=== PATIENT | female | born 1935 | race Caucasian/White ===

== ENCOUNTER 2017-11-20 20:07 | Emergency (ER) | payer MEDICARE, OTHER ==
[2017-11-20] MEDS ORDERED: ONDANSETRON 4 MG TAB.RAPDIS PO ONE (21:23)
--- NOTE | 2017-11-20 21:25 | ER Document Report ---
ED Medical Screen (RME) - General Chief Complaint: Vomiting Stated Complaint: VOMITING Time Seen by Provider: 11/20/17 21:23 Notes: Patient is an 82-year-old who presents emergency department with a chief complaint of nausea and vomiting after taking Tamiflu for 2 days. She was diagnosed with influenza B. Primary care is Dr. Cameron Figueroa. Otherwise denies any fevers, abdominal pain, diarrhea or constipation. Denies any urinary pyuria , hematuria, pelvic pressure. TRAVEL OUTSIDE OF THE [place] IN LAST 30 DAYS: No - Related Data Allergies/Adverse Reactions: acetaminophen [From Tylenol] Allergy (Verified 11/20/17 20:11) aspirin Allergy (Verified 11/20/17 20:11) codeine Allergy (Verified 11/20/17 20:11) ibuprofen [From Motrin] Allergy (Verified 11/20/17 20:11) MATHIEU Inhibitors Adverse Reaction (Verified 11/20/17 20:11) Past Medical History - Social History Frequency of alcohol use: None Drug Abuse: None - Past Medical History Cardiac Medical History: Reports: Hx Hypercholesterolemia, Hx Hypertension Endocrine Medical History: Reports: Hx Diabetes Mellitus Type 2 Renal/ Medical History: Denies: Hx Peritoneal Dialysis Physical Exam - Vital signs Vitals: Temp Pulse Resp BP Pulse Ox 99.1 F 80 16 142/70 H 95 11/20/17 20:26 11/20/17 20:26 11/20/17 20:26 11/20/17 20:26 11/20/17 20:26 - Notes Notes: PHYSICAL EXAM GENERAL: Alert, interacts well. HEAD: Normocephalic, atraumatic. EYES: Pupils equal, round, and reactive to light. Extraocular movements intact. ENT: Oral mucosa moist, tongue midline. NEUROLOGICAL: Alert and oriented x4. Normal speech. PSYCH: Normal affect, normal mood. Course - Vital Signs Vital signs: Temp Pulse Resp BP Pulse Ox 99.1 F 80 16 142/70 H 95 11/20/17 20:26 11/20/17 20:26 11/20/17 20:26 11/20/17 20:26 11/20/17 20:26
[2017-11-20 21:58] LABS: ABSOLUTE LYMPHOCYTES (AUTO) 1.2 10^3/uL (0.5-4.7); ABSOLUTE MONOCYTES (AUTO) 0.7 10^3/uL (0.1-1.4); ABSOLUTE NEUT (AUTO) 5.9 10^3/uL (1.7-8.2); BASOPHILS % (AUTO) 0.3 % (0-2); HEMATOCRIT 39.6 % (36.0-47.0); HEMOGLOBIN 13.5 g/dL (12.0-15.5); LYMPHOCYTES % (AUTO) 15.5 % (13-45); MEAN CORPUSCULAR HEMOGLOBIN 28.4 pg (27.0-33.4); MEAN CORPUSCULAR HGB CONC 34.1 g/dL (32.0-36.0); MEAN CORPUSCULAR VOLUME 83 fl (80-97); PLATELET COUNT 177 10^3/uL (150-450); RED BLOOD COUNT 4.75 10^6/uL (3.72-5.28); RED CELL DISTRIBUTION WIDTH 15.9 % (11.5-14.0); SEGMENTED NEUTROPHILS % (AUTO) 75.2 % (42-78); TOTAL CELLS COUNTED % (AUTO) 100 %; WHITE BLOOD COUNT 7.8 10^3/uL (4.0-10.5)
[2017-11-20 22:15] LABS: ALANINE AMINOTRANSFERASE 28 U/L (9-52); ALBUMIN 4.2 g/dL (3.5-5.0); ALKALINE PHOSPHATASE 42 U/L (38-126); ANION GAP 12 (5-19); ASPARTATE AMINO TRANSFERASE 31 U/L (14-36); BILIRUBIN,DIRECT 0.2 mg/dL (0.0-0.4); BILIRUBIN,TOTAL 0.4 mg/dL (0.2-1.3); BLOOD UREA NITROGEN 18 mg/dL (7-20); CALCIUM 10.3 mg/dL (8.4-10.2); CARBON DIOXIDE 25 mmol/L (22-30); CHLORIDE 98 mmol/L (98-107); GLUCOSE 182 mg/dL (75-110); LIPASE 158.8 U/L (23-300); POTASSIUM 3.6 mmol/L (3.6-5.0); SODIUM 135.2 mmol/L (137-145); TOTAL PROTEIN 7.6 g/dL (6.3-8.2)
--- NOTE | 2017-11-20 22:53 | ER Document Report ---
ED General - General Chief Complaint: Vomiting Stated Complaint: VOMITING Time Seen by Provider: 11/20/17 21:23 Notes: Patient is an 82-year-old female who presents with 2 days of persistent vomiting. Patient reports that she was diagnosed with influenza B 3 days ago, started on Tamiflu and Mucinex at that time. Patient reports that since that time, each time she takes Tamiflu she developed several hours of persistent vomiting. She states that during these episodes of vomiting she is unable to tolerate any oral intake. Nothing seems to improve or worsen her symptoms when they are present. She has had loose stools. She notes that she has had subjective fevers at home but has not recorded her temperature. She does note a dry, nonproductive cough. Her primary care doctor is the one who originally diagnosed with influenza B and started her on Tamiflu. No known sick contacts. She denies any headache, neck pain, focal weakness or numbness, confusion, or focal abdominal pain. TRAVEL OUTSIDE OF THE [place] IN LAST 30 DAYS: No - Related Data Allergies/Adverse Reactions: acetaminophen [From Tylenol] Allergy (Verified 11/20/17 20:11) aspirin Allergy (Verified 11/20/17 20:11) codeine Allergy (Verified 11/20/17 20:11) ibuprofen [From Motrin] Allergy (Verified 11/20/17 20:11) MATHIEU Inhibitors Adverse Reaction (Verified 11/20/17 20:11) Past Medical History - General Information source: Patient - Social History Smoking Status: Former Smoker Frequency of alcohol use: None Drug Abuse: None Lives with: Family Family History: Reviewed & Not Pertinent Patient has suicidal ideation: No Patient has homicidal ideation: No - Past Medical History Cardiac Medical History: Reports: Hx Hypercholesterolemia, Hx Hypertension Endocrine Medical History: Reports: Hx Diabetes Mellitus Type 2 Renal/ Medical History: Denies: Hx Peritoneal Dialysis Review of Systems - Review of Systems Notes: Constitutional: Positive for fever. HENT: Negative for sore throat. Eyes: Negative for visual changes. Cardiovascular: Negative for chest pain. Respiratory: Negative for shortness of breath. Positive for cough Gastrointestinal: Negative for abdominal pain, positive for vomiting and diarrhea Genitourinary: Negative for dysuria. Musculoskeletal: Negative for back pain. Skin: Negative for rash. Neurological: Negative for headaches, weakness or numbness. 10 point ROS negative except as marked above and in HPI. Physical Exam - Vital signs Vitals: Temp Pulse Resp BP Pulse Ox 99.1 F 80 16 142/70 H 95 11/20/17 20:26 11/20/17 20:26 11/20/17 20:26 11/20/17 20:26 11/20/17 20:26 Interpretation: Normal Notes: PHYSICAL EXAMINATION: GENERAL: Well-appearing, well-nourished and in no acute distress. HEAD: Atraumatic, normocephalic. EYES: Pupils equal round and reactive to light, extraocular movements intact, sclera anicteric, conjunctiva are normal. ENT: nares patent, oropharynx clear without exudates. Moderately dry mucous membranes. NECK: Normal range of motion, supple without lymphadenopathy LUNGS: Breath sounds clear to auscultation bilaterally and equal. No wheezes rales or rhonchi. HEART: Regular rate and rhythm without murmurs ABDOMEN: Soft, nontender, normoactive bowel sounds. No guarding, no rebound. No masses appreciated. EXTREMITIES: Normal range of motion, no pitting or edema. No cyanosis. NEUROLOGICAL: No focal neurological deficits. Moves all extremities spontaneously and on command. PSYCH: Normal mood, normal affect. SKIN: Warm, Dry, normal turgor, no rashes or lesions noted. Course - Re-evaluation Re-evalutation: 11/20/17 22:53 Patient presents with persistent vomiting in the setting of starting Tamiflu 2 days ago. Patient states that each time she takes the medication, she develops persistent vomiting that lasts for approximately 3-4 hours and then resolves. She has been able to tolerate oral intake in between episodes of vomiting. She denies any focal abdominal pain and is otherwise well in appearance. No focal abdominal tenderness on examination. She has been able to tolerate oral intake in the emergency department. Labs unremarkable with exception of mild hyperglycemia. Her clinical history and exam are not consistent with acute biliary pathology, small bowel obstruction, acute appendicitis, acute pancreatitis, pneumonia, or any other life-threatening pathology. At this time will discharge with return precautions and follow-up recommendations. Verbal discharge instructions given a the bedside and opportunity for questions given. Medication warnings reviewed. Patient is in agreement with this plan and has verbalized understanding of return precautions and the need for primary care follow-up in the next 24-72 hours. - Vital Signs Vital signs: Temp Pulse Resp BP Pulse Ox 98.8 F 71 20 114/62 96 11/20/17 23:40 11/20/17 23:40 11/20/17 23:40 11/20/17 23:40 11/20/17 23:40 - Laboratory Result Diagrams: 11/20/17 21:52 11/20/17 21:52 Laboratory results interpreted by me: 11/20/17 11/20/17 21:52 21:52 RDW 15.9 H Sodium 135.2 L Glucose 182 H Calcium 10.3 H Discharge - Discharge Clinical Impression: Vomiting Qualifiers: Vomiting type: unspecified Vomiting Intractability: non-intractable Nausea presence: with nausea Qualified Code(s): R11.2 - Nausea with vomiting, unspecified Medication reaction Qualifiers: Encounter type: initial encounter Qualified Code(s): T88.7XXA - Unspecified adverse effect of drug or medicament, initial encounter Condition: Good Disposition: HOME, SELF-CARE Additional Instructions: Please discontinue taking Tamiflu as this medication is not effective and is likely the cause of your symptoms. I would also stop the Mucinex that your taking as this likewise is not providing you any significant benefit. Return if you become unable to tolerate fluids for more than 12 hours, have abdominal pain, pass out, have difficulty breathing, or have any other symptoms that are worrisome to you. Referrals: SHEN KEITA MD [Primary Care Provider] - Follow up as needed
[2017-11-20 23:08] VITALS: BP 114/62
== END 2017-11-20 23:36 | disposition home or self-care (01) ==
LOC: ER 20:07
DX: R11.2 Nausea with vomiting, unspecified (principal); R50.9 Fever, unspecified; T50.905A Adverse effect of unspecified drugs, medicaments and biological substances, initial encounter; E78.00 Pure hypercholesterolemia, unspecified; I10 Essential (primary) hypertension; E11.9 Type 2 diabetes mellitus without complications; Z88.6 Allergy status to analgesic agent; Z87.891 Personal history of nicotine dependence
CPT/HCPCS: 99284; 36415; 83690; 85025; 80053; A9270; S0119

== ENCOUNTER 2017-11-28 06:05 | Inpatient (IN) | payer MEDICARE, OTHER ==
--- NOTE | 2017-11-28 07:46 | ER Document Report ---
ED General - General Mode of Arrival: Ambulatory Information source: Patient TRAVEL OUTSIDE OF THE [place] IN LAST 30 DAYS: No - HPI Patient complains to provider of: Left shoulder Pain Onset: Other - last night Associated symptoms: Other - see notes above Exacerbated by: Sitting, Coughing <JM CASTELLANO - Last Filed: 11/28/17 15:00> <JOANN HALL - Last Filed: 11/28/17 15:04> - General Chief Complaint: Shoulder Pain Stated Complaint: SHOULDER PAIN Time Seen by Provider: 11/28/17 07:32 Notes: 82 year old female recently diagnosed with influenza (last week; prescribed Tamiflu) presents to the ED complaining of throbbing and aching left shoulder pain that started last night. Patient reports that her pain is exacerbated with coughing and when sitting up. Patient additionally complains of cough, pursed lip breathing, a "burning" kidney, and caking of the bilateral eyes. Patient denies shortness of breath. Patient was seen here 2 days ago for vomiting and diarrhea secondary to Tamiflu. (JM CASTELLANO) - Related Data Allergies/Adverse Reactions: acetaminophen [From Tylenol] Allergy (Verified 11/28/17 10:40) aspirin Allergy (Verified 11/28/17 10:40) codeine Allergy (Verified 11/28/17 10:40) ibuprofen [From Motrin] Allergy (Verified 11/28/17 10:40) MATHIEU Inhibitors Adverse Reaction (Verified 11/28/17 10:40) Past Medical History - General Information source: Patient - Social History Smoking Status: Former Smoker Chew tobacco use (# tins/day): No Frequency of alcohol use: None Drug Abuse: None Family History: Reviewed & Not Pertinent - Past Medical History Cardiac Medical History: Reports: Hx Hypercholesterolemia, Hx Hypertension Endocrine Medical History: Reports: Hx Diabetes Mellitus Type 2 Renal/ Medical History: Denies: Hx Peritoneal Dialysis <JM CASTELLANO - Last Filed: 11/28/17 15:00> Review of Systems - Review of Systems Constitutional: No symptoms reported EENT: No symptoms reported Cardiovascular: No symptoms reported Respiratory: See HPI, Cough. denies: Short of breath Gastrointestinal: No symptoms reported Genitourinary: See HPI, Burning - of the kidneys Female Genitourinary: No symptoms reported Musculoskeletal: See HPI, Joint pain - right shoulder Skin: No symptoms reported Hematologic/Lymphatic: No symptoms reported Neurological/Psychological: No symptoms reported -: Yes All other systems reviewed and negative <JM CASTELLANO - Last Filed: 11/28/17 15:00> Physical Exam <JM CASTELLANO - Last Filed: 11/28/17 15:00> <JOANN HALL - Last Filed: 11/28/17 15:04> - Vital signs Vitals: Temp Pulse Resp BP Pulse Ox 97.7 F 88 24 H 130/70 H 95 11/28/17 06:14 11/28/17 06:14 11/28/17 06:14 11/28/17 06:14 11/28/17 06:14 - Notes Notes: GENERAL: Alert, interacts well. Mildly short of breath. HEAD: Normocephalic, atraumatic. EYES: Pupils equal, round, and reactive to light. Extraocular movements intact. Minimal conjunctiva injection, bilaterally. ENT: Oral mucosa moist, tongue midline. NECK: Full range of motion. Supple. Trachea midline. LUNGS: Expiratory wheezing anteriorly that clears with coughing. Tachypnic. Occasional pursed breathing. Right lower lobe rhonchi with inspiratory and expiratory squeaking. No rales. Mild respiratory distress with occasional pursed lip breathing. HEART: Regular rate and rhythm. No murmurs, gallops, or rubs. ABDOMEN: Soft. Non-distended. Bowel sounds present in all 4 quadrants. LUQ tenderness to palpation. EXTREMITIES: Moves all 4 extremities spontaneously. No edema, radial and dorsalis pedis pulses 2/4 bilaterally. No cyanosis. Tenderness to palpation over the left trapezius. NEUROLOGICAL: Alert and oriented x3. Normal speech. PSYCH: Normal affect, normal mood. SKIN: Warm, dry, normal turgor. No rashes or lesions noted. (JM CASTELLANO) Course - Laboratory Result Diagrams: 11/28/17 08:25 11/28/17 08:25 - Consults Dr. Woo Time consulted: 09:59 <JM CASTELLANO - Last Filed: 11/28/17 15:00> - Laboratory Result Diagrams: 11/28/17 08:25 11/28/17 08:25 <JOANN HALL - Last Filed: 11/28/17 15:04> - Re-evaluation Re-evalutation: 11/28/17 10:02 CBC unremarkable, no left shift, CMP shows low sodium at 131.8 elevated blood sugar with glucose of 230 consistent with history of diabetes, troponin indeterminate at 0.093, urinalysis shows small leukocyte esterase, small blood, trace ketones. This will be sent for culture. Chest x-ray shows left-sided bandlike airspace disease just above the hemidiaphragm atelectasis versus pneumonia. Given her recent influenza and her increased cough and visible shortness of breath I am concerned that this may represent pneumonia despite the lack of a leukocytosis or fever, patient will be treated with Levaquin as she does have underlying structural lung disease. I am also concerned the left shoulder pain may be an anginal equivalent. Patient will be given Plavix that she is allergic to aspirin. Initial cardiac enzymes are indeterminate although the EKG is nonischemic. Patient was discussed with Dr. Woo from the hospitalist service who agrees to place the patient on his service in observation status. Patient and family are aware of this plan. Patient will be given nitroglycerin to see if it resolves the left shoulder pain, patient will also be given a Lidoderm patch in case the shoulder pain is coming from a musculoskeletal etiology. Her shoulder pain is not completely reproducible on examination. ( JOANN HALL) - Vital Signs Vital signs: Temp Pulse Resp BP Pulse Ox 98.1 F 88 26 H 107/57 L 94 11/28/17 14:00 11/28/17 06:14 11/28/17 14:11 11/28/17 14:12 11/28/17 14:11 - Laboratory Laboratory results interpreted by me: 11/28/17 11/28/17 11/28/17 08:25 08:25 08:36 RDW 15.2 H Lymphocytes % 12.1 L Sodium 131.8 L Chloride 97 L Glucose 230 H Calcium 10.4 H Direct Bilirubin 0.5 H Urine Protein 30 H Urine Glucose (UA) 50 H Urine Ketones TRACE H Urine Blood SMALL H Ur Leukocyte Esterase SMALL H - EKG Interpretation by Me Additional EKG results interpreted by me: 11/28/17 10:04 EKG shows sinus rhythm with a left bundle branch block, negative sgarbossa criteria, no T-wave inversions, there are some biphasic T waves in lead I and aVL per my interpretation. (JOANN HALL) - Consults Dr. Woo Reason for consultation: 11/28/17 09:[address] Woo who agrees to admit the patient under his care. (JM CASTELLANO) Discharge <JM CASTELLANO - Last Filed: 11/28/17 15:00> - Discharge Admitting Provider: Nanette Woo Unit Admitted: Telemetry <JOANN HALL - Last Filed: 11/28/17 15:04> - Discharge Clinical Impression: Troponin level elevated, Anginal equivalent Left lower lobe pneumonia Qualifiers: Pneumonia type: due to unspecified organism Qualified Code(s): J18.1 - Lobar pneumonia, unspecified organism Left shoulder pain Qualifiers: Chronicity: acute Qualified Code(s): M25.512 - Pain in left shoulder Diabetes mellitus with hyperglycemia, with long-term current use of insulin Qualifiers: Diabetes mellitus type: type 2 Qualified Code(s): E11.65 - Type 2 diabetes mellitus with hyperglycemia Condition: Fair Disposition: ADMITTED OBSERVATION Scribe Attestation: 11/28/17 15:04 I personally performed the services described in the documentation, reviewed and edited the documentation which was dictated to the scribe in my presence, and it accurately records my words and actions. (JOANN HALL) Scribe Documentation - Scribe Written by Lilliane:: Ralph Saini, 11/28/2017 0833 acting as scribe for :: Coni <JM CASTELLANO - Last Filed: 11/28/17 15:00>
--- NOTE | 2017-11-28 08:18 | RADIOLOGY REPORT (SQ) ---
EXAM DESCRIPTION: CHEST PA/LAT COMPLETED DATE/TIME: 11/28/2017 8:00 am REASON FOR STUDY: cough, left shoulder pain COMPARISON: None. EXAM PARAMETERS: NUMBER OF VIEWS: two views TECHNIQUE: Digital Frontal and Lateral radiographic views of the chest acquired. RADIATION DOSE: NA LIMITATIONS: none FINDINGS: LUNGS AND PLEURA: Old right thoracotomy defect along the posterior right 6th rib, with vol ume loss in the right hemithorax likely post lobectomy. Bandlike airspace just above the left hemidiaphragm, atelectasis versus pneumonia. No pneumothorax or pleural effusions. MEDIASTINUM AND HILAR STRUCTURES: No masses or contour abnormalities. HEART AND VASCULAR STRUCTURES: Heart normal size. No evidence for failure. BONES: No acute findings. HARDWARE: None in the chest. OTHER: No other significant finding. IMPRESSION: Old right thoracotomy and probable lobectomy. Bandlike airspace disease left lung base just above the hemidiaphragm, atelectasis versus pneumonia TECHNICAL DOCUMENTATION: JOB ID: [id number] [employer]- All Rights Reserved
[2017-11-28 08:41] LABS: ABSOLUTE LYMPHOCYTES (AUTO) 1.2 10^3/uL (0.5-4.7); ABSOLUTE MONOCYTES (AUTO) 1.1 10^3/uL (0.1-1.4); ABSOLUTE NEUT (AUTO) 7.2 10^3/uL (1.7-8.2); BASOPHILS % (AUTO) 0.3 % (0-2); EOSINOPHILS % (AUTO) 0.2 % (0-6); HEMATOCRIT 36.4 % (36.0-47.0); HEMOGLOBIN 12.4 g/dL (12.0-15.5); LYMPHOCYTES % (AUTO) 12.1 % (13-45); MEAN CORPUSCULAR VOLUME 82 fl (80-97); PLATELET COUNT 272 10^3/uL (150-450); RED BLOOD COUNT 4.42 10^6/uL (3.72-5.28); RED CELL DISTRIBUTION WIDTH 15.2 % (11.5-14.0); SEGMENTED NEUTROPHILS % (AUTO) 75.4 % (42-78); TOTAL CELLS COUNTED % (AUTO) 100 %; WHITE BLOOD COUNT 9.6 10^3/uL (4.0-10.5)
[2017-11-28 08:51] LABS: ALANINE AMINOTRANSFERASE 41 U/L (9-52); ALBUMIN 3.5 g/dL (3.5-5.0); ALKALINE PHOSPHATASE 43 U/L (38-126); ANION GAP 12 (5-19); ASPARTATE AMINO TRANSFERASE 24 U/L (14-36); BILIRUBIN,DIRECT 0.5 mg/dL (0.0-0.4); BILIRUBIN,TOTAL 0.9 mg/dL (0.2-1.3); BLOOD UREA NITROGEN 14 mg/dL (7-20); CALCIUM 10.4 mg/dL (8.4-10.2); CARBON DIOXIDE 23 mmol/L (22-30); CHLORIDE 97 mmol/L (98-107); CREATINE KINASE 32 U/L (30-135); GLUCOSE 230 mg/dL (75-110); LIPASE 64.8 U/L (23-300); SODIUM 131.8 mmol/L (137-145); TOTAL PROTEIN 7.5 g/dL (6.3-8.2)
[2017-11-28 08:53] LABS: APPEARANCE,URINE SLIGHTLY-CLOUDY; BILIRUBIN,URINE NEGATIVE (NEGATIVE); COLOR,URINE YELLOW; GLUCOSE, URINE 50 mg/dL (NEGATIVE); KETONES,URINE TRACE mg/dL (NEGATIVE); LEUKOCYTE ESTERASE,URINE SMALL (NEGATIVE); NITRITE,URINE NEGATIVE (NEGATIVE); PROTEIN,URINE 30 mg/dL (NEGATIVE); URINE SPECIFIC GRAVITY 1.012; UROBILINOGEN,URINE NEGATIVE mg/dL (<2.0)
[2017-11-28 09:09] LABS: CREATINE KINASE MB 0.96 ng/mL (<4.55)
[2017-11-28 09:15] LABS: TROPONIN I 0.093 ng/mL
[2017-11-28] MEDS ORDERED: CLOPIDOGREL BISULFATE 75 MG TABLET PO ONE (09:43)
[2017-11-28] MEDS ORDERED: LIDOCAINE 4% TOPICAL SOLN 50 ML TOP ONE (09:43)
[2017-11-28] MEDS ORDERED: NITROGLYCERIN 0.4 MG/TAB 25 TAB/BOTTLE SL PRN (09:43)
[2017-11-28] MEDS ORDERED: EXENATIDE INJ 10 MCG/0.04 ML 2.4 ML PEN.INJCTR SUBCUT SCH ×2 (09:45→18:00)
[2017-11-28] MEDS ORDERED: LEVOFLOXACIN 750 MG/D5W RTU 750 MG/150 ML RTUPB IV ONE (09:58)
[2017-11-28] MEDS ORDERED: MAG HYDROX/AL HYDROX/SIMETH SUSP 30 ML UDCUP PO PRN (10:35)
[2017-11-28] MEDS ORDERED: ONDANSETRON HCL INJ/PF 4 MG/2 ML SDV IV PRN (10:35)
[2017-11-28] MEDS ORDERED: ACETAMINOPHEN 325 MG TABLET PO PRN (10:35)
--- NOTE | 2017-11-28 11:09 | PDOC H&P ---
History of Present Illness Admission Date/PCP: 11/28/17 10:29 SHEN KEITA MD History of Present Illness: ROSA WEAVER is a 82 year old female who presents with persistent cough and left shoulder pain. She was diagnosed with influenza B about 2 weeks ago. She was prescribed Tamiflu, which he only took 1 days worth of therapy due to side effects. She has been coughing ever since. She also reports general malaise. This morning she had difficulty getting out of bed due to left shoulder discomfort. Her left shoulder pain is worse when she lays flat. Currently she is sitting or laying at a incline which is providing some relief. She did not experience elliott chest pain. She did not experience shortness of breath. She did not experience nausea, vomiting, diaphoresis, or palpitations. With respect to her recent flu infection, she attempted to use Mucinex, but discontinued it because, her "kidneys were hurting". She has a history of smoking cigarettes. She quit in 1980. 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 Past Medical History Cardiac Medical History: Reports: Hyperlipidema, Hypertension Endocrine Medical History: Reports: Diabetes Mellitus Type 2 Past Surgical History Past Surgical History: Reports: Other - Right lower lobectomy Social History Information Source: Patient Lives with: Alone Smoking Status: Former Smoker Frequency of Alcohol Use: None Hx Recreational Drug Use: No Drugs: None Hx Prescription Drug Abuse: No - Advance Directive Resuscitation Status: Full Code Family History Family History: Reviewed & Not Pertinent Parental Family History Reviewed: No Children Family History Reviewed: No Sibling(s) Family History Reviewed.: No Medication/Allergy Home Medications: Citalopram Hydrobromide [Celexa 20 mg Tablet] 20 mg PO DAILY 11/28/17 Exenatide [Byetta Inj 10 Mcg/0.04 ml 2.4 ml Pen.injctr] 10 mcg SUBCUT DAILY Fenofibric Acid (Choline) [Trilipix] 135 mg PO QHS 11/28/17 Gabapentin [Neurontin 300 mg Capsule] 300 mg PO QHS 11/28/17 Hydrochlorothiazide [Hydrodiuril 25 mg Tablet] 25 mg PO QAM 11/28/17 Losartan Potassium [Cozaar 100 mg Tablet] 100 mg PO DAILY 11/28/17 Metformin HCl [Glucophage XR 500 mg Tablet] 1,000 mg PO DAILY 11/28/17 Tolterodine Tartrate [Detrol LA] 2 mg PO DAILY 11/28/17 Allergies/Adverse Reactions: acetaminophen [From Tylenol] Allergy (Verified 11/28/17 10:40) aspirin Allergy (Verified 11/28/17 10:40) codeine Allergy (Verified 11/28/17 10:40) ibuprofen [From Motrin] Allergy (Verified 11/28/17 10:40) MATHIEU Inhibitors Adverse Reaction (Verified 11/28/17 10:40) Review of Systems Constitutional: PRESENT: weakness. ABSENT: chills, fatigue, fever(s), night sweats Cardiovascular: ABSENT: chest pain, dyspnea on exertion, edema, orthropnea, palpitations Respiratory: PRESENT: cough, dyspnea - With exertion, sputum. ABSENT: hemoptysis Gastrointestinal: ABSENT: abdominal pain, constipation, diarrhea, hematemesis, hematochezia, nausea, vomiting Neurological: ABSENT: abnormal gait, abnormal speech, confusion, dizziness, focal weakness, syncope Psychiatric: ABSENT: anxiety, depression, homidical ideation, suicidal ideation Endocrine: ABSENT: cold intolerance, heat intolerance, polydipsia, polyuria Physical Exam Vital Signs: Temp Pulse Resp BP Pulse Ox 97.7 F 88 27 H 117/73 94 11/28/17 06:14 11/28/17 06:14 11/28/17 10:17 11/28/17 10:17 11/28/17 10:17 General appearance: PRESENT: no acute distress, cooperative, well-developed, well-nourished Head exam: PRESENT: atraumatic, normocephalic Eye exam: PRESENT: conjunctiva pink, EOMI, PERRLA Ear exam: PRESENT: normal external ear exam, TM's normal bilaterally Mouth exam: PRESENT: moist, neck supple Teeth exam: PRESENT: other - Upper and lower dentures Throat exam: ABSENT: post pharyngeal erythema, tonsillar erythema Neck exam: ABSENT: carotid bruit, JVD, lymphadenopathy, thyromegaly Respiratory exam: PRESENT: clear to auscultation jennifer. ABSENT: rales, rhonchi, wheezes Cardiovascular exam: PRESENT: RRR. ABSENT: diastolic murmur, rubs, systolic murmur Pulses: PRESENT: normal dorsalis pedis pul GI/Abdominal exam: PRESENT: normal bowel sounds, soft. ABSENT: distended, guarding, mass, organolmegaly, rebound, tenderness Rectal exam: PRESENT: deferred Musculoskeletal exam: PRESENT: ambulatory Neurological exam: PRESENT: alert, awake, oriented to person, oriented to place , oriented to time, oriented to situation, CN II-XII grossly intact. ABSENT: motor sensory deficit Psychiatric exam: PRESENT: appropriate affect, normal mood. ABSENT: homicidal ideation, suicidal ideation Skin exam: PRESENT: dry, intact, warm. ABSENT: cyanosis, rash Results Impressions: Chest X-Ray 11/28/17 07:33 IMPRESSION: Old right thoracotomy and probable lobectomy. Bandlike airspace disease left lung base just above the hemidiaphragm, atelectasis versus pneumonia Assessment & Plan - Diagnosis (1) Left lower lobe pneumonia Qualifiers: Pneumonia type: due to unspecified organism Qualified Code(s): J18.1 - Lobar pneumonia, unspecified organism Is this a current diagnosis for this admission?: Yes Plan: The x-ray suggests atelectasis. However given her recent history of influenza, the abnormality on the chest x-ray, and her ongoing symptoms, she may very well have a pneumonia. She was started on Levaquin in the emergency department. I will continue Levaquin. I will also cover her with vancomycin for the potential for MRSA infection. Blood cultures have been obtained. (2) Diabetes mellitus with hyperglycemia, with long-term current use of insulin Qualifiers: Diabetes mellitus type: type 2 Qualified Code(s): E11.65 - Type 2 diabetes mellitus with hyperglycemia; Z79.4 - [facility] (current) use of insulin; Z79.4 - [facility] (current) use of insulin; Z79.4 - [facility]termaker (current) use of insulin ; Z79.4 - buttermaker (current) use of insulin Is this a current diagnosis for this admission?: Yes Plan: Continue home meds. Include sliding scale for insulin. (3) Left shoulder pain Qualifiers: Chronicity: acute Qualified Code(s): M25.512 - Pain in left shoulder Plan: Check left shoulder x-ray. Consider MRI of the shoulder as well. Mobic daily for pain. (4) Troponin level elevated Is this a current diagnosis for this admission?: Yes Plan: She does not have angina. Her left shoulder pain is reproducible with movement and palpation. Her ECG showed sinus rhythm with a left bundle branch block. The rate was normal at 71 bpm. I am not sure how to explain her elevated/ borderline troponin. Nevertheless, I will continue her on telemetry. I have also ordered repeat troponin levels. If they continue to rise, I will get a cardiology consult. She reportedly has an allergy to aspirin. She was given Plavix in the ED. I will continue Plavix for now until her enzymes have been reported. - Time Time Spent: 50 to 70 Minutes Medications reviewed and adjusted accordingly: Yes Anticipated discharge: Home Within: within 48 hours - Inpatient Certification Based on my medical assessment, after consideration of the patient's comorbidities, presenting symptoms, or acuity I expect that the services needed warrant INPATIENT care.: Yes I certify that my determination is in accordance with my understanding of Medicare's requirements for reasonable and necessary INPATIENT services [42 CFR 412.3e].: Yes Medical Necessity: Failure to Improve With Outpatient Therapy, Need For IV Fluids, Need For Continuous Telemetry Monitoring, Need for IV Antibiotics
[2017-11-28] MEDS ORDERED: VANCOMYCIN HCL INJ 1000 MG VIAL IV ONE (11:12)
[2017-11-28] MEDS ORDERED: DEXTROSE 40% GEL 15 GM TUBE PO PRN ×2 (11:13)
[2017-11-28] MEDS ORDERED: DEXTROSE 50%-WATER 25 GM/50 ML DISP.SYRIN IV PRN ×2 (11:13)
[2017-11-28] MEDS ORDERED: GLUCAGON,HUMAN RECOMB 1 MG INJ IM PRN (11:13)
[2017-11-28] MEDS ORDERED: (PENDING PHARMACY ID) (Tolterodine Tartrate [Detrol La] 2 MG) PO SCH (11:15)
[2017-11-28 11:47] LABS: A TYPE INFLUENZA AG NEGATIVE (NEGATIVE); B INFLUENZA AG NEGATIVE (NEGATIVE)
--- NOTE | 2017-11-28 13:02 | RADIOLOGY REPORT (SQ) ---
EXAM DESCRIPTION: SHOULDER LEFT 2 OR MORE VIEWS COMPLETED DATE/TIME: 11/28/2017 12:48 pm REASON FOR STUDY: pain A49.9 BACTERIAL INFECTION, UNSPECIFIED COMPARISON: None. NUMBER OF VIEWS: Three views. TECHNIQUE: Internal rotation, external rotation, and Y view images acquired of the left shoulder. LIMITATIONS: None. FINDINGS: MINERALIZATION: Osteopenic BONES: No acute fracture or dislocation. No worrisome bone lesions. JOINTS: No glenohumeral joint dislocation. No AC joint widening. VISUALIZED LUNGS AND RIBS: No acute displaced rib fracture in the field of view. Minimal left basila r atelectasis. No pneumothorax. SOFT TISSUES: No radiopaque foreign body. OTHER: No other significant finding. IMPRESSION: No acute fracture or malalignment Minimal left basilar atelectasis TECHNICAL DOCUMENTATION: JOB ID: [id number] [employer]- All Rights Reserved
[2017-11-28] MEDS: 1/2 NORMAL SALINE 1,000 ML IV PRN (13:19)
--- NOTE | 2017-11-28 13:24 | EKG REPORT ---
SEVERITY:- ABNORMAL ECG - SINUS RHYTHM LEFT BUNDLE BRANCH BLOCK : Confirmed by: Ji Lobo MD 28-Nov-2017 13:23:06
[2017-11-28] MEDS ORDERED: METFORMIN HCL 500 MG TABLET PO ONE (13:30)
[2017-11-28] MEDS ORDERED: LIDOCAINE 5% (700 MG) TRANSDERMAL ADH..PATCH TP ONE (13:30)
[2017-11-28] MEDS ORDERED: LOSARTAN POTASSIUM 50 MG TABLET PO ONE (13:30)
[2017-11-28] MEDS: GENTAMICIN SULFATE 0.3% OPH SOLN 5 ML OU SCH ×3 (14:08→22:17)
[2017-11-28] MEDS ORDERED: EXENATIDE INJ 10 MCG/0.04 ML 2.4 ML PEN.INJCTR SUBCUT ONE (16:45)
[2017-11-28] MEDS: DOCUSATE SODIUM 100 MG CAPSULE PO SCH (17:57)
[2017-11-28] MEDS ORDERED: TEMAZEPAM 7.5 MG CAPSULE PO PRN (18:43)
[2017-11-28] MEDS ORDERED: VANCOMYCIN HCL 1,500 MG in DEXTROSE 5%-WATER 250 ML IV ONE (20:00)
[2017-11-28] MEDS: TRAMADOL HCL 50 MG TABLET PO PRN (20:01)
[2017-11-28] MEDS: IPRATROPIUM/ALBUTEROL 0.5-2.5 MG/3 ML AMPUL NEB PRN (21:17)
[2017-11-28] MEDS ORDERED: (PENDING PHARMACY ID) (Fenofibric Acid (Choline) [Trilipix] 135 MG) PO SCH (22:00)
[2017-11-28] MEDS: GABAPENTIN 300 MG CAPSULE PO SCH (22:13)
[2017-11-28] MEDS: METFORMIN HCL 500 MG TABLET PO SCH (22:13)
[2017-11-28] MEDS: FENOFIBRATE NANOCRYSTALLIZED 145 MG TABLET PO SCH (22:14)
[2017-11-28] MEDS: TOLTERODINE TARTRATE 1 MG TABLET PO SCH (22:18)
[2017-11-28] MEDS: CEFTRIAXONE SODIUM 1,000 MG in NORMAL SALINE 100 ML IV SCH (22:19)
[2017-11-28] MEDS: INSULIN LISPRO 100 UNIT/ML 3 ML VIAL SUBCUT PRN (22:20)
[2017-11-29] MEDS: GENTAMICIN SULFATE 0.3% OPH SOLN 5 ML OU SCH ×6 (03:09→22:14)
[2017-11-29] MEDS: TRAMADOL HCL 50 MG TABLET PO PRN (03:14)
[2017-11-29] MEDS: VANCOMYCIN HCL 500 MG in DEXTROSE 5%-WATER 100 ML IV SCH ×2 (05:31→17:13)
[2017-11-29] MEDS: 1/2 NORMAL SALINE 1,000 ML IV PRN (05:32)
[2017-11-29 06:13] LABS: ABSOLUTE EOSINOPHILS # (AUTO) 0.1 10^3/uL (0.0-0.6); ABSOLUTE LYMPHOCYTES (AUTO) 1.5 10^3/uL (0.5-4.7); ABSOLUTE MONOCYTES (AUTO) 0.9 10^3/uL (0.1-1.4); ABSOLUTE NEUT (AUTO) 5.5 10^3/uL (1.7-8.2); BASOPHILS % (AUTO) 0.3 % (0-2); EOSINOPHILS % (AUTO) 0.7 % (0-6); HEMOGLOBIN 11.8 g/dL (12.0-15.5); LYMPHOCYTES % (AUTO) 19.2 % (13-45); MEAN CORPUSCULAR HEMOGLOBIN 27.9 pg (27.0-33.4); MEAN CORPUSCULAR HGB CONC 33.7 g/dL (32.0-36.0); MEAN CORPUSCULAR VOLUME 83 fl (80-97); MONOCYTES % (AUTO) 10.7 % (3-13); PLATELET COUNT 252 10^3/uL (150-450); RED BLOOD COUNT 4.23 10^6/uL (3.72-5.28); RED CELL DISTRIBUTION WIDTH 14.8 % (11.5-14.0); SEGMENTED NEUTROPHILS % (AUTO) 69.1 % (42-78); TOTAL CELLS COUNTED % (AUTO) 100 %
[2017-11-29 06:33] LABS: ALANINE AMINOTRANSFERASE 45 U/L (9-52); ALBUMIN 3.2 g/dL (3.5-5.0); ALKALINE PHOSPHATASE 42 U/L (38-126); ANION GAP 10 (5-19); ASPARTATE AMINO TRANSFERASE 33 U/L (14-36); BILIRUBIN,DIRECT 0.1 mg/dL (0.0-0.4); BILIRUBIN,TOTAL 0.3 mg/dL (0.2-1.3); BLOOD UREA NITROGEN 15 mg/dL (7-20); CALCIUM 10.8 mg/dL (8.4-10.2); CARBON DIOXIDE 25 mmol/L (22-30); CHLORIDE 100 mmol/L (98-107); GLUCOSE 156 mg/dL (75-110); PHOSPHORUS 2.4 mg/dL (2.5-4.5); POTASSIUM 4.2 mmol/L (3.6-5.0); SODIUM 134.5 mmol/L (137-145); TOTAL PROTEIN 6.6 g/dL (6.3-8.2)
--- NOTE | 2017-11-29 08:31 | RADIOLOGY REPORT (SQ) ---
EXAM DESCRIPTION: CHEST PA/LAT COMPLETED DATE/TIME: 11/29/2017 7:46 am REASON FOR STUDY: pneumonia COMPARISON: 11/28/2017. EXAM PARAMETERS: NUMBER OF VIEWS: two views TECHNIQUE: Digital Frontal and Lateral radiographic views of the chest acquired. RADIATION DOSE: NA LIMITATIONS: none FINDINGS: LUNGS AND PLEURA: There is fibrotic scarring at the left lung base with left pleural thick ening. There is volume loss the right lung again noted consistent with postsurgical change MEDIASTINUM AND HILAR STRUCTURES: No masses or contour abnormalities. HEART AND VASCULAR STRUCTURES: The heart is normal with aortic atherosclerosis. BONES: Post thoracotomy changes right posterior 6th rib. HARDWARE: None in the chest. OTHER: Chest leads in place. IMPRESSION: Chronic left basilar scarring and pleural thickening. Otherwise, no acute disease. TECHNICAL DOCUMENTATION: JOB ID: [id number] [employer]- All Rights Reserved
[2017-11-29] MEDS ORDERED: LEVOFLOXACIN 500 MG TABLET PO SCH (10:00)
[2017-11-29] MEDS ORDERED: EXENATIDE INJ 10 MCG/0.04 ML 2.4 ML PEN.INJCTR SUBCUT SCH (10:00)
[2017-11-29] MEDS ORDERED: CEFTRIAXONE 1 GM/D5W RTU 1 GM/50 ML RTUPB IV SCH (10:00)
[2017-11-29] MEDS ORDERED: MELOXICAM 7.5 MG TABLET PO SCH (10:00)
[2017-11-29] MEDS: AZITHROMYCIN 250 MG TABLET PO SCH (10:01)
[2017-11-29] MEDS: CITALOPRAM HYDROBROMIDE 20 MG TABLET PO SCH (10:05)
[2017-11-29] MEDS: CLOPIDOGREL BISULFATE 75 MG TABLET PO SCH (10:06)
[2017-11-29] MEDS: DOCUSATE SODIUM 100 MG CAPSULE PO SCH ×2 (10:07→16:51)
[2017-11-29] MEDS: METFORMIN HCL 500 MG TABLET PO SCH (10:08)
[2017-11-29] MEDS: TOLTERODINE TARTRATE 1 MG TABLET PO SCH ×2 (10:09→22:16)
[2017-11-29] MEDS: ENOXAPARIN SODIUM INJ 40 MG/0.4 ML DISP.SYRIN SUBCUT SCH (10:13)
[2017-11-29] MEDS: LOSARTAN POTASSIUM 50 MG TABLET PO SCH (10:17)
[2017-11-29] MEDS: EXENATIDE INJ 10 MCG/0.04 ML 2.4 ML PEN.INJCTR SUBCUT SCH ×2 (10:39→17:13)
[2017-11-29] MEDS: LIDOCAINE 5% (700 MG) TRANSDERMAL ADH..PATCH TP SCH (10:47)
--- NOTE | 2017-11-29 11:29 | PDOC PROGRESS REPORT ---
Subjective Progress Note for:: 11/29/17 Subjective:: The patient is an 82-year-old female who has a history of lung cancer status post resection in 2003. Apparently, she was diagnosed with influenza B 2 weeks ago. She was given Tamiflu but did not take the entire course of treatment secondary to side effects from the medication. She now presents with a persistent cough and left shoulder pain. She has had no recent trauma to the shoulder. She is also noted to have hypercalcemia. Overnight, her troponins have been positive. However, they are in significantly positive for acute coronary syndrome. Reason For Visit: LEFT BASILAR PNEUMONIA Physical Exam Vital Signs: Temp Pulse Resp BP Pulse Ox 97.6 F 74 16 98/52 L 92 11/29/17 07:00 11/29/17 09:33 11/29/17 09:33 11/29/17 07:00 11/29/17 07:00 Intake & Output 11/28/17 11/29/17 11/30/17 06:59 06:59 06:59 Intake Total 2841 Balance 2841 Weight 41.5 kg Additional comments: Patient appears to be clearly in pain. Her pain is over the left shoulder and she points to her scapula. She has exquisite pain on the scapula. This is on the left side. Her lungs are clear to auscultation bilaterally. Her cardiac exam is regular without murmurs, gallops or rubs. The abdomen is soft and flat. Bowel sounds are present. She does not have guarding or rebound noted and there are no hernias or masses present. The lower extremities are warm to touch without edema. The skin is warm, dry and intact without lesions or rashes. The patient's mentation is appropriate. Results Laboratory Results: 11/29/17 06:04 11/29/17 06:04 11/29/17 11/29/17 06:04 06:04 WBC 8.0 RBC 4.23 Hgb 11.8 L Hct 35.0 L MCV 83 MCH 27.9 MCHC 33.7 RDW 14.8 H Plt Count 252 Seg Neutrophils % 69.1 Lymphocytes % 19.2 Monocytes % 10.7 Eosinophils % 0.7 Basophils % 0.3 Absolute Neutrophils 5.5 Absolute Lymphocytes 1.5 Absolute Monocytes 0.9 Absolute Eosinophils 0.1 Absolute Basophils 0.0 Sodium 134.5 L Potassium 4.2 Chloride 100 Carbon Dioxide 25 Anion Gap 10 BUN 15 Creatinine 0.80 Est GFR ( Amer) > 60 Est GFR (Non-Af Amer) > 60 Glucose 156 H Calcium 10.8 H Phosphorus 2.4 L Magnesium 1.8 Total Bilirubin 0.3 AST 33 ALT 45 Alkaline Phosphatase 42 Total Protein 6.6 Albumin 3.2 L 11/28/17 11/28/17 11/28/17 12:25 16:40 23:00 Troponin I 0.101 0.095 0.066 Impressions: Shoulder X-Ray 11/28/17 00:00 IMPRESSION: No acute fracture or malalignment Minimal left basilar atelectasis Chest X-Ray 11/29/17 10:39 IMPRESSION: Chronic left basilar scarring and pleural thickening. Otherwise, no acute disease. Assessment & Plan - Diagnosis (1) Left lower lobe pneumonia Qualifiers: Pneumonia type: due to unspecified organism Qualified Code(s): J18.1 - Lobar pneumonia, unspecified organism Is this a current diagnosis for this admission?: Yes Plan: Certainly, the patient's presentation could indicate bronchitis, but with 2 negative chest x-rays I think pneumonia is less likely. We will continue antibiotics for now. I will add steroids. Continue bronchodilators. (2) Hypercalcemia Is this a current diagnosis for this admission?: Yes Plan: I will check intact PTH. This presentation is concerning for malignancy. (3) Diabetes mellitus with hyperglycemia, with long-term current use of insulin Qualifiers: Diabetes mellitus type: type 2 Qualified Code(s): E11.65 - Type 2 diabetes mellitus with hyperglycemia; Z79.4 - jail (current) use of insulin; Z79.4 - jail (current) use of insulin; Z79.4 - jail (current) use of insulin ; Z79.4 - termite exterminator helper (current) use of insulin Is this a current diagnosis for this admission?: Yes Plan: Continue home regimen with sliding scale insulin. (4) Left shoulder pain Qualifiers: Chronicity: acute Qualified Code(s): M25.512 - Pain in left shoulder Plan: Films are negative. Pain is likely referred from a source with in the chest cavity. CT scanning may be appropriate. I am also going to order an echocardiogram. Pericarditis is in the differential. (5) Troponin level elevated Is this a current diagnosis for this admission?: Yes Plan: While this is not suggestive of acute coronary syndrome, it is hard to exclude acute coronary syndrome based on a left bundle branch block. I will order an echocardiogram. I am concerned about the possibility of pericarditis. - Time Time Spent with patient: 25-34 minutes - Inpatient Certification Medical Necessity: Need for Pain Control, Need for IV Antibiotics, Risk of Complication if Not Cared For in Hospital
[2017-11-29] MEDS ORDERED: DIPHENHYDRAMINE HCL 50 MG/ML VIAL IV PRN (13:10)
[2017-11-29] MEDS: IPRATROPIUM/ALBUTEROL 0.5-2.5 MG/3 ML AMPUL NEB PRN (16:22)
[2017-11-29] MEDS: METHYLPREDNISOLONE INJ 40 MG/1 ML SDV IV SCH ×2 (17:13→22:14)
--- NOTE | 2017-11-29 17:55 | XCELERA REPORT ---
[address] [address] Transthoracic Echocardiogram Report Name: ROSA WEAVER Age: 82 yrs Gender: Female : 1935 Patient Status: Inpatient Patient Location: [address] [place] [address] Study Date: 11/29/2017 02:56 PM Height: 62 in Procedure: A complete two-dimensional transthoracic echocardiogram was performed (2D, M-mode, spectral and color flow Doppler). The study was technically adequate with some images being suboptimal in quality. Reason For Study: Positive troponin - LBBB Ordering Physician: ISAAC NG Performed By: Cyndi Munoz Interpretation Summary The left ventricular ejection fraction is normal. Doppler measurements suggest pseudonormalized left ventricular relaxation, which is associated with grade II/IV or mild to moderate diastolic dysfunction There is mild concentric left ventricular hypertrophy. The left ventricle is grossly normal size. Wall motion cannot be accurately commented on, but no definite regional wall motion abnormalities noted. The right ventricular systolic function is normal. The right atrium is normal in size The left atrial size is normal. There is a trace amount of mitral regurgitation There is no mitral valve stenosis. There is no aortic valve stenosis No aortic regurgitation is present. There is no tricuspid stenosis. No tricuspid regurgitation. The aortic root is not well visualized but is probably normal size. The inferior vena cava appeared normal and decreased > 50% with respiration (RAP 5-10 mmHg) There is no pericardial effusion. MMode/2D Measurements & Calculations RVDd: 2.9 cm LVIDd: 4.5 cm FS: 35.7 % Ao root diam: 2.8 cm IVSd: 1.1 cm LVIDs: 2.9 cm EDV(Teich): 93.7 ml Ao root area: 6.3 cm2 LVPWd: 1.0 cm ESV(Teich): 32.5 ml LA dimension: 3.2 cm EF(Teich): 65.3 % Doppler Measurements & Calculations MV E max shanti: MV P1/2t max shanti: Ao V2 max: LV V1 max P.4 cm/sec 89.8 cm/sec 141.9 cm/sec 1.7 mmHg MV A max shanti: MV P1/2t: 90.7 msec Ao max PG: LV V1 max: 121.4 cm/sec MVA(P1/2t): 2.4 cm2 8.1 mmHg 66.1 cm/sec MV E/A: 0.73 MV dec slope: 290.1 cm/sec2 MV dec time: 0.28 sec PA V2 max: 88.4 cm/sec PA max P.1 mmHg Left Ventricle The left ventricle is grossly normal size. There is mild concentric left ventricular hypertrophy. The left ventricular ejection fraction is normal. Doppler measurements suggest pseudonormalized left ventricular relaxation, which is associated with grade II/IV or mild to moderate diastolic dysfunction. Wall motion cannot be accurately commented on, but no definite regional wall motion abnormalities noted. Right Ventricle The right ventricle is grossly normal size. There is normal right ventricular wall thickness. The right ventricular systolic function is normal. Atria The right atrium is normal in size. The left atrial size is normal. Interarterial septum not well visualized and not well dopplered. Cannot comment on ASD/PFO presence. Mitral Valve The mitral valve is grossly normal. There is no mitral valve stenosis. There is a trace amount of mitral regurgitation. Aortic Valve The aortic valve is grossly normal. There is no aortic valve stenosis. No aortic regurgitation is present. Tricuspid Valve The tricuspid valve is not well visualized, but is grossly normal. There is no tricuspid stenosis. No tricuspid regurgitation. Pulmonic Valve The pulmonic valve is not well visualized. Great Vessels The aortic root is not well visualized but is probably normal size. The inferior vena cava appeared normal and decreased > 50% with respiration (RAP 5-10 mmHg). Effusions There is no pericardial effusion. : ISAAC NG > Giacomo Rodriguez
[2017-11-29] MEDS: INSULIN LISPRO 100 UNIT/ML 3 ML VIAL SUBCUT PRN (22:14)
[2017-11-29] MEDS: FENOFIBRATE NANOCRYSTALLIZED 145 MG TABLET PO SCH (22:14)
[2017-11-29] MEDS: GABAPENTIN 300 MG CAPSULE PO SCH (22:15)
[2017-11-29] MEDS: CEFTRIAXONE SODIUM 1,000 MG in NORMAL SALINE 100 ML IV SCH (22:16)
[2017-11-30] MEDS: GENTAMICIN SULFATE 0.3% OPH SOLN 5 ML OU SCH ×6 (02:08→21:50)
[2017-11-30] MEDS: METHYLPREDNISOLONE INJ 40 MG/1 ML SDV IV SCH ×2 (06:15→13:26)
[2017-11-30] MEDS: VANCOMYCIN HCL 500 MG in DEXTROSE 5%-WATER 100 ML IV SCH (06:16)
[2017-11-30 07:19] LABS: ANION GAP 11 (5-19); BLOOD UREA NITROGEN 23 mg/dL (7-20); CALCIUM 11.1 mg/dL (8.4-10.2); CARBON DIOXIDE 23 mmol/L (22-30); CHLORIDE 103 mmol/L (98-107); GLUCOSE 331 mg/dL (75-110); PHOSPHORUS 2.6 mg/dL (2.5-4.5); POTASSIUM 4.7 mmol/L (3.6-5.0); SODIUM 136.8 mmol/L (137-145)
[2017-11-30 07:23] LABS: VANCOMYCIN,TROUGH 9.4 ug/mL (5.0-20.0)
[2017-11-30] MEDS: INSULIN LISPRO 100 UNIT/ML 3 ML VIAL SUBCUT PRN ×4 (07:58→21:58)
[2017-11-30] MEDS: CITALOPRAM HYDROBROMIDE 20 MG TABLET PO SCH (10:55)
[2017-11-30] MEDS: AZITHROMYCIN 250 MG TABLET PO SCH (10:55)
[2017-11-30] MEDS: CLOPIDOGREL BISULFATE 75 MG TABLET PO SCH (10:56)
[2017-11-30] MEDS: DOCUSATE SODIUM 100 MG CAPSULE PO SCH ×2 (10:57→17:12)
[2017-11-30] MEDS: LOSARTAN POTASSIUM 50 MG TABLET PO SCH (10:57)
[2017-11-30] MEDS: LIDOCAINE 5% (700 MG) TRANSDERMAL ADH..PATCH TP SCH (10:57)
[2017-11-30] MEDS: ENOXAPARIN SODIUM INJ 40 MG/0.4 ML DISP.SYRIN SUBCUT SCH (10:58)
[2017-11-30] MEDS: TOLTERODINE TARTRATE 1 MG TABLET PO SCH ×2 (10:58→21:50)
--- NOTE | 2017-11-30 15:16 | PDOC PROGRESS REPORT ---
Subjective Progress Note for:: 11/30/17 Subjective:: The patient is an 82-year-old female who has a history of lung cancer status post resection in 2003. Apparently, she was diagnosed with influenza B 2 weeks ago. She was given Tamiflu but did not take the entire course of treatment secondary to side effects from the medication. She now presents with a persistent cough and left shoulder pain. She has had no recent trauma to the shoulder. She is also noted to have hypercalcemia. PTH is low at less than 20. I will order vitamin D analogs and PTH related peptide. The patient's troponins were minimally abnormal upon admission. Echocardiogram testing was performed which is unremarkable. Reason For Visit: LEFT BASILAR PNEUMONIA Physical Exam Vital Signs: Temp Pulse Resp BP Pulse Ox 97.9 F 60 18 141/68 H 98 11/30/17 12:00 11/30/17 14:00 11/30/17 12:00 11/30/17 12:00 11/30/17 12:00 Intake & Output 11/29/17 11/30/17 12/01/17 06:59 06:59 06:59 Intake Total 2841 2602 Balance 2841 2602 Weight 41.5 kg 43.4 kg Additional comments: The patient was in good spirits today. She was sitting up eating her breakfast. She was on room air. Her daughter and granddaughter were at the bedside. She continues to have a dry cough. Her shoulder pain has improved significantly after corticosteroids were added yesterday. She is concerned again that her clavicles are somewhat asymmetrical. She has pain with palpation over the clavicle. The patient is also complaining of some pain in her strap muscles of her neck. Her facial appearance is unremarkable. Her lungs do show occasional crackles in the posterior lung duggan. Her cardiac exam is regular without murmurs, gallops or rubs. The abdomen is soft and flat. Bowel sounds are present in the lower quadrants. She does not have guarding or rebound noted. The patient's thyroid is smooth and bilobar. The patient's lower extremities are unremarkable. No edema is present. The skin is warm, dry and intact. Results Laboratory Results: 11/29/17 06:04 11/30/17 06:04 11/30/17 11/30/17 06:04 06:04 Sodium 136.8 L Potassium 4.7 Chloride 103 Carbon Dioxide 23 Anion Gap 11 BUN 23 H Creatinine 0.85 0.85 Est GFR ( Amer) > 60 > 60 Est GFR (Non-Af Amer) > 60 > 60 Glucose 331 H Calcium 11.1 H Phosphorus 2.6 Magnesium 1.9 11/28/17 11/28/17 11/28/17 12:25 16:40 23:00 Troponin I 0.101 0.095 0.066 Impressions: Shoulder X-Ray 11/28/17 00:00 IMPRESSION: No acute fracture or malalignment Minimal left basilar atelectasis Chest X-Ray 11/29/17 10:39 IMPRESSION: Chronic left basilar scarring and pleural thickening. Otherwise, no acute disease. Assessment & Plan - Diagnosis (1) Left lower lobe pneumonia Qualifiers: Pneumonia type: due to unspecified organism Qualified Code(s): J18.1 - Lobar pneumonia, unspecified organism Is this a current diagnosis for this admission?: Yes Plan: Certainly, the patient's presentation could indicate bronchitis, but with 2 negative chest x-rays I think pneumonia is less likely. After further discussion with the patient I think that the patient is suffering from a post viral cough. I informed her that the treatment is primarily supportive. I am going to stop antibiotics. The patient has used Tessalon Perles in the past with good results. I will initiate Tessalon Perles. I am also going to stop the prednisone because it is driving up her blood sugars. (2) Hypercalcemia Is this a current diagnosis for this admission?: Yes Plan: His intact PTH is less than 20. I have ordered serum vitamin D testing. Calcium continues to be mildly elevated. (3) Diabetes mellitus with hyperglycemia, with long-term current use of insulin Qualifiers: Diabetes mellitus type: type 2 Qualified Code(s): E11.65 - Type 2 diabetes mellitus with hyperglycemia; Z79.4 - group home (current) use of insulin; Z79.4 - rat exterminator (current) use of insulin; Z79.4 - group home (current) use of insulin ; Z79.4 - group home (current) use of insulin Is this a current diagnosis for this admission?: Yes Plan: Continue home regimen with sliding scale insulin. Blood sugars are elevated likely due to steroids. I am going to stop steroids. (4) Left shoulder pain Qualifiers: Chronicity: acute Qualified Code(s): M25.512 - Pain in left shoulder Plan: Yesterday, I was concerned about referred pain from someplace in the thoracic cavity, however, repeat chest x-ray is not concerning. The patient's physical exam is suggestive of a AC tear. We will continue therapy with nonsteroidal anti-inflammatory agents and I will have physical therapy evaluate the patient. (5) Troponin level elevated Is this a current diagnosis for this admission?: Yes Plan: There is no evidence of acute coronary syndrome. Echocardiogram is reassuring. No major abnormalities were noted. - Time Time Spent with patient: 25-34 minutes - Inpatient Certification Medical Necessity: Need For IV Fluids - Plan Summary Plan Summary: I anticipate discharge in 24 hours. Patient has close outpatient follow-up and provided she can see her primary care provider this week to follow-up on her laboratory abnormalities I think it is safe to discharge the patient again within 24 hours.
[2017-11-30] MEDS ORDERED: BENZONATATE 100 MG CAPSULE PO PRN (15:20)
[2017-11-30] MEDS: EXENATIDE INJ 10 MCG/0.04 ML 2.4 ML PEN.INJCTR SUBCUT SCH (16:06)
[2017-11-30] MEDS: 1/2 NORMAL SALINE 1,000 ML IV PRN (17:13)
[2017-11-30] MEDS ORDERED: VANCOMYCIN HCL 750 MG in DEXTROSE 5%-WATER 250 ML IV SCH (18:00)
[2017-11-30] MEDS: FENOFIBRATE NANOCRYSTALLIZED 145 MG TABLET PO SCH (21:50)
[2017-11-30] MEDS: GABAPENTIN 300 MG CAPSULE PO SCH (21:50)
[2017-12-01] MEDS: GENTAMICIN SULFATE 0.3% OPH SOLN 5 ML OU SCH ×3 (02:12→09:33)
[2017-12-01] MEDS: 1/2 NORMAL SALINE 1,000 ML IV PRN (06:30)
[2017-12-01] MEDS: INSULIN LISPRO 100 UNIT/ML 3 ML VIAL SUBCUT PRN ×2 (06:37→11:36)
[2017-12-01 06:54] LABS: ANION GAP 12 (5-19); BLOOD UREA NITROGEN 34 mg/dL (7-20); CALCIUM 10.2 mg/dL (8.4-10.2); CARBON DIOXIDE 25 mmol/L (22-30); CHLORIDE 98 mmol/L (98-107); GLUCOSE 320 mg/dL (75-110); POTASSIUM 4.4 mmol/L (3.6-5.0); SODIUM 134.8 mmol/L (137-145)
[2017-12-01] MEDS: EXENATIDE INJ 10 MCG/0.04 ML 2.4 ML PEN.INJCTR SUBCUT SCH (07:26)
[2017-12-01] MEDS: DOCUSATE SODIUM 100 MG CAPSULE PO SCH (09:32)
[2017-12-01] MEDS: CLOPIDOGREL BISULFATE 75 MG TABLET PO SCH (09:32)
[2017-12-01] MEDS: CITALOPRAM HYDROBROMIDE 20 MG TABLET PO SCH (09:32)
[2017-12-01] MEDS: LOSARTAN POTASSIUM 50 MG TABLET PO SCH (09:33)
[2017-12-01] MEDS: TOLTERODINE TARTRATE 1 MG TABLET PO SCH (09:33)
[2017-12-01] MEDS: LIDOCAINE 5% (700 MG) TRANSDERMAL ADH..PATCH TP SCH (09:33)
[2017-12-01] MEDS: ENOXAPARIN SODIUM INJ 40 MG/0.4 ML DISP.SYRIN SUBCUT SCH (09:34)
[2017-12-01] MEDS ORDERED: MELOXICAM 7.5 MG TABLET PO SCH (10:00)
--- NOTE | 2017-12-01 11:48 | PDOC DISCHARGE SUMMARY ---
General - Admit/Disc Date/PCP Admission Date/Primary Care Provider: 11/28/17 10:29 SHEN KEITA MD Discharge Date: 12/01/17 - Discharge Diagnosis (1) Left lower lobe pneumonia Is this a current diagnosis for this admission?: No (2) Hypercalcemia Is this a current diagnosis for this admission?: Yes (3) Diabetes mellitus with hyperglycemia, with long-term current use of insulin Is this a current diagnosis for this admission?: Yes (5) Troponin level elevated Is this a current diagnosis for this admission?: Yes - Additional Information Resuscitation Status: Full Code Discharge Diet: Diabetic Discharge Activity: Balance Activity w/Rest, Slowly Increase Activity Prescriptions: Benzonatate [Tessalon Perles 100 mg Capsule] 100 mg PO Q8HP PRN 14 Days #30 capsule PRN Reason: Gentamicin Sulfate [Garamycin 0.3% Oph Soln 5 ml] 1 drop OU Q4 5 Days #1 bottle Home Medications: Citalopram Hydrobromide [Celexa 20 mg Tablet] 20 mg PO DAILY 11/28/17 Exenatide [Byetta Inj 10 Mcg/0.04 ml 2.4 ml Pen.injctr] 10 mcg SUBCUT DAILY Fenofibric Acid (Choline) [Trilipix] 135 mg PO QHS 11/28/17 Gabapentin [Neurontin 300 mg Capsule] 300 mg PO QHS 11/28/17 Hydrochlorothiazide [Hydrodiuril 25 mg Tablet] 25 mg PO QAM 11/28/17 Losartan Potassium [Cozaar 100 mg Tablet] 100 mg PO DAILY 11/28/17 Metformin HCl [Glucophage XR 500 mg Tablet] 1,000 mg PO DAILY 11/28/17 Tolterodine Tartrate [Detrol LA] 2 mg PO DAILY 11/28/17 Benzonatate [Tessalon Perles 100 mg Capsule] 100 mg PO Q8HP PRN 14 Days #30 capsule 12/01/17 Gentamicin Sulfate [Garamycin 0.3% Oph Soln 5 ml] 1 drop OU Q4 5 Days #1 bottle 12/01/17 History of Present Illness History of Present Illness: ROSA WEAVER is a 82 year old female who presents with persistent cough and left shoulder pain. She was diagnosed with influenza B about 2 weeks ago. She was prescribed Tamiflu, which he only took 1 days worth of therapy due to side effects. She has been coughing ever since. She also reports general malaise. This morning she had difficulty getting out of bed due to left shoulder discomfort. Her left shoulder pain is worse when she lays flat. Currently she is sitting or laying at a incline which is providing some relief. She did not experience elliott chest pain. She did not experience shortness of breath. She did not experience nausea, vomiting, diaphoresis, or palpitations. With respect to her recent flu infection, she attempted to use Mucinex, but discontinued it because, her "kidneys were hurting". She has a history of smoking cigarettes. She quit in 1980. 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 Hospital Course Hospital Course: During this hospitalization the patient was presumed as having left basilar pneumonia. However, her repeat chest x-ray demonstrated only atelectasis. The patient was afebrile and did not have leukocytosis. Therefore, antibiotics were discontinued. The patient's symptoms are most likely secondary to a post viral cough. She has responded well to symptomatic treatment with Tessalon Perles. The patient also came in with left shoulder pain. 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 I have recommended that she begin physical therapy upon discharge. She is not homebound and therefore home health will not be ordered for home physical therapy. The patient was identified as having hypercalcemia during this hospitalization. Her PTH is low normal at less than 20. I did order serum vitamin D testing. These are send out studies and the results are still pending. PTH related peptide was sent but incorrectly processed and therefore this lab was canceled. Further testing as an outpatient may be required. The highest her calcium that was 11.1. This may have been simple dehydration as it did come to normal limits with IV hydration. Other significant findings during this hospitalization are a mildly elevated troponin level. Echocardiogram testing was performed. This demonstrates fairly normal function with mild diastolic dysfunction. The patient does have gram-positive cocci on her urine culture, however, she is asymptomatic and I do not recommend any treatment for this. The patient has also been treated for conjunctivitis during this hospitalization. The patient has underlying diabetes. She was initially placed on steroids for the presumption of bronchitis, however, she did not appear to require steroids and these were discontinued after 24 hours. She will be discharged on a short course of Mobic for the shoulder pain. Physical Exam Vital Signs: Temp Pulse Resp BP Pulse Ox 97.5 F 47 L 14 135/69 H 93 12/01/17 07:31 12/01/17 07:31 12/01/17 07:31 12/01/17 07:31 12/01/17 07:31 Intake & Output 11/30/17 12/01/17 12/02/17 06:59 06:59 06:59 Intake Total 2602 2690 Output Total 1050 Balance 2602 1640 Weight 43.4 kg 43.8 kg Additional comments: Patient is an extremely pleasant elderly female. She does in fact appear to be very spry for her age. Her cognition and mentation are excellent. She had some mild crusting of her eyes this morning but this was resolved with a warm compress. Otherwise, her facial appearance is normal. Her lungs today were clear both anteriorly and posteriorly. With deep inspiration, however, she did have a dry cough. Her cardiac exam is regular without murmurs, gallops or rubs. The abdomen is soft, flat and benign. Bowel sounds are present. She does not have guarding or rebound noted and there are no hernias or masses present. The lower extremities are warm to touch without edema. The skin is noted to be warm dry and intact without lesions or rashes. Results Laboratory Results: 11/29/17 06:04 12/01/17 06:32 12/01/17 06:32 Sodium 134.8 L Potassium 4.4 Chloride 98 Carbon Dioxide 25 Anion Gap 12 BUN 34 H Creatinine 0.80 Est GFR ( Amer) > 60 Est GFR (Non-Af Amer) > 60 Glucose 320 H Calcium 10.2 11/28/17 11/28/17 11/28/17 12:25 16:40 23:00 Troponin I 0.101 0.095 0.066 Impressions: Shoulder X-Ray 11/28/17 00:00 IMPRESSION: No acute fracture or malalignment Minimal left basilar atelectasis Chest X-Ray 11/29/17 10:39 IMPRESSION: Chronic left basilar scarring and pleural thickening. Otherwise, no acute disease. Qualifiers - * PATEINT BEING DISCHARGED WITH ANY OF THE FOLLOWING DIAGNOSIS?: No Plan Discharge Plan: The patient will be discharged to home. She will be discharged with Tessalon Perles. Her cough will likely resolve in the next 2-4 weeks. She will also be given a short course of gentamicin eyedrops for conjunctivitis. She does need close outpatient follow-up regarding the diagnosis of hypercalcemia. The patient was told that the etiology of the hypercalcemia could include a diagnosis of malignancy. I will also give the patient a referral for physical therapy for her left shoulder pain which again appears to be due to degenerative changes at the acromioclavicular joint on the left. Time Spent: Greater than 30 Minutes
[2017-12-01 12:04] VITALS: BP 110/48
[2017-12-04 07:04] LABS: VITAMIN D 1,25 DIHYDROXY 93.7 pg/mL (19.9-79.3)
== END 2017-12-01 13:10 | disposition home or self-care (01) | DRG 206 ==
LOC: ER 06:05 → OBSVTOIN 10:29 → EH 10:29 → 4W 14:36
PROVIDERS: ADMIT Emergency Medicine; ATTEND Emergency Medicine
PROC: 3E0F73Z Introduction of Anti-inflammatory into Respiratory Tract, Via Natural or Artificial Opening (ICD-10-PCS; principal; 2017-11-28)
DX: J98.11 Atelectasis (principal); E83.52 Hypercalcemia; R05 Cough; E11.65 Type 2 diabetes mellitus with hyperglycemia; R74.8 Abnormal levels of other serum enzymes; I10 Essential (primary) hypertension; H10.9 Unspecified conjunctivitis; E78.5 Hyperlipidemia, unspecified; M13.812 Other specified arthritis, left shoulder; Z85.118 Personal history of other malignant neoplasm of bronchus and lung; Z90.2 Acquired absence of lung [part of]; Z87.891 Personal history of nicotine dependence; Z88.6 Allergy status to analgesic agent; Z79.84 Long term (current) use of oral hypoglycemic drugs; Z79.899 Other long term (current) drug therapy; M25.512 Pain in left shoulder
CPT/HCPCS: 36415; 71046; 80048; 80053; 80202; 81001; 82306; 82397; 82550; 82553; 82565; 82652; 82962; 83690; 83735; 83970; 84100; 84484; 85025; 87040; 87086; 87088; 87186; 87804; 93005; 93010; 93306; 96365; 99285; G8978-GP; G8979-GP; J0696; J1650; J1815; J1956; J2405; J2920; J3370; J3490; J7060; J7620

== ENCOUNTER 2018-05-29 08:09 | Day surgery (SDC) | payer MEDICARE, OTHER ==
[2018-05-20 11:00] LABS: APPEARANCE,URINE CLEAR; BILIRUBIN,URINE NEGATIVE (NEGATIVE); COLOR,URINE STRAW; GLUCOSE, URINE NEGATIVE (NEGATIVE); KETONES,URINE NEGATIVE (NEGATIVE); LEUKOCYTE ESTERASE,URINE TRACE (NEGATIVE); NITRITE,URINE NEGATIVE (NEGATIVE); PROTEIN,URINE NEGATIVE (NEGATIVE); URINE SPECIFIC GRAVITY 1.008; UROBILINOGEN,URINE NEGATIVE mg/dL (<2.0)
[2018-05-20 12:38] LABS: HEMATOCRIT 40.2 % (36.0-47.0); HEMOGLOBIN 13.7 g/dL (12.0-15.5); MEAN CORPUSCULAR HEMOGLOBIN 29.1 pg (27.0-33.4); MEAN CORPUSCULAR HGB CONC 34.1 g/dL (32.0-36.0); MEAN CORPUSCULAR VOLUME 86 fl (80-97); PLATELET COUNT 185 10^3/uL (150-450); RED CELL DISTRIBUTION WIDTH 15.6 % (11.5-14.0); WHITE BLOOD COUNT 7.1 10^3/uL (4.0-10.5)
[2018-05-20 12:44] LABS: ALANINE AMINOTRANSFERASE 23 U/L (9-52); ALBUMIN 3.8 g/dL (3.5-5.0); ALKALINE PHOSPHATASE 59 U/L (38-126); ANION GAP 13 (5-19); ASPARTATE AMINO TRANSFERASE 22 U/L (14-36); BILIRUBIN,DIRECT 0.3 mg/dL (0.0-0.4); BILIRUBIN,TOTAL 0.5 mg/dL (0.2-1.3); BLOOD UREA NITROGEN 20 mg/dL (7-20); CALCIUM 10.5 mg/dL (8.4-10.2); CARBON DIOXIDE 26 mmol/L (22-30); CHLORIDE 104 mmol/L (98-107); GLUCOSE 146 mg/dL (75-110); SODIUM 142.6 mmol/L (137-145); TOTAL PROTEIN 7.4 g/dL (6.3-8.2)
--- NOTE | 2018-05-20 14:01 | EKG REPORT ---
SEVERITY:- ABNORMAL ECG - SINUS RHYTHM LEFT BUNDLE BRANCH BLOCK : Confirmed by: Ji Lobo MD 20-May-2018 14:00:27
--- NOTE | 2018-05-20 15:26 | RADIOLOGY REPORT (SQ) ---
EXAM DESCRIPTION: CHEST PA/LATERAL COMPLETED DATE/TIME: 05/20/2018 12:24 pm REASON FOR STUDY: PRE OP COMPARISON: 11/29/2017 EXAM PARAMETERS: NUMBER OF VIEWS: two views TECHNIQUE: Digital Frontal and Lateral radiographic views of the chest acquired. RADIATION DOSE: NA LIMITATIONS: none FINDINGS: LUNGS AND PLEURA: Chronic scarring in the left base. No evidence of pulmonary edema or pn eumonia. MEDIASTINUM AND HILAR STRUCTURES: No masses or contour abnormalities. HEART AND VASCULAR STRUCTURES: Stable heart size. No evidence for failure. BONES: No acute findings. HARDWARE: None in the chest. OTHER: No other significant finding. IMPRESSION: NO SIGNIFICANT RADIOGRAPHIC FINDING IN THE CHEST. TECHNICAL DOCUMENTATION: JOB ID: [id number] [employer]- All Rights Reserved Reading location - IP/workstation name: [email or web address]
[~2018-05-29 08:09] MED LIST: CEFAZOLIN 1 GM/D5W RTU 1 GM/50 ML RTUPB IV PRN; CLINDAMYCIN 900 MG/D5W RTU 900 MG/50 ML RTUPB IV PRN; GENTAMICIN SULFATE 120 MG in DEXTROSE 5%-WATER 100 ML IV PRN; LACTATED RINGERS 1000 ML IV PRN
[2018-05-29 09:22] LABS: POTASSIUM 4.1 mmol/L (3.6-5.0)
[2018-05-29] MEDS ORDERED: SUCCINYLCHOLINE CHLORIDE INJ 200 MG/10 ML VIAL ONE (10:13)
[2018-05-29] MEDS ORDERED: DEXAMETHASONE SOD PHOSPHATE INJ 4 MG/1 ML VIAL ONE (10:30)
[2018-05-29] MEDS ORDERED: MIDAZOLAM 2 MG/2 ML INJ ONE (10:30)
[2018-05-29] MEDS ORDERED: ONDANSETRON HCL INJ/PF 4 MG/2 ML SDV ONE (10:30)
[2018-05-29] MEDS ORDERED: FENTANYL CITRATE INJ/PF 100 MCG/2 ML AMPUL ONE ×2 (10:30)
[2018-05-29] MEDS ORDERED: PROPOFOL INJ 200 MG/20 ML VIAL IV ONE (10:30)
[2018-05-29] MEDS ORDERED: MORPHINE SULFATE 10 MG/ML INJ ONE (10:31)
[2018-05-29] MEDS ORDERED: DIPHENHYDRAMINE HCL 50 MG/ML VIAL IV PRN (11:11)
[2018-05-29] MEDS ORDERED: MORPHINE SULFATE 10 MG/ML INJ IV PRN ×2 (11:11→14:14)
[2018-05-29] MEDS ORDERED: MEPERIDINE HCL/PF INJ 25 MG/1 ML DISP.SYRIN IV PRN (11:11)
[2018-05-29] MEDS ORDERED: FENTANYL CITRATE INJ/PF 100 MCG/2 ML AMPUL IV PRN ×3 (11:11)
[2018-05-29] MEDS ORDERED: PROMETHAZINE HCL INJ 25 MG/1 ML VIAL IV PRN ×2 (11:11)
--- NOTE | 2018-05-29 13:06 | OPERATIVE REPORT E ---
Operative Report NAME: ROSA WEAVER : 1935 AGE: 82Y DATE OF SURGERY: 05/29/2018 ROOM: PREOPERATIVE DIAGNOSIS: Uterine prolapse, cystocele, rectocele, and IGNACIO. POSTOPERATIVE DIAGNOSIS: Uterine prolapse, cystocele, rectocele, and IGNACIO. PROCEDURE: TVT, TVH, and an A and P repair. SURGEON: Cassie ARGUETA M.D. ANESTHESIA: General. ESTIMATED BLOOD LOSS: Approximately 100 mL. TISSUE REMOVED: Uterus. PROCEDURE: The patient was placed in a dorsal lithotomy position, prepped and draped in the usual sterile fashion. The speculum was placed, cervix visualized and grasped with the Mimi thyroid clamp. Posterior cul-de-sac was entered with sharp dissection. Left uterosacral was clamped, divided, and sutured with 2-0 Vicryl, repeated on the right. Cervix was sharply circumscribed. The anterior peritoneum was entered with sharp dissection, serial clamps on each side of uterus, each pedicle being divided and sutured with 2-0 Vicryl, continued to the level of the utero-ovarian ligament which was crossclamped and the uterus removed. Utero-ovarian ligament was sutured with free ties of 2-0 Vicryl followed by a suture tie of 2-0 Vicryl, repeated this on the left. Pelvis was inspected and hemostasis was noted. Cuff was closed with interrupted sutures of 2-0 Vicryl. TVT was then accomplished by grasping the vaginal mucosa 1 cm below the urethra, entering with sharp dissection, and dividing approximately 2.5 cm. Underlying vesicovaginal tissue was bluntly and sharply divided until the posterior aspect of the cervix could be palpated. Two punctures were made 1 cm lateral to the midline on the mons and the needles were passed down from above through the uterine defect. Cystoscopy was then performed with no foreign bodies being noted. The tape was then placed on each end of the needles, pulled back through. A pair of Pantoja scissors were kept on the urethra for tension-free placement. The defect was then closed with a running suture of 2-0 Rapide. Anterior repair was accomplished by grasping the vaginal mucosa slightly below the other incision, entering in the midline, and dividing just above the cuff. Underlying vesicovaginal tissue was bluntly and sharply divided. Vesicovaginal tissue was plicated with multiple 2-0 Vicryl in the midline. The excess vaginal mucosa was removed and the defect closed with running Rapide. Posterior repair was accomplished by grasping the vaginal mucosa and remnants of the hymenal ring, dividing it crosswise and then in the middle to just below the cuff. The underlying rectovaginal tissue was bluntly and sharply divided. Rectovaginal tissues were plicated in the midline using multiple 2-0 Vicryl. The excess vaginal mucosa was removed and the defect closed with running suture of 2-0 Vicryl. The vagina was packed with a moistened pack. Her urine remained clear throughout the procedure and she was taken to the recovery room in good condition. DICTATING PHYSICIAN: Cassie ARGUETA M.D. [id number] PHY#: [id number] ID: [id number] JOB#: [id number] ACCT: [id number] cc:Cassie ARGUETA M.D. >
[2018-05-29] MEDS ORDERED: DEXTROSE 5%-LACTATED RINGERS 1,000 ML IV PRN (13:16)
[2018-05-29] MEDS ORDERED: HYDROMORPHONE HCL 2 MG TABLET PO PRN (13:16)
[2018-05-29] MEDS ORDERED: MORPHINE SULFATE 10 MG/ML INJ IM PRN (13:17)
[2018-05-29] MEDS ORDERED: (PENDING PHARMACY ID) (Ranitidine Hcl [Zantac 150 Mg Tablet] 150 MG) PO PRN (13:49)
[2018-05-29] MEDS ORDERED: (PENDING PHARMACY ID) (Rosuvastatin Calcium [Crestor 5 Mg Tablet] 5 MG) PO PRN (13:49)
[2018-05-29] MEDS ORDERED: (PENDING PHARMACY ID) (Fluticasone Propionate [Flonase Allergy Relief] 9.9 ML) NS PRN (13:49)
[2018-05-29] MEDS ORDERED: DEXTROSE 50%-WATER SYRINGE 25 GM/50 ML DOSE IV PRN (14:16)
[2018-05-29] MEDS ORDERED: DEXTROSE 50%-WATER SYRINGE 12.5 GM/25 ML DOSE IV PRN (14:16)
[2018-05-29] MEDS ORDERED: DEXTROSE 40% GEL 15 GM TUBE X 2 PO PRN (14:16)
[2018-05-29] MEDS ORDERED: INSULIN REG, HUMAN 100 UNIT/ML 3 ML VIAL (PYX) SUBCUT PRN (14:16)
[2018-05-29] MEDS ORDERED: GLUCAGON,HUMAN RECOMB 1 MG INJ IM PRN (14:16)
[2018-05-29] MEDS ORDERED: DEXTROSE 40% GEL 15 GM TUBE PO PRN (14:16)
[2018-05-29] MEDS: HYDROCHLOROTHIAZIDE 25 MG TABLET PO SCH (14:20)
[2018-05-29] MEDS: CITALOPRAM HYDROBROMIDE 20 MG TABLET PO SCH (14:20)
[2018-05-29] MEDS: DIPHENHYDRAMINE HCL 25 MG CAPSULE PO PRN (14:23)
[2018-05-29] MEDS ORDERED: FLUTICASONE NASAL SPRAY 50 MCG/SPRY 120 SPRAY/16 GM NASL PRN (15:02)
[2018-05-29] MEDS: METFORMIN HCL 500 MG TABLET PO SCH (16:56)
[2018-05-29] MEDS: EXENATIDE INJ 10 MCG/0.04 ML 2.4 ML PEN.INJCTR SUBCUT SCH (16:56)
[2018-05-29] MEDS: RINGERS SOLUTION,LACTATED 1,000 ML IV PRN (18:09)
[2018-05-29] MEDS ORDERED: GABAPENTIN 300 MG CAPSULE PO SCH (22:00)
[2018-05-29] MEDS: OXYBUTYNIN CHLORIDE 5 MG TABLET PO SCH (22:51)
[2018-05-30] MEDS: DIPHENHYDRAMINE HCL 25 MG CAPSULE PO PRN (03:03)
[2018-05-30] MEDS: RINGERS SOLUTION,LACTATED 1,000 ML IV PRN (03:03)
[2018-05-30] MEDS: EXENATIDE INJ 10 MCG/0.04 ML 2.4 ML PEN.INJCTR SUBCUT SCH (08:03)
[2018-05-30] MEDS: METFORMIN HCL 500 MG TABLET PO SCH (08:05)
--- NOTE | 2018-05-30 09:53 | PDOC DISCHARGE SUMMARY ---
General - Admit/Disc Date/PCP Admission Date/Primary Care Provider: SHEN KEITA MD Discharge Date: 05/30/18 - Discharge Diagnosis (1) Complete uterine prolapse with prolapse of anterior vaginal wall Is this a current diagnosis for this admission?: Yes (2) Post-menopausal bleeding Is this a current diagnosis for this admission?: Yes (3) IGNACIO (stress urinary incontinence, female) Is this a current diagnosis for this admission?: Yes - Additional Information Discharge Diet: As Tolerated Discharge Activity: Activity As Tolerated, Balance Activity w/Rest, No Driving, No Lifting/Push/Pulling, Pelvic Rest, Slowly Increase Activity, No tub bath Prescriptions: Hydromorphone HCl [Dilaudid 2 mg Tablet] 2 mg PO Q4HP PRN #30 tablet PRN Reason: Home Medications: Citalopram Hydrobromide [Celexa 20 mg Tablet] 20 mg PO DAILY 05/20/18 Exenatide [Byetta] 10 mcg SQ BIDACBS 05/20/18 Fluticasone Propionate [Flonase Allergy Relief] 2 spray NASL DAILYP PRN Gabapentin 300 mg PO QHS 05/20/18 Hydrochlorothiazide 25 mg PO DAILY 05/20/18 Losartan Potassium [Cozaar 100 mg Tablet] 100 mg PO DAILY 05/20/18 Metformin HCl [Metformin HCl ER] 1,000 mg PO QHS 05/20/18 Metoprolol Succinate [Toprol Xl] 12.5 mg PO QHS 05/20/18 Multivitamin [Multivitamins] 1 each PO DAILY 05/20/18 Oxybutynin Chloride [Oxybutynin Chloride ER] 10 mg PO DAILY 05/20/18 Ranitidine HCl [Zantac] 150 mg PO DAILY 05/20/18 Rosuvastatin Calcium [Crestor 5 mg Tablet] 5 mg PO QHS 05/20/18 Hydromorphone HCl [Dilaudid 2 mg Tablet] 2 mg PO Q4HP PRN #30 tablet 05/30/18 History of Present Illness Patient complains of: pt has uterine prolapse with cystocele and rectocele and IGNACIO History of Present Illness: ROSA WEAVER is a 82 year old female Hospital Course Hospital Course: pt had TVH A&P repair and TVT Physical Exam - Physical Exam Vital Signs: Temp Pulse Resp BP Pulse Ox 97.8 F 60 16 123/71 95 05/30/18 07:15 05/30/18 07:15 05/30/18 07:15 05/30/18 07:15 05/30/18 07:15 Intake & Output 05/29/18 05/30/18 05/31/18 06:59 06:59 06:59 Intake Total 2521 Output Total 1400 275 Balance 1121 -275 Weight 68.95 kg General appearance: PRESENT: no acute distress Respiratory exam: PRESENT: clear to auscultation jennifer GI/Abdominal exam: PRESENT: soft Result Laboratory Results: 05/20/18 11:28 05/29/18 08:36 Impressions: Chest X-Ray 05/20/18 12:15 IMPRESSION: NO SIGNIFICANT RADIOGRAPHIC FINDING IN THE CHEST. Plan Discharge Plan: d/c f/u 2-3 weeks Time Spent: Less than 30 Minutes
[2018-05-30] MEDS ORDERED: METOPROLOL SUCCINATE 25 MG TAB.SR.24H PO SCH (10:00)
[2018-05-30] MEDS ORDERED: (PENDING PHARMACY ID) (Metformin Hcl [Metformin Hcl Er] 1,000 MG) PO SCH (10:00)
[2018-05-30] MEDS ORDERED: LOSARTAN POTASSIUM 50 MG TABLET PO SCH (10:00)
[2018-05-30] MEDS ORDERED: (PENDING PHARMACY ID) (Ranitidine Hcl [Zantac 150 Mg Tablet] 150 MG) PO SCH (10:00)
[2018-05-30] MEDS ORDERED: MULTIVITAMIN TABLET PO SCH (10:00)
[2018-05-30] MEDS ORDERED: FAMOTIDINE 20 MG TABLET PO SCH (10:00)
[2018-05-30] MEDS: CITALOPRAM HYDROBROMIDE 20 MG TABLET PO SCH (11:12)
[2018-05-30] MEDS: OXYBUTYNIN CHLORIDE 5 MG TABLET PO SCH (11:13)
[2018-05-30] MEDS: HYDROCHLOROTHIAZIDE 25 MG TABLET PO SCH (11:18)
[2018-05-30 12:21] VITALS: BP 124/71
[2018-05-30] MEDS ORDERED: ATORVASTATIN CALCIUM 10 MG TABLET PO SCH (22:00)
== END 2018-05-30 13:20 | disposition home or self-care (01) ==
LOC: OROUT 08:09 → 2N 13:17 → OROUT 05-30 13:20
PROVIDERS: ATTEND Obstetrics & Gynecology Gynecology
DX: N81.4 Uterovaginal prolapse, unspecified (principal); N39.46 Mixed incontinence; N93.8 Other specified abnormal uterine and vaginal bleeding; N88.8 Other specified noninflammatory disorders of cervix uteri; N80.0 Endometriosis of uterus; E11.9 Type 2 diabetes mellitus without complications; E04.9 Nontoxic goiter, unspecified; I10 Essential (primary) hypertension; Z85.118 Personal history of other malignant neoplasm of bronchus and lung; Z79.01 Long term (current) use of anticoagulants; Z79.899 Other long term (current) drug therapy; Z01.818 Encounter for other preprocedural examination; Z87.891 Personal history of nicotine dependence; Z79.84 Long term (current) use of oral hypoglycemic drugs; Z79.82 Long term (current) use of aspirin; Z88.5 Allergy status to narcotic agent; I25.2 Old myocardial infarction
CPT/HCPCS: 93010; 93005; 86900; 86901; 36415 ×3; 86850; 82962; 82947; 84132; 85027; 80053; 81001; 88307 ×2; 71046; 58260; 57288; 57260; C1781; J2250; J3490; A9270 ×11; J1100; J3010; J2270; J0330; J2405; J7120 ×2; J2704; 944; J1580

== ENCOUNTER 2018-07-28 15:10 | Observation (INO) | payer MEDICARE, OTHER ==
[2018-07-28 16:24] LABS: ABSOLUTE BASOPHILS # (AUTO) 0.1 10^3/uL (0.0-0.2); ABSOLUTE EOSINOPHILS # (AUTO) 0.1 10^3/uL (0.0-0.6); ABSOLUTE LYMPHOCYTES (AUTO) 1.6 10^3/uL (0.5-4.7); ABSOLUTE MONOCYTES (AUTO) 0.5 10^3/uL (0.1-1.4); ABSOLUTE NEUT (AUTO) 4.9 10^3/uL (1.7-8.2); BASOPHILS % (AUTO) 0.7 % (0-2); HEMOGLOBIN 13.4 g/dL (12.0-15.5); LYMPHOCYTES % (AUTO) 21.8 % (13-45); MEAN CORPUSCULAR HEMOGLOBIN 28.3 pg (27.0-33.4); MEAN CORPUSCULAR HGB CONC 33.6 g/dL (32.0-36.0); MEAN CORPUSCULAR VOLUME 84 fl (80-97); MONOCYTES % (AUTO) 7.5 % (3-13); PLATELET COUNT 176 10^3/uL (150-450); RED BLOOD COUNT 4.74 10^6/uL (3.72-5.28); RED CELL DISTRIBUTION WIDTH 14.5 % (11.5-14.0); TOTAL CELLS COUNTED % (AUTO) 100 %; WHITE BLOOD COUNT 7.2 10^3/uL (4.0-10.5)
--- NOTE | 2018-07-28 16:32 | RADIOLOGY REPORT (SQ) ---
EXAM DESCRIPTION: CHEST SINGLE VIEW COMPLETED DATE/TIME: 07/28/2018 4:24 pm REASON FOR STUDY: chest pain COMPARISON: 11/29/2017 EXAM PARAMETERS: NUMBER OF VIEWS: One view. TECHNIQUE: Single frontal radiographic view of the chest acquired. RADIATION DOSE: NA LIMITATIONS: Poor inspiration. FINDINGS: LUNGS AND PLEURA: No opacities, masses or pneumothorax. No pleural effusion. MEDIASTINUM AND HILAR STRUCTURES: No masses. Contour normal. HEART AND VASCULAR STRUCTURES: Mild cardiomegaly. Vasculature within normal limits. BONES: No acute findings. HARDWARE: None in the chest. OTHER: No other significant finding. IMPRESSION: Mild cardiomegaly without evidence of acute cardiopulmonary disease. TECHNICAL DOCUMENTATION: JOB ID: [id number] [employer]- All Rights Reserved Reading location - IP/workstation name: [email or web address]
[2018-07-28 16:41] LABS: ALANINE AMINOTRANSFERASE 22 U/L (9-52); ALBUMIN 3.8 g/dL (3.5-5.0); ALKALINE PHOSPHATASE 79 U/L (38-126); ANION GAP 11 (5-19); ASPARTATE AMINO TRANSFERASE 22 U/L (14-36); BILIRUBIN,DIRECT 0.2 mg/dL (0.0-0.4); BILIRUBIN,TOTAL 0.5 mg/dL (0.2-1.3); BLOOD UREA NITROGEN 16 mg/dL (7-20); CALCIUM 10.7 mg/dL (8.4-10.2); CARBON DIOXIDE 25 mmol/L (22-30); CHLORIDE 101 mmol/L (98-107); GLUCOSE 142 mg/dL (75-110); POTASSIUM 3.8 mmol/L (3.6-5.0); SODIUM 137.1 mmol/L (137-145); TOTAL PROTEIN 7.3 g/dL (6.3-8.2)
--- NOTE | 2018-07-28 18:36 | ER Document Report ---
ED General - General Chief Complaint: Chest Pain Stated Complaint: CHEST PAIN Time Seen by Provider: 07/28/18 15:59 Mode of Arrival: Medic Information source: Patient Notes: 83-year-old female with a history of coronary artery disease presents emergency department with complaints of chest pain during her cardio rehab. Patient states that she was riding the bicycle when the chest pain started. She described it as a pressure sensation located in the center of the chest. Patient denies any radiation of the pain. She denies any exacerbating factors. Patient states that she was given nitro by EMS and this alleviated the pain. She follows up with Dr. Hassan, cardiology. She said her last stress test/ cath was in November 2017. She said that stents were unable to be placed because the blood vessel was too small. She's on a daily aspirin. No blood thinners. Medical management. She denies recent travel, recent surgery, calf pain, calf swelling, hx of DVT/PE, smoking. TRAVEL OUTSIDE OF THE [place] IN LAST 30 DAYS: No - HPI Onset: Just prior to arrival Onset/Duration: Gradual Quality of pain: Pressure Associated symptoms: None Exacerbated by: Denies Relieved by: Other - nitro Similar symptoms previously: No Recently seen / treated by doctor: No - Related Data Allergies/Adverse Reactions: acetaminophen [From Tylenol] Allergy (Verified 05/29/18 08:41) Facial swelling aspirin Allergy (Verified 05/29/18 08:41) Facial swelling codeine Allergy (Verified 05/29/18 08:41) Itching ibuprofen [From Motrin] Allergy (Verified 05/29/18 08:41) Facial swelling Iodinated Contrast- Oral and IV Dye Allergy (Verified 05/29/18 08:41) Anaphylaxis shellfish derived Allergy (Verified 05/29/18 08:41) Anaphylaxis MATHIEU Inhibitors Adverse Reaction (Verified 05/29/18 08:41) Facial swelling monosodium glutamate Adverse Reaction (Verified 05/29/18 12:39) Facial swelling Past Medical History - Social History Smoking Status: Former Smoker Chew tobacco use (# tins/day): No Frequency of alcohol use: None Drug Abuse: None Family History: Reviewed & Not Pertinent Patient has suicidal ideation: No Patient has homicidal ideation: No - Past Medical History Cardiac Medical History: Reports: Hx Hypercholesterolemia, Hx Hypertension Endocrine Medical History: Reports: Hx Diabetes Mellitus Type 2 Renal/ Medical History: Denies: Hx Peritoneal Dialysis Past Surgical History: Reports: Other - Right lower lobectomy - Immunizations Hx Pneumococcal Vaccination: 07/07/17 Review of Systems - Review of Systems Constitutional: No symptoms reported EENT: No symptoms reported Cardiovascular: Chest pain Respiratory: No symptoms reported Gastrointestinal: No symptoms reported Genitourinary: No symptoms reported Female Genitourinary: No symptoms reported Musculoskeletal: No symptoms reported Skin: No symptoms reported Hematologic/Lymphatic: No symptoms reported Neurological/Psychological: No symptoms reported -: Yes All other systems reviewed and negative Physical Exam - Vital signs Vitals: Temp Pulse Resp BP Pulse Ox 98.1 F 92 16 144/91 H 96 07/28/18 15:23 07/28/18 15:23 07/28/18 15:23 07/28/18 15:23 07/28/18 15:23 - General Notes: PHYSICAL EXAMINATION: GENERAL: Well-appearing, well-nourished and in no acute distress. HEAD: Atraumatic, normocephalic. EYES: Pupils equal round and reactive to light, extraocular movements intact, conjunctiva are normal. ENT: Nares patent, oropharynx clear without exudates. Moist mucous membranes. NECK: Normal range of motion, supple without lymphadenopathy LUNGS: Breath sounds clear to auscultation bilaterally and equal. No wheezes rales or rhonchi. HEART: Regular rate and rhythm without murmurs ABDOMEN: Soft, nontender, nondistended abdomen. No guarding, no rebound. No masses appreciated. Female : deferred Musculoskeletal: Normal range of motion, no pitting or edema. No cyanosis. NEUROLOGICAL: Cranial nerves grossly intact. Normal speech, normal gait. Normal sensory, motor exams PSYCH: Normal mood, normal affect. SKIN: Warm, Dry, normal turgor, no rashes or lesions noted. Course - Re-evaluation Re-evalutation: 07/28/18 18:31 EKG: Ventricular rate 89, TN interval 196, castration 136, QTc 512, sinus rhythm , left bundle branch block, EKG similar to 05/20/18 Repeat EKG. Ventricular rate 79, TN interval 204, castration 142, QTc 519, sinus rhythm, left bundle branch block. Similar to EKGs done in the past. On re-evaluation, patient continues to be asymptomatic. Initial troponin is within normal limits. Chest x-ray does not show acute process. Remainder of her labs are normal. Heart score of 4. I contacted the risk assessor on-call, Dr. Melendez. He recommends 2 sets of cardiac enzymes and to discharge home to follow-up with the patient's risk assessor, Dr. Vieira, if the troponins and 2nd EKG come back normal. I discussed the plan of care with the patient. She is agreeable with a repeat troponin and EKG. She continues to be asymptomatic. 07/28/18 19:14 Second troponin is still within normal limits but is increasing. Now 0.023. Patient having L sided chest pressure. Nitro ordered. 07/28/18 19:39 I spoke with the hospitalist. She does not want to admit the patient for observation because the patient has had 2 negative troponins. She doesn't care that it's climbing. I told her to come see and evaluate the patient. 07/28/18 20:10 I contacted [facility] for transfer. There's no beds available until tomorrow. Patient on waiting list. Patient admitted to hospitalist for cardiac rule out. - Vital Signs Vital signs: Temp Pulse Resp BP Pulse Ox 98.3 F 68 16 138/81 H 97 07/29/18 17:17 07/29/18 17:17 07/29/18 17:17 07/29/18 17:17 07/29/18 17:17 - Laboratory Result Diagrams: 07/28/18 16:09 07/29/18 06:32 Laboratory results interpreted by me: 07/28/18 07/28/18 16:09 16:09 RDW 14.5 H Glucose 142 H Calcium 10.7 H Discharge - Discharge Clinical Impression: Chest pain Qualifiers: Chest pain type: unspecified Qualified Code(s): R07.9 - Chest pain, unspecified Condition: Stable Disposition: ADMITTED OBSERVATION Admitting Provider: Hospitalist Unit Admitted: Telemetry
[2018-07-28] MEDS ORDERED: NITROGLYCERIN 0.4 MG/TAB 25 TAB/BOTTLE SL ONE (19:38)
[2018-07-28] MEDS ORDERED: PROMETHAZINE HCL 25 MG TABLET PO PRN (20:44)
[2018-07-28] MEDS ORDERED: MAG HYDROX/AL HYDROX/SIMETH SUSP 30 ML UDCUP PO PRN (20:44)
[2018-07-28] MEDS ORDERED: PROMETHAZINE HCL INJ 25 MG/1 ML VIAL IV PRN (20:44)
[2018-07-28] MEDS ORDERED: TEMAZEPAM 7.5 MG CAPSULE PO PRN (20:44)
[2018-07-28] MEDS ORDERED: DEXTROSE 40% GEL 15 GM TUBE PO PRN ×2 (20:50)
[2018-07-28] MEDS ORDERED: DEXTROSE 50%-WATER 25 GM/50 ML DISP.SYRIN IV PRN ×2 (20:50)
[2018-07-28] MEDS ORDERED: GLUCAGON,HUMAN RECOMB 1 MG INJ IM PRN (20:50)
[2018-07-28] MEDS: ENOXAPARIN SODIUM INJ 40 MG/0.4 ML DISP.SYRIN SUBCUT SCH (21:29)
--- NOTE | 2018-07-28 21:40 | PDOC H&P ---
History of Present Illness Admission Date/PCP: 07/28/18 20:43 SHEN KEITA MD Patient complains of: Chest pain History of Present Illness: ROSA WEAVER is a 83 year old female who has been diagnosed with myocardial infarction on November this year and was sent to cardiac rehabilitation since then, comes to the emergency department after being 15 minutes on the treadmill and 10 minutes in the bike, she started with left side pressure with no radiation, associated with left fifth finger numbness, up to 7/10 intensity, associated with nausea, diaphoresis and generalized weakness. Tells me that in the facility gave her 1 nitroglycerin which helped with the pain. Patient has history of myocardial infarction diagnosed on November this year. Patient was initially admitted to our facility with a diagnosis of left lower lobe pneumonia and during the hospitalization it was noted elevation in her troponin with no cardiac symptomatology, her only complaint at that time was left shoulder pain, anatomy was felt that was secondary to joint issues. Her granddaughter who is at the bedside tells me that after discharge they look for second opinion and they follow with cardiology Dr. Vieira who after seeing the EKG and do more troponins levels, as per granddaughter, diagnosed her with myocardial infarction, and was referred for cardiac rehabilitation. Her last stress test was April 2018, unremarkable. Her last cardiac catheterization was November 2017 and that she has been told that her blood pressures were up to a small unable to a stent. She is not on blood thinners. In the emergency department patient has 2 sets of troponins negative. EKG is similar to prior with no new changes. In the emergency department from the cardiology service was contacted and he recommended to set of cardiac enzymes and discharge to follow- up with her womens health nurse practitioner Dr. Vieira. Patient had minimal elevation of her second troponin falling is still within the normal limits with no changes in the EKG but was still complaining of left side chest pressure, ED attending was no comfortable sending her home on 1 her under observation overnight. Patient has reproducible tenderness to palpation in the left axillary area and in the axillary area, granddaughter tells me that was just same situation on November and it was miss her myocardial infarction. Past Medical History Cardiac Medical History: Reports: Coronary Artery Disease, Myocardial Infarction , Hyperlipidema, Hypertension Endocrine Medical History: Reports: Diabetes Mellitus Type 2 Past Surgical History Past Surgical History: Reports: Cardiac Catheterization, Other - Right lower lobectomy Social History Smoking Status: Former Smoker - Quit 1980 Frequency of Alcohol Use: None Hx Recreational Drug Use: No Drugs: None Hx Prescription Drug Abuse: No Family History Family History: Reviewed & Not Pertinent Parental Family History Reviewed: Yes - As above Children Family History Reviewed: NA Sibling(s) Family History Reviewed.: NA Medication/Allergy Home Medications: Citalopram Hydrobromide [Celexa 20 mg Tablet] 20 mg PO DAILY 05/20/18 Exenatide [Byetta] 10 mcg SQ BIDACBS 05/20/18 Gabapentin 300 mg PO QHS 05/20/18 Hydrochlorothiazide 25 mg PO DAILY 05/20/18 Losartan Potassium [Cozaar 100 mg Tablet] 100 mg PO DAILY 05/20/18 Metformin HCl [Metformin HCl ER] 1,000 mg PO WSUPPER 05/20/18 Metoprolol Succinate [Toprol Xl] 12.5 mg PO QHS 05/20/18 Multivitamin [Multivitamins] 1 each PO DAILY 05/20/18 Rosuvastatin Calcium [Crestor 5 mg Tablet] 5 mg PO Q2DAYS@2200 05/20/18 Aspirin [Aspirin EC] 81 mg PO QHS 07/28/18 Cholecalciferol (Vitamin D3) [Vitamin D3 1000 unit Chewable Tablet] 1,000 unit PO DAILY 07/28/18 Cyanocobalamin (Vitamin B-12) [Vitamin B-12 1000 Mcg Tablet] 1,000 mcg PO DAILY 07/28/18 Loperamide HCl [Imodium 2 mg Capsule] 2 mg PO DAILYP PRN 07/28/18 Allergies/Adverse Reactions: acetaminophen [From Tylenol] Allergy (Verified 05/29/18 08:41) Facial swelling aspirin Allergy (Verified 05/29/18 08:41) Facial swelling codeine Allergy (Verified 05/29/18 08:41) Itching ibuprofen [From Motrin] Allergy (Verified 05/29/18 08:41) Facial swelling Iodinated Contrast- Oral and IV Dye Allergy (Verified 05/29/18 08:41) Anaphylaxis shellfish derived Allergy (Verified 05/29/18 08:41) Anaphylaxis MATHIEU Inhibitors Adverse Reaction (Verified 05/29/18 08:41) Facial swelling monosodium glutamate Adverse Reaction (Verified 05/29/18 12:39) Facial swelling Review of Systems Review of Systems: As outlined in the HPI, others negative Physical Exam Vital Signs: Temp Pulse Resp BP Pulse Ox 98.1 F 92 20 146/93 H 96 07/28/18 15:23 07/28/18 15:23 07/28/18 19:47 07/28/18 19:47 07/28/18 19:47 Additional comments: General appearance: Elderly, alert and cooperative, and appears to be in no acute distress Head: Normocephalic Eyes: PEERL, EOMI, vision is grossly intact. Ears: External auditory canal and tympanic membranes clear, hearing grossly intact. Nose: No nasal discharge. Throat: Oral cavity and pharynx normal. No inflammation, swelling, exudate or lesions. Neck: Neck supple, nontender without lymphadenopathy, masses or thyromegaly. Cardiac: Normal S1 and S2. No S3, S4 or murmurs. Rhythm is irregular. There is no peripheral edema, cyanosis or pallor. Extremities are warm and well perfused. Capillary refill is less than 2 seconds. No carotid bruits. Thorax : Reproducible tenderness to palpation in the left axillary area next to her left breast and in the axillary fossa Lungs: Clear to auscultation and percussion without rales, rhonchi, wheezing or diminished breath sounds. Not using accessory muscles. Abdomen: Positive bowel sounds. Soft. Nondistended, nontender. No guarding or rebound. No masses. No hepatosplenomegaly Extremities: No significant deformity or joint abnormality. No edema. Peripheral pulses intact. No varicosities. Neurological: Cranial nerves II through XII grossly intact. Strength and sensation symmetric and intact throughout. Reflexes 2+ throughout. Skin: Skin normal color, texture and turgor with no lesions or eruptions, warm and dry. Psychiatric: The mental examination revealed the patient was oriented to person , place, and time. The patient was able to demonstrate good judgment on recent , without hallucinations, abnormal affect or abnormal behaviors. Results Laboratory Results: 07/28/18 07/28/18 07/28/18 16:09 16:09 16:09 WBC 7.2 RBC 4.74 Hgb 13.4 Hct 40.0 MCV 84 MCH 28.3 MCHC 33.6 RDW 14.5 H Plt Count 176 Seg Neutrophils % 68.0 Lymphocytes % 21.8 Monocytes % 7.5 Eosinophils % 2.0 Basophils % 0.7 Absolute Neutrophils 4.9 Absolute Lymphocytes 1.6 Absolute Monocytes 0.5 Absolute Eosinophils 0.1 Absolute Basophils 0.1 Sodium 137.1 Potassium 3.8 Chloride 101 Carbon Dioxide 25 Anion Gap 11 BUN 16 Creatinine 0.77 Est GFR ( Amer) > 60 Est GFR (Non-Af Amer) > 60 Glucose 142 H Calcium 10.7 H Total Bilirubin 0.5 Direct Bilirubin 0.2 AST 22 ALT 22 Alkaline Phosphatase 79 Troponin I < 0.012 Total Protein 7.3 Albumin 3.8 07/28/18 18:15 WBC RBC Hgb Hct MCV MCH MCHC RDW Plt Count Seg Neutrophils % Lymphocytes % Monocytes % Eosinophils % Basophils % Absolute Neutrophils Absolute Lymphocytes Absolute Monocytes Absolute Eosinophils Absolute Basophils Sodium Potassium Chloride Carbon Dioxide Anion Gap BUN Creatinine Est GFR ( Amer) Est GFR (Non-Af Amer) Glucose Calcium Total Bilirubin Direct Bilirubin AST ALT Alkaline Phosphatase Troponin I 0.023 Total Protein Albumin EKG Comments: Sinus rhythm with a ventricular rate of 89 bpm, LBBB which is old, no acute ST elevations, ST depressions or T wave inversions. Repeated EKG similar to prior and similar to old EKG. Impressions: Chest X-Ray 07/28/18 16:01 IMPRESSION: Mild cardiomegaly without evidence of acute cardiopulmonary disease. Assessment & Plan - Diagnosis (1) Chest pain Qualifiers: Chest pain type: unspecified Qualified Code(s): R07.9 - Chest pain, unspecified Is this a current diagnosis for this admission?: Yes Plan: Patient comes complaining of left side chest tightness after been exercising in the cardiac rehabilitation. Was diagnosed with myocardial infarction in November this year after discharge from our facility with elevated troponins felt of unknown significance as the patient was treated for left lower lobe pneumonia. In the emergency department EKG is similar to prior EKG, troponins x2-. Dr. Melendez from the cardiology service was contacted and he recommended to cardiac enzymes and be discharged to follow-up with Dr. Vieira who is her womens health nurse practitioner. ED attending reluctant to send her home as she was complaining of chest tightness. Patient had a stress test done on April this year which was unremarkable so at this point I am going to repeat the stress test. We will keep the patient under telemetry monitoring and do more cardiac enzymes. Of note concerns of the granddaughter regarding new [place], as she tells me the diagnosis was missed here during her last admission and had to be diagnosed by womens health nurse practitioner elsewhere. (2) Diabetes mellitus with hyperglycemia, with long-term current use of insulin Qualifiers: Diabetes mellitus type: type 2 Qualified Code(s): E11.65 - Type 2 diabetes mellitus with hyperglycemia; Z79.4 - termite control technician (current) use of insulin; Z79.4 - group home (current) use of insulin; Z79.4 - termite control technician (current) use of insulin ; Z79.4 - group home (current) use of insulin Is this a current diagnosis for this admission?: Yes Plan: Continue with home insulin. Accu-Cheks q. before meals and at bedtime, insulin lispro sliding scale and hypoglycemia protocol. (3) Coronary artery disease Is this a current diagnosis for this admission?: Yes Plan: Diagnosed with myocardial infarction November this year, did not bring her home medications. Comes with cardiac complaints, plan as above. Will resume her home medication as soon as we have the list. She is not on anticoagulation. (4) Hypercalcemia Is this a current diagnosis for this admission?: Yes Plan: Calcium 10.7, has been high since her first admission November this year. As per her history of lung cancer she should have workup done for possible recurrence as an outpatient if that was not done yet. - Time Time Spent: 50 to 70 Minutes Anticipated discharge: Home
[2018-07-28] MEDS ORDERED: METOPROLOL SUCCINATE 25 MG TAB.SR.24H PO SCH (22:00)
[2018-07-28] MEDS ORDERED: (PENDING PHARMACY ID) (Metformin Hcl [Metformin Hcl Er] 1,000 MG) PO SCH (22:00)
[2018-07-28] MEDS ORDERED: GABAPENTIN 300 MG CAPSULE PO SCH (22:00)
[2018-07-28] MEDS: INSULIN LISPRO 100 UNIT/ML 3 ML VIAL SUBCUT PRN (23:42)
[2018-07-29 07:22] LABS: ANION GAP 10 (5-19); BLOOD UREA NITROGEN 17 mg/dL (7-20); CALCIUM 10.5 mg/dL (8.4-10.2); CARBON DIOXIDE 24 mmol/L (22-30); CHLORIDE 104 mmol/L (98-107); GLUCOSE 180 mg/dL (75-110); POTASSIUM 3.9 mmol/L (3.6-5.0); SODIUM 138.4 mmol/L (137-145)
--- NOTE | 2018-07-29 08:12 | Physician Advisory Note ---
Physician Advisor ProgressNote .: Pursuant to the plan for [facility], I have reviewed the medical record for this patient. Physician Advisor Statement: Medicare pt w/chronic LBBB, acute CP w/exercise that improved w/NTG & is associated w/small rise/fall of trop Is, not quite out of the "normal" range. Please document: 1. most likely cause of CP, after today's eval: "angina"? "unstable angina" ? "Acute ischemic heart dz"? "acute NSTEMI, likely involving the ___ wall & ___ artery"? 2. any clinical reasons pt unsafe for d/c later today, in which case may consider change to Inpatient status Thanks! CK Note for coders: AMI is now defined as a rise/fall in trop Is associated with 1 + of the following: (1) suspicious sx, (2) new EKG changes, or (3) new wall motion abnormality.
--- NOTE | 2018-07-29 08:25 | EKG REPORT ---
SEVERITY:- ABNORMAL ECG - SINUS RHYTHM LEFT BUNDLE BRANCH BLOCK : Confirmed by: Giacomo Rodriguez 29-Jul-2018 08:25:19
--- NOTE | 2018-07-29 08:26 | EKG REPORT ---
SEVERITY:- ABNORMAL ECG - SINUS RHYTHM VENTRICULAR PREMATURE COMPLEX LEFT BUNDLE BRANCH BLOCK : Confirmed by: Giacomo Rodriguez 29-Jul-2018 08:25:34
[2018-07-29] MEDS: METFORMIN HCL 500 MG TABLET PO SCH ×4 (08:50→17:10)
[2018-07-29] MEDS: EXENATIDE INJ 10 MCG/0.04 ML 2.4 ML PEN.INJCTR SUBCUT SCH ×2 (09:34→17:00)
[2018-07-29] MEDS: ENOXAPARIN SODIUM INJ 40 MG/0.4 ML DISP.SYRIN SUBCUT SCH (09:35)
[2018-07-29] MEDS ORDERED: CITALOPRAM HYDROBROMIDE 20 MG TABLET PO SCH (10:00)
[2018-07-29] MEDS ORDERED: HYDROCHLOROTHIAZIDE 25 MG TABLET PO SCH (10:00)
[2018-07-29] MEDS ORDERED: LOSARTAN POTASSIUM 50 MG TABLET PO SCH (10:00)
[2018-07-29] MEDS: INSULIN LISPRO 100 UNIT/ML 3 ML VIAL SUBCUT PRN (13:15)
[2018-07-29 17:17] VITALS: BP 138/81
== END 2018-07-29 15:50 | disposition home or self-care (01) ==
LOC: ER 15:10 → EH 20:43 → 5 22:33
PROVIDERS: ADMIT Internal Medicine; ATTEND Internal Medicine
DX: R07.89 Other chest pain (principal); E11.65 Type 2 diabetes mellitus with hyperglycemia; I25.10 Atherosclerotic heart disease of native coronary artery without angina pectoris; E83.52 Hypercalcemia; R20.0 Anesthesia of skin; R61 Generalized hyperhidrosis; R53.1 Weakness; I44.7 Left bundle-branch block, unspecified; I25.2 Old myocardial infarction; Z79.4 Long term (current) use of insulin; Z85.118 Personal history of other malignant neoplasm of bronchus and lung; Z87.01 Personal history of pneumonia (recurrent); Z90.2 Acquired absence of lung [part of]; Z87.891 Personal history of nicotine dependence; Z79.899 Other long term (current) drug therapy; Z79.82 Long term (current) use of aspirin
CPT/HCPCS: 93005; 99285; 96372; 36415 ×2; 82962 ×2; 85025; 80048; 80053; 84484 ×2; 71045; 93010; J3490; A9270 ×6; J1650 ×2; J1815

== ENCOUNTER 2018-11-19 05:05 | Inpatient (IN) | payer MEDICARE, OTHER ==
[2018-11-19] MEDS ORDERED: MORPHINE SULFATE 10 MG/ML INJ IV ONE (05:21)
[2018-11-19] MEDS ORDERED: ONDANSETRON HCL INJ/PF 4 MG/2 ML SDV IV ONE (05:21)
--- NOTE | 2018-11-19 05:23 | ER Document Report ---
ED Medical Screen (RME) - General Stated Complaint: CHEST PAIN Time Seen by Provider: 11/19/18 05:14 Primary Care Provider: SHEN KEITA MD [Primary Care Provider] - Follow up as needed Notes: 83-year-old female comes by EMS for chest pain, she states she felt nauseated during the evening, woke up at about 3 AM, felt chest pain, vomiting, she has vomited multiple times. She denies abdominal pain. Took 1 nitroglycerin, vomited, chewed up 324 mg of aspirin, was given 2 more nitroglycerin by EMS and 4 mg of Zofran. Nausea is now gone but she still states she has some vague central chest pain. Reports had an PR last November, cardiac catheterization, her vessels were too small to perform stenting, treated with medical therapy. Daughter at bedside. TRAVEL OUTSIDE OF THE [place] IN LAST 30 DAYS: No - Related Data Allergies/Adverse Reactions: acetaminophen [From Tylenol] Allergy (Verified 05/29/18 08:41) Facial swelling aspirin Allergy (Verified 05/29/18 08:41) Facial swelling codeine Allergy (Verified 05/29/18 08:41) Itching ibuprofen [From Motrin] Allergy (Verified 05/29/18 08:41) Facial swelling Iodinated Contrast- Oral and IV Dye Allergy (Verified 05/29/18 08:41) Anaphylaxis shellfish derived Allergy (Verified 05/29/18 08:41) Anaphylaxis MATHIEU Inhibitors Adverse Reaction (Verified 05/29/18 08:41) Facial swelling monosodium glutamate Adverse Reaction (Verified 05/29/18 12:39) Facial swelling Past Medical History - Past Medical History Cardiac Medical History: Reports: Hx Coronary Artery Disease, Hx Heart Attack, Hx Hypercholesterolemia, Hx Hypertension Endocrine Medical History: Reports: Hx Diabetes Mellitus Type 2 Renal/ Medical History: Denies: Hx Peritoneal Dialysis Past Surgical History: Reports: Hx Cardiac Catheterization, Other - Right lower lobectomy - Immunizations Hx Diphtheria, Pertussis, Tetanus Vaccination: No History of Influenza Vaccine for 07/2017 - 12/2017 Season: Yes Influenza Administration Date for 07/2017 - 12/2017 Season: 07/15/18 Physical Exam - Abdominal Inspection: Normal Tenderness: Nontender. No: Tender, Guarding Doctor's Discharge - Discharge Referrals: SHEN KEITA MD [Primary Care Provider] - Follow up as needed
[2018-11-19 05:32] LABS: ABSOLUTE EOSINOPHILS # (AUTO) 0.1 10^3/uL (0.0-0.6); ABSOLUTE LYMPHOCYTES (AUTO) 1.5 10^3/uL (0.5-4.7); ABSOLUTE MONOCYTES (AUTO) 0.5 10^3/uL (0.1-1.4); ABSOLUTE NEUT (AUTO) 5.6 10^3/uL (1.7-8.2); BASOPHILS % (AUTO) 0.5 % (0-2); EOSINOPHILS % (AUTO) 1.9 % (0-6); HEMATOCRIT 41.5 % (36.0-47.0); HEMOGLOBIN 13.9 g/dL (12.0-15.5); LYMPHOCYTES % (AUTO) 19.6 % (13-45); MEAN CORPUSCULAR HEMOGLOBIN 28.6 pg (27.0-33.4); MEAN CORPUSCULAR HGB CONC 33.6 g/dL (32.0-36.0); MEAN CORPUSCULAR VOLUME 85 fl (80-97); MONOCYTES % (AUTO) 6.7 % (3-13); PLATELET COUNT 162 10^3/uL (150-450); RED BLOOD COUNT 4.88 10^6/uL (3.72-5.28); RED CELL DISTRIBUTION WIDTH 15.9 % (11.5-14.0); SEGMENTED NEUTROPHILS % (AUTO) 71.3 % (42-78); TOTAL CELLS COUNTED % (AUTO) 100 %; WHITE BLOOD COUNT 7.8 10^3/uL (4.0-10.5)
[2018-11-19 05:38] LABS: INTERNATIONAL RATION (INR) 0.98; PROTHROMBIN TIME 13.5 SEC (11.4-15.4)
[2018-11-19 05:39] LABS: PARTIAL THROMBOPLASTIN TIME 24.1 SEC (23.5-35.8)
[2018-11-19 05:52] LABS: ALANINE AMINOTRANSFERASE 26 U/L (9-52); ALKALINE PHOSPHATASE 69 U/L (38-126); ANION GAP 12 (5-19); ASPARTATE AMINO TRANSFERASE 30 U/L (14-36); BILIRUBIN,DIRECT 0.3 mg/dL (0.0-0.4); BILIRUBIN,TOTAL 0.6 mg/dL (0.2-1.3); BLOOD UREA NITROGEN 20 mg/dL (7-20); CALCIUM 10.1 mg/dL (8.4-10.2); CARBON DIOXIDE 24 mmol/L (22-30); CHLORIDE 105 mmol/L (98-107); CREATINE KINASE 35 U/L (30-135); GLUCOSE 161 mg/dL (75-110); LIPASE 413.2 U/L (23-300); SODIUM 141.3 mmol/L (137-145); TOTAL PROTEIN 7.1 g/dL (6.3-8.2)
[2018-11-19 06:04] LABS: CREATINE KINASE MB 1.23 ng/mL (<4.55); TROPONIN I 0.023 ng/mL
--- NOTE | 2018-11-19 06:10 | RADIOLOGY REPORT (SQ) ---
EXAM DESCRIPTION: XR CHEST 1 VIEW COMPLETED DATE/TME: 11/19/2018 05:07 CLINICAL HISTORY: 83 years Female, cp COMPARISON: 05/20/18, 07/28/18 NUMBER OF VIEWS/TECHNIQUE: 1/AP FINDINGS: Adequate lung volume, small chronic blunting-effusion of the right costophrenic angle, normal cardiac silhouette, and intact bony thorax. Atherosclerotic vascular disease. IMPRESSION: No acute cardiopulmonary findings.
--- NOTE | 2018-11-19 07:11 | ER Document Report ---
ED Cardiac - General Chief Complaint: Chest Pain Stated Complaint: CHEST PAIN Time Seen by Provider: 11/19/18 05:14 Primary Care Provider: SHEN KEITA MD [Primary Care Provider] - Follow up as needed TRAVEL OUTSIDE OF THE [place] IN LAST 30 DAYS: No - HPI Notes: Patient is a 83-year-old female that presents to the emergency department for chief complaint of chest pain and vomiting. Patient reports a mild general nausea throughout the day yesterday. She woke up at 3 AM this morning with a heavy chest pain on her left side that radiated into her left arm and left neck. The pain has been constant since onset at 3 AM but has improved since receiving multiple doses of nitroglycerin. Patient reports the vomiting became more severe when she woke up at 3 AM and she has had multi ple episodes of emesis. She denies any associated shortness of breath or diaphoresis. Patient currently states the pain is a mild "toothache" type pain. She states she is feeling no nausea presently. Patient does have a history of cardiac catheterization 1 year ago which showed CAD however the lesions were unable to be stented because of small vessels. Patient has been being medically managed. Past Medical History: Diabetes, hypertension, hyperlipidemia, CAD, history of lung cancer Past Surgical History: Hysterectomy, right lung lower lobectomy Social History: Quit tobacco in 1979 Family History: Reviewed and noncontributory for presenting illness Allergies: Reviewed, see documented allergy list. REVIEW OF SYSTEMS: CONSTITUTIONAL : No fever No chills No diaphoresis No recent illness EENT: No vision changes No congestion No sore throat CARDIOVASCULAR: chest pain No palpitations RESPIRATORY: No shortness of breath No cough No difficulty breathing GASTROINTESTINAL: No abdominal pain nausea vomiting No diarrhea GENITOURINARY: No dysuria No hematuria No difficulty urinating MUSCULOSKELETAL: No back pain No leg pain No arm pain SKIN: No rashes No lesions LYMPHATIC: No swollen, enlarged glands. NEUROLOGICAL: No lightheadedness No headache No weakness No paresthesias PSYCHIATRIC: No anxiety No depression PHYSICAL EXAMINATION: Vital signs reviewed, nursing noted reviewed. GENERAL: Well-appearing, well-nourished and in no acute distress. HEAD: Atraumatic, normocephalic. EYES: Eyes appear normal, extraocular movements intact, sclera anicteric, conjunctiva are normal. ENT: nares patent, oropharynx clear without exudates. Moist mucous membranes. NECK: Normal range of motion, supple without lymphadenopathy LUNGS: Breath sounds clear to auscultation bilaterally and equal. No wheezes rales or rhonchi. HEART: Regular rate and rhythm without murmurs ABDOMEN: Soft, nontender, normoactive bowel sounds. No rebound, guarding, or rigidity. No masses appreciated. EXTREMITIES: Nontender, good range of motion, no pitting or edema. NEUROLOGICAL: No focal neurological deficits. Moves all extremities spontaneou sly Motor and sensory grossly intact on exam. PSYCH: Normal mood, normal affect. SKIN: Warm, Dry, normal turgor, no rashes or lesions noted on exposed skin - Related Data Allergies/Adverse Reactions: acetaminophen [From Tylenol] Allergy (Verified 05/29/18 08:41) Facial swelling aspirin Allergy (Verified 05/29/18 08:41) Facial swelling codeine Allergy (Verified 05/29/18 08:41) Itching ibuprofen [From Motrin] Allergy (Verified 05/29/18 08:41) Facial swelling Iodinated Contrast- Oral and IV Dye Allergy (Verified 05/29/18 08:41) Anaphylaxis shellfish derived Allergy (Verified 05/29/18 08:41) Anaphylaxis MATHIEU Inhibitors Adverse Reaction (Verified 05/29/18 08:41) Facial swelling monosodium glutamate Adverse Reaction (Verified 05/29/18 12:39) Facial swelling Past Medical History - Social History Smoking Status: Unknown if Ever Smoked Chew tobacco use (# tins/day): No Frequency of alcohol use: None Drug Abuse: None Family History: Reviewed & Not Pertinent Patient has suicidal ideation: No Patient has homicidal ideation: No - Past Medical History Cardiac Medical History: Reports: Hx Coronary Artery Disease, Hx Heart Attack, Hx Hypercholesterolemia, Hx Hypertension Endocrine Medical History: Reports: Hx Diabetes Mellitus Type 2 Renal/ Medical History: Denies: Hx Peritoneal Dialysis Past Surgical History: Reports: Hx Cardiac Catheterization, Hx Hysterectomy, Other - Right lower lobectomy - Immunizations Hx Diphtheria, Pertussis, Tetanus Vaccination: No Hx Pneumococcal Vaccination: 07/07/17 Physical Exam - Vital signs Vitals: Pulse Ox 93 11/19/18 05:11 Course - Re-evaluation Re-evalutation: 11/19/18 07:08 Vitals reviewed. Nursing notes reviewed. Patient is feeling better since pr esentation in the ED. She did receive 324 mg of aspirin prior to arrival. Patient had some transient hypotension with the nitroglycerin and for that reason nitro paste will be held at this time. She states her pain is very minimal and tolerable currently. Her EKG shows a left bundle branch block which is chronic for her. Patient's troponin is normal. Chest x-ray shows no acute cardiopulmonary process. The remainder of her workup is unremarkable. She will be admitted to the hospital for further telemetry and cardiac evaluation. Patient in agreement with plan of care. Laboratory 11/19/18 11/19/18 11/19/18 04:45 04:45 04:45 WBC 7.8 RBC 4.88 Hgb 13.9 Hct 41.5 MCV 85 MCH 28.6 MCHC 33.6 RDW 15.9 H Plt Count 162 Seg Neutrophils % 71.3 Lymphocytes % 19.6 Monocytes % 6.7 Eosinophils % 1.9 Basophils % 0.5 Absolute Neutrophils 5.6 Absolute Lymphocytes 1.5 Absolute Monocytes 0.5 Absolute Eosinophils 0.1 Absolute Basophils 0.0 PT INR APTT Sodium 141.3 Potassium 4.0 Chloride 105 Carbon Dioxide 24 Anion Gap 12 BUN 20 Creatinine 1.08 Est GFR ( Amer) 58 L Est GFR (Non-Af Amer) 48 L Glucose 161 H Calcium 10.1 Total Bilirubin 0.6 Direct Bilirubin 0.3 Neonat Total Bilirubin Not Reportable Neonat Direct Bilirubin Not Reportable Neonat Indirect Bili Not Reportable AST 30 ALT 26 Alkaline Phosphatase 69 Creatine Kinase 35 CK-MB (CK-2) 1.23 Troponin I 0.023 Total Protein 7.1 Albumin 4.0 Lipase 413.2 H 11/19/18 04:45 WBC RBC Hgb Hct MCV MCH MCHC RDW Plt Count Seg Neutrophils % Lymphocytes % Monocytes % Eosinophils % Basophils % Absolute Neutrophils Absolute Lymphocytes Absolute Monocytes Absolute Eosinophils Absolute Basophils PT 13.5 INR 0.98 APTT 24.1 Sodium Potassium Chloride Carbon Dioxide Anion Gap BUN Creatinine Est GFR ( Amer) Est GFR (Non-Af Amer) Glucose Calcium Total Bilirubin Direct Bilirubin Neonat Total Bilirubin Neonat Direct Bilirubin Neonat Indirect Bili AST ALT Alkaline Phosphatase Creatine Kinase CK-MB (CK-2) Troponin I Total Protein Albumin Lipase Chest X-Ray 11/19/18 05:07 IMPRESSION: No acute cardiopulmonary findings. 11/19/18 07:48 Patient's repeat EKG is unchanged. Case discussed with Dr. Ivory who has accepted admission. - Vital Signs Vital signs: Temp Pulse Resp BP Pulse Ox 93 11/19/18 05:11 - Laboratory Result Diagrams: 11/19/18 04:45 11/19/18 04:45 Laboratory results interpreted by me: 11/19/18 11/19/18 04:45 04:45 RDW 15.9 H Est GFR ( Amer) 58 L Est GFR (Non-Af Amer) 48 L Glucose 161 H Lipase 413.2 H - EKG Interpretation by Me Additional EKG results interpreted by me: 11/19/18 07:10 Interpreted by myself 0516: Normal sinus rhythm, rate 87, left axis, left bundle branch block, PVC, first-degree AV block, no significant change from 07/28/18 11/19/18 07:21 Repeat EKG 0712: Normal sinus rhythm, rate 77, left bundle branch block, PVC, left axis, first-degree AV block, unchanged from initial Discharge - Discharge Clinical Impression: Chest pain Qualifiers: Chest pain type: unspecified Qualified Code(s): R07.9 - Chest pain, unspecified Vomiting Qualifiers: Vomiting type: unspecified Vomiting Intractability: non-intractable Nausea presence: with nausea Qualified Code(s): R11.2 - Nausea with vomiting, unspecified Condition: Stable Disposition: ADMITTED OBSERVATION Admitting Provider: Hospitalist Unit Admitted: Telemetry Referrals: SHEN KEITA MD [Primary Care Provider] - Follow up as needed
--- NOTE | 2018-11-19 07:33 | EKG REPORT ---
SEVERITY:- ABNORMAL ECG - SINUS RHYTHM VENTRICULAR PREMATURE COMPLEX LEFT BUNDLE BRANCH BLOCK : Confirmed by: Mago Melendez MD 19-Nov-2018 07:33:11
[2018-11-19] MEDS ORDERED: ACETAMINOPHEN 325 MG TABLET PO PRN (08:56)
[2018-11-19] MEDS ORDERED: ONDANSETRON HCL INJ/PF 4 MG/2 ML SDV IV PRN (08:56)
[2018-11-19] MEDS ORDERED: NITROGLYCERIN 0.4 MG/TAB 25 TAB/BOTTLE SL PRN (08:59)
[2018-11-19] MEDS ORDERED: DEXTROSE 40% GEL 15 GM TUBE PO PRN ×2 (09:08)
[2018-11-19] MEDS ORDERED: DEXTROSE 50%-WATER 25 GM/50 ML DISP.SYRIN IV PRN ×2 (09:08)
[2018-11-19] MEDS ORDERED: GLUCAGON,HUMAN RECOMB 1 MG INJ IM PRN (09:08)
--- NOTE | 2018-11-19 09:23 | PDOC H&P ---
History of Present Illness Admission Date/PCP: 11/19/18 08:12 SHEN KEITA MD Patient complains of: Chest pain History of Present Illness: ROSA WEAVER is a 83 year old female with history of [place] last year, hypertension, diabetes mellitus, hypertension hyperlipidemia, history of type I lung cancer status post partial removal of the right lung, came to the emergency room with complaints of chest pain. She woke up with chest pain this morning which was left-sided radiating to the left axilla and , to the left side of the neck ,lasted for more than a minute each time ,pressure-like pain associated with nausea and vomitings, denies any shortness of breath, denies any sweating with the pains. She had a history of chest pains prior never had a stress test done . But she was told she has a priorheart attack . Denies any fever denies any cough denies any headaches denies any lightheadedness. She took nitroglycerin pill at home pain is dull for lately. She took another nitro pill 1 hour later, in the EMS they gave her 3 sprays of nitroglycerin as per the patient. It helped chest pain. Workup was done in the emergency room EKG shows left bundle branch block which was similar compared to the previous EKG in July last year. Went to saw the patient discussed the plan of care with the patient and the family members and confirmed the presentation with the patient. Patient and family agreed to stay in the hospital overnight for possible stress test tomorrow. Past Medical History Cardiac Medical History: Reports: Coronary Artery Disease, Myocardial Infarction, Hyperlipidema, Hypertension Endocrine Medical History: Reports: Diabetes Mellitus Type 2 Malignancy Medical History: Reports: Lung Cancer Past Surgical History Past Surgical History: Reports: Cardiac Catheterization, Hysterectomy, Other - Right lower lobectomy Social History Smoking Status: Former Smoker Frequency of Alcohol Use: None Hx Recreational Drug Use: No Drugs: None Hx Prescription Drug Abuse: No - Advance Directive Resuscitation Status: Full Code Family History Family History: Reviewed & Not Pertinent Parental Family History Reviewed: Yes - Mother with heart attack Brother with heart attack Children Family History Reviewed: Yes Sibling(s) Family History Reviewed.: Yes Medication/Allergy Home Medications: Citalopram Hydrobromide [Celexa 20 mg Tablet] 20 mg PO DAILY 05/20/18 Exenatide [Byetta] 10 mcg SQ BIDACBS 05/20/18 Gabapentin 300 mg PO QHS 05/20/18 Hydrochlorothiazide 25 mg PO DAILY 05/20/18 Losartan Potassium [Cozaar 100 mg Tablet] 100 mg PO DAILY 05/20/18 Metformin HCl [Metformin ER Gastric] 1,000 mg PO WSUPPER 05/20/18 Metoprolol Succinate [Toprol Xl] 12.5 mg PO QHS 05/20/18 Multivitamin [Multivitamins] 1 each PO DAILY 05/20/18 Rosuvastatin Calcium [Crestor 5 mg Tablet] 5 mg PO Q2DAYS@2200 05/20/18 Aspirin [Aspirin EC] 81 mg PO QHS 07/28/18 Cholecalciferol (Vitamin D3) [Vitamin D3 1000 unit Chewable Tablet] 1,000 unit PO DAILY 07/28/18 Cyanocobalamin (Vitamin B-12) [Vitamin B-12 1000 mcg Tablet] 1,000 mcg PO DAILY 07/28/18 Loperamide HCl [Imodium 2 mg Capsule] 2 mg PO DAILYP PRN 07/28/18 Nitroglycerin [Nitrostat 0.4 mg (1/150 Gr) Tabs 25/Bottle] 1 tab SL Q5MP PRN #25 tab.subl 07/29/18 Allergies/Adverse Reactions: acetaminophen [From Tylenol] Allergy (Verified 11/19/18 07:59) Facial swelling aspirin Allergy (Verified 11/19/18 07:59) Facial swelling codeine Allergy (Verified 11/19/18 07:59) Itching ibuprofen [From Motrin] Allergy (Verified 11/19/18 07:59) Facial swelling Iodinated Contrast- Oral and IV Dye Allergy (Verified 11/19/18 07:59) Anaphylaxis shellfish derived Allergy (Verified 11/19/18 07:59) Anaphylaxis MATHIEU Inhibitors Adverse Reaction (Verified 11/19/18 07:59) Facial swelling monosodium glutamate Adverse Reaction (Verified 11/19/18 07:59) Facial swelling Review of Systems Constitutional: ABSENT: fever(s), headache(s), night sweats, weakness, weight gain, weight loss Eyes: ABSENT: visual disturbances Ears: ABSENT: hearing changes Cardiovascular: PRESENT: chest pain Respiratory: ABSENT: cough, hemoptysis Gastrointestinal: PRESENT: nausea, vomiting Musculoskeletal: ABSENT: joint swelling Integumentary: ABSENT: rash, wounds Neurological: ABSENT: abnormal gait, abnormal speech, confusion, dizziness, focal weakness, syncope Psychiatric: ABSENT: anxiety, depression, homidical ideation, suicidal ideation Physical Exam Vital Signs: Temp Pulse Resp BP Pulse Ox 98.0 F 16 110/88 H 97 11/19/18 07:01 11/19/18 08:16 11/19/18 08:16 11/19/18 08:16 Intake & Output 11/18/18 11/19/18 11/20/18 06:59 06:59 06:59 Weight 68.039 kg General appearance: PRESENT: no acute distress Head exam: PRESENT: atraumatic Eye exam: PRESENT: PERRLA Mouth exam: PRESENT: moist, tongue midline Neck exam: ABSENT: carotid bruit, JVD, lymphadenopathy, thyromegaly Respiratory exam: PRESENT: clear to auscultation jennifer. ABSENT: rales, rhonchi, wheezes Cardiovascular exam: PRESENT: RRR. ABSENT: diastolic murmur, rubs, systolic murmur GI/Abdominal exam: PRESENT: normal bowel sounds, soft. ABSENT: distended, guarding, mass, organolmegaly, rebound, tenderness Extremities exam: PRESENT: full ROM. ABSENT: calf tenderness, clubbing, pedal edema Neurological exam: PRESENT: alert, awake, oriented to person, oriented to place, oriented to time, oriented to situation, CN II-XII grossly intact. ABSENT: motor sensory deficit Psychiatric exam: PRESENT: appropriate affect, normal mood. ABSENT: homicidal ideation, suicidal ideation Results Laboratory Results: 11/19/18 04:45 11/19/18 04:45 11/19/18 11/19/18 04:45 04:45 WBC 7.8 RBC 4.88 Hgb 13.9 Hct 41.5 MCV 85 MCH 28.6 MCHC 33.6 RDW 15.9 H Plt Count 162 Seg Neutrophils % 71.3 Lymphocytes % 19.6 Monocytes % 6.7 Eosinophils % 1.9 Basophils % 0.5 Absolute Neutrophils 5.6 Absolute Lymphocytes 1.5 Absolute Monocytes 0.5 Absolute Eosinophils 0.1 Absolute Basophils 0.0 Sodium 141.3 Potassium 4.0 Chloride 105 Carbon Dioxide 24 Anion Gap 12 BUN 20 Creatinine 1.08 Est GFR ( Amer) 58 L Est GFR (Non-Af Amer) 48 L Glucose 161 H Calcium 10.1 Total Bilirubin 0.6 AST 30 ALT 26 Alkaline Phosphatase 69 Total Protein 7.1 Albumin 4.0 Lipase 413.2 H 11/19/18 11/19/18 04:45 04:45 Creatine Kinase 35 CK-MB (CK-2) 1.23 Troponin I 0.023 Impressions: Chest X-Ray 11/19/18 05:07 IMPRESSION: No acute cardiopulmonary findings. Assessment & Plan - Diagnosis (1) Chest pain Qualifiers: Chest pain type: unspecified Qualified Code(s): R07.9 - Chest pain, unspecified Is this a current diagnosis for this admission?: Yes Plan: 11/19/2018 patient came in with chest pain based on the symptoms and presentation most likely cardiac in nature. Plan to put her in telemetry. To do the stress test tomorrow. Cardiac enzymes x3 along with EKG requested. Started on Lovenox 40 mg subcu daily, aspirin 3.5 mg p.o. daily, atorvastatin 20 mg at bedtime. GI prophylaxis was initiated. (2) Vomiting Qualifiers: Vomiting type: unspecified Vomiting Intractability: non-intractable Nausea presence: with nausea Qualified Code(s): R11.2 - Nausea with vomiting, unspecified Is this a current diagnosis for this admission?: Yes Plan: 11/18/2018-patient came in with nausea and vomiting in association with chest pain. Started on Zofran 4 mg IV every 6 as needed no episodes of nausea and vomiting in the ER. Chest x-ray was negative for an aspiration. (3) Diabetes Is this a current diagnosis for this admission?: Yes Plan: 11/19/2018-patient has history of type 2 diabetes mellitus. She is on Victoza at home. She is also on metformin at home metformin was on hold for now. Started on insulin sliding scale. Hemoglobin A1c was requested. Diet exercise lifestyle modifications are discussed with. Dietary consult was requested. (4) Lung cancer Is this a current diagnosis for this admission?: Yes Plan: 11/19/2018-patient is giving history of type I lung cancer status post removal of the most of the right lower lung as per the patient and the family members. It was done in [place]. As per the patient and family she is cancer free now. (5) HTN (hypertension) Is this a current diagnosis for this admission?: Yes Plan: 11/19/2018 patient is given the history of hypertension on antihypertensives at home. Blood pressures today 110/88 stable plan is to resume the home medications. - Time Time Spent: 50 to 70 Minutes Medications reviewed and adjusted accordingly: Yes Anticipated discharge: Home
[2018-11-19] MEDS: DOCUSATE SODIUM 100 MG CAPSULE PO SCH ×2 (09:58→18:56)
[2018-11-19] MEDS: FAMOTIDINE 20 MG TABLET PO SCH (09:58)
[2018-11-19] MEDS ORDERED: FAMOTIDINE 20 MG TABLET PO SCH (10:00)
[2018-11-19] MEDS ORDERED: ENOXAPARIN SODIUM INJ 40 MG/0.4 ML DISP.SYRIN SUBCUT SCH ×2 (10:00)
[2018-11-19] MEDS: INSULIN LISPRO 100 UNIT/ML 3 ML VIAL SUBCUT SCH ×3 (10:14→21:50)
[2018-11-19] MEDS: ENOXAPARIN SODIUM INJ 80 MG/0.8 ML DISP.SYRIN SUBCUT SCH ×2 (11:37→21:52)
[2018-11-19 15:30] LABS: CREATINE KINASE MB 1.79 ng/mL (<4.55)
[2018-11-19 15:45] LABS: TROPONIN I 0.136 ng/mL
[2018-11-19] MEDS: CHOLECALCIFEROL (D3) 1,000 UNIT TABLET PO SCH (18:56)
[2018-11-19] MEDS: LOSARTAN POTASSIUM 50 MG TABLET PO SCH (18:56)
[2018-11-19] MEDS: METOPROLOL SUCCINATE 25 MG TAB.SR.24H PO SCH (21:08)
[2018-11-19 21:32] LABS: CREATINE KINASE MB 1.61 ng/mL (<4.55); TROPONIN I 0.105 ng/mL
[2018-11-19] MEDS: OXYBUTYNIN CHLORIDE 5 MG TABLET PO SCH (21:52)
[2018-11-19] MEDS: ATORVASTATIN CALCIUM 20 MG TABLET PO SCH (21:52)
[2018-11-19] MEDS: RANOLAZINE 500 MG TAB.SR.12H PO SCH (21:52)
[2018-11-20 03:01] LABS: ABSOLUTE EOSINOPHILS # (AUTO) 0.1 10^3/uL (0.0-0.6); ABSOLUTE LYMPHOCYTES (AUTO) 2.4 10^3/uL (0.5-4.7); ABSOLUTE MONOCYTES (AUTO) 0.6 10^3/uL (0.1-1.4); ABSOLUTE NEUT (AUTO) 3.5 10^3/uL (1.7-8.2); BASOPHILS % (AUTO) 0.7 % (0-2); EOSINOPHILS % (AUTO) 1.9 % (0-6); HEMATOCRIT 37.7 % (36.0-47.0); HEMOGLOBIN 12.7 g/dL (12.0-15.5); LYMPHOCYTES % (AUTO) 35.8 % (13-45); MEAN CORPUSCULAR HEMOGLOBIN 28.6 pg (27.0-33.4); MEAN CORPUSCULAR HGB CONC 33.7 g/dL (32.0-36.0); MEAN CORPUSCULAR VOLUME 85 fl (80-97); MONOCYTES % (AUTO) 8.5 % (3-13); PLATELET COUNT 140 10^3/uL (150-450); RED BLOOD COUNT 4.44 10^6/uL (3.72-5.28); RED CELL DISTRIBUTION WIDTH 15.8 % (11.5-14.0); SEGMENTED NEUTROPHILS % (AUTO) 53.1 % (42-78); TOTAL CELLS COUNTED % (AUTO) 100 %; WHITE BLOOD COUNT 6.6 10^3/uL (4.0-10.5)
[2018-11-20 03:41] LABS: CREATINE KINASE MB 1.03 ng/mL (<4.55); TROPONIN I 0.093 ng/mL
[2018-11-20] MEDS: INSULIN LISPRO 100 UNIT/ML 3 ML VIAL SUBCUT SCH ×4 (09:10→22:27)
[2018-11-20] MEDS ORDERED: REGADENOSON INJ 0.4 MG/5 ML DISP.SYRIN IV ONE (10:00)
[2018-11-20] MEDS ORDERED: (PENDING PHARMACY ID) (Cholecalciferol (Vitamin D3) [Vitamin D3 1000 Unit Chewable Tablet] PO SCH (10:00)
[2018-11-20] MEDS ORDERED: (PENDING PHARMACY ID) (Oxybutynin Chloride [Oxybutynin Chloride Er] 5 MG) PO SCH (10:00)
[2018-11-20] MEDS ORDERED: (PENDING PHARMACY ID) (Liraglutide [Victoza 2-Pak] 1.8 MG) SQ SCH (10:00)
[2018-11-20] MEDS: DOCUSATE SODIUM 100 MG CAPSULE PO SCH ×2 (10:56→17:18)
[2018-11-20] MEDS: RANOLAZINE 500 MG TAB.SR.12H PO SCH ×2 (10:56→22:29)
[2018-11-20] MEDS: FAMOTIDINE 20 MG TABLET PO SCH (10:56)
[2018-11-20] MEDS: CHOLECALCIFEROL (D3) 1,000 UNIT TABLET PO SCH (10:56)
[2018-11-20] MEDS: OXYBUTYNIN CHLORIDE 5 MG TABLET PO SCH ×2 (10:56→22:29)
[2018-11-20] MEDS: LOSARTAN POTASSIUM 50 MG TABLET PO SCH (10:56)
[2018-11-20] MEDS: ENOXAPARIN SODIUM INJ 80 MG/0.8 ML DISP.SYRIN SUBCUT SCH (11:05)
[2018-11-20 11:25] LABS: ALANINE AMINOTRANSFERASE 21 U/L (9-52); ALBUMIN 3.6 g/dL (3.5-5.0); ALKALINE PHOSPHATASE 60 U/L (38-126); ANION GAP 8 (5-19); ASPARTATE AMINO TRANSFERASE 18 U/L (14-36); BILIRUBIN,DIRECT 0.2 mg/dL (0.0-0.4); BILIRUBIN,TOTAL 0.5 mg/dL (0.2-1.3); BLOOD UREA NITROGEN 20 mg/dL (7-20); CALCIUM 10.3 mg/dL (8.4-10.2); CARBON DIOXIDE 25 mmol/L (22-30); CHLORIDE 108 mmol/L (98-107); CHOLESTEROL 115.79 mg/dL (0-200); CREATINE KINASE 25 U/L (30-135); GLUCOSE 168 mg/dL (75-110); SODIUM 140.8 mmol/L (137-145); TOTAL PROTEIN 6.5 g/dL (6.3-8.2); TRIGLYCERIDES 382 mg/dL (<150)
[2018-11-20 11:34] LABS: CREATINE KINASE MB 0.83 ng/mL (<4.55); TROPONIN I 0.053 ng/mL
[2018-11-20 11:36] LABS: DIRECT LDL 49 mg/dL (<100)
[2018-11-20 11:39] LABS: VLDL CHOLESTEROL 76.4 mg/dL (10-31)
[2018-11-20] MEDS ORDERED: ASPIRIN 325 MG TABLET, ENT COATED PO SCH (15:00)
[2018-11-20 17:48] LABS: CREATINE KINASE MB 0.72 ng/mL (<4.55); TROPONIN I 0.044 ng/mL
--- NOTE | 2018-11-20 20:35 | PDOC PROGRESS REPORT ---
Addendum entered and electronically signed by DWAYNE GALAN PA-C 11/20/18 20:37: Provider Note Provider Note: Imdur 30 mg extended release p.o. daily started per cardiology recommendations. Hold parameters placed. Original Note: Subjective Progress Note for:: 11/20/18 Subjective:: Admission:ROSA WEAVER is a 83 year old female with history of [place] last year, hypertension, diabetes mellitus, hypertension hyperlipidemia, history of type I lung cancer status post partial removal of the right lung, came to the emergency room with complaints of chest pain. She woke up with chest pain this morning which was left-sided radiating to the left axilla and , to the left side of the neck ,lasted for more than a minute each time ,pressure-like pain associated with nausea and vomitings, denies any shortness of breath, denies any sweating with the pains. She had a history of chest pains prior never had a stress test done . But she was told she has a priorheart attack . Denies any fever denies any cough denies any headaches denies any lightheadedness. She took nitroglycerin pill at home pain is dull for lately. She took another nitro pill 1 hour later, in the EMS they gave her 3 sprays of nitroglycerin as per the patient. It helped chest pain. Workup was done in the emergency room EKG shows left bundle branch block which was similar compared to the previous EKG in July last year. Went to saw the patient discussed the plan of care with the patient and the family members and confirmed the presentation with the patient. Patient and family agreed to stay in the hospital overnight for possible stress test tomorrow. 11/20/18 Spoke with [employer] today stress test normal. Recommendation made for echocardiogram as ejection fraction seem to be reduced. Last echo November 2017 showed a normal ejection fraction. Patient reports chest pain relieved with nitro. She reports chest pain was ongoing for several hours yesterday. Denies acute changes in breathing, chest pain, and palpitations. Reason For Visit: CHEST PAIN Physical Exam Vital Signs: Temp Pulse Resp BP Pulse Ox 97.8 F 68 24 H 113/58 L 95 11/20/18 16:51 11/20/18 16:51 11/20/18 16:51 11/20/18 16:51 02/14/19 16:51 Intake & Output 11/19/18 11/20/18 11/21/18 06:59 06:59 06:59 Intake Total 623 Balance 623 Weight 69.5 kg General appearance: PRESENT: no acute distress, obese Head exam: PRESENT: atraumatic, normocephalic Eye exam: PRESENT: conjunctiva pink, EOMI, PERRLA. ABSENT: scleral icterus Mouth exam: PRESENT: moist, tongue midline Respiratory exam: PRESENT: unlabored, other - No appreciable wheeze, rhonchi. Possible faint crackles at bases Cardiovascular exam: PRESENT: RRR, +S1, +S2 Pulses: PRESENT: normal dorsalis pedis pul Vascular exam: PRESENT: normal capillary refill GI/Abdominal exam: PRESENT: other - Nontender, soft, bowel sounds present, nondistended. Rectal exam: PRESENT: deferred Extremities exam: PRESENT: other - Trace bilateral lower extremity edema Neurological exam: PRESENT: alert, awake, oriented to person, oriented to place, oriented to time, oriented to situation, CN II-XII grossly intact. ABSENT: motor sensory deficit Psychiatric exam: PRESENT: flat affect Results Laboratory Results: 11/20/18 02:50 11/20/18 10:51 11/20/18 11/20/18 11/20/18 02:50 02:50 10:51 WBC 6.6 RBC 4.44 Hgb 12.7 Hct 37.7 MCV 85 MCH 28.6 MCHC 33.7 RDW 15.8 H Plt Count 140 L Seg Neutrophils % 53.1 Lymphocytes % 35.8 Monocytes % 8.5 Eosinophils % 1.9 Basophils % 0.7 Absolute Neutrophils 3.5 Absolute Lymphocytes 2.4 Absolute Monocytes 0.6 Absolute Eosinophils 0.1 Absolute Basophils 0.0 Sodium 140.8 Potassium 4.0 Chloride 108 H Carbon Dioxide 25 Anion Gap 8 BUN 20 Creatinine 0.92 Est GFR ( Amer) > 60 Est GFR (Non-Af Amer) 58 L Glucose 168 H Calcium 10.3 H Magnesium 1.8 Total Bilirubin 0.5 AST 18 ALT 21 Alkaline Phosphatase 60 Total Protein 6.5 Albumin 3.6 Triglycerides 382 H Cholesterol 115.79 LDL Cholesterol Direct 49 VLDL Cholesterol 76.4 H HDL Cholesterol 37 L TSH 1.46 11/19/18 11/19/18 11/19/18 04:45 04:45 09:00 Creatine Kinase 35 CK-MB (CK-2) 1.23 Troponin I 0.023 0.119 NT-Pro-B Natriuret Pep 11/19/18 11/19/18 11/19/18 09:00 09:00 14:44 Creatine Kinase 34 33 CK-MB (CK-2) 1.45 Troponin I NT-Pro-B Natriuret Pep 11/19/18 11/19/18 11/19/18 14:44 20:46 20:46 Creatine Kinase 31 CK-MB (CK-2) 1.79 1.61 Troponin I 0.136 0.105 NT-Pro-B Natriuret Pep 11/20/18 11/20/18 11/20/18 02:50 02:50 10:51 Creatine Kinase 23 L CK-MB (CK-2) 1.03 0.83 Troponin I 0.093 0.053 NT-Pro-B Natriuret Pep 11/20/18 11/20/18 11/20/18 10:51 16:55 16:55 Creatine Kinase 25 L 26 L CK-MB (CK-2) 0.72 Troponin I 0.044 NT-Pro-B Natriuret Pep 2860 H Impressions: Chest X-Ray 11/19/18 05:07 IMPRESSION: No acute cardiopulmonary findings. Assessment & Plan - Diagnosis (1) Chest pain Qualifiers: Chest pain type: unspecified Qualified Code(s): R07.9 - Chest pain, unspecified Is this a current diagnosis for this admission?: Yes (2) Diabetes Is this a current diagnosis for this admission?: Yes (3) HTN (hypertension) Is this a current diagnosis for this admission?: Yes (4) Lung cancer Is this a current diagnosis for this admission?: Yes (5) Vomiting Qualifiers: Vomiting type: unspecified Vomiting Intractability: non-intractable Nausea presence: with nausea Qualified Code(s): R11.2 - Nausea with vomiting, unspecified Is this a current diagnosis for this admission?: Yes - Time Time Spent with patient: 15-24 minutes Medications reviewed and adjusted accordingly: Yes - Inpatient Certification Based on my medical assessment, after consideration of the patient's comorbidities, presenting symptoms, or acuity I expect that the services needed warrant INPATIENT care.: Yes I certify that my determination is in accordance with my understanding of Medicare's requirements for reasonable and necessary INPATIENT services [42 CFR 412.3e].: Yes - Plan Summary Plan Summary: (1) Chest pain Qualifiers: Chest pain type: unspecified Qualified Code(s): R07.9 - Chest pain, uns pecified Is this a current diagnosis for this admission?: Yes Plan: 11/19/2018 patient came in with chest pain based on the symptoms and presentation most likely cardiac in nature. Plan to put her in telemetry. To do the stress test tomorrow. Cardiac enzymes x3 along with EKG requested. Started on Lovenox 40 mg subcu daily, aspirin 3.5 mg p.o. daily, atorvastatin 20 mg at bedtime. GI prophylaxis was initiated. 11/20/18 normal stress test. Negative troponins. Check echocardiogram. Continue to monitor on telemetry. No reports of acute changes in breathing, palpitations, chest pain. Ejection fraction suspected be lowered by cardi ologist. BNP 2860. (2) Vomiting Qualifiers: Vomiting type: unspecified Vomiting Intractability: non-intractable N ausea presence: with nausea Qualified Code(s): R11.2 - Nausea with vomiting, unspecified Is this a current diagnosis for this admission?: Yes Plan: 11/18/2018-patient came in with nausea and vomiting in association with chest pain. Started on Zofran 4 mg IV every 6 as needed no episodes of nausea and vo miting in the ER. Chest x-ray was negative for an aspiration. 11/20/18 no issues in last 24 hours. Lipase 413 on admission. Triglycerides 382. (3) Diabetes Is this a current diagnosis for this admission?: Yes Plan: 11/19/2018-patient has history of type 2 diabetes mellitus. She is on Victoza at home. She is also on metformin at home metformin was on hold for now. Started on insulin sliding scale. Hemoglobin A1c was requested. Diet exercise lifestyle modifications are discussed with. Dietary consult was requested. 11/20/18 continue with current management. Blood glucose 168 when last checked. (4) Lung cancer Is this a current diagnosis for this admission?: Yes Plan: 11/19/2018-patient is giving history of type I lung cancer status post removal of the most of the right lower lung as per the patient and the family members. It was done in [place]. As per the patient and family she is cancer free now. 11/20/18 no current issues at this time. (5) HTN (hypertension) Is this a current diagnosis for this admission?: Yes Plan: 11/19/2018 patient is given the history of hypertension on antihypertensives at home. Blood pressures today 110/88 stable plan is to resume the home medications. 11/20/18 last blood pressure 113/58. Controlled. Monitoring. Disposition: Need to evaluate ejection fraction and possibly heart failure as a cause for the chest pain. Continue to monitor on telemetry for any possibility of arrhythmia as possible origin. Consider for discharge tomorrow per/pending cardiology recommendations. No current indication for cath. Follows with cardiology and [facility] day
[2018-11-20] MEDS: ATORVASTATIN CALCIUM 20 MG TABLET PO SCH (22:28)
[2018-11-20] MEDS: METOPROLOL SUCCINATE 25 MG TAB.SR.24H PO SCH (22:29)
[2018-11-21 06:42] LABS: ALANINE AMINOTRANSFERASE 21 U/L (9-52); ALBUMIN 3.4 g/dL (3.5-5.0); ALKALINE PHOSPHATASE 56 U/L (38-126); ANION GAP 10 (5-19); ASPARTATE AMINO TRANSFERASE 17 U/L (14-36); BILIRUBIN,DIRECT 0.2 mg/dL (0.0-0.4); BILIRUBIN,TOTAL 0.5 mg/dL (0.2-1.3); BLOOD UREA NITROGEN 19 mg/dL (7-20); CALCIUM 9.9 mg/dL (8.4-10.2); CARBON DIOXIDE 24 mmol/L (22-30); CHLORIDE 107 mmol/L (98-107); GLUCOSE 133 mg/dL (75-110); POTASSIUM 4.1 mmol/L (3.6-5.0); SODIUM 141.1 mmol/L (137-145); TOTAL PROTEIN 6.2 g/dL (6.3-8.2)
[2018-11-21] MEDS: INSULIN LISPRO 100 UNIT/ML 3 ML VIAL SUBCUT SCH ×4 (08:15→21:38)
--- NOTE | 2018-11-21 08:25 | Progress Note ---
Provider Note Provider Note: Prelimnary cardiolite stress test report: No reversible ischemia.Small area of scar/VT in the apical inferior and apical septum.LVEF appears reduced.Check echo for LVEF corelation.
--- NOTE | 2018-11-21 08:35 | Progress Note ---
Provider Note Provider Note: Correction from yesterday's progress note. Stress test was not normal. No reversible ischemia noted. Scarring in inferior apical and septum apical regions. ECHO today to evaluate EF. EF appeared to be reduced on stress.
[2018-11-21] MEDS: FAMOTIDINE 20 MG TABLET PO SCH (09:47)
[2018-11-21] MEDS: DOCUSATE SODIUM 100 MG CAPSULE PO SCH ×2 (09:47→17:20)
[2018-11-21] MEDS: ISOSORBIDE MONONITRATE 30 MG TAB.ER.24H PO SCH (09:47)
[2018-11-21] MEDS: CHOLECALCIFEROL (D3) 1,000 UNIT TABLET PO SCH (09:47)
[2018-11-21] MEDS: ASPIRIN 81 MG TABLET, ENT COATED PO SCH (09:47)
[2018-11-21] MEDS: ENOXAPARIN SODIUM INJ 40 MG/0.4 ML DISP.SYRIN SUBCUT SCH (09:48)
[2018-11-21] MEDS: LOSARTAN POTASSIUM 50 MG TABLET PO SCH (09:48)
[2018-11-21] MEDS: RANOLAZINE 500 MG TAB.SR.12H PO SCH ×2 (09:49→21:37)
[2018-11-21] MEDS: OXYBUTYNIN CHLORIDE 5 MG TABLET PO SCH ×2 (09:56→21:36)
--- NOTE | 2018-11-21 14:12 | PDOC PROGRESS REPORT ---
Subjective Progress Note for:: 11/21/18 Subjective:: Admission:ROSA WEAVER is a 83 year old female with history of [place] last year, hypertension, diabetes mellitus, hypertension hyperlipidemia, history of type I lung cancer status post partial removal of the right lung, came to the emergency room with complaints of chest pain. She woke up with chest pain this morning which was left-sided radiating to the left axilla and , to the left side of the neck ,lasted for more than a minute each time ,pressure-like pain associated with nausea and vomitings, denies any shortness of breath, denies any sweating with the pains. She had a history of chest pains prior never had a stress test done . But she was told she has a prior heart attack . Denies any fever denies any cough denies any headaches denies any lightheadedness. She took nitroglycerin pill at home pain is dull for lately. She took another nitro pill 1 hour later, in the EMS they gave her 3 sprays of nitroglycerin as per the patient. It helped chest pain. Workup was done in the emergency room EKG shows left bundle branch block which was similar compared to the previous EKG in July last year. Went to saw the patient discussed the plan of care with the patient and the family members and confirmed the presentation with the patient. Patient and family agreed to stay in the hospital overnight for possible stress test tomorrow. 11/20/18 Spoke with steward/stewardess banquet today stress test showed scarring in the apical inferior and septum regions. Recommendation made for echocardiogram as ejection fraction seem to be reduced. Last echo November 2017 showed a normal ejection fraction. Patient reports chest pain relieved with nitro. She reports chest pain was ongoing for several hours yesterday. Denies acute changes in breathing, chest pain, and palpitations. 11/21/18 Echocardiogram results pending. Patient is resting comfortably in bed with a family member in the room at the time of my evaluation. She denies recent episodes of chest pain. She lives at home and drives herself. She lives alone. She does have family that lives close by. She has not reported any issues on Imdur, and nursing has no complaints reported. Reason For Visit: CHEST PAIN Physical Exam Vital Signs: Temp Pulse Resp BP Pulse Ox 97.8 F 62 18 110/61 98 11/21/18 11:30 11/21/18 11:30 11/21/18 11:30 11/21/18 11:30 11/21/18 11:30 Intake & Output 11/20/18 11/21/18 11/22/18 06:59 06:59 06:59 Intake Total 979 Balance 979 Weight 69.5 kg 69.6 kg General appearance: PRESENT: no acute distress, cooperative, well-developed, well-nourished Head exam: PRESENT: atraumatic, normocephalic Eye exam: PRESENT: conjunctiva pink, EOMI, PERRLA. ABSENT: scleral icterus Ear exam: PRESENT: normal external ear exam Mouth exam: PRESENT: moist, tongue midline Respiratory exam: PRESENT: other - Good airflow bilaterally. No appreciable wheeze, rhonchi, rales. Cardiovascular exam: PRESENT: RRR, +S1, +S2 GI/Abdominal exam: PRESENT: normal bowel sounds, soft. ABSENT: distended, guarding, mass, organolmegaly, rebound, tenderness Rectal exam: PRESENT: deferred Extremities exam: PRESENT: other - Trace edema bilateral lower extremities. Musculoskeletal exam: PRESENT: full ROM, normal inspection Neurological exam: PRESENT: alert, awake, oriented to person, oriented to place, oriented to time, oriented to situation, CN II-XII grossly intact. ABSENT: motor sensory deficit Psychiatric exam: PRESENT: appropriate affect, normal mood. ABSENT: homicidal ideation, suicidal ideation Results Laboratory Results: 11/20/18 02:50 11/21/18 05:27 11/21/18 05:27 Sodium 141.1 Potassium 4.1 Chloride 107 Carbon Dioxide 24 Anion Gap 10 BUN 19 Creatinine 0.81 Est GFR ( Amer) > 60 Est GFR (Non-Af Amer) > 60 Glucose 133 H Calcium 9.9 Magnesium 1.8 Total Bilirubin 0.5 AST 17 ALT 21 Alkaline Phosphatase 56 Total Protein 6.2 L Albumin 3.4 L 11/19/18 11/19/18 11/19/18 04:45 04:45 09:00 Creatine Kinase 35 CK-MB (CK-2) 1.23 Troponin I 0.023 0.119 NT-Pro-B Natriuret Pep 11/19/18 11/19/18 11/19/18 09:00 09:00 14:44 Creatine Kinase 34 33 CK-MB (CK-2) 1.45 Troponin I NT-Pro-B Natriuret Pep 11/19/18 11/19/18 11/19/18 14:44 20:46 20:46 Creatine Kinase 31 CK-MB (CK-2) 1.79 1.61 Troponin I 0.136 0.105 NT-Pro-B Natriuret Pep 11/20/18 11/20/18 11/20/18 02:50 02:50 10:51 Creatine Kinase 23 L CK-MB (CK-2) 1.03 0.83 Troponin I 0.093 0.053 NT-Pro-B Natriuret Pep 11/20/18 11/20/18 11/20/18 10:51 16:55 16:55 Creatine Kinase 25 L 26 L CK-MB (CK-2) 0.72 Troponin I 0.044 NT-Pro-B Natriuret Pep 2860 H Impressions: Chest X-Ray 11/19/18 05:07 IMPRESSION: No acute cardiopulmonary findings. Assessment & Plan - Diagnosis (1) Chest pain Qualifiers: Chest pain type: unspecified Qualified Code(s): R07.9 - Chest pain, unspecified Is this a current diagnosis for this admission?: Yes (2) Diabetes Is this a current diagnosis for this admission?: Yes (3) HTN (hypertension) Is this a current diagnosis for this admission?: Yes (4) Lung cancer Is this a current diagnosis for this admission?: Yes (5) Vomiting Qualifiers: Vomiting type: unspecified Vomiting Intractability: non-intractable Nausea presence: with nausea Qualified Code(s): R11.2 - Nausea with vomiting, unspecified Is this a current diagnosis for this admission?: Yes (6) Systolic CHF Qualifiers: Heart failure chronicity: unspecified Qualified Code(s): I50.20 - Unspecifi ed systolic (congestive) heart failure Is this a current diagnosis for this admission?: Yes - Time Time Spent with patient: Less than 15 minutes Medications reviewed and adjusted accordingly: Yes Anticipated discharge: Home Within: within 48 hours - Inpatient Certification Based on my medical assessment, after consideration of the patient's comorbidities, presenting symptoms, or acuity I expect that the services needed warrant INPATIENT care.: Yes I certify that my determination is in accordance with my understanding of Medicare's requirements for reasonable and necessary INPATIENT services [42 CFR 412.3e].: Yes Medical Necessity: Need Close Monitoring Due to Risk of Patient Decompensation - Plan Summary Plan Summary: (1) Chest pain Qualifiers: Chest pain type: unspecified Qualified Code(s): R07.9 - Chest pain, unspecified Is this a current diagnosis for this admission?: Yes Plan: 11/19/2018 patient came in with chest pain based on the symptoms and presentation most likely cardiac in nature. Plan to put her in telemetry. To do the stress test tomorrow. Cardiac enzymes x3 along with EKG requested. Started on Lovenox 40 mg subcu daily, aspirin 3.5 mg p.o. daily, atorvastatin 20 mg at bedtime. GI prophylaxis was initiated. 11/20/18 stress test results showed scarring in the apical inferior and septum regions. Negative troponins. Check echocardiogram. Continue to monitor on telemetry. No reports of acute changes in breathing, palpitations, chest pain. Ejection fraction suspected be lowered by steward/stewardess banquet. BNP 2860. 11/21/18-no issue in the last 24 hours. (2) Vomiting Qualifiers: Vomiting type: unspecified Vomiting Intractability: non-intractable Nausea presence: with nausea Qualified Code(s): R11.2 - Nausea with vomiting, unspecified Is this a current diagnosis for this admission?: Yes Plan: 11/18/2018-patient came in with nausea and vomiting in association with chest pain. Started on Zofran 4 mg IV every 6 as needed no episodes of nausea and vomiting in the ER. Chest x-ray was negative for an aspiration. 11/20/18 no issues in last 24 hours. Lipase 413 on admission. Triglycerides 382 . 11/21/18-no issues in the last 48 hours. (3) Diabetes Is this a current diagnosis for this admission?: Yes Plan: 11/19/2018-patient has history of type 2 diabetes mellitus. She is on Victoza at home. She is also on metformin at home metformin was on hold for now. Started on insulin sliding scale. Hemoglobin A1c was requested. Diet exercise lifestyle modifications are discussed with. Dietary consult was requested. 11/20/18 continue with current management. Blood glucose 168 when last checked. 11/21/18-blood glucose has been mostly in an acceptable range for an inpatient admission. A1c 7.3. Given the patient's age will defer the need for tighter control to her primary care physician. Risk of treatment may outweigh the benefit. (4) Lung cancer Is this a current diagnosis for this admission?: Yes Plan: 11/19/2018-patient is giving history of type I lung cancer status post removal of the most of the right lower lung as per the patient and the family members. It was done in [place]. As per the patient and family she is cancer free now. 11/20/18 no current issues at this time. 11/21/18-no current issues at this time. (5) HTN (hypertension) Is this a current diagnosis for this admission?: Yes Plan: 11/19/2018 patient is given the history of hypertension on antihypertensives at home. Blood pressures today 110/88 stable plan is to resume the home medications. 11/20/18 last blood pressure 113/58. Controlled. Monitoring. 11/21/18-last blood pressure was 110/61. Monitoring. (6) CHF 11/20/18-operating diagnoses. Suspected on stress test. Echo results pending. Last echo results November 2016 showed an ejection fraction that was normal. Preliminary report shows scarring in the apical inferior and septal regions. Cardiology plans to complete echo findings, and will be looking further medication recommendations. Patient was started on Imdur 30 mg extended release this morning, and has tolerated it well. She is already on losartan 100 mg daily and metoprolol tartrate 5 mg p.o. nightly. She is also on atorvastatin 20 mg nightly. And aspirin 81 mg p.o. daily. Will await cardiology regulations for further medication optimization. Disposition: Consider for discharge tomorrow per/pending cardiology recommendations. No current indication for cath. Follows with cardiology and [place] Dr. day
--- NOTE | 2018-11-21 21:17 | XCELERA REPORT ---
[address] [address] Transthoracic Echocardiogram Report Name: ROSA WEAVER Age: 83 yrs Gender: Female : 1935 Patient Status: Inpatient Patient Location: [facility]^A Study Date: 11/21/2018 10:06 AM Height: 61 in Weight: 153 lb BSA: 1.7 m2 Procedure: A two-dimensional transthoracic echocardiogram with color flow and Doppler was performed. The study was technically limited with all images being suboptimal in quality. Reason For Study: CP History: CHEST PAIN. Ordering Physician: DWAYNE GALAN Performed By: Cyndi Munoz Interpretation Summary The left ventricle is borderline dilated. There is normal left ventricular wall thickness. LV EF is 25% TO 30% Left ventricular systolic function is severely reduced. The inferior wall ,and apical septum are akinetic.The rest of the LV bond are severely hypokinetic. Doppler measurements suggest impaired left ventricular relaxation, which is associated with grade I/IV or mild diastolic dysfunction There is no thrombus. The right ventricle is normal in size and function. The right atrium is normal. The left atrial size is normal. There is no evidence of mitral valve prolapse. There is no vegetation seen on the mitral valve. There is no mitral valve stenosis. There is no mitral regurgitation noted. There is no aortic valve stenosis There is aortic sclerosis without aortic stenosis. There is no LVOT obstruction. No aortic regurgitation is present. There is no tricuspid stenosis. There is a trace amount of tricuspid regurgitation Unable to calculate RVSP due lack of TR jet. There is no pulmonic valvular stenosis. There is a trace amount of pulmonic regurgitation There is no pericardial effusion. MMode/2D Measurements & Calculations RVDd: 2.7 cm LVIDd: 5.1 cm FS: 19.2 % Ao root diam: 2.7 cm IVSd: 1.0 cm LVIDs: 4.1 cm EDV(Teich): Ao root area: LVPWd: 1.0 cm 123.2 ml 5.7 cm2 ESV(Teich): 74.7 mlLA dimension: 4.0 cm EF(Teich): 39.3 % LVLd ap4: 7.5 cm SV(MOD-sp4): EDV(MOD-sp4): 30.0 ml 96.0 ml LVLs ap4: 7.1 cm ESV(MOD-sp4): 66.0 ml EF(MOD-sp4): 31.3 % Doppler Measurements & Calculations MV E max shanti: MV P1/2t max shanti: Ao V2 max: LV V1 max P.4 cm/sec 86.9 cm/sec 158.8 cm/sec 2.7 mmHg MV A max shanti: MV P1/2t: 89.2 msec Ao max PG: LV V1 max: 126.4 cm/sec MVA(P1/2t): 2.5 cm2 10.1 mmHg 81.8 cm/sec MV E/A: 0.69 MV dec slope: 285.3 cm/sec2 MV dec time: 0.31 sec PA V2 max: PI end-d shanti: MV P1/2t-pr_phl: 69.1 cm/sec 130.3 cm/sec 89.2 msec PA max P.9 mmHg Left Ventricle The left ventricle is borderline dilated. There is normal left ventricular wall thickness. LV EF is 25% TO 30%. Left ventricular systolic function is severely reduced. Doppler measurements suggest impaired left ventricular relaxation, which is associated with grade I/IV or mild diastolic dysfunction. The inferior wall ,and apical septum are akinetic.The rest of the LV bond are severely hypokinetic. There is no thrombus. Right Ventricle The right ventricle is normal in size and function. Atria The right atrium is normal. The left atrial size is normal. Mitral Valve There is no evidence of mitral valve prolapse. There is no vegetation seen on the mitral valve. There is no mitral valve stenosis. There is no mitral regurgitation noted. Aortic Valve There is no aortic valve stenosis. There is aortic sclerosis without aortic stenosis. There is no LVOT obstruction. No aortic regurgitation is present. Tricuspid Valve There is no tricuspid stenosis. There is a trace amount of tricuspid regurgitation. Unable to calculate RVSP due lack of TR jet. Pulmonic Valve There is no pulmonic valvular stenosis. There is a trace amount of pulmonic regurgitation. Great Vessels The aortic root is not well visualized but is probably normal size. Effusions There is no pericardial effusion. : DWAYNE GALAN > Mago Melendez
[2018-11-21] MEDS: ATORVASTATIN CALCIUM 20 MG TABLET PO SCH (21:38)
[2018-11-21] MEDS: METOPROLOL SUCCINATE 25 MG TAB.SR.24H PO SCH (21:41)
[2018-11-22 05:34] LABS: ANION GAP 8 (5-19); BLOOD UREA NITROGEN 22 mg/dL (7-20); CALCIUM 10.1 mg/dL (8.4-10.2); CARBON DIOXIDE 24 mmol/L (22-30); CHLORIDE 109 mmol/L (98-107); GLUCOSE 163 mg/dL (75-110); POTASSIUM 4.6 mmol/L (3.6-5.0); SODIUM 141.3 mmol/L (137-145)
[2018-11-22] MEDS: ISOSORBIDE MONONITRATE 30 MG TAB.ER.24H PO SCH (09:28)
[2018-11-22] MEDS: OXYBUTYNIN CHLORIDE 5 MG TABLET PO SCH (09:28)
[2018-11-22] MEDS: RANOLAZINE 500 MG TAB.SR.12H PO SCH (09:28)
[2018-11-22] MEDS: FAMOTIDINE 20 MG TABLET PO SCH (09:28)
[2018-11-22] MEDS: CHOLECALCIFEROL (D3) 1,000 UNIT TABLET PO SCH (09:28)
[2018-11-22] MEDS: ASPIRIN 81 MG TABLET, ENT COATED PO SCH (09:28)
[2018-11-22] MEDS: INSULIN LISPRO 100 UNIT/ML 3 ML VIAL SUBCUT SCH ×2 (09:29→11:34)
[2018-11-22] MEDS: DOCUSATE SODIUM 100 MG CAPSULE PO SCH (09:29)
[2018-11-22] MEDS: LOSARTAN POTASSIUM 50 MG TABLET PO SCH (09:29)
[2018-11-22] MEDS: ENOXAPARIN SODIUM INJ 40 MG/0.4 ML DISP.SYRIN SUBCUT SCH (09:29)
[2018-11-22] MEDS ORDERED: CITALOPRAM HYDROBROMIDE 20 MG TABLET PO ONE (11:40)
[2018-11-22 12:32] VITALS: BP 100/50
--- NOTE | 2018-11-22 15:16 | PDOC DISCHARGE SUMMARY ---
General - Admit/Disc Date/PCP Admission Date/Primary Care Provider: 11/19/18 08:12 SHEN KEITA MD Discharge Date: 11/22/18 - Discharge Diagnosis (1) Systolic CHF Is this a current diagnosis for this admission?: Yes Summary: Patient, on echocardiogram, was found to have a new systolic congestive heart failure with a depressed ejection fraction, 35-40. We are discharging her on an R, beta-ashely, aspirin, statin. She is stable currently. There is no evidence of acute coronary syndrome now though it appears that she probably had a coronary event recently. She has requested that her hunter trapper be changed to Dr. Melendez and we will help her with that. She currently sees Dr. Vieira and states that she wants to have a hunter trapper that can see her in the hospital that she is usually admitted to and that is usually on the [facility]. (2) Anginal equivalent Is this a current diagnosis for this admission?: Yes Summary: Patient has had intermittent chest pain over the past year. Her chest pain that she came in with this time was similar to when she had her last MS. She has been seen by cardiology. Prone and C are all negative. No sign of acute MS. We have started her on long-acting nitrate. She has also been started on Ranexa. She will have close follow-up with cardiology and she has requested that Dr. neville take over her care. Currently chest pain-free. Was started on medication for heart failure as well. She knows to return to medical care for concerning symptoms. (3) Coronary artery disease Is this a current diagnosis for this admission?: Yes Summary: Patient is discharged on MATHIEU inhibitor, beta-ashley, nitrate, aspirin, Ranexa, statin. She had acute coronary syndrome last year. No evidence that she has had one now although her echocardiogram has changed indicating active coronary disease. She will see Dr. Melendez in follow-up. She knows to return to medical care with any concerning symptoms. She is currently pain-free. (4) Diabetes mellitus with hyperglycemia, with long-term current use of insulin Is this a current diagnosis for this admission?: Yes Summary: Patient's glucose has not been well controlled during the hospital stay. She will return to her regular diabetic regimen and she states that that works well for her diabetes control in the home setting. She knows to adhere to a diabetic diet. (5) HTN (hypertension) Is this a current diagnosis for this admission?: Yes Summary: Blood pressure has been well controlled. She is discharged on Cozaar, metoprolol succinate, isosorbide is a new prescription. Her hydrochlorothiazide is discontinued for discharge. - Additional Information Resuscitation Status: Full Code Discharge Diet: Cardiac, Diabetic Discharge Activity: Balance Activity w/Rest, Slowly Increase Activity Prescriptions: Atorvastatin Calcium [Lipitor 20 mg Tablet] 20 mg PO QHS 30 Days #30 tablet Isosorbide Mononitrate [Imdur 30 mg Tablet.er] 30 mg PO DAILY 30 Days tab.er.24h Home Medications: Citalopram Hydrobromide [Celexa 20 mg Tablet] 20 mg PO DAILY 05/20/18 Gabapentin 300 mg PO QHS 05/20/18 Losartan Potassium [Cozaar 100 mg Tablet] 100 mg PO DAILY 05/20/18 Metformin HCl [Metformin ER Gastric] 1,000 mg PO WSUPPER 05/20/18 Metoprolol Succinate [Toprol Xl] 12.5 mg PO QHS 05/20/18 Multivitamin [Multivitamins] 1 each PO DAILY 05/20/18 Aspirin [Aspirin EC] 81 mg PO QHS 07/28/18 Cholecalciferol (Vitamin D3) [Vitamin D3 1000 unit Chewable Tablet] 2,000 unit PO DAILY 07/28/18 Cyanocobalamin (Vitamin B-12) [Vitamin B-12 1000 mcg Tablet] 1,000 mcg PO DAILY 07/28/18 Nitroglycerin [Nitrostat 0.4 mg (1/150 Gr) Tabs 25/Bottle] 1 tab SL Q5MP PRN #25 tab.subl 07/29/18 Liraglutide [Victoza 2-Abimael] 1.8 mg SQ DAILY 11/19/18 Oxybutynin Chloride [Oxybutynin Chloride ER] 5 mg PO DAILY 11/19/18 Ranolazine [Ranexa 500 mg Tab.sr] 500 mg PO Q12 11/19/18 Atorvastatin Calcium [Lipitor 20 mg Tablet] 20 mg PO QHS 30 Days #30 tablet 11/22/18 Isosorbide Mononitrate [Imdur 30 mg Tablet.er] 30 mg PO DAILY 30 Days tab.er.24h 11/22/18 History of Present Illness History of Present Illness: ROSA WEAVER is a 83 year old woman with history of MS last year, hypertension, diabetes mellitus, hypertension hyperlipidemia, history of type I lung cancer status post partial removal of the right lung, came to the emergency room with complaints of chest pain. She woke up with chest pain this morning which was left-sided radiating to the left axilla and , to the left side of the neck ,lasted for more than a minute each time ,pressure-like pain associated with nausea and vomitings, denies any shortness of breath, denies any sweating with the pains. She had a history of chest pains prior never had a stress test done . But she was told she has a prior heart attack . Denies any fever denies any cough denies any headaches denies any lightheadedness. She took nitroglycerin pill at home pain is dull for lately. She took another nitro pill 1 hour later, in the EMS they gave her 3 sprays of nitroglycerin as per the pat ient. It helped chest pain. Workup was done in the emergency room EKG shows left bundle branch block which was similar compared to the previous EKG in July last year. Went to saw the patient discussed the plan of care with the patient and the family members and confirmed the presentation with the patient. Patient and family agreed to stay in the hospital overnight for possible stress test tomorrow. Hospital Course Hospital Course: See hospital course by problem list above. Physical Exam Vital Signs: Temp Pulse Resp BP Pulse Ox 98.4 F 69 16 128/50 H 100 11/22/18 11:55 11/22/18 11:55 11/22/18 11:55 11/22/18 11:55 11/22/18 11:55 Intake & Output 11/21/18 11/22/18 11/23/18 06:59 06:59 06:59 Intake Total 979 1074 1414 Balance 979 1074 1414 Weight 69.6 kg 69.6 kg General appearance: PRESENT: no acute distress, cooperative, well-developed, well-nourished Head exam: PRESENT: atraumatic, normocephalic Eye exam: PRESENT: EOMI. ABSENT: conjunctival injection, periorbital swelling, scleral icterus Mouth exam: PRESENT: moist, tongue midline Respiratory exam: PRESENT: clear to auscultation jennifer, unlabored. ABSENT: rales, rhonchi, wheezes Cardiovascular exam: PRESENT: RRR, systolic murmur Pulses: PRESENT: normal radial pulses GI/Abdominal exam: PRESENT: normal bowel sounds, soft. ABSENT: ascites, distended, guarding, tenderness Rectal exam: PRESENT: deferred Gentrourinary exam: ABSENT: indwelling catheter Extremities exam: ABSENT: joint swelling, pedal edema, tenderness Musculoskeletal exam: PRESENT: ambulatory Neurological exam: PRESENT: alert, awake, oriented to person, oriented to place, oriented to situation, CN II-XII grossly intact Psychiatric exam: PRESENT: appropriate affect. ABSENT: anxious Skin exam: PRESENT: dry, intact, warm Results Laboratory Results: 11/20/18 02:50 11/22/18 04:32 11/22/18 04:32 Sodium 141.3 Potassium 4.6 Chloride 109 H Carbon Dioxide 24 Anion Gap 8 BUN 22 H Creatinine 0.85 Est GFR ( Amer) > 60 Est GFR (Non-Af Amer) > 60 Glucose 163 H Calcium 10.1 11/19/18 11/19/18 11/19/18 04:45 04:45 09:00 Creatine Kinase 35 CK-MB (CK-2) 1.23 Troponin I 0.023 0.119 NT-Pro-B Natriuret Pep 11/19/18 11/19/18 11/19/18 09:00 09:00 14:44 Creatine Kinase 34 33 CK-MB (CK-2) 1.45 Troponin I NT-Pro-B Natriuret Pep 11/19/18 11/19/18 11/19/18 14:44 20:46 20:46 Creatine Kinase 31 CK-MB (CK-2) 1.79 1.61 Troponin I 0.136 0.105 NT-Pro-B Natriuret Pep 11/20/18 11/20/18 11/20/18 02:50 02:50 10:51 Creatine Kinase 23 L CK-MB (CK-2) 1.03 0.83 Troponin I 0.093 0.053 NT-Pro-B Natriuret Pep 11/20/18 11/20/18 11/20/18 10:51 16:55 16:55 Creatine Kinase 25 L 26 L CK-MB (CK-2) 0.72 Troponin I 0.044 NT-Pro-B Natriuret Pep 2860 H Impressions: Chest X-Ray 11/19/18 05:07 IMPRESSION: No acute cardiopulmonary findings. Qualifiers - * PATIENT BEING DISCHARGED WITH ANY OF THE FOLLOWING DIAGNOSIS: Heart Failure HF Pt being discharged on ACEI for LVEF less than 40%?: No Reason(s) for not prescribing ACEI:: Not indicated HF Pt being discharged on ARBS for LVEF less than 40%?: Yes HF Pt with Afib discharged with Warfarin?: No Reason(s) for not prescribing Warfarin:: Not indicated HF Pt discharged on evidence-based Beta Ashely:: Yes Plan Time Spent: Greater than 30 Minutes
--- NOTE | 2018-11-22 21:22 | DRAGON STRESS TEST REPORT ---
Intravenous Lexiscan Cardiolite stress test using single photon emmision computerized tomography. Date of procedure: 11/20/2018. Ordering Provider: Dr. HENRIQUEZ. Patient's status: In Patient. Indication: Chest pain in a patient with known coronary artery disease. Coronary risk factors: Age, diabetes mellitus, hypertension, and dyslipidemia Resting EKG: Sinus Rhythm. Left Bundle Branch Block pattern. Stress EKG: Nondiagnostic of ischemia, due to the patient's LBBB The patient had no chest pain or discomfort, and there were no arrhythmias seen.. Reason for termination: Protocol. Conclusions: Normal EKG and hemodynamic response to IV Lexiscan. Nuclear data: At rest the patient was given 10.91 millicuries of technetium 99m sestamibi injected intravenously. As per protocol rest non gated SPECT images were obtained. Subsequently the patient was given intravenous Lexiscan at a dose of 0.4 mg in 5 mL intravenously, followed by flush with normal saline. Subsequently the stress dose of 32.6 millicuries of technetium 99m sestamibi was injected intravenously. As per protocol stress gated images were obtained. Nuclear interpretation: Review of images showed that there was a perfusion defect in both the rest and stress images involving the apical inferior and apical septal bond. This area had decreased motion contraction and thickening by gated study. The rest of the segments of the myocardium had normal perfusion at rest, and normal perfusion post stress with IV Lexiscan. The rest segments of the myocardium had normal thickening by gated study. The left ventricle was dilated in both the rest and stress images, with severe global hypokinesis. T. I D. ratio was normal at 1.017. There is no transient ischemic dilatation of the left ventricle. Computer read rest, and stress left ventricular ejection fraction were 38 %, and 25 %, respectively. Visually both the stress and rest ejection fractions were reduced at 30 %. Conclusion: 1. There is no scintigraphic evidence of Lexiscan induced myocardial ischemia. 2. There is scintigraphic evidence of myocardial infarction/scar, involving the apical inferior and apical septal bond. 3. There was LV dilatation with severe global hypokinesis consistent with cardiomyopathy.. Recommendations: 1. Check echo for LV EF correlation. Correlate clinically 2.Aggressive risk factor modification, and treating the underlying co- morbidities, including coronary artery disease and cardiomyopathy.. MTDD
== END 2018-11-22 13:13 | disposition home or self-care (01) | DRG 293 ==
LOC: ER 05:05 → EH 08:12 → OBSVTOIN 08:12 → 4W 18:20
PROVIDERS: ADMIT Internal Medicine; ATTEND Internal Medicine
DX: I11.0 Hypertensive heart disease with heart failure (principal); I25.10 Atherosclerotic heart disease of native coronary artery without angina pectoris; I50.20 Unspecified systolic (congestive) heart failure; E11.8 Type 2 diabetes mellitus with unspecified complications; I44.7 Left bundle-branch block, unspecified; Z60.2 Problems related to living alone; I25.2 Old myocardial infarction; Z85.118 Personal history of other malignant neoplasm of bronchus and lung; Z90.2 Acquired absence of lung [part of]; Z87.891 Personal history of nicotine dependence; Z79.84 Long term (current) use of oral hypoglycemic drugs; Z79.82 Long term (current) use of aspirin; Z79.899 Other long term (current) drug therapy
CPT/HCPCS: 36415; 71045; 78452; 80048; 80053; 80061; 82550; 82553; 82962; 83036; 83690; 83735; 83880; 84443; 84484; 85025; 85610; 85730; 93005; 93010; 93017; 93306; 99285; A9500; J1650; J1815; J2785; J3490; Q9969

== ENCOUNTER 2019-01-13 07:41 | Emergency (ER) | payer MEDICARE, OTHER ==
[2019-01-13 08:14] LABS: ABSOLUTE BASOPHILS # (AUTO) 0.1 10^3/uL (0.0-0.2); ABSOLUTE EOSINOPHILS # (AUTO) 0.1 10^3/uL (0.0-0.6); ABSOLUTE LYMPHOCYTES (AUTO) 1.8 10^3/uL (0.5-4.7); ABSOLUTE MONOCYTES (AUTO) 0.6 10^3/uL (0.1-1.4); BASOPHILS % (AUTO) 0.5 % (0-2); EOSINOPHILS % (AUTO) 1.2 % (0-6); HEMATOCRIT 45.5 % (36.0-47.0); HEMOGLOBIN 15.3 g/dL (12.0-15.5); LYMPHOCYTES % (AUTO) 17.1 % (13-45); MEAN CORPUSCULAR HGB CONC 33.6 g/dL (32.0-36.0); MEAN CORPUSCULAR VOLUME 86 fl (80-97); MONOCYTES % (AUTO) 5.3 % (3-13); PLATELET COUNT 197 10^3/uL (150-450); RED BLOOD COUNT 5.27 10^6/uL (3.72-5.28); SEGMENTED NEUTROPHILS % (AUTO) 75.9 % (42-78); TOTAL CELLS COUNTED % (AUTO) 100 %; WHITE BLOOD COUNT 10.6 10^3/uL (4.0-10.5)
[2019-01-13] MEDS ORDERED: NITROGLYCERIN/D5W 50 MG/250 ML RTUINJ IV PRN (08:25)
--- NOTE | 2019-01-13 08:31 | ER Document Report ---
ED General <JAEL JOEL - Last Filed: 01/14/19 00:41> - General TRAVEL OUTSIDE OF THE [place] IN LAST 30 DAYS: No <GRANT DOHERTY - Last Filed: 01/15/19 12:01> - General Chief Complaint: Chest Pressure Stated Complaint: CHEST PAIN Time Seen by Provider: 01/13/19 08:05 Primary Care Provider: SHEN KEITA MD [Primary Care Provider] - Follow up as needed Notes: Pleasant 83-year-old female with coronary artery disease CHF with unknown ejecti on fraction at this time, [id number] diabetes mellitus, hypertension, hyperlipidemia, and history of a right lower lobectomy secondary to lung cancer in 2003 presents the emergency department for chest pain, nausea, vomiting times 8 hours. She states that the nausea and vomiting did start yesterday and she has no appetite. The chest pain started at 0230 this morning. She complains of nausea, dyspnea earlier, diaphoresis, chest pain that radiates up her left neck. She is dry heaving. Denies diarrhea, last BM this morning. She has history of an attempted CABG but the procedure was aborted due to insufficient vasculature. EMS gave her 3 sprays of nitro 324 mg of aspirin prior to arrival. (GRANT DOHERTY) - Related Data Allergies/Adverse Reactions: acetaminophen [From Tylenol] Allergy (Verified 01/13/19 08:44) Facial swelling codeine Allergy (Verified 01/13/19 08:44) Itching ibuprofen [From Motrin] Allergy (Verified 01/13/19 08:44) Facial swelling Iodinated Contrast- Oral and IV Dye Allergy (Verified 01/13/19 08:44) Anaphylaxis shellfish derived Allergy (Verified 01/13/19 08:44) Anaphylaxis MATHIEU Inhibitors Adverse Reaction (Verified 01/13/19 08:44) Facial swelling monosodium glutamate Adverse Reaction (Verified 01/13/19 08:44) Facial swelling Past Medical History - Social History Smoking Status: Unknown if Ever Smoked Family History: Reviewed & Not Pertinent - Past Medical History Cardiac Medical History: Reports: Hx Coronary Artery Disease, Hx Heart Attack, Hx Hypercholesterolemia, Hx Hypertension Endocrine Medical History: Reports: Hx Diabetes Mellitus Type 2 Renal/ Medical History: Denies: Hx Peritoneal Dialysis Malignancy Medical History: Reports: Hx Lung Cancer Psychiatric Medical History: Reports: Hx Depression Past Surgical History: Reports: Hx Cardiac Catheterization, Hx Hysterectomy, Oth er - Right lower lobectomy - Immunizations Hx Diphtheria, Pertussis, Tetanus Vaccination: No Hx Pneumococcal Vaccination: 07/07/17 <GRANT DOHERTY - Last Filed: 01/15/19 12:01> Review of Systems - Review of Systems Constitutional: See HPI EENT: No symptoms reported Cardiovascular: See HPI Respiratory: See HPI Gastrointestinal: See HPI Genitourinary: No symptoms reported Female Genitourinary: No symptoms reported Musculoskeletal: No symptoms reported Skin: No symptoms reported Hematologic/Lymphatic: No symptoms reported Neurological/Psychological: No symptoms reported <GRANT DOHERTY - Last Filed: 01/15/19 12:01> Physical Exam <GRANT DOHERTY - Last Filed: 01/15/19 12:01> - Vital signs Vitals: Pulse Ox 88 L 01/13/19 07:59 - Notes Notes: PHYSICAL EXAMINATION: Reviewed vital signs and charting by RN GENERAL: Alert, interacts well. No acute distress. HEAD: Normocephalic, atraumatic. EYES: Pupils equal and round. Extraocular movements intact. ENT: Oral mucosa moist, tongue midline. NECK: Full range of motion. Supple. Trachea midline. LUNGS: Clear to auscultation bilaterally, no wheezes, rales, or rhonchi. No respiratory distress. HEART: Regular rate and rhythm. No murmur ABDOMEN: soft, non-tender. Non-distended. Bowel sounds present. no McBurney's point tenderness, no Benavides sign. EXTREMITIES: Moves all 4 extremities spontaneously. No edema, No cyanosis. Normal distal neurovascular exam NEUROLOGIC: Oriented and appropriate. Normal speech. PSYCH: Normal affect, normal mood. SKIN: Warm, diaphoretic, normal turgor. No rashes or lesions noted. (GRANT DOHERTY) Course - Laboratory Result Diagrams: 01/13/19 07:56 01/13/19 07:56 <JAEL JOEL - Last Filed: 01/14/19 00:41> - Laboratory Result Diagrams: 01/14/19 07:00 01/14/19 07:00 <GRANT DOHERTY - Last Filed: 01/15/19 12:01> - Re-evaluation Re-evalutation: 01/14/19 00:40 Patient reevaluated. She states other than intermittent mild discomfort over the left chest she has no current symptoms or complaints. No significant change on monitoring. Troponin has been downtrending since peaking at 6.23. Asking for something for the intermittent mild discomfort, giving small amount of morphine. (JAEL JOEL) 01/13/19 08:33 83-year-old female with concerning cardiac history presents with chest pain and diaphoresis. Initial EKG negative for STEMI with a left bundle branch block. C hest pain workup initiated and nitro drip started. 01/13/19 09:36 Called [facility] where her digital strategist is located and they are under surgeon status and have a 24-48-hour hold. I then called [facility] in [place] to initiate transfer. 01/13/19 10:[address] Dueñas, digital strategist, at [facility] who agreed to accept the patient to a telemetry bed. We will give Lovenox 1 mg/kg every 12 hours in the interim. They do have a wait so I will attempt to contact [facility] as well. Vital signs are stable and she is tolerating the nitro drip. 01/13/19 14:47 01/13/19 16:25 Repeat troponin 6.2. I called Dr. Dueñas digital strategist at [facility] and reconsulted to see if we could bump up her priority. He he said it is not a large jump and it will be expected to increase in the next 24 hours. His recommendation was if she is not going to be a bypass candidate to load her with Plavix and treat her for pain with morphine. I discussed this with Dr. Campbell, supervising physician. 01/13/19 17:34 Repeat troponin 5.58. 01/13/19 20:15 warm bedside handoff completed with SEYMOUR Martinez. 01/14/19 13:30 Met with patient this morning and she is doing okay. She still has nitro drip going at 5. [facility] called back where all of her cardiology care was in the past. I spoke with , digital strategist, who chose to accept the patient. [facility] will be arriving at approximately 1400. 01/15/19 12:00 Late entry: I did assess patient at the bedside just prior to her transfer. Her vital signs were stable and she was normotensive. She reported very minimal pain. Patient was alert and oriented very pleasant. She was safe and stable to transfer. (GRANT DOHERTY) - Vital Signs Vital signs: Temp Pulse Resp BP Pulse Ox 97.9 F 81 21 H 135/77 H 97 01/14/19 13:56 01/14/19 13:56 01/14/19 14:01 01/14/19 13:56 01/14/19 14:01 - Laboratory Laboratory results interpreted by me: 01/13/19 01/13/19 01/14/19 07:56 07:56 07:00 WBC 10.6 H RDW 15.0 H 14.7 H Carbon Dioxide 21 L Est GFR (Non-Af Amer) 50 L Glucose 258 H Calcium 10.5 H AST Albumin 01/14/19 07:00 WBC RDW Carbon Dioxide Est GFR (Non-Af Amer) Glucose 113 H Calcium AST 44 H Albumin 3.1 L Critical Care Note - Critical Care Note Total time excluding time spent on procedures (mins): 40 <GRANT DOHERTY - Last Filed: 01/15/19 12:01> - Critical Care Note Comments: Critical care time spent obtaining history from patient or surrogate, discuss ions with consultants, development of treatment plan with patient or surrogate, evaluation of patient's response to treatment, examination of patient, ordering and performing treatments and interventions, ordering and review of laboratory studies, re-evaluation of patient's condition, ordering and review of radiographic studies for NSTEMI. (GRANT DOHERTY) Discharge <JAEL JOEL - Last Filed: 01/14/19 00:41> <GRANT DOHERTY - Last Filed: 01/15/19 12:01> - Discharge Clinical Impression: NSTEMI (non-ST elevated myocardial infarction) Chest pain Qualifiers: Chest pain type: chest pain due to myocardial ischemia Ischemic chest pain type: unstable angina pectoris Qualified Code(s): I20.0 - Unstable angina Condition: Stable Disposition: [facility] Referrals: SHEN KEITA MD [Primary Care Provider] - Follow up as needed
[2019-01-13 08:33] LABS: ALANINE AMINOTRANSFERASE 25 U/L (9-52); ALBUMIN 4.1 g/dL (3.5-5.0); ALKALINE PHOSPHATASE 74 U/L (38-126); ANION GAP 12 (5-19); ASPARTATE AMINO TRANSFERASE 35 U/L (14-36); BILIRUBIN,DIRECT 0.2 mg/dL (0.0-0.4); BILIRUBIN,TOTAL 0.7 mg/dL (0.2-1.3); BLOOD UREA NITROGEN 20 mg/dL (7-20); CALCIUM 10.5 mg/dL (8.4-10.2); CARBON DIOXIDE 21 mmol/L (22-30); CHLORIDE 106 mmol/L (98-107); GLUCOSE 258 mg/dL (75-110); POTASSIUM 3.6 mmol/L (3.6-5.0); SODIUM 138.9 mmol/L (137-145)
--- NOTE | 2019-01-13 09:01 | RADIOLOGY REPORT (SQ) ---
EXAM DESCRIPTION: CHEST SINGLE VIEW COMPLETED DATE/TIME: 01/13/2019 8:53 am REASON FOR STUDY: chest pain COMPARISON: AP chest 11/19/2018, 07/28/2018, 11/28/2017 EXAM PARAMETERS: NUMBER OF VIEWS: One view. TECHNIQUE: Single frontal radiographic view of the chest acquired. RADIATION DOSE: NA LIMITATIONS: None. FINDINGS: LUNGS AND PLEURA: Marianela lines are present indicating interstitial pulmonary edema. No pleural effusion. No pneumothorax. No dense consolidation worrisome for pneumonia. MEDIASTINUM AND HILAR STRUCTURES: No masses. Contour normal. HEART AND VASCULAR STRUCTURES: Mild cardiomegaly BONES: No acute findings. HARDWARE: None in the chest. OTHER: No other significant finding. IMPRESSION: Marianela lines are present, indicating interstitial pulmonary edema TECHNICAL DOCUMENTATION: JOB ID: [id number] [employer]- All Rights Reserved Reading location - IP/workstation name: [email or web address]
--- NOTE | 2019-01-13 10:16 | ER Document Report ---
Doctor's Note Notes: I personally and independently obtained patient history and examined the patient in conjunction with the APC and agree with the assessment, treatment plan and disposition of the patient as recorded by the APC, and have reviewed the APC's note. HISTORY OF PRESENT ILLNESS: Patient is a 83-year-old female with history of CAD that presents to the emergency department for chief complaint of chest pain. ROS: Constitutional: Negative for fever. Cardiovascular: Positive for chest pain Respiratory: Positive for shortness of breath Gastrointestinal: Negative for vomiting or abdominal pain Musculoskeletal: Negative for arm, leg or back pain Skin: Negative for rash. Neurological: Negative for weakness or numbness. Other than noted above, the 12 point review of systems was reviewed with the patient and were negative, all pertinent findings are included in the HPI. PHYSICAL EXAMINATION: Vital signs reviewed, nursing noted reviewed. GENERAL: Elderly female, no acute distress HEAD: Atraumatic, normocephalic. EYES: Eyes appear normal, conjunctiva are normal. ENT: nares patent, oropharynx clear without exudates. Moist mucous membranes. NECK: Normal range of motion, supple without lymphadenopathy LUNGS: Breath sounds clear to auscultation bilaterally and equal. No wheezes rales or rhonchi. HEART: Regular rate and rhythm without murmurs ABDOMEN: Soft, nontender, normoactive bowel sounds. No rebound, guarding, or rigidity. No masses appreciated. EXTREMITIES: Nontender, good range of motion, no pitting or edema. Equal pulses bilaterally in the lower and upper extremities. NEUROLOGICAL: No focal neurological deficits. Moves all extremities spontaneously Motor and sensory grossly intact on exam. PSYCH: Normal mood, normal affect. SKIN: Warm, Dry, normal turgor, no rashes or lesions noted on exposed skin MEDICAL DECISION MAKING: Patient seen and examined, vital signs reviewed, patient has a long history of CAD, and has stable angina typically on Ranexa, but today was having chest pain at rest, which is of normal for her, cardiac workup was initiated, patient's troponin was elevated at 0.2, did get relief with nitro by EMS, therefore placed on a nitroglycerin infusion. The patient's pain had resolved with this. At this point given the patient's ongoing chest pain, will plan for transfer to facility with interventional cardiology if needed. Patient was agreeable to this plan of care. CRITICAL CARE: 40 Minutes exclusive from separate billable procedures in a patient with no angina, requiring IV nitroglycerin infusion, frequent monitoring, treatment Lovenox and discussion with consultants and transfer to tertiary facility. Please review detail APC documentation. *Note is created using voice recognition software and may contain spelling, syntax or grammatical errors. Laboratory 01/13/19 01/13/19 01/13/19 07:56 07:56 07:56 WBC 10.6 H RBC 5.27 Hgb 15.3 Hct 45.5 MCV 86 MCH 29.0 MCHC 33.6 RDW 15.0 H Plt Count 197 Seg Neutrophils % 75.9 Lymphocytes % 17.1 Monocytes % 5.3 Eosinophils % 1.2 Basophils % 0.5 Absolute Neutrophils 8.0 Absolute Lymphocytes 1.8 Absolute Monocytes 0.6 Absolute Eosinophils 0.1 Absolute Basophils 0.1 Sodium 138.9 Potassium 3.6 Chloride 106 Carbon Dioxide 21 L Anion Gap 12 BUN 20 Creatinine 1.05 Est GFR ( Amer) > 60 Est GFR (Non-Af Amer) 50 L Glucose 258 H Calcium 10.5 H Total Bilirubin 0.7 Direct Bilirubin 0.2 Neonat Total Bilirubin Not Reportable Neonat Direct Bilirubin Not Reportable Neonat Indirect Bili Not Reportable AST 35 ALT 25 Alkaline Phosphatase 74 Troponin I 0.208 Total Protein 8.0 Albumin 4.1 Chest X-Ray 01/13/19 08:05 IMPRESSION: Marianela lines are present, indicating interstitial pulmonary edema 01/13/19 1300 Multiple calls were placed out to several different institutions, that did not have bed availability including [facility], [facility], and [facility], the patient was put on the list of to these facilities, to get a bed, and was accepted by 2 different physicians.
[2019-01-13] MEDS: ENOXAPARIN SODIUM INJ 80 MG/0.8 ML DISP.SYRIN SUBCUT SCH ×2 (10:56→22:35)
[2019-01-13] MEDS ORDERED: CLOPIDOGREL BISULFATE 300 MG TABLET PO ONE (17:51)
[2019-01-13] MEDS ORDERED: ATORVASTATIN CALCIUM 80 MG TABLET PO ONE (20:14)
[2019-01-13] MEDS ORDERED: METOPROLOL SUCCINATE 25 MG TAB.SR.24H PO ONE (20:14)
--- NOTE | 2019-01-14 00:01 | EKG REPORT ---
SEVERITY:- ABNORMAL ECG - SINUS RHYTHM VENTRICULAR PREMATURE COMPLEX LEFT BUNDLE BRANCH BLOCK : Confirmed by: Giacomo Rodriguez 14-Jan-2019 00:00:40
--- NOTE | 2019-01-14 00:02 | EKG REPORT ---
SEVERITY:- ABNORMAL ECG - SINUS RHYTHM VENTRICULAR PREMATURE COMPLEX LEFT BUNDLE BRANCH BLOCK : Confirmed by: Giacomo Rodriguez 14-Jan-2019 00:01:16
[2019-01-14] MEDS ORDERED: MORPHINE SULFATE 10 MG/ML INJ IV ONE (00:41)
[2019-01-14] MEDS ORDERED: DIPHENHYDRAMINE HCL 50 MG/ML VIAL ONE (01:03)
[2019-01-14] MEDS ORDERED: DIPHENHYDRAMINE HCL 25 MG/10 ML UDC PO ONE (01:08)
[2019-01-14 07:39] LABS: ABSOLUTE EOSINOPHILS # (AUTO) 0.1 10^3/uL (0.0-0.6); ABSOLUTE LYMPHOCYTES (AUTO) 2.2 10^3/uL (0.5-4.7); ABSOLUTE MONOCYTES (AUTO) 0.6 10^3/uL (0.1-1.4); ABSOLUTE NEUT (AUTO) 4.1 10^3/uL (1.7-8.2); BASOPHILS % (AUTO) 0.7 % (0-2); EOSINOPHILS % (AUTO) 1.9 % (0-6); HEMATOCRIT 39.4 % (36.0-47.0); LYMPHOCYTES % (AUTO) 30.7 % (13-45); MEAN CORPUSCULAR HEMOGLOBIN 28.7 pg (27.0-33.4); MEAN CORPUSCULAR HGB CONC 33.3 g/dL (32.0-36.0); MEAN CORPUSCULAR VOLUME 86 fl (80-97); MONOCYTES % (AUTO) 8.2 % (3-13); PLATELET COUNT 160 10^3/uL (150-450); RED BLOOD COUNT 4.57 10^6/uL (3.72-5.28); RED CELL DISTRIBUTION WIDTH 14.7 % (11.5-14.0); SEGMENTED NEUTROPHILS % (AUTO) 58.5 % (42-78); TOTAL CELLS COUNTED % (AUTO) 100 %
[2019-01-14 07:43] LABS: HEMOGLOBIN 13.1 g/dL (12.0-15.5)
[2019-01-14 07:46] LABS: ALANINE AMINOTRANSFERASE 39 U/L (9-52); ALBUMIN 3.1 g/dL (3.5-5.0); ALKALINE PHOSPHATASE 50 U/L (38-126); ANION GAP 5 (5-19); ASPARTATE AMINO TRANSFERASE 44 U/L (14-36); BILIRUBIN,DIRECT 0.2 mg/dL (0.0-0.4); BILIRUBIN,TOTAL 0.6 mg/dL (0.2-1.3); BLOOD UREA NITROGEN 18 mg/dL (7-20); CARBON DIOXIDE 29 mmol/L (22-30); CHLORIDE 105 mmol/L (98-107); GLUCOSE 113 mg/dL (75-110); POTASSIUM 3.7 mmol/L (3.6-5.0); SODIUM 139.4 mmol/L (137-145); TOTAL PROTEIN 6.3 g/dL (6.3-8.2)
[2019-01-14] MEDS: ENOXAPARIN SODIUM INJ 80 MG/0.8 ML DISP.SYRIN SUBCUT SCH (10:10)
[2019-01-14 13:53] VITALS: BP 135/77
== END 2019-01-14 14:04 | disposition short-term general hospital (02) ==
LOC: ER 07:41
DX: I21.4 Non-ST elevation (NSTEMI) myocardial infarction (principal); I20.0 Unstable angina; R06.02 Shortness of breath; R07.9 Chest pain, unspecified; E11.9 Type 2 diabetes mellitus without complications; I25.2 Old myocardial infarction; I11.0 Hypertensive heart disease with heart failure; E78.00 Pure hypercholesterolemia, unspecified; Z90.710 Acquired absence of both cervix and uterus; Z91.013 Allergy to seafood
CPT/HCPCS: 93005; 96376; 99285; 96375; 96365; 96366; 36415; 85025; 80053; 84484; 71045; 93010; A9270 ×4; J2270; J3490; J1650 ×2

== ENCOUNTER 2019-02-02 03:43 | Emergency (ER) | payer MEDICARE, OTHER ==
[2019-02-02] MEDS ORDERED: NORMAL SALINE 500 ML IV ONE (03:56)
--- NOTE | 2019-02-02 04:01 | ER Document Report ---
ED General - General Stated Complaint: CHEST PAIN Time Seen by Provider: 02/02/19 03:55 Notes: Patient is a 83-year-old female presents with complaints of chest pain and sensation of difficulty breathing. She has pain goes into her neck and into her left arm and into her left side of her back from her left side of her chest. Started on 7 PM. It worsened throughout the night therefore she came to the ER. She took nitro at home which did not relieve her pain. She has history of known coronary disease and had heart cath which showed that she does have normal vessels that they want to avoid putting a stent in. She is followed by Dr. Vieira at [facility]. Last heart cath was performed at [facility]. No recent fevers. No infections. When paramedics picked up her heart rate was in the 190s. They gave her 17 mg of Cardizem which dropped her rate to the 120s to 130s. She is still having ongoing symptoms at this time. Blood pressures been in the 90s systolic the entire time. TRAVEL OUTSIDE OF THE [place] IN LAST 30 DAYS: No - Related Data Allergies/Adverse Reactions: acetaminophen [From Tylenol] Allergy (Verified 01/13/19 08:44) Facial swelling codeine Allergy (Verified 01/13/19 08:44) Itching ibuprofen [From Motrin] Allergy (Verified 01/13/19 08:44) Facial swelling Iodinated Contrast- Oral and IV Dye Allergy (Verified 01/13/19 08:44) Anaphylaxis shellfish derived Allergy (Verified 01/13/19 08:44) Anaphylaxis MATHIEU Inhibitors Adverse Reaction (Verified 01/13/19 08:44) Facial swelling monosodium glutamate Adverse Reaction (Verified 01/13/19 08:44) Facial swelling Past Medical History - Social History Smoking Status: Never Smoker Frequency of alcohol use: None Drug Abuse: None Family History: Reviewed & Not Pertinent - Past Medical History Cardiac Medical History: Reports: Hx Coronary Artery Disease, Hx Heart Attack, Hx Hypercholesterolemia, Hx Hypertension Endocrine Medical History: Reports: Hx Diabetes Mellitus Type 2 Renal/ Medical History: Denies: Hx Peritoneal Dialysis Malignancy Medical History: Reports: Hx Lung Cancer Psychiatric Medical History: Reports: Hx Depression Past Surgical History: Reports: Hx Cardiac Catheterization, Hx Hysterectomy, Other - Right lower lobectomy - Immunizations Hx Diphtheria, Pertussis, Tetanus Vaccination: No Hx Pneumococcal Vaccination: 07/07/17 Review of Systems - Review of Systems Notes: My Normal Review Basic REVIEW OF SYSTEMS: CONSTITUTIONAL : Denies fever, chills, or sweats. Denies recent illness. EENT: Denies eye, ear, throat, or mouth pain or symptoms. Denies nasal or sinus congestion. CARDIOVASCULAR: Pain. Rapid heartbeat. RESPIRATORY: Denies cough, cold, or chest congestion. Some dyspnea. GASTROINTESTINAL: Denies abdominal pain. Denies nausea, vomiting, or diarrhea. MUSCULOSKELETAL: Denies neck or back pain or joint pain or swelling. SKIN: Denies rash or skin lesions. NEUROLOGICAL: Denies altered mental status or loss of consciousness. Denies headache. Denies weakness or paralysis or loss of use of either side. Denies problems with gait or speech. Denies sensory or motor loss. ALL OTHER SYSTEMS REVIEWED AND NEGATIVE. Physical Exam - Vital signs Vitals: Resp Pulse Ox 21 H 92 02/02/19 03:49 02/02/19 03:49 - Notes Notes: General Appearance: Diaphoretic. There is to feel unwell. No respiratory dist ress at this time. Vitals: reviewed, See vital signs table. Head: no swelling or tenderness to the head Eyes: PERRL, EOMI, Conjuctiva clear Mouth: No decreasd moisture Throat: No tonsillar inflammation, No airway obstruction, No lymphadenopathy Neck: Supple, no neck tenderness, scar over lower neck. Lungs: No wheezing, No rales, No rhonci, No accessory muscle use, good air exchange bilaterally. Heart: Rapid rate, Irregular rythm, No murmur, no rub Abdomen: Normal BS, soft, No rigidity, No abdominal tenderness, Extremities: strength 5/5 in all extremities, good pulses in all extremities, no swelling or tenderness in the extremities, no edema. Skin: warm, dry, appropriate color, no rash Neuro: speech clear, oriented x 3, normal affect, responds appropriately to questions. Course - Re-evaluation Re-evalutation: 02/02/19 04:02 Patient continues to have some A. fib with RVR but did respond well to the previous bolus given by the paramedics. Will place on Cardizem drip. We will try to titrate down her heart rate. If I am unsuccessful titrating down her heart rate and she continues to have chest pain continues have borderline blood pressure we may have to consider cardioversion. 02/02/19 04:37 She did have a brief period where she converted in sinus rhythm with a rate around 80 bpm. This lasted for about 30 seconds and then she went right back into A. fib with RVR. 02/02/19 04:40 Patient's chest pain is now improved. He says she only has very slight chest discomfort at this time. Increased her Cardizem drip to 10 mg/h. I will give her another bolus of 10 mg IV as well as I really want to get her heart rate under control to try to help prevent any demand ischemia to her heart. 02/02/19 04:41 02/02/19 04:42 Before we could give the patient the 10 mg bolus her rhythm converted to sinus rhythm. I will keep her on Cardizem at 5 mg an hour being that when she previously did this she converted right back to atrial fibrillation. We will hold the 10 mg bolus of Cardizem at this time. 02/02/19 04:43 02/02/19 05:30 Patient says she is actually still having some more chest pain now. Continues to radiate to the left part of her back. Still nowhere near as intense as when she first arrived. Blood pressure is stabilized more after receiving IV fluid bolus as well as after getting her rhythm converted into sinus rhythm. I will place her on nitro drip to help get better control of her pain with hopefully not dropping her blood pressure too much. I will give her a dose Lovenox pain that her troponin is elevated. I did call [facility] to speak with whoever is covering for her chip person however the transfer center informed her that I am not allowed to speak with chip person unless it is a STEMI and they said I have to speak with the hospitalist. I therefore am waiting to hear back from the hospitalist at [facility]. 02/02/19 05:[address] did speak with Dr. Ant Zheng, hospitalist covering at [facility]. He recommends starting the patient on an amiodarone drip and he agrees to accept the patient for transfer. I did talk to him about the patient's recent history. At this time I do not know what else more can be done for the patient other than continued medical management. It sounds like she is not a candidate for stenting. At her age she is probably not a good candidate for coronary bypass. I still do not feel I can send her home at this time being that she has ongoing chest pain, recently just had very rapid a.fib, has elevated troponin. Patient herself says that she prefers to be at [facility] where her cardiologists are. I will give her a dose Lovenox. I did start nitro drip. We will start the amiodarone drip. Patient will be closely monitored until transfer. Dictation of this chart was performed using voice recognition software; therefore, there may be some unintended grammatical errors. - Vital Signs Vital signs: Temp Pulse Resp BP Pulse Ox 27 H 105/66 96 02/02/19 04:31 02/02/19 04:31 02/02/19 04:31 - Laboratory Result Diagrams: 02/02/19 04:14 02/02/19 00:05 Laboratory results interpreted by me: 02/02/19 02/02/19 02/02/19 00:05 04:14 04:14 RDW 14.7 H Seg Neutrophils % 86.2 H Lymphocytes % 5.5 L Absolute Neutrophils 8.7 H Carbon Dioxide 21 L BUN 23 H Est GFR ( Amer) 57 L Est GFR (Non-Af Amer) 47 L Glucose 299 H AST 74 H ALT 55 H TSH 6.17 H - EKG Interpretation by Me Additional EKG results interpreted by me: 02/02/19 03:58 EKG is reviewed and interpreted by me. EKG shows A. fib with rate of 132 bpm. Patient has left bundle branch block which is unchanged comparison to previous EKG. No concerning ST segment changes in lieu of the left bundle branch block. Old EKG for comparison is from January 31, 2019. Critical Care Note - Critical Care Note Total time excluding time spent on procedures (mins): 60 Comments: Critical care time for the patient not including time spent in procedures approximately 60 minutes due to frequent evaluations, management of Cardizem drip, management of atrial fibrillation with RVR with ongoing chest pain, management of NSTEMI. Discharge - Discharge Clinical Impression: NSTEMI (non-ST elevated myocardial infarction), Atrial fibrillation with RVR Chest pain Qualifiers: Chest pain type: unspecified Qualified Code(s): R07.9 - Chest pain, unspecified Condition: Stable Disposition: [facility]
[2019-02-02] MEDS ORDERED: DILTIAZEM HCL/D5W 125 MG/125 ML RTUINJ IV PRN (04:02)
[2019-02-02] MEDS ORDERED: METOPROLOL TARTRATE PF/INJ 5 MG/5 ML SDV IV ONE (04:08)
[2019-02-02 04:25] LABS: ABSOLUTE MONOCYTES (AUTO) 0.7 10^3/uL (0.1-1.4); EOSINOPHILS % (AUTO) 0.5 % (0-6); HEMOGLOBIN 12.5 g/dL (12.0-15.5); MEAN CORPUSCULAR VOLUME 87 fl (80-97); TOTAL CELLS COUNTED % (AUTO) 100 %
[2019-02-02 04:38] LABS: ABSOLUTE LYMPHOCYTES (AUTO) 0.6 10^3/uL (0.5-4.7); ABSOLUTE NEUT (AUTO) 8.7 10^3/uL (1.7-8.2); BASOPHILS % (AUTO) 0.4 % (0-2); HEMATOCRIT 36.8 % (36.0-47.0); LYMPHOCYTES % (AUTO) 5.5 % (13-45); MEAN CORPUSCULAR HEMOGLOBIN 29.3 pg (27.0-33.4); MEAN CORPUSCULAR HGB CONC 33.9 g/dL (32.0-36.0); MONOCYTES % (AUTO) 7.4 % (3-13); PLATELET COUNT 157 10^3/uL (150-450); RED BLOOD COUNT 4.25 10^6/uL (3.72-5.28); RED CELL DISTRIBUTION WIDTH 14.7 % (11.5-14.0); SEGMENTED NEUTROPHILS % (AUTO) 86.2 % (42-78); WHITE BLOOD COUNT 10.1 10^3/uL (4.0-10.5)
[2019-02-02] MEDS ORDERED: DILTIAZEM HCL INJ 25 MG/5 ML VIAL IV ONE (04:40)
[2019-02-02 04:49] LABS: ALANINE AMINOTRANSFERASE 55 U/L (9-52); ALBUMIN 3.6 g/dL (3.5-5.0); ALKALINE PHOSPHATASE 62 U/L (38-126); ANION GAP 15 (5-19); ASPARTATE AMINO TRANSFERASE 74 U/L (14-36); BILIRUBIN,DIRECT 0.3 mg/dL (0.0-0.4); BILIRUBIN,TOTAL 0.8 mg/dL (0.2-1.3); BLOOD UREA NITROGEN 23 mg/dL (7-20); CALCIUM 9.7 mg/dL (8.4-10.2); CARBON DIOXIDE 21 mmol/L (22-30); CHLORIDE 103 mmol/L (98-107); GLUCOSE 299 mg/dL (75-110); POTASSIUM 3.9 mmol/L (3.6-5.0); SODIUM 139.2 mmol/L (137-145); TOTAL PROTEIN 6.9 g/dL (6.3-8.2)
[2019-02-02 05:05] LABS: FREE T4 (FREE THYROXINE) 1.6 ng/dL (0.78-2.19)
[2019-02-02 05:19] LABS: THYROID STIMULATING HORMONE 6.17 uIU/mL (0.47-4.68)
--- NOTE | 2019-02-02 05:24 | RADIOLOGY REPORT (SQ) ---
Chest single view on 02/02/2019 at 5:07 AM CLINICAL INDICATION: Chest pain COMPARISON: 01/30/2019 FINDINGS: There is mild elevation of the right hemidiaphragm. There are trace bilateral pleural effusions. Cardiomegaly is noted. Vascular calcification is noted in the aorta. There is mild left lower lung opacity likely representing atelectasis. The lungs are otherwise clear. IMPRESSION: Trace pleural effusions with likely mild left lower lung atelectasis.
[2019-02-02] MEDS ORDERED: AMIODARONE HCL 150 MG in DEXTROSE 5%-WATER 100 ML IV ONE (05:38)
[2019-02-02] MEDS ORDERED: AMIODARONE HCL INJ 150 MG/3 ML VIAL IV ONE (05:48)
[2019-02-02] MEDS: ENOXAPARIN SODIUM INJ 80 MG/0.8 ML DISP.SYRIN SUBCUT SCH ×2 (05:57→21:15)
--- NOTE | 2019-02-02 06:28 | EKG REPORT ---
SEVERITY:- ABNORMAL ECG - SINUS RHYTHM FIRST DEGREE AV BLOCK LEFT BUNDLE BRANCH BLOCK : Confirmed by: Ji Lobo MD 02-Feb-2019 06:27:57
--- NOTE | 2019-02-02 06:28 | EKG REPORT ---
SEVERITY:- ABNORMAL ECG - A-FLUTTER W/ PREDOM 2:1 AV BLOCK, A-RATE 250 LEFT BUNDLE BRANCH BLOCK : Confirmed by: Ji Lobo MD 02-Feb-2019 06:28:19
[2019-02-02] MEDS: NITROGLYCERIN/D5W 50 MG/250 ML RTUINJ IV PRN ×2 (06:35→21:19)
--- NOTE | 2019-02-02 17:40 | ER Document Report ---
Doctor's Note Notes: 02/02/19 17:39 Patient has remained stable all day. She has not been complaining of chest pain. We are still waiting to see when a bed will become available at [facility]. Patient care is transferred to Dr. Kumar at this time.
[2019-02-02] MEDS ORDERED: ASPIRIN 81 MG TABLET, CHEWABLE PO ONE (20:56)
--- NOTE | 2019-02-02 21:25 | RADIOLOGY REPORT (SQ) ---
XR CHEST 1 VIEW 02/02/2019 at 9:11 PM. CLINICAL STATEMENT: sob COMPARISON: 02/02/2019 at 5:07 AM. FINDINGS: Heart is moderately enlarged. No pneumothorax. Mild central pulmonary vascular congestion. Mild right pleural effusion. IMPRESSION: Findings of CHF appear mildly worse with mild worsening right pleural effusion.
[2019-02-02] MEDS ORDERED: FUROSEMIDE INJ/PF 40 MG/4 ML SDV IV ONE (21:55)
[2019-02-02] MEDS ORDERED: FENTANYL CITRATE INJ/PF 100 MCG/2 ML AMPUL IV ONE (21:56)
--- NOTE | 2019-02-02 21:59 | ER Document Report ---
Doctor's Note Notes: 02/02/19 21:56 Asked to see the patient by nursing as patient has been awaiting transfer to [facility] for an end STEMI. Patient is currently complaining of worsening chest pressure and shortness of breath. Repeat EKG was obtained and unchanged shows a left bundle branch block but patient is now tachycardic. Repeat labs pending. Chest x-ray shows worsening of congestive heart failure. Found that the patient's IV which was infusing nitro has been infiltrated for some time. IV inserted, nitro drip reinitiated. Lasix administered for worsening pleural edema. [facility] contacted for bed status and patient still does not have a bed currently. PHYSICAL EXAMINATION: GENERAL: Ill-appearing, mild distress HEAD: Atraumatic, normocephalic. EYES: Pupils equal round extraocular movements intact, conjunctiva are normal. ENT: Nares patent NECK: Normal range of motion LUNGS: Diminished breath sounds bilaterally. CARD: Tachycardic, regular rhythm without murmurs. Musculoskeletal: Normal range of motion NEUROLOGICAL: Normal speech, normal gait. PSYCH: Normal mood, normal affect. SKIN: Warm, Dry, normal turgor, no rashes or lesions noted.
[2019-02-02] MEDS ORDERED: NITROGLYCERIN 0.4 MG/TAB 25 TAB/BOTTLE ONE (22:07)
[2019-02-03] MEDS ORDERED: SIMVASTATIN 40 MG TABLET PO ONE (04:53)
[2019-02-03 06:30] LABS: ALANINE AMINOTRANSFERASE 46 U/L (9-52); ALBUMIN 3.5 g/dL (3.5-5.0); ALKALINE PHOSPHATASE 64 U/L (38-126); ANION GAP 15 (5-19); ASPARTATE AMINO TRANSFERASE 53 U/L (14-36); BILIRUBIN,DIRECT 0.3 mg/dL (0.0-0.4); BILIRUBIN,TOTAL 0.7 mg/dL (0.2-1.3); BLOOD UREA NITROGEN 15 mg/dL (7-20); CALCIUM 9.8 mg/dL (8.4-10.2); CARBON DIOXIDE 22 mmol/L (22-30); CHLORIDE 105 mmol/L (98-107); GLUCOSE 151 mg/dL (75-110); POTASSIUM 3.6 mmol/L (3.6-5.0); SODIUM 142.3 mmol/L (137-145)
[2019-02-03 08:51] VITALS: BP 128/78
[2019-02-03] MEDS ORDERED: ASPIRIN 81 MG TABLET, ENT COATED PO SCH (10:00)
[2019-02-03] MEDS ORDERED: CLOPIDOGREL BISULFATE 75 MG TABLET PO SCH (10:00)
--- NOTE | 2019-02-03 11:02 | EKG REPORT ---
SEVERITY:- ABNORMAL ECG - SINUS TACHYCARDIA LEFT BUNDLE BRANCH BLOCK : Confirmed by: Giacomo Rodriguez 03-Feb-2019 11:02:22
== END 2019-02-03 08:35 | disposition short-term general hospital (02) ==
LOC: ER 03:43
DX: I21.4 Non-ST elevation (NSTEMI) myocardial infarction (principal); I48.91 Unspecified atrial fibrillation; I11.0 Hypertensive heart disease with heart failure; I50.1 Left ventricular failure, unspecified; I44.7 Left bundle-branch block, unspecified; I25.10 Atherosclerotic heart disease of native coronary artery without angina pectoris; E11.9 Type 2 diabetes mellitus without complications; R07.89 Other chest pain; R00.0 Tachycardia, unspecified; Z88.6 Allergy status to analgesic agent; Z88.5 Allergy status to narcotic agent; Z87.892 Personal history of anaphylaxis; Z91.041 Radiographic dye allergy status; Z91.013 Allergy to seafood
CPT/HCPCS: 93005; 36415; 84439; 84443; 85025; 80053; 84484; 83880; 71045; 93010; 94660 ×2; A9270 ×2; J3010; J1940; J3490 ×3; J7040; J1650; J0282

== ENCOUNTER → 2019-03-19 | Outpatient (CLI) | payer MEDICARE, OTHER ==
--- NOTE | 2019-03-19 12:48 | RADIOLOGY REPORT (SQ) ---
EXAM DESCRIPTION: NM GASTRIC EMPTYING STUDY COMPLETED DATE/TIME: 03/19/2019 11:42 am REASON FOR STUDY: GASTROPARESIS (K31.84) K31.84 GASTROPARESIS COMPARISON: None. RADIONUCLIDE AND DOSE: 2.15 millicuries Tc-99m Sulfur Colloid. Scrambled egg The route of agent administration: Oral. TECHNIQUE: 1 minute serial static imaging performed at time of meal, 1 hour, 2 hours, 3 hours, and 4 hours as needed. Once stomach reaches 90% emptying, the test is complete. Image intensity values plo tted with respect to time with linear regression algorithm. LIMITATIONS: None. FINDINGS: Patient was observed for 4 hours. Immediate post meal serves as baseline. Gastric emptying at 60 minutes was 64%. Gastric emptying at 90 minutes was 78%. Gastric emptying at 120 minutes was 87% Gastric emptying at 180 minutes was 98% IMPRESSION: NORMAL GASTRIC EMPTYING. TECHNICAL DOCUMENTATION: JOB ID: [id number]- All Rights Reserved rev Reading location - IP/workstation name: [email or web address]
== END ==
LOC: RAD 07:38
PROVIDERS: ATTEND Internal Medicine
DX: K31.84 Gastroparesis (principal)
CPT/HCPCS: 78264; A9541

== ENCOUNTER 2019-05-01 00:32 | Emergency (ER) | payer MEDICARE, OTHER ==
[2019-05-01] MEDS ORDERED: TRAMADOL HCL 50 MG TABLET PO ONE (01:32)
--- NOTE | 2019-05-01 01:38 | RADIOLOGY REPORT (SQ) ---
EXAM: X-ray knee four or more views CLINICAL DATA: 83-year-old female with bone tenderness TECHNICAL DATA: Four x-ray views of the right knee were performed on 05/01/2019 at 1:16 AM. COMPARISONS: None FINDINGS: There is a linear area of increased density along the anterior inferior pole of the patella which may represent ligamentous calcification. A fracture is considered less likely. No definite acute fracture is identified. There is no evidence of a joint effusion. There is no dislocation. No significant arthritic or degenerative changes are identified. No lytic or sclerotic bone lesions are seen. Bone mineralization is normal. No focal soft tissue abnormalities are identified. There appears to be an overlying knee brace. IMPRESSION: 1. No definite acute osseous or soft tissue abnormality. 2. Suspect ligamentous calcification along the anterior inferior pole of the patella.
--- NOTE | 2019-05-01 02:11 | ER Document Report ---
Entered by AMBREEN MILLS SCRIBE 05/01/19 0143 Acting as scribe for:JOANN HALL DO ED Extremity Problem, Lower - General Chief Complaint: Knee Pain Stated Complaint: KNEE INJURY Time Seen by Provider: 05/01/19 01:01 Primary Care Provider: USAMA MCKAY MD [ACTIVE PROVISIONAL STAFF] - Follow up in 3-5 days SHEN KETIA MD [Primary Care Provider] - Follow up as needed Notes: 83-year-old female who presents to the emergency department today with complaints of right knee pain. Patient states she first developed pain yesterday and she attributed her pain to arthritis. Patient states today at around 1900 her right knee "buckled" when stepping down. Patient states she had another episode like this shortly after the first episode. Patient describes increased pain in the knee since these two episodes have occurred. Patient states that she has a history of right lower extremity neuropathy as well. Patient denies a fall. TRAVEL OUTSIDE OF THE [place] IN LAST 30 DAYS: No - Related Data Allergies/Adverse Reactions: acetaminophen [From Tylenol] Allergy (Verified 01/13/19 08:44) Facial swelling codeine Allergy (Verified 01/13/19 08:44) Itching ibuprofen [From Motrin] Allergy (Verified 01/13/19 08:44) Facial swelling Iodinated Contrast- Oral and IV Dye Allergy (Verified 01/13/19 08:44) Anaphylaxis shellfish derived Allergy (Verified 01/13/19 08:44) Anaphylaxis MATHIEU Inhibitors Adverse Reaction (Verified 01/13/19 08:44) Facial swelling monosodium glutamate Adverse Reaction (Verified 01/13/19 08:44) Facial swelling Past Medical History - General Information source: Patient, [facility] Records - Social History Smoking Status: Former Smoker - quit in 1980 Cigarette use (# per day): No Chew tobacco use (# tins/day): No Frequency of alcohol use: None Drug Abuse: None Lives with: Family Family History: Reviewed & Not Pertinent - Past Medical History Cardiac Medical History: Reports: Hx Coronary Artery Disease, Hx Heart Attack, Hx Hypercholesterolemia, Hx Hypertension Endocrine Medical History: Reports: Hx Diabetes Mellitus Type 2 Malignancy Medical History: Reports: Hx Lung Cancer Psychiatric Medical History: Reports: Hx Depression Past Surgical History: Reports: Hx Cardiac Catheterization, Hx Hysterectomy, Other - Right lower lobectomy - Immunizations Hx Diphtheria, Pertussis, Tetanus Vaccination: No Hx Pneumococcal Vaccination: 07/07/17 Review of Systems - Review of Systems Musculoskeletal: See HPI, Joint pain - right knee Physical Exam - Vital signs Vitals: Temp Pulse BP Pulse Ox 97.6 F 77 146/83 H 93 05/01/19 00:38 05/01/19 00:38 05/01/19 00:38 05/01/19 00:38 - Notes Notes: PHYSICAL EXAM GENERAL: Alert, interacts well. No acute distress. HEAD: Normocephalic, atraumatic. EYES: Pupils equal, round, and reactive to light. Extraocular movements intact. ENT: Oral mucosa moist, tongue midline. NECK: Full range of motion. Supple. Trachea midline. LUNGS: No respiratory distress. EXTREMITIES: Moves all 4 extremities spontaneously. No edema, radial and dorsalis pedis pulses 2/4 bilaterally. No cyanosis. Right lateral knee joint line tenderness with LCL ligamentous laxity. NEUROLOGICAL: Alert and oriented x3. Normal speech. PSYCH: Normal affect, normal mood. SKIN: Warm, dry, normal turgor. No rashes or lesions noted. Course - Re-evaluation Re-evalutation: 05/01/19 01:40 Knee x-ray shows no definite acute osseous or soft tissue abnormality. Suspect ligamentous calcification along the anterior inferior pole of the patella. Examination is consistent with lateral collateral ligamentous strain, patient will be placed in knee immobilizer, instructed on how to use her home crutches and discharged home. Instructed to follow-up with orthopedic surgery as an outpatient for follow-up and possible MRI at later. - Vital Signs Vital signs: Temp Pulse Resp BP Pulse Ox 97.6 F 77 146/83 H 93 05/01/19 00:38 05/01/19 00:38 05/01/19 00:38 05/01/19 00:38 Procedures - Immobilization Right knee Pre-Proc Neuro Vasc Exam: Normal Immobilizer type: Knee immobilizer Performed by: PCT Post-Proc Neuro Vasc Exam: Normal, Unchanged from pre-exam Alignment checked and good: Yes Discharge - Discharge Clinical Impression: Lateral collateral ligament sprain of knee Qualifiers: Encounter type: initial encounter Laterality: right Qualified Code(s): S83.421A - Sprain of lateral collateral ligament of right knee, initial encounter Condition: Stable Disposition: HOME, SELF-CARE Additional Instructions: Suspected Internal Knee Injury The examiner of your injured knee suspects an internal injury to the cartilage or internal ligaments. This must be further investigated by an paint specialist. The knee should be protected, ice packed, and elevated while awaiting your follow-up exam by the orthopedist. If there is severe swelling, severe pain, or any new symptoms while awaiting your exam, you should call the orthopedist. (If he/she is unavailable, call us or return for re-examination.) Knee Immobilizing Splint The knee immobilizing splint will protect the injury while healing begins. This type of splint does not allow the knee to bend at all. No running or sports will be possible. If the splint allows painfree walking, it's giving adequate protection. If there is still significant pain, crutches may be needed as well. Don't do anything that hurts. Adjusted the splint, if necessary. The stiffeners on the sides are attached with Velcro, so they can be easily moved to adjust for thigh and calf size. If you need help with these adjustments, come back. You will lose muscle strength in the thigh while using this splint. The doctor will advise you if it's safe to do isometric knee exercises while you use it. Prescriptions: Tramadol HCl [Ultram 50 mg Tablet] 50 mg PO Q6HP PRN #10 tablet PRN Reason: Referrals: SHEN KEITA MD [Primary Care Provider] - Follow up as needed USAMA MCKAY MD [ACTIVE PROVISIONAL STAFF] - Follow up in 3-5 days I personally performed the services described in the documentation, reviewed and edited the documentation which was dictated to the scribe in my presence, and it accurately records my words and actions.
[2019-05-01 03:58] VITALS: BP 140/68
== END 2019-05-01 02:00 | disposition home or self-care (01) ==
LOC: ER 00:32
DX: S83.421A Sprain of lateral collateral ligament of right knee, initial encounter (principal); M25.561 Pain in right knee; X58.XXXA Exposure to other specified factors, initial encounter; Z87.891 Personal history of nicotine dependence; I25.10 Atherosclerotic heart disease of native coronary artery without angina pectoris; I25.2 Old myocardial infarction; I10 Essential (primary) hypertension; E11.9 Type 2 diabetes mellitus without complications
CPT/HCPCS: 99283; 73564; L1830; A9270

== ENCOUNTER 2019-10-28 20:16 | Inpatient (IN) | payer MEDICARE, OTHER ==
[2019-10-28] MEDS ORDERED: ASPIRIN 81 MG TABLET, CHEWABLE PO ONE (22:02)
[2019-10-28] MEDS ORDERED: NITROGLYCERIN 2% OINTMENT 1 GM PACKET TP ONE (22:02)
--- NOTE | 2019-10-28 22:07 | ER Document Report ---
ED Respiratory Problem - General Chief Complaint: Shortness Of Breath Stated Complaint: RESPIRATORY DISTRESS Time Seen by Provider: 10/28/19 21:54 Notes: Patient is a 84-year-old female that comes to the emergency department by EMS for chief complaint of difficulty breathing. Patient states that she has started having increasing difficulty breathing for the past 2 days but today she became much worse and now she states that she is getting discomfort in the middle of her chest with and now she feels like she can "barely catch my breath". She states normally she can ambulate for 15 minutes nonstop, now she can barely walk across the room and she cannot lie down. She does have a history of CHF, she is pending AICD placement at [facility] with Dr. Benavides and Dr. Antoine next month. She just went home after recovering from a hospital a dmission at [place], was discharged home on October 06 and has been doing well since reportedly. She denies fever. Past medical history also includes [place], lung cancer with partial lobectomy on the right lower lobe. She denies being on oxygen at home. TRAVEL OUTSIDE OF THE [place] IN LAST 30 DAYS: No - Related Data Allergies/Adverse Reactions: acetaminophen [From Tylenol] Allergy (Verified 01/13/19 08:44) Facial swelling codeine Allergy (Verified 01/13/19 08:44) Itching ibuprofen [From Motrin] Allergy (Verified 01/13/19 08:44) Facial swelling Iodinated Contrast Media [Iodinated Contrast- Oral and IV Dye] Allergy (Verified 01/13/19 08:44) Anaphylaxis shellfish derived Allergy (Verified 01/13/19 08:44) Anaphylaxis MATHIEU Inhibitors Adverse Reaction (Verified 01/13/19 08:44) Facial swelling monosodium glutamate Adverse Reaction (Verified 01/13/19 08:44) Facial swelling Home Medications: amiodarone 200mg daily. ascorbic acid 500mg daily. asa 81 mg daily. cyanocobalamin 1000mcg daily. colace 100mg BID. eliquis 2.5mg BID. entresto 24-26 BID. lasix 40mg BID. miralax 17gr daily. humalog 5units before meals. klor-con 10 mEq TID. lantus 10 units every night. melatonin 3mg nightly. multivitamin daily. neurontin 300mg nightly. zofran 4mg PRN. protonix 40mg daily. refresh tears PRN. rosuvastatin 5mg nightly. synthroid 75mcg daily. victoza 1.8mg nightly. vitamin D3 1000 units daily. humalog insulin sliding scale Past Medical History - General Information source: Patient, Relative - Social History Smoking Status: Former Smoker Chew tobacco use (# tins/day): No Frequency of alcohol use: None Drug Abuse: None Lives with: Family Family History: Reviewed & Not Pertinent Patient has suicidal ideation: No Patient has homicidal ideation: No - Past Medical History Cardiac Medical History: Reports: Hx Coronary Artery Disease, Hx Heart Attack, Hx Hypercholesterolemia, Hx Hypertension Endocrine Medical History: Reports: Hx Diabetes Mellitus Type 2 Renal/ Medical History: Denies: Hx Peritoneal Dialysis Malignancy Medical History: Reports: Hx Lung Cancer Psychiatric Medical History: Reports: Hx Depression Past Surgical History: Reports: Hx Cardiac Catheterization, Hx Hysterectomy, Other - Right lower lobectomy - Immunizations Hx Diphtheria, Pertussis, Tetanus Vaccination: No Hx Pneumococcal Vaccination: 07/07/17 Review of Systems - Review of Systems Constitutional: No symptoms reported EENT: No symptoms reported Cardiovascular: See HPI Respiratory: See HPI Gastrointestinal: No symptoms reported Genitourinary: No symptoms reported Female Genitourinary: No symptoms reported Musculoskeletal: No symptoms reported Skin: No symptoms reported Hematologic/Lymphatic: No symptoms reported Neurological/Psychological: No symptoms reported Physical Exam - Vital signs Vitals: Resp BP Pulse Ox 31 H 151/88 H 96 10/28/19 20:21 10/28/19 20:21 10/28/19 20:21 - Notes Notes: GENERAL: Alert and responsive but slightly ill-appearing HEAD: Normocephalic, atraumatic. EYES: Pupils equal, round, and reactive to light. Extraocular movements intact. ENT: Oral mucosa moist, tongue midline. Oropharynx unremarkable. Airway patent. LUNGS: Patient with labored breathing, tachypnea, unable to speak in full sentences. Loud rales bilaterally especially on the left. HEART: Regular rate and rhythm. No murmur ABDOMEN: Soft, non-tender. Non-distended. EXTREMITIES: Moves all 4 extremities spontaneously. No edema, normal radial and dorsalis pedis pulses bilaterally. No cyanosis. BACK: no cervical, thoracic, lumbar midline tenderness. No saddle anesthesia, normal distal neurovascular exam. Moves all extremities in full range of motion. NEUROLOGICAL: Alert and oriented x3. Normal speech. Cranial nerves II through XII grossly intact. PSYCH: Normal affect, normal mood. SKIN: Slightly pale Course - Re-evaluation Re-evalutation: 10/28/19 22:05 On my evaluation patient is having difficulty breathing with labored breathing at almost 30 times a minute, she is hypoxic without the oxygen at about 90% on room air, she has rales especially on the left side, she cannot speak in full sentences and she has difficulty leaning back at all. Because of patient's res piratory distress even on oxygen patient will be given aspirin, nitroglycerin, and placed on BiPAP. She will be closely reevaluated. On reevaluation tachypnea is resolved, patient is calm, she is not hypoxic, she remains alert and responsive. She is tolerating the BiPAP very well. CBC unremarkable. Chemistry unremarkable. BNP is very elevated at greater than 12,000 which is exceedingly more than anytime previously here. Chest x-ray shows pulmonary vascular congestion with cardiomegaly. Troponin is negative. Patient with resolution of chest tightness after being placed on BiPAP. Because of patient requiring oxygen/BiPAP, CHF exacerbation, discussed with patient, will discuss with hospitalist for admission. Discussed discussed with Dr. Rowland, hospitalist, patient accepted to telemetry full admission. Patient and family state understanding and agreement.with Dr. Thomas. - Vital Signs Vital signs: Temp Pulse Resp BP Pulse Ox 98.0 F 71 19 116/55 L 97 10/29/19 01:27 10/29/19 02:00 10/29/19 01:27 10/29/19 01:27 10/29/19 01:27 - Laboratory Result Diagrams: 10/28/19 20:25 10/28/19 20:25 Laboratory results interpreted by me: 10/28/19 10/28/19 10/28/19 20:25 20:25 20:25 RDW 15.4 H Est GFR (MDRD) Non-Af 55 L Glucose 145 H Calcium 10.3 H AST 53 H NT-Pro-B Natriuret Pep 36220 H Critical Care Note - Critical Care Note Total time excluding time spent on procedures (mins): 35 - respiratory distress, hypoxia, CHF exacerbation Comments: Please allow 35 minutes of critical care time for evaluation and management of patient with acute on chronic CHF exacerbation, respiratory distress, hypoxia. Interventions including oxygen, aspirin, nitroglycerin, BiPAP therapy. Multiple re-evaluations performed. Time spent discussing with patient and family, time spent consulting, time spent admitting to the hospital. Discharge - Discharge Clinical Impression: Pulmonary vascular congestion, Hypoxia, Respiratory distress CHF exacerbation Qualifiers: Heart failure type: unspecified Qualified Code(s): I50.9 - Heart failure, unspecified Condition: Stable Disposition: ADMITTED INPATIENT Admitting Provider: Janett (Hospitalist) Unit Admitted: Telemetry
[2019-10-28] MEDS ORDERED: ASPIRIN 81 MG TABLET, CHEWABLE ONE (22:11)
[2019-10-28 22:17] LABS: ABSOLUTE BASOPHILS # (AUTO) 0.1 10^3/uL (0.0-0.2); ABSOLUTE EOSINOPHILS # (AUTO) 0.1 10^3/uL (0.0-0.6); ABSOLUTE LYMPHOCYTES (AUTO) 1.7 10^3/uL (0.5-4.7); ABSOLUTE MONOCYTES (AUTO) 0.7 10^3/uL (0.1-1.4); BASOPHILS % (AUTO) 0.6 % (0-2); HEMATOCRIT 41.5 % (36.0-47.0); HEMOGLOBIN 13.7 g/dL (12.0-15.5); LYMPHOCYTES % (AUTO) 18.1 % (13-45); MEAN CORPUSCULAR HEMOGLOBIN 28.5 pg (27.0-33.4); MEAN CORPUSCULAR HGB CONC 32.9 g/dL (32.0-36.0); MEAN CORPUSCULAR VOLUME 86 fl (80-97); MONOCYTES % (AUTO) 7.6 % (3-13); PLATELET COUNT 185 10^3/uL (150-450); RED CELL DISTRIBUTION WIDTH 15.4 % (11.5-14.0); SEGMENTED NEUTROPHILS % (AUTO) 72.7 % (42-78); TOTAL CELLS COUNTED % (AUTO) 100 %; WHITE BLOOD COUNT 9.6 10^3/uL (4.0-10.5)
[2019-10-28] MEDS ORDERED: ONDANSETRON HCL INJ/PF 4 MG/2 ML SDV IV ONE (22:18)
[2019-10-28 22:21] LABS: ALKALINE PHOSPHATASE 112 U/L (38-126); ANION GAP 11 (5-19); ASPARTATE AMINO TRANSFERASE 53 U/L (14-36); BILIRUBIN,DIRECT 0.3 mg/dL (0.0-0.4); BILIRUBIN,TOTAL 0.6 mg/dL (0.2-1.3); BLOOD UREA NITROGEN 16 mg/dL (7-20); CALCIUM 10.3 mg/dL (8.4-10.2); CARBON DIOXIDE 24 mmol/L (22-30); CHLORIDE 103 mmol/L (98-107); GLUCOSE 145 mg/dL (75-110); POTASSIUM 4.4 mmol/L (3.6-5.0); TOTAL PROTEIN 7.7 g/dL (6.3-8.2)
[2019-10-28 22:32] LABS: TROPONIN I 0.017 ng/mL
--- NOTE | 2019-10-28 22:48 | RADIOLOGY REPORT (SQ) ---
EXAM DESCRIPTION: XR CHEST 1 VIEW COMPLETED DATE/TME: 10/28/2019 22:04 CLINICAL HISTORY: 84 years, Female, shortness of breath COMPARISON: 05/20/2018 chest NUMBER OF VIEWS: 1 TECHNIQUE: Portable chest LIMITATIONS: None. FINDINGS: Cardiomegaly. Mild atheromatous change thoracic aorta. Diffuse interstitial edema. Small bibasilar effusions. No pneumothorax IMPRESSION: Cardiomegaly with pulmonary edema pattern as above copyright 2010 [employer]- All Rights Reserved
[2019-10-29] MEDS ORDERED: ONDANSETRON HCL INJ/PF 4 MG/2 ML SDV IV PRN ×2 (00:12→09:30)
[2019-10-29] MEDS ORDERED: MAGNESIUM HYDROXIDE SUSP 30 ML UDCUP PO PRN (00:12)
[2019-10-29] MEDS ORDERED: MAG HYDROX/AL HYDROX/SIMETH SUSP 30 ML UDCUP PO PRN (00:12)
[2019-10-29] MEDS ORDERED: METOPROLOL TARTRATE PF/INJ 5 MG/5 ML SDV IV PRN (00:16)
[2019-10-29] MEDS ORDERED: MORPHINE SULFATE 10 MG/ML INJ IV PRN (00:16)
[2019-10-29] MEDS ORDERED: HYDRALAZINE HCL INJ/PF 20 MG/1 ML SDV IV PRN (00:16)
[2019-10-29] MEDS ORDERED: GLUCAGON,HUMAN RECOMB 1 MG INJ IM PRN (00:18)
[2019-10-29] MEDS ORDERED: DEXTROSE 40% GEL 15 GM TUBE PO PRN ×2 (00:18)
[2019-10-29] MEDS ORDERED: DEXTROSE 50%-WATER 25 GM/50 ML DISP.SYRIN IV PRN ×2 (00:18)
[2019-10-29] MEDS ORDERED: FUROSEMIDE INJ/PF 40 MG/4 ML SDV IV ONE (00:24)
[2019-10-29] MEDS: LORAZEPAM INJ 2 MG/1 ML VIAL IV PRN (02:19)
[2019-10-29 03:07] LABS: CREATINE KINASE MB 1.2 ng/mL (<4.55); TROPONIN I 0.047 ng/mL
--- NOTE | 2019-10-29 04:01 | PDOC H&P ---
History of Present Illness Admission Date/PCP: 10/28/19 23:42 SHEN KEITA MD Patient complains of: Dyspnea History of Present Illness: ROSA BACA is a 84 year old female who presented to the emergency room via EMS with a 2-day history of dyspnea. She admits gradually increasing dyspnea over the last 2 days it became suddenly severe this evening resulting in her calling EMS. Her dyspnea is markedly worsened minimal exertion and lying flat. She denies other associated or accompanying signs and symptoms. She denies prior similar episodes. She has not identified any additional aggravating or ameliorating factors for her dyspnea. In the emergency room she was found to have acute pulmonary edema with congestive heart failure and responded well to treatment with BiPAP and nitroglycerin paste. Patient was subsequently admitted to the hospital for further evaluation and treatment. Past Medical History Cardiac Medical History: Reports: Coronary Artery Disease, Myocardial Infarction, Hyperlipidema, Hypertension, Other - Episodic arrhythmias and bradycardia (planning AICD placement) Denies: Atrial Fibrillation, Congestive Heart Failure Pulmonary Medical History: Denies: Asthma, Chronic Obstructive Pulmonary Disease (COPD), Respiratory Failure EENT Medical History: Denies: Cataracts, Ears - Hearing aids Neurological Medical History: Denies: Hemorrhagic CVA, Ischemic CVA, Seizures Endocrine Medical History: Reports: Diabetes Mellitus Type 2 Denies: Diabetes Mellitus Type 1, Hyperthyroidism, Hypothyroidism Renal/ Medical History: Reports: Other - Stress incontinence Denies: Chronic Kidney Disease, Nephrolithiasis Malignancy Medical History: Reports: Lung Cancer GI Medical History: Denies: Cirrhosis, Crohn's Disease, Gastroesophageal Reflux Disease, Hepatitis, Peptic Ulcer Disease, Ulcerative Colitis Musculoskeltal Medical History: Denies: Arthritis, Gout Skin Medical History: Denies: Eczema, Psoriasis Psychiatric Medical History: Reports: Depression, Tobacco Dependency Denies: Alcohol Dependency, Substance Abuse Traumatic Medical History: Reports: None Hematology: Denies: Anemia, Bleeding Tendencies Infectious Medical History: Reports: None Past Surgical History Past Surgical History: Reports: Cardiac Catheterization, Hysterectomy, Other - Right lower lobectomy Social History Information Source: Patient Lives with: Alone Smoking Status: Former Smoker Electronic Cigarette use?: No Frequency of Alcohol Use: None Hx Recreational Drug Use: No Drugs: None Hx Prescription Drug Abuse: No - Advance Directive Resuscitation Status: Full Code Surrogate healthcare decision maker:: Steve Baca Family History Family History: CAD, Hypertension. denies: DM, Malignancy Parental Family History Reviewed: Yes Children Family History Reviewed: No Sibling(s) Family History Reviewed.: Yes Medication/Allergy Home Medications: Citalopram Hydrobromide [Celexa 20 mg Tablet] 20 mg PO DAILY 05/20/18 Gabapentin 300 mg PO QHS 05/20/18 Losartan Potassium [Cozaar 100 mg Tablet] 100 mg PO DAILY 05/20/18 Metformin HCl [Metformin ER Gastric] 1,000 mg PO WSUPPER 05/20/18 Metoprolol Succinate [Toprol Xl] 12.5 mg PO QHS 05/20/18 Multivitamin [Multivitamins] 1 each PO DAILY 05/20/18 Aspirin [Aspirin EC] 81 mg PO QHS 07/28/18 Cholecalciferol (Vitamin D3) [Vitamin D3 1000 unit Chewable Tablet] 2,000 unit PO DAILY 07/28/18 Cyanocobalamin (Vitamin B-12) [Vitamin B-12 1000 mcg Tablet] 1,000 mcg PO DAILY 07/28/18 Nitroglycerin [Nitrostat 0.4 mg (1/150 Gr) Tabs 25/Bottle] 1 tab SL Q5MP PRN #25 tab.subl 07/29/18 Liraglutide [Victoza 2-Abimael] 1.8 mg SQ DAILY 11/19/18 Oxybutynin Chloride [Oxybutynin Chloride ER] 5 mg PO DAILY 11/19/18 Ranolazine [Ranexa 500 mg Tab.sr] 500 mg PO Q12 11/19/18 Atorvastatin Calcium [Lipitor 20 mg Tablet] 20 mg PO QHS 30 Days #30 tablet 11/22/18 Isosorbide Mononitrate [Imdur 30 mg Tablet.er] 30 mg PO DAILY 30 Days tab.er.24h 11/22/18 Tramadol HCl [Ultram 50 mg Tablet] 50 mg PO Q6HP PRN #10 tablet 05/01/19 Allergies/Adverse Reactions: acetaminophen [From Tylenol] Allergy (Verified 01/13/19 08:44) Facial swelling codeine Allergy (Verified 01/13/19 08:44) Itching ibuprofen [From Motrin] Allergy (Verified 01/13/19 08:44) Facial swelling Iodinated Contrast Media [Iodinated Contrast- Oral and IV Dye] Allergy (Verified 01/13/19 08:44) Anaphylaxis shellfish derived Allergy (Verified 01/13/19 08:44) Anaphylaxis MATHIEU Inhibitors Adverse Reaction (Verified 01/13/19 08:44) Facial swelling monosodium glutamate Adverse Reaction (Verified 01/13/19 08:44) Facial swelling Review of Systems Constitutional: ABSENT: chills, fever(s) Eyes: ABSENT: visual disturbances, other - Eye pain Ears: ABSENT: hearing changes, other - Ear pain Nose, Mouth, and Throat: ABSENT: headache(s), mouth pain, sore throat Cardiovascular: PRESENT: dyspnea on exertion, orthropnea. ABSENT: chest pain, edema, palpitations Respiratory: PRESENT: dyspnea. ABSENT: cough, hemoptysis Gastrointestinal: ABSENT: abdominal pain, constipation, diarrhea, nausea, vomiting Genitourinary: ABSENT: dysuria, hematuria Musculoskeletal: ABSENT: back pain, joint swelling, muscle weakness Integumentary: ABSENT: pruritus, rash Neurological: ABSENT: confusion, convulsions, focal weakness, memory loss, syncope Psychiatric: ABSENT: anxiety, depression Endocrine: ABSENT: cold intolerance, heat intolerance Hematologic/Lymphatic: ABSENT: easy bleeding, easy bruising Allergic/Immunologic: ABSENT: seasonal rhinorrhea Physical Exam Vital Signs: Temp Pulse Resp BP Pulse Ox 99.3 F 95 25 H 138/71 H 96 10/28/19 20:47 10/28/19 20:47 10/28/19 23:01 10/28/19 23:01 10/28/19 23:01 Intake & Output 10/26/19 10/27/19 10/28/19 23:59 23:59 23:59 Weight 71.214 kg General appearance: PRESENT: no acute distress, cooperative Head exam: PRESENT: atraumatic, normocephalic Eye exam: PRESENT: conjunctiva pink. ABSENT: conjunctival injection, scleral icterus Ear exam: PRESENT: normal external ear exam. ABSENT: bleeding, drainage Mouth exam: PRESENT: dry mucosa, neck supple Neck exam: ABSENT: thyromegaly, tracheal deviation Respiratory exam: PRESENT: decreased breath sounds - Breath sounds decreased at the bilateral bases, rales - Fine rales in the lower one third of both lung [place], symmetrical. ABSENT: prolonged expiratory phas, wheezes Cardiovascular exam: PRESENT: gallop - S4 gallop, RRR. ABSENT: clicks, rubs Pulses: PRESENT: normal radial pulses, normal dorsalis pedis pul Vascular exam: PRESENT: normal capillary refill. ABSENT: pallor GI/Abdominal exam: PRESENT: normal bowel sounds, soft Rectal exam: PRESENT: deferred Extremities exam: ABSENT: joint swelling, pedal edema Musculoskeletal exam: ABSENT: deformity, dislocation Neurological exam: PRESENT: alert, oriented to person, oriented to place, oriented to time, oriented to situation, CN II-XII grossly intact. ABSENT: motor sensory deficit Psychiatric exam: PRESENT: appropriate affect, normal mood Skin exam: PRESENT: dry, intact, warm. ABSENT: jaundice, rash, urticaria Results Laboratory Results: 10/28/19 20:25 10/28/19 20:25 10/28/19 10/28/19 20:25 20:25 WBC 9.6 RBC 4.80 Hgb 13.7 Hct 41.5 MCV 86 MCH 28.5 MCHC 32.9 RDW 15.4 H Plt Count 185 Seg Neutrophils % 72.7 Sodium 138.4 Potassium 4.4 Chloride 103 Carbon Dioxide 24 Anion Gap 11 BUN 16 Creatinine 0.97 Est GFR ( Amer) > 60 Glucose 145 H Calcium 10.3 H Total Bilirubin 0.6 AST 53 H Alkaline Phosphatase 112 Total Protein 7.7 Albumin 4.0 10/28/19 20:25 Troponin I 0.017 NT-Pro-B Natriuret Pep 68093 H Impressions: Chest X-Ray 10/28/19 22:04 IMPRESSION: Cardiomegaly with pulmonary edema pattern as above copyright 2011 [employer]- All Rights Reserved Assessment and Plan - Diagnosis (1) Acute pulmonary edema with congestive heart failure Is this a current diagnosis for this admission?: Yes (2) Acute respiratory failure with hypoxia Is this a current diagnosis for this admission?: Yes (3) Chronic systolic congestive heart failure Is this a current diagnosis for this admission?: Yes (4) HTN (hypertension) Qualifiers: Hypertension type: essential hypertension Qualified Code(s): I10 - Essential (primary) hypertension Is this a current diagnosis for this admission?: Yes (5) Coronary artery disease Qualifiers: Coronary Disease-Associated Artery/Lesion type: [place] artery [place] vs. transplanted heart: [place] heart Associated angina: without angina Qualified Code(s): I25.10 - Atherosclerotic heart disease of [place] coronary artery without angina pectoris Is this a current diagnosis for this admission?: Yes (6) Diabetes mellitus type 2 in nonobese Is this a current diagnosis for this admission?: Yes - Plan Summary Summary: Patient is admitted to the medical floor in a telemetry bed where she will receive routine supportive and symptomatic cares. She will initially be treated with IV Lasix as needed. She will be continued on BiPAP therapy with supplemental oxygen via nasal cannula to follow when she can tolerate the change. She will be continued with nitroglycerin paste and will also have morphine sulfate 2 mg IV every hour as needed severe dyspnea. Serial cardiac enzymes will be obtained. CBCs, metabolic profiles, magnesium levels and blood gases will be obtained as appropriate. Patient was placed on a diabetic and cardiac diet. Before meals and at bedtime Accu-Cheks will be obtained with sliding scale insulin for hyperglycemia and a hypoglycemic protocol in place. - Time Time Spent with patient: 15-24 minutes Medications reviewed and adjusted accordingly: Yes Anticipated discharge: Home with Homehealth - Inpatient Certification Based on my medical assessment, after consideration of the patient's comorbidities, presenting symptoms, or acuity I expect that the services needed warrant INPATIENT care.: Yes I certify that my determination is in accordance with my understanding of Medicare's requirements for reasonable and necessary INPATIENT services [42 CFR 412.3e].: Yes Medical Necessity: Significant Comorbidiites Make Outpatient Treatment Too Risky, Need Close Monitoring Due to Risk of Patient Decompensation, Need For Continuous Telemetry Monitoring, Risk of Complication if Not Cared For in Hospital
[2019-10-29] MEDS: NITROGLYCERIN 2% OINTMENT 1 GM PACKET TP SCH ×4 (05:33→23:19)
[2019-10-29] MEDS: PANTOPRAZOLE SODIUM 20 MG TABLET.DR PO SCH (05:34)
[2019-10-29] MEDS: HEPARIN SOD (PORCINE) 5,000 UNIT/ML 1 ML VIAL SUBCUT SCH ×3 (05:34→21:56)
--- NOTE | 2019-10-29 07:52 | EKG REPORT ---
SEVERITY:- ABNORMAL ECG - SINUS RHYTHM LEFT BUNDLE BRANCH BLOCK : Confirmed by: Ji Lobo MD 29-Oct-2019 07:52:11
[2019-10-29] MEDS: INSULIN REG, HUMAN 100 UNIT/ML 3 ML VIAL (PYX) SUBCUT SCH ×4 (08:28→21:56)
[2019-10-29] MEDS: DOCUSATE SODIUM 100 MG CAPSULE PO SCH ×2 (09:20→17:02)
[2019-10-29 09:27] LABS: CREATINE KINASE MB 1.13 ng/mL (<4.55); TROPONIN I 0.048 ng/mL
--- NOTE | 2019-10-29 11:58 | PDOC PROGRESS REPORT ---
Subjective Progress Note for:: 10/29/19 Subjective:: Still on oxygen Reason For Visit: ACUTE CONGESTIVE HEART FAILURE, Physical Exam Vital Signs: Temp Pulse Resp BP Pulse Ox 98.5 F 68 21 H 111/49 L 95 10/29/19 07:51 10/29/19 07:51 10/29/19 07:51 10/29/19 07:51 10/29/19 07:51 Intake & Output 10/28/19 10/29/19 10/30/19 06:59 06:59 06:59 Weight 54.8 kg General appearance: PRESENT: cooperative, mild distress, well-developed Head exam: PRESENT: atraumatic, normocephalic Ear exam: PRESENT: normal external ear exam. ABSENT: bleeding, drainage Mouth exam: PRESENT: moist, tongue midline Respiratory exam: PRESENT: rales, symmetrical, unlabored. ABSENT: rhonchi, ta chypnea, wheezes Cardiovascular exam: PRESENT: RRR, +S1, +S2 GI/Abdominal exam: PRESENT: normal bowel sounds, soft. ABSENT: distended, tenderness Extremities exam: ABSENT: pedal edema Musculoskeletal exam: PRESENT: ambulatory, normal inspection Neurological exam: PRESENT: alert, awake, oriented to person, oriented to place, oriented to time, oriented to situation, CN II-XII grossly intact Psychiatric exam: PRESENT: flat affect. ABSENT: agitated, anxious Focused psych exam: ABSENT: delusional, restlessness Skin exam: PRESENT: dry, warm. ABSENT: rash Results Laboratory Results: 10/28/19 20:25 10/28/19 20:25 10/28/19 10/28/19 20:25 20:25 WBC 9.6 RBC 4.80 Hgb 13.7 Hct 41.5 MCV 86 MCH 28.5 MCHC 32.9 RDW 15.4 H Plt Count 185 Seg Neutrophils % 72.7 Sodium 138.4 Potassium 4.4 Chloride 103 Carbon Dioxide 24 Anion Gap 11 BUN 16 Creatinine 0.97 Est GFR ( Amer) > 60 Glucose 145 H Calcium 10.3 H Total Bilirubin 0.6 AST 53 H Alkaline Phosphatase 112 Total Protein 7.7 Albumin 4.0 10/28/19 10/29/19 10/29/19 20:25 02:28 02:28 Creatine Kinase 32 CK-MB (CK-2) 1.20 Troponin I 0.017 0.047 NT-Pro-B Natriuret Pep 42619 H 10/29/19 10/29/19 08:29 08:30 Creatine Kinase 27 L CK-MB (CK-2) 1.13 Troponin I 0.048 NT-Pro-B Natriuret Pep Impressions: Chest X-Ray 10/28/19 22:04 IMPRESSION: Cardiomegaly with pulmonary edema pattern as above copyright 2011 [employer]- All Rights Reserved Assessment and Plan - Diagnosis (1) Acute pulmonary edema with congestive heart failure Is this a current diagnosis for this admission?: Yes (2) Acute respiratory failure with hypoxia Is this a current diagnosis for this admission?: Yes (3) Chronic systolic congestive heart failure Is this a current diagnosis for this admission?: Yes (4) HTN (hypertension) Qualifiers: Hypertension type: essential hypertension Qualified Code(s): I10 - Essential (primary) hypertension Is this a current diagnosis for this admission?: Yes (5) Diabetes mellitus type 2 in nonobese Is this a current diagnosis for this admission?: Yes (6) Coronary artery disease Qualifiers: Coronary Disease-Associated Artery/Lesion type: [place] artery [place] vs. transplanted heart: [place] heart Associated angina: without angina Qualified Code(s): I25.10 - Atherosclerotic heart disease of [place] coronary artery without angina pectoris Is this a current diagnosis for this admission?: Yes - Plan Summary Summary: Patient is admitted to the medical floor in a telemetry bed where she will receive routine supportive and symptomatic cares. She will initially be treated with IV Lasix as needed. She will be continued on BiPAP therapy with supplemental oxygen via nasal cannula to follow when she can tolerate the change. She will be continued with nitroglycerin paste and will also have morphine sulfate 2 mg IV every hour as needed severe dyspnea. Serial cardiac enzymes will be obtained. CBCs, metabolic profiles, magnesium levels and blood gases will be obtained as appropriate. Patient was placed on a diabetic and cardiac diet. Before meals and at bedtime Accu-Cheks will be obtained with sliding scale insulin for hyperglycemia and a hypoglycemic protocol in place. 10/29/2019-the patient reports feeling slightly better. She will be on IV furo semide. We will continue the remainder of her medications. With aggressive successful diuresis anticipate the patient feeling better and we can hopefully discharge in 1-2 more days. We did have a lengthy discussion about her current condition. The patient's daughter reports that they are planning a pacemaker defibrillator placement. I explained how this is due to a very low ejection fraction. With such a poor ejection fraction the patient is very susceptible to acute heart failure. We will resume her old medications. - Time Time Spent with patient: 15-24 minutes Medications reviewed and adjusted accordingly: Yes Anticipated discharge: Home
[2019-10-29 15:43] LABS: CREATINE KINASE MB 1.07 ng/mL (<4.55); TROPONIN I 0.03 ng/mL
[2019-10-29] MEDS ORDERED: (PENDING PHARMACY ID) (Carboxymethylcellulose Sodium [Refresh Tears] 1 DROP) OU PRN (22:25)
[2019-10-29] MEDS ORDERED: (PENDING PHARMACY ID) (Ondansetron Hcl [Zofran 4 Mg Tablet] 4 MG) PO PRN (22:25)
[2019-10-29] MEDS ORDERED: INSULIN GLARGINE,HUM.REC.ANLOG 1,000 UNIT/10 ML VIAL (PYX) SUBCUT PRN (22:32)
[2019-10-29] MEDS ORDERED: ATORVASTATIN CALCIUM 10 MG TABLET PO ONE (22:45)
[2019-10-29] MEDS ORDERED: INSULIN GLARGINE,HUM.REC.ANLOG 1,000 UNIT/10 ML VIAL SUBCUT ONE (22:45)
[2019-10-29] MEDS ORDERED: ONDANSETRON 4 MG TAB.RAPDIS PO PRN (23:00)
[2019-10-30 06:25] LABS: HEMATOCRIT 35.6 % (36.0-47.0); MEAN CORPUSCULAR HEMOGLOBIN 28.8 pg (27.0-33.4); MEAN CORPUSCULAR HGB CONC 33.6 g/dL (32.0-36.0); MEAN CORPUSCULAR VOLUME 86 fl (80-97); PLATELET COUNT 137 10^3/uL (150-450); RED BLOOD COUNT 4.15 10^6/uL (3.72-5.28); RED CELL DISTRIBUTION WIDTH 15.7 % (11.5-14.0); WHITE BLOOD COUNT 5.9 10^3/uL (4.0-10.5)
[2019-10-30] MEDS ORDERED: LEVOTHYROXINE SODIUM 0.075 MG TABLET ONE (06:26)
[2019-10-30] MEDS: PANTOPRAZOLE SODIUM 20 MG TABLET.DR PO SCH (06:44)
[2019-10-30] MEDS: LEVOTHYROXINE SODIUM 0.075 MG TABLET PO SCH (06:44)
[2019-10-30] MEDS: HEPARIN SOD (PORCINE) 5,000 UNIT/ML 1 ML VIAL SUBCUT SCH (06:45)
[2019-10-30] MEDS: NITROGLYCERIN 2% OINTMENT 1 GM PACKET TP SCH ×3 (06:46→18:28)
[2019-10-30 06:52] LABS: ANION GAP 7 (5-19); BLOOD UREA NITROGEN 19 mg/dL (7-20); CALCIUM 9.8 mg/dL (8.4-10.2); CARBON DIOXIDE 30 mmol/L (22-30); CHLORIDE 101 mmol/L (98-107); GLUCOSE 99 mg/dL (75-110); POTASSIUM 4.5 mmol/L (3.6-5.0)
[2019-10-30] MEDS: INSULIN REG, HUMAN 100 UNIT/ML 3 ML VIAL (PYX) SUBCUT SCH ×4 (08:49→22:06)
[2019-10-30] MEDS: DOCUSATE SODIUM 100 MG CAPSULE PO SCH ×2 (09:53→18:29)
[2019-10-30] MEDS: POLYETHYLENE GLYCOL 3350 POWDER 17 GM/1 PACKET PO SCH (09:53)
[2019-10-30] MEDS: POTASSIUM CHLORIDE 10 MEQ TABLET.ER PO SCH ×3 (09:54→18:29)
[2019-10-30] MEDS: ASCORBIC ACID 500 MG TABLET PO SCH (09:54)
[2019-10-30] MEDS: SACUBITRIL/VALSARTAN 24 MG/26 MG TABLET PO SCH ×2 (09:54→22:05)
[2019-10-30] MEDS: MULTIVITAMIN TABLET PO SCH (09:54)
[2019-10-30] MEDS: FUROSEMIDE 40 MG TABLET PO SCH ×2 (09:54→18:29)
[2019-10-30] MEDS: ASPIRIN 81 MG TABLET, ENT COATED PO SCH (09:54)
[2019-10-30] MEDS: CHOLECALCIFEROL (D3) 1,000 UNIT (25 MCG) TABLET PO SCH ×2 (09:54→18:29)
[2019-10-30] MEDS: AMIODARONE HCL 200 MG TABLET PO SCH (09:54)
[2019-10-30] MEDS ORDERED: CYANOCOBALAMIN (VITAMIN B-12) 1,000 MCG TABLET PO SCH (10:00)
[2019-10-30] MEDS ORDERED: SACUBITRIL/VALSARTAN 24 MG/26 MG TABLET PO SCH (10:00)
[2019-10-30] MEDS ORDERED: (PENDING PHARMACY ID) (Liraglutide [Victoza 2-Pak] 1.8 MG) SQ SCH (10:00)
--- NOTE | 2019-10-30 10:55 | PDOC PROGRESS REPORT ---
Subjective Progress Note for:: 10/30/19 Subjective:: Patient reports an episode of wheezing last night. She feels better now. She is still on 1 L oxygen per nasal cannula. She still feels fatigued but has no other complaints. She did mention that nursing reported low platelet count. Reason For Visit: ACUTE CONGESTIVE HEART FAILURE, Physical Exam Vital Signs: Temp Pulse Resp BP Pulse Ox 98.0 F 59 L 14 109/50 L 96 10/30/19 07:37 10/30/19 07:37 10/30/19 07:37 10/30/19 07:37 10/30/19 07:37 Intake & Output 10/29/19 10/30/19 10/31/19 06:59 06:59 06:59 Intake Total 656 Balance 656 Weight 54.8 kg 54.1 kg General appearance: PRESENT: cooperative, mild distress, well-developed, well- nourished Head exam: PRESENT: atraumatic, normocephalic Eye exam: PRESENT: conjunctiva pink. ABSENT: scleral icterus Ear exam: PRESENT: normal external ear exam. ABSENT: bleeding, drainage Mouth exam: PRESENT: moist, tongue midline Respiratory exam: PRESENT: rales - Still with rales at right base, symmetrical, unlabored. ABSENT: rhonchi, tachypnea, wheezes Cardiovascular exam: PRESENT: RRR, +S1, +S2, systolic murmur - 2/6 GI/Abdominal exam: PRESENT: normal bowel sounds, soft. ABSENT: distended, tenderness Rectal exam: PRESENT: deferred Extremities exam: ABSENT: pedal edema Musculoskeletal exam: PRESENT: ambulatory, normal inspection Neurological exam: PRESENT: alert, awake, oriented to person, oriented to place, oriented to time, oriented to situation, CN II-XII grossly intact Psychiatric exam: PRESENT: flat affect. ABSENT: agitated, anxious Focused psych exam: ABSENT: delusional, restlessness Results Laboratory Results: 10/30/19 05:22 10/30/19 05:22 10/30/19 10/30/19 10/30/19 05:22 05:22 05:22 WBC 5.9 RBC 4.15 Hgb 12.0 Hct 35.6 L MCV 86 MCH 28.8 MCHC 33.6 RDW 15.7 H Plt Count 137 L Sodium 137.8 Potassium 4.5 Chloride 101 Carbon Dioxide 30 Anion Gap 7 BUN 19 Creatinine 1.14 Est GFR ( Amer) 55 L Glucose 99 Calcium 9.8 Magnesium 2.3 TSH 6.67 H 10/28/19 10/29/19 10/29/19 20:25 02:28 02:28 Creatine Kinase 32 CK-MB (CK-2) 1.20 Troponin I 0.017 0.047 NT-Pro-B Natriuret Pep 83131 H 10/29/19 10/29/19 10/29/19 08:29 08:30 14:51 Creatine Kinase 27 L 30 CK-MB (CK-2) 1.13 Troponin I 0.048 NT-Pro-B Natriuret Pep 10/29/19 14:51 Creatine Kinase CK-MB (CK-2) 1.07 Troponin I 0.030 NT-Pro-B Natriuret Pep Impressions: Chest X-Ray 10/28/19 22:04 IMPRESSION: Cardiomegaly with pulmonary edema pattern as above copyright 2011 [employer]- All Rights Reserved Assessment and Plan - Diagnosis (1) Acute pulmonary edema with congestive heart failure Is this a current diagnosis for this admission?: Yes Plan: The patient did not have full 24 hours but the intake and output did not reveal an negative fluid balance yet. The patient does report feeling slightly better however we will continue with our diuresis. (2) Acute respiratory failure with hypoxia Is this a current diagnosis for this admission?: Yes Plan: The patient still requires oxygen. Because of her low ejection fraction she may need this. We will try and taper her oxygen as tolerated. (3) Chronic systolic congestive heart failure Is this a current diagnosis for this admission?: Yes Plan: The patient is scheduled for implantation of a pacemaker/defibrillator. This would suggest that her ejection fraction is less than 30%. We will try to maximize her pharmacologic management. (4) HTN (hypertension) Qualifiers: Hypertension type: essential hypertension Qualified Code(s): I10 - Essential (primary) hypertension Is this a current diagnosis for this admission?: Yes Plan: Reasonable blood pressure control therefore no changes in medications today (5) Diabetes mellitus type 2 in nonobese Is this a current diagnosis for this admission?: Yes Plan: We will continue current management. Will adjust medications based on sliding scale requirements. (6) Coronary artery disease Qualifiers: Coronary Disease-Associated Artery/Lesion type: [place] artery [place] vs. transplanted heart: [place] heart Associated angina: without angina Qualified Code(s): I25.10 - Atherosclerotic heart disease of [place] coronary artery without angina pectoris Is this a current diagnosis for this admission?: Yes Plan: Pulmonary edema is starting to resolve. No evidence of acute coronary syndrome. (7) Thrombocytopenia Is this a current diagnosis for this admission?: Yes Plan: Platelet count is low. I will discontinue subcutaneous heparin and monitor. - Plan Summary Summary: Patient is admitted to the medical floor in a telemetry bed where she will receive routine supportive and symptomatic cares. She will initially be treated with IV Lasix as needed. She will be continued on BiPAP therapy with supplemental oxygen via nasal cannula to follow when she can tolerate the change. She will be continued with nitroglycerin paste and will also have morphine sulfate 2 mg IV every hour as needed severe dyspnea. Serial cardiac enzymes will be obtained. CBCs, metabolic profiles, magnesium levels and blood gases will be obtained as appropriate. Patient was placed on a diabetic and cardiac diet. Before meals and at bedtime Accu-Cheks will be obtained with sliding scale insulin for hyperglycemia and a hypoglycemic protocol in place. 10/29/2019-the patient reports feeling slightly better. She will be on IV furosemide. We will continue the remainder of her medications. With aggressive successful diuresis anticipate the patient feeling better and we can hopefully discharge in 1-2 more days. We did have a lengthy discussion about her current condition. The patient's daughter reports that they are planning a pacemaker defibrillator placement. I explained how this is due to a very low ejection fraction. With such a poor ejection fraction the patient is very susceptible to acute heart failure. We will resume her old medications. - Time Time Spent with patient: 15-24 minutes Medications reviewed and adjusted accordingly: Yes Anticipated discharge: Home
[2019-10-30] MEDS ORDERED: CARBOXYMETHYLCELLULOSE SOD 0.5% 0.4 ML DROPERETTE OU PRN (15:44)
[2019-10-30] MEDS ORDERED: GABAPENTIN 300 MG CAPSULE PO SCH (18:00)
[2019-10-30] MEDS ORDERED: INSULIN GLARGINE,HUM.REC.ANLOG 1,000 UNIT/10 ML VIAL SUBCUT SCH (18:00)
[2019-10-30] MEDS ORDERED: ATORVASTATIN CALCIUM 10 MG TABLET PO SCH (22:00)
[2019-10-30] MEDS ORDERED: MELATONIN 3 MG TABLET PO SCH (22:00)
[2019-10-31] MEDS: NITROGLYCERIN 2% OINTMENT 1 GM PACKET TP SCH ×2 (00:12→05:58)
[2019-10-31] MEDS: LORAZEPAM INJ 2 MG/1 ML VIAL IV PRN (01:11)
[2019-10-31 05:34] LABS: HEMATOCRIT 36.9 % (36.0-47.0); HEMOGLOBIN 12.5 g/dL (12.0-15.5); MEAN CORPUSCULAR HEMOGLOBIN 28.8 pg (27.0-33.4); MEAN CORPUSCULAR HGB CONC 33.8 g/dL (32.0-36.0); MEAN CORPUSCULAR VOLUME 85 fl (80-97); PLATELET COUNT 133 10^3/uL (150-450); RED BLOOD COUNT 4.32 10^6/uL (3.72-5.28); RED CELL DISTRIBUTION WIDTH 15.5 % (11.5-14.0); WHITE BLOOD COUNT 5.6 10^3/uL (4.0-10.5)
[2019-10-31] MEDS: LEVOTHYROXINE SODIUM 0.075 MG TABLET PO SCH (05:58)
[2019-10-31] MEDS: PANTOPRAZOLE SODIUM 20 MG TABLET.DR PO SCH (05:58)
[2019-10-31] MEDS: INSULIN REG, HUMAN 100 UNIT/ML 3 ML VIAL (PYX) SUBCUT SCH ×2 (08:00→12:20)
[2019-10-31] MEDS ORDERED: CYANOCOBALAMIN (VITAMIN B-12) 1,000 MCG TABLET PO SCH (10:00)
--- NOTE | 2019-10-31 11:04 | PDOC DISCHARGE SUMMARY ---
Impression - Admit/DC Date/PCP Admission Date/Primary Care Provider: 10/28/19 23:42 SHEN KEITA MD Discharge Date: 10/31/19 - Discharge Diagnosis (1) Acute pulmonary edema with congestive heart failure Is this a current diagnosis for this admission?: Yes (2) Acute respiratory failure with hypoxia Is this a current diagnosis for this admission?: Yes (3) Chronic systolic congestive heart failure Is this a current diagnosis for this admission?: Yes (4) HTN (hypertension) Is this a current diagnosis for this admission?: Yes (5) Diabetes mellitus type 2 in nonobese Is this a current diagnosis for this admission?: Yes (6) Coronary artery disease Is this a current diagnosis for this admission?: Yes (7) Thrombocytopenia Is this a current diagnosis for this admission?: Yes - Assessment Summary: Patient is admitted to the medical floor in a telemetry bed where she will receive routine supportive and symptomatic cares. She will initially be treated with IV Lasix as needed. She will be continued on BiPAP therapy with supplemental oxygen via nasal cannula to follow when she can tolerate the change. She will be continued with nitroglycerin paste and will also have morphine sulfate 2 mg IV every hour as needed severe dyspnea. Serial cardiac enzymes will be obtained. CBCs, metabolic profiles, magnesium levels and blood gases will be obtained as appropriate. Patient was placed on a diabetic and cardiac diet. Before meals and at bedtime Accu-Cheks will be obtained with sliding scale insulin for hyperglycemia and a hypoglycemic protocol in place. 10/29/2019-the patient reports feeling slightly better. She will be on IV furosemide. We will continue the remainder of her medications. With aggressive successful diuresis anticipate the patient feeling better and we can hopefully discharge in 1-2 more days. We did have a lengthy discussion about her current condition. The patient's daughter reports that they are planning a pacemaker defibrillator placement. I explained how this is due to a very low ejection fraction. With such a poor ejection fraction the patient is very susceptible to acute heart failure. We will resume her old medications. - Additional Information Resuscitation Status: Full Code Discharge Diet: Cardiac, Diabetic Discharge Activity: Activity As Tolerated Referrals: SHEN KEITA MD [Primary Care Provider] - (Follow-up within 7 days) Home Medications: Amiodarone HCl [Cordarone 200 mg Tablet] 200 mg PO DAILY 10/29/19 Apixaban [Eliquis 2.5 mg Tablet] 2.5 mg PO BID 10/29/19 Ascorbic Acid [Vitamin C 500 mg Tablet] 500 mg PO DAILY 10/29/19 Aspirin [Adult Low Dose Aspirin EC] 81 mg PO DAILY 10/29/19 Carboxymethylcellulose Sodium [Refresh Tears] 1 drop OU TIDP PRN 10/29/19 Cholecalciferol (Vitamin D3) [Vitamin D3 1000 Unit Tablet] 1,000 unit PO BID 10/29/19 Cyanocobalamin (Vitamin B-12) [Vitamin B-12 1000 mcg Tablet] 1,000 mg PO DAILY 10/29/19 Docusate Sodium [Colace 100 mg Capsule] 100 mg PO BID 10/29/19 Furosemide [Lasix 40 mg Tablet] 40 mg PO BID 10/29/19 Gabapentin [Neurontin 300 mg Capsule] 300 mg PO QPM 10/29/19 Insulin Glargine,Hum.rec.anlog [Lantus Insulin 100 Unit/1 ml 10 ml] 10 units SQ QPM 10/29/19 Levothyroxine Sodium 75 mcg PO Q6AM 10/29/19 Liraglutide [Victoza 2-Abimael] 1.8 mg SQ DAILY 10/29/19 Melatonin [Melatonin 3 mg Tablet] 3 mg PO QHS 10/29/19 Multivitamin [Multiple Vitamins] 1 tab PO DAILY 10/29/19 Ondansetron HCl [Zofran 4 mg Tablet] 4 mg PO Q6HP PRN 10/29/19 Pantoprazole Sodium [Protonix [address] Tablet] 40 mg PO Q6AM 10/29/19 Polyethylene Glycol 3350 [Miralax Powder 17 gm/Packet] 17 gm PO DAILY 10/29/19 Potassium Chloride [Klor-Con M10] 10 meq PO TID 10/29/19 Rosuvastatin Calcium [Crestor 5 mg Tablet] 5 mg PO QHS 10/29/19 Sacubitril/Valsartan [Entresto 24 mg/26 mg Tablet] 1 tab PO BID 10/29/19 Docusate Sodium [Colace 100 mg Capsule] 100 mg PO BID capsule 10/31/19 History of Present Illiness History of Present Illness: ROSA WEAVER is a 84 year old female who presented to the emergency room via EMS with a 2-day history of dyspnea. She admits gradually increasing dyspnea over the last 2 days it became suddenly severe this evening resulting in her calling EMS. Her dyspnea is markedly worsened minimal exertion and lying flat. She denies other associated or accompanying signs and symptoms. She denies prior similar episodes. She has not identified any additional aggravating or ameliorating factors for her dyspnea. In the emergency room she was found to have acute pulmonary edema with congestive heart failure and responded well to treatment with BiPAP and nitroglycerin paste. Patient was subsequently admitted to the hospital for further evaluation and treatment. Hospital Course Hospital Course: The patient's improvement started slowly. We are able to remove almost 4 L of fluid. Her breathing improved considerably and she tapered off of oxygen. She is still quite weak. She did report that she was receiving home health at the time of her discharge from [place] but home health had discharged her at that time. This morning she is off of oxygen. She ambulated in the hallway yesterday. I did spend quite a bit of time with her this morning regarding her emotional state. Dr. Keita had recently given a prescription to increase the dose of her antidepressant. She has not filled it yet. I told her that she was clearly depressed and would benefit from this change. Her TSH was elevated but Dr. Figueroa had recently increased her levothyroxine. Physical Exam Vital Signs: Temp Pulse Resp BP Pulse Ox 97.7 F 58 L 16 121/67 94 10/31/19 08:03 10/31/19 08:03 10/31/19 08:03 10/31/19 08:03 10/31/19 08:03 Intake & Output 10/30/19 10/31/19 11/01/19 06:59 06:59 06:59 Intake Total 656 1297 Output Total 5100 Balance 656 -9093 Weight 54.1 kg 55.9 kg General appearance: PRESENT: no acute distress, cooperative, well-developed Head exam: PRESENT: atraumatic, normocephalic Eye exam: PRESENT: conjunctiva pink. ABSENT: scleral icterus Respiratory exam: PRESENT: clear to auscultation jennifer, symmetrical, unlabored. ABSENT: accessory muscle use, rales, rhonchi, tachypnea, wheezes Cardiovascular exam: PRESENT: RRR, +S1, +S2 GI/Abdominal exam: PRESENT: normal bowel sounds, soft. ABSENT: distended, tende rness Neurological exam: PRESENT: alert, awake, oriented to person, oriented to place, oriented to time, oriented to situation, CN II-XII grossly intact Psychiatric exam: PRESENT: depressed, flat affect Results Laboratory Results: WBC 5.6 10^3/uL (4.0-10.5) 10/31/19 05:09 RBC 4.32 10^6/uL (3.72-5.28) 10/31/19 05:09 Hgb 12.5 g/dL (12.0-15.5) 10/31/19 05:09 Hct 36.9 % (36.0-47.0) 10/31/19 05:09 MCV 85 fl (80-97) 10/31/19 05:09 MCH 28.8 pg (27.0-33.4) 10/31/19 05:09 MCHC 33.8 g/dL (32.0-36.0) 10/31/19 05:09 RDW 15.5 % (11.5-14.0) H 10/31/19 05:09 Plt Count 133 10^3/uL (150-450) L 10/31/19 05:09 Lymph % (Auto) 18.1 % (13-45) 10/28/19 20:25 [place] % (Auto) 7.6 % (3-13) 10/28/19 20:25 Eos % (Auto) 1.0 % (0-6) 10/28/19 20:25 Baso % (Auto) 0.6 % (0-2) 10/28/19 20:25 Absolute Neuts (auto) 7.0 10^3/uL (1.7-8.2) 10/28/19 20:25 Absolute Lymphs (auto) 1.7 10^3/uL (0.5-4.7) 10/28/19 20:25 Absolute Monos (auto) 0.7 10^3/uL (0.1-1.4) 10/28/19 20:25 Absolute Eos (auto) 0.1 10^3/uL (0.0-0.6) 10/28/19 20:25 Absolute Basos (auto) 0.1 10^3/uL (0.0-0.2) 10/28/19 20:25 Seg Neutrophils % 72.7 % (42-78) 10/28/19 20:25 Sodium 137.8 mmol/L (137-145) 10/30/19 05:22 Potassium 4.5 mmol/L (3.6-5.0) 10/30/19 05:22 Chloride 101 mmol/L (98-107) 10/30/19 05:22 Carbon Dioxide 30 mmol/L (22-30) 10/30/19 05:22 Anion Gap 7 (5-19) 10/30/19 05:22 BUN 19 mg/dL (7-20) 10/30/19 05:22 Creatinine 1.14 mg/dL (0.52-1.25) 10/30/19 05:22 Est GFR ( Amer) 55 (>60) L 10/30/19 05:22 Est GFR (MDRD) Non-Af 45 (>60) L 10/30/19 05:22 Glucose 99 mg/dL (75-110) 10/30/19 05:22 POC Glucose 128 mg/dL (70-110) H 10/31/19 08:02 Calcium 9.8 mg/dL (8.4-10.2) 10/30/19 05:22 Magnesium 2.3 mg/dL (1.6-2.3) 10/30/19 05:22 Total Bilirubin 0.6 mg/dL (0.2-1.3) 10/28/19 20:25 Direct Bilirubin 0.3 mg/dL (0.0-0.4) 10/28/19 20:25 Neonat Total Bilirubin Not Reportable 10/28/19 20:25 Neonat Direct Bilirubin Not Reportable 10/28/19 20:25 Neonat Indirect Bili Not Reportable 10/28/19 20:25 AST 53 U/L (14-36) H 10/28/19 20:25 ALT 50 U/L (<35) 10/28/19 20:25 Alkaline Phosphatase 112 U/L (38-126) 10/28/19 20:25 Creatine Kinase 30 U/L (30-135) 10/29/19 14:51 CK-MB (CK-2) 1.07 ng/mL (<4.55) 10/29/19 14:51 Troponin I 0.030 ng/mL 10/29/19 14:51 NT-Pro-B Natriuret Pep 29322 pg/mL (<450) H 10/28/19 20:25 Total Protein 7.7 g/dL (6.3-8.2) 10/28/19 20:25 Albumin 4.0 g/dL (3.5-5.0) 10/28/19 20:25 TSH 6.67 uIU/mL (0.47-4.68) H 10/30/19 05:22 10/28/19 10/29/19 10/29/19 20:25 02:28 08:29 CK-MB (CK-2) 1.20 1.13 Troponin I 0.017 0.047 0.048 NT-Pro-B Natriuret Pep 27249 H 10/29/19 14:51 CK-MB (CK-2) 1.07 Troponin I 0.030 NT-Pro-B Natriuret Pep Impressions: Chest X-Ray 10/28/19 22:04 IMPRESSION: Cardiomegaly with pulmonary edema pattern as above copyright 2011 [employer]- All Rights Reserved Plan Health Concerns: Significantly decreased ejection fraction. She is scheduled for an implantable defibrillator/pacemaker in several weeks. She is also extremely depressed. Plan of Treatment: Continue current medications. Follow-up with cardiology and primary care next week. Goals: Successful implantation of defibrillator/pacemaker. Maintain control of heart failure. Compliant with increased dose of antidepressant. Time Spent: Greater than 30 Minutes Stroke Is this a Stroke Patient?: No Acute Heart Failure - Is this a Heart Failure Patient?: Yes Documentation of LVEF assessment?: Yes - Patient following closely with her friction saw operator. They recently did an echocardiogram and she is scheduled for pacemaker-defibrillator implantation. Ejection fraction is likely 30% or less. LVEF < 40%?: Yes-if yes answer questions a through e a) Discharged on ACEI?: N/A Discharged on ARNI b) Discharges on ARB?: N/A-Discharged on ARNI c) Discharged on ARNI?: Yes d) Discharged on evidence-based Beta neris(carvedilol, sustained release metoprolol succinate, or bisoprolol)?: No, document contraindications - Per her friction saw operator. She is on amiodarone for rate control and heart failure. Reason(s) not discharged on Evidence-Based Beta Blockers (carvedilol, sustained released metoprolol succinate, or bisoprolol): Other - Patient is already on amiodarone for rate control/failure. Followed very closely by her outpatient friction saw operator. e) For LVEF <35%, discharged on Aldosterone antagonist?: No-document contraincations - Deferring to the patient's primary friction saw operator who follows her very closely. Reason(s) not discharged on Aldosterone antagonist for LVEF < 35%: Other - Deferring to patient's primary friction saw operator who follows her very closely as an outpatient. 3. Anticoagulant therapy for permanect/persistent/paraoxysmal Afib or Aflutter: Yes Follow-up Appointment scheduled within 7 days?: Yes
[2019-10-31] MEDS: POLYETHYLENE GLYCOL 3350 POWDER 17 GM/1 PACKET PO SCH (12:04)
[2019-10-31] MEDS: CHOLECALCIFEROL (D3) 1,000 UNIT (25 MCG) TABLET PO SCH (12:05)
[2019-10-31] MEDS: DOCUSATE SODIUM 100 MG CAPSULE PO SCH (12:05)
[2019-10-31] MEDS: ASPIRIN 81 MG TABLET, ENT COATED PO SCH (12:05)
[2019-10-31] MEDS: FUROSEMIDE 40 MG TABLET PO SCH (12:05)
[2019-10-31] MEDS: AMIODARONE HCL 200 MG TABLET PO SCH (12:05)
[2019-10-31] MEDS: POTASSIUM CHLORIDE 10 MEQ TABLET.ER PO SCH (12:05)
[2019-10-31] MEDS: MULTIVITAMIN TABLET PO SCH (12:05)
[2019-10-31] MEDS: ASCORBIC ACID 500 MG TABLET PO SCH (12:06)
[2019-10-31] MEDS: SACUBITRIL/VALSARTAN 24 MG/26 MG TABLET PO SCH (12:06)
[2019-10-31 13:21] VITALS: BP 123/68
== END 2019-10-31 13:50 | disposition home or self-care (01) | DRG 291 ==
LOC: ER 20:16 → EH 23:42 → 5 10-29 01:20
PROVIDERS: ADMIT Emergency Medicine; ATTEND Emergency Medicine
PROC: 5A09357 Assistance with Respiratory Ventilation, Less than 24 Consecutive Hours, Continuous Positive Airway Pressure (ICD-10-PCS; principal; 2019-10-28)
DX: I11.0 Hypertensive heart disease with heart failure (principal); J96.01 Acute respiratory failure with hypoxia; I50.22 Chronic systolic (congestive) heart failure; E11.9 Type 2 diabetes mellitus without complications; I25.10 Atherosclerotic heart disease of native coronary artery without angina pectoris; D69.6 Thrombocytopenia, unspecified; E78.5 Hyperlipidemia, unspecified; F32.9 Major depressive disorder, single episode, unspecified; I25.2 Old myocardial infarction; Z85.118 Personal history of other malignant neoplasm of bronchus and lung; Z90.2 Acquired absence of lung [part of]; Z60.2 Problems related to living alone; Z87.891 Personal history of nicotine dependence; Z79.899 Other long term (current) drug therapy; Z88.8 Allergy status to other drugs, medicaments and biological substances; Z88.6 Allergy status to analgesic agent; Z91.041 Radiographic dye allergy status; Z91.013 Allergy to seafood
CPT/HCPCS: 36415; 71045; 80048; 80053; 82550; 82553; 82962; 83735; 83880; 84443; 84484; 85025; 85027; 93005; 93010; 96374; 99291; J1644; J1815; J1940; J2060; J2270; J2405; J3490

== ENCOUNTER 2020-04-04 10:10 | Observation (INO) | payer MEDICARE, OTHER ==
[2020-04-04 10:55] LABS: ABSOLUTE BASOPHILS # (AUTO) 0.1 10^3/uL (0.0-0.2); ABSOLUTE EOSINOPHILS # (AUTO) 0.1 10^3/uL (0.0-0.6); ABSOLUTE LYMPHOCYTES (AUTO) 1.4 10^3/uL (0.5-4.7); ABSOLUTE MONOCYTES (AUTO) 0.5 10^3/uL (0.1-1.4); ABSOLUTE NEUT (AUTO) 3.8 10^3/uL (1.7-8.2); BASOPHILS % (AUTO) 0.9 % (0-2); EOSINOPHILS % (AUTO) 1.7 % (0-6); HEMATOCRIT 38.5 % (36.0-47.0); HEMOGLOBIN 12.6 g/dL (12.0-15.5); LYMPHOCYTES % (AUTO) 23.6 % (13-45); MEAN CORPUSCULAR HEMOGLOBIN 26.2 pg (27.0-33.4); MEAN CORPUSCULAR HGB CONC 32.8 g/dL (32.0-36.0); MEAN CORPUSCULAR VOLUME 80 fl (80-97); MONOCYTES % (AUTO) 8.6 % (3-13); PLATELET COUNT 147 10^3/uL (150-450); RED BLOOD COUNT 4.83 10^6/uL (3.72-5.28); RED CELL DISTRIBUTION WIDTH 17.8 % (11.5-14.0); SEGMENTED NEUTROPHILS % (AUTO) 65.2 % (42-78); TOTAL CELLS COUNTED % (AUTO) 100 %; WHITE BLOOD COUNT 5.8 10^3/uL (4.0-10.5)
[2020-04-04 11:13] LABS: ALBUMIN 3.7 g/dL (3.5-5.0); ALKALINE PHOSPHATASE 85 U/L (38-126); ANION GAP 8 (5-19); ASPARTATE AMINO TRANSFERASE 36 U/L (14-36); BILIRUBIN,TOTAL 0.7 mg/dL (0.2-1.3); BLOOD UREA NITROGEN 24 mg/dL (7-20); CALCIUM 9.6 mg/dL (8.4-10.2); CARBON DIOXIDE 27 mmol/L (22-30); CHLORIDE 102 mmol/L (98-107); CREATINE KINASE 31 U/L (30-135); GLUCOSE 125 mg/dL (75-110); TOTAL PROTEIN 7.2 g/dL (6.3-8.2)
[2020-04-04 11:24] LABS: CREATINE KINASE MB 0.86 ng/mL (<4.55)
[2020-04-04 11:27] LABS: TROPONIN I < 0.012 ng/mL
--- NOTE | 2020-04-04 15:36 | RADIOLOGY REPORT (SQ) ---
EXAM DESCRIPTION: CHEST 2 VIEWS IMAGES COMPLETED DATE/TIME: 04/04/2020 3:14 pm REASON FOR STUDY: chest pain COMPARISON: 10/28/2019 EXAM PARAMETERS: NUMBER OF VIEWS: two views TECHNIQUE: Digital Frontal and Lateral radiographic views of the chest acquired. RADIATION DOSE: NA LIMITATIONS: none FINDINGS: LUNGS AND PLEURA: Mild interstitial airspace disease. Small left effusion. No pneumothor ax. MEDIASTINUM AND HILAR STRUCTURES: No masses or contour abnormalities. HEART AND VASCULAR STRUCTURES: There is cardiomegaly and central vascular prominence. BONES: No acute findings. HARDWARE: Battery pack and leads have been placed since prior study. OTHER: No other significant finding. IMPRESSION: Cardiomegaly and mild vascular congestion. Small left effusion. Battery pack and leads have been placed since prior study. TECHNICAL DOCUMENTATION: JOB ID: [id number] 2010 [employer]- All Rights Reserved Reading location - IP/workstation name: [email or web address]
--- NOTE | 2020-04-04 16:45 | ER Document Report ---
ED General - General Chief Complaint: Chest Pressure Stated Complaint: CHEST PRESSURE Time Seen by Provider: 04/04/20 11:13 Primary Care Provider: SHEN PATEL MD [Primary Care Provider] - Follow up as needed TRAVEL OUTSIDE OF THE [place] IN LAST 30 DAYS: No - HPI Notes: Chief complaint: Chest pain shortness of breath History of present illness: 84-year-old female followed for primary care by Dr. Patel and also seen by Dr. Jeffrey Antoine her user interface designer in [facility] now presenting with an episode of chest pain and associated shortness of breath. Patient says she awoke with the symptoms around 4:00 this morning. She says she is not had any chest pain in 3 to 4 months. She has a longstanding history of cardiomyopathy and congestive heart failure and has pacer/defibrillator in situ. She lives by herself. She is also a little more short of breath than usual today. She was last hospitalized here in October of this year for decompensated heart failure. Patient continues to take all of her usual medications including 40 mg of Lasix twice daily. She says she coughed up some clear material earlier this week. She is not had any fever. She has had mild pedal edema. Her discomfort earlier today was described as mild pressure in the center of her chest without radiation. This lasted for over 30 minutes and was relieved after 3 nitroglycerin tablets were administered. She is currently pain-free. Patient has had a past history of lung CA with a partial pneumonectomy. - Related Data Allergies/Adverse Reactions: acetaminophen [From Tylenol] Allergy (Verified 04/04/20 11:06) Facial swelling codeine Allergy (Verified 04/04/20 11:06) Itching ibuprofen [From Motrin] Allergy (Verified 04/04/20 11:06) Facial swelling Iodinated Contrast Media [Iodinated Contrast- Oral and IV Dye] Allergy (Verified 04/04/20 11:06) Anaphylaxis shellfish derived Allergy (Verified 04/04/20 11:06) Anaphylaxis MATHIEU Inhibitors Adverse Reaction (Verified 04/04/20 11:06) Facial swelling monosodium glutamate Adverse Reaction (Verified 04/04/20 11:06) Facial swelling Home Medications: Potassium chl. Gapapentin. Isosorbide. Pantoprazole. melatonin. Ranolazine. Vitamin B12. Vitamin D3. Levothyroxin. Sacubit/ valsart. Metoprolol. Lantus. Amiodarone. Aspirin. Omeprazole. Victoza. Rosuvastatin. Eliquis. Fluticasone. Lasix Past Medical History - General Information source: Patient, [facility] Records - Social History Smoking Status: Former Smoker Frequency of alcohol use: None Drug Abuse: None Family History: Reviewed & Not Pertinent - Past Medical History Cardiac Medical History: Reports: Hx Congestive Heart Failure, Hx Coronary Artery Disease, Hx Heart Attack, Hx Hypercholesterolemia, Hx Hypertension Denies: Hx Atrial Fibrillation Pulmonary Medical History: Denies: Hx Asthma, Hx COPD, Hx Respiratory Failure Neurological Medical History: Denies: Hx Seizures Endocrine Medical History: Reports: Hx Diabetes Mellitus Type 2. Denies: Hx Diabetes Mellitus Type 1, Hx Hyperthyroidism, Hx Hypothyroidism Renal/ Medical History: Denies: Hx Peritoneal Dialysis Malignancy Medical History: Reports: Hx Lung Cancer GI Medical History: Denies: Hx Cirrhosis, Hx Crohn's Disease, Hx Gastroesophageal Reflux Disease, Hx Hepatitis, Hx Ulcerative Colitis Musculoskeletal Medical History: Denies Hx Arthritis, Denies Hx Gout Skin Medical History: Denies Hx Eczema, Denies Hx Psoriasis Psychiatric Medical History: Reports: Hx Depression Infectious Medical History: Denies: Hx Hepatitis Past Surgical History: Reports: Hx Cardiac Catheterization, Hx Hysterectomy, Other - Right lower lobectomy - Immunizations Hx Diphtheria, Pertussis, Tetanus Vaccination: No Hx Pneumococcal Vaccination: 07/07/17 Review of Systems - Review of Systems Notes: Constitutional: Negative for fever. HENT: Negative for sore throat. Eyes: Negative for visual changes. Cardiovascular: As per HPI. Respiratory: As per HPI. Gastrointestinal: Negative for abdominal pain, vomiting or diarrhea. Genitourinary: Negative for dysuria. Musculoskeletal: Negative for back pain. Skin: Negative for rash. Neurological: Negative for headaches, weakness or numbness. 10 point ROS negative except as marked above and in HPI. Physical Exam - Vital signs Vitals: Resp 19 04/04/20 10:17 - Notes Notes: GENERAL: Frail elderly female appearing in no acute distress. SKIN: Good turgor no rashes. HEAD: Normocephalic atraumatic. EYES: PERRLA. EOMI. Conjunctivae and sclerae clear. EARS: CANALS AND TMS CLEAR. NOSE: CLEAR. MOUTH: Moist mucosa. Good dentition. No stridor or edema. No drooling. NECK: Supple. No masses or thyromegaly. No adenopathy. Carotids 2+ without bruits. No JVD. BACK: Symmetrical without tenderness. CHEST: Pacer/defibrillator left anterior chest wall. Respirations unlabored. Breath sounds clear and symmetrical. HEART: Regular rhythm. No murmur gallop or rub. ABDOMEN: Soft nontender without masses, organomegaly or rebound. Bowel sounds normally active. No bruits. GENITALIA: Deferred. EXTREMITIES: Bilateral trace pedal edema. No calf tenderness. Cap refill less than 1.5 seconds. Dorsalis pedis and posterior tibial pulses 3+ and symmetrical. NEUROLOGICAL: GCS 15. Alert and oriented x3. Fluent speech. Cranial nerves II through XII intact. Sensorimotor and cerebellar normal. Normal tone. PSYCHIATRIC: Appropriate affect. Course - Re-evaluation Re-evalutation: 04/04/20 16:[address] Jeffrey Seth (cardiology) at [facility] cardiology who is covering for her primary user interface designer Dr. Jeffrey Antoine. He indicates she has had a heart catheterization within the last 6 months showing multiple small lesions not amenable to mechanical intervention but she is also known to have a low ejection fraction of 25%. He feels that hospitalization here at [facility] overnight for observation and adjustment of her medications to try to optimize her condition in terms of her CHF would be appropriate. Patient has been accepted for admission to telemetry by Rufina Padilla. 04/04/20 17:01 - Vital Signs Vital signs: Temp Pulse Resp BP Pulse Ox 97.8 F 21 H 132/58 H 96 04/04/20 10:24 04/04/20 16:01 04/04/20 16:01 04/04/20 16:01 - Laboratory Result Diagrams: 04/04/20 10:39 04/04/20 10:39 Laboratory results interpreted by me: 04/04/20 04/04/20 04/04/20 10:39 10:39 10:39 MCH 26.2 L RDW 17.8 H Plt Count 147 L Sodium 136.6 L BUN 24 H Est GFR ( Amer) 53 L Est GFR (MDRD) Non-Af 44 L Glucose 125 H NT-Pro-B Natriuret Pep 09107 H Discharge - Discharge Clinical Impression: Chest pain, Ischemic cardiomyopathy CHF exacerbation Qualifiers: Heart failure type: unspecified Qualified Code(s): I50.9 - Heart failure, unspe cified Condition: Fair Disposition: ADMITTED INPATIENT Unit Admitted: Telemetry Referrals: SHEN PATEL MD [Primary Care Provider] - Follow up as needed
--- NOTE | 2020-04-04 17:34 | EKG REPORT ---
SEVERITY:- ABNORMAL ECG - ATRIAL-VENTRICULAR DUAL-PACED RHYTHM : Confirmed by: Mago Melendez MD 04-Apr-2020 17:33:37
[2020-04-04] MEDS ORDERED: ONDANSETRON HCL INJ/PF 4 MG/2 ML SDV IV PRN (18:00)
[2020-04-04] MEDS ORDERED: MAGNESIUM HYDROXIDE SUSP 30 ML UDCUP PO PRN (18:00)
[2020-04-04] MEDS ORDERED: NITROGLYCERIN 0.4 MG/TAB 25 TAB/BOTTLE SL PRN (18:00)
[2020-04-04] MEDS ORDERED: MAG HYDROX/AL HYDROX/SIMETH SUSP 30 ML UDCUP PO PRN (18:00)
[2020-04-04] MEDS ORDERED: DEXTROSE 40% GEL 15 GM TUBE PO PRN ×2 (18:07)
[2020-04-04] MEDS ORDERED: GLUCAGON,HUMAN RECOMB 1 MG INJ IM PRN (18:07)
[2020-04-04] MEDS ORDERED: DEXTROSE 50%-WATER 25 GM/50 ML DISP.SYRIN IV PRN ×2 (18:07)
[2020-04-04] MEDS ORDERED: HYDRALAZINE HCL INJ/PF 20 MG/1 ML SDV IV PRN (18:26)
--- NOTE | 2020-04-04 18:27 | PDOC H&P ---
History of Present Illness Admission Date/PCP: 04/04/20 17:11 SHEN KEITA MD Patient complains of: shortness of breath History of Present Illness: ROSA BACA is a 84 year old female with a [facility] significant for chronic systolic/diastolic CHF, NSTEMI, a. fib, chronically anticoagulated (on Eliquis), HTN, Hypothyroidism, CAD, and diabetes who presented to the ED today with a complaint of shortness of breath with activity and " chest tightness" noted this morning. She reports that her chest discomfort only occurs while ambulating and is preceded by the dyspnea. She denies radiation of symptoms or discomfort while at rest. She denies recent weight gain, peripheral edema, dietary discretion, or medication adjustments. The emergency department provider contacted her primary tree cutter today who reported that the patient underwent cardiac catheterization approximately 3 months ago; did not find lesions amenable to stenting. Per ED provider, tree cutter recommends 24-hour observation related to chest discomfort and potential medication adjustments if indicated. Evaluation in the emergency department was essentially unremarkable; Vital signs stable, maintaining oxygen saturation on room air, proBNP mildly elevated to 14 K (previously 12 point 6K), normal CBC, otherwise unremarkable chemistry, negative troponin x2. EKG shows paced rhythm. Chest x-ray shows cardiomegaly with mild vascular congestion. On exam, patient appears euvolemic; lung sounds clear on room air, no peripheral edema. She is referred to the hospitalist service for admission and management of the above-stated complaints findings. Past Medical History Cardiac Medical History: Reports: Congestive Heart Failure, Coronary Artery Disease, Myocardial Infarction, Hyperlipidema, Hypertension Denies: Atrial Fibrillation Pulmonary Medical History: Denies: Asthma, Chronic Obstructive Pulmonary Disease (COPD), Respiratory Failure EENT Medical History: Reports: None Neurological Medical History: Denies: Seizures Endocrine Medical History: Reports: Diabetes Mellitus Type 2, Hypothyroidism Denies: Diabetes Mellitus Type 1, Hyperthyroidism Renal/ Medical History: Reports: None Malignancy Medical History: Reports: Lung Cancer GI Medical History: Reports: Gastroesophageal Reflux Disease Denies: Cirrhosis, Crohn's Disease, Hepatitis, Ulcerative Colitis Musculoskeltal Medical History: Reports: Arthritis Denies: Gout Skin Medical History: Denies: Eczema, Psoriasis Psychiatric Medical History: Reports: Depression Traumatic Medical History: Reports: None Hematology: Denies: Anemia, Bleeding Tendencies Infectious Medical History: Reports: None Past Surgical History Past Surgical History: Reports: Cardiac Catheterization, Hysterectomy, Other - Right lower lobectomy Social History Information Source: Patient Lives with: Alone Smoking Status: Former Smoker Electronic Cigarette use?: No Frequency of Alcohol Use: None Hx Recreational Drug Use: No Drugs: None Hx Prescription Drug Abuse: No - Advance Directive Resuscitation Status: Full Code Surrogate healthcare decision maker:: The patient's daughter, Sindi Baca. Family History Family History: Reviewed & Not Pertinent Parental Family History Reviewed: Yes Children Family History Reviewed: Yes Sibling(s) Family History Reviewed.: Yes Medication/Allergy Home Medications: Amiodarone HCl [Cordarone 200 mg Tablet] 200 mg PO DAILY 10/29/19 Apixaban [Eliquis 2.5 mg Tablet] 2.5 mg PO BID 10/29/19 Ascorbic Acid [Vitamin C 500 mg Tablet] 500 mg PO DAILY 10/29/19 Aspirin [Adult Low Dose Aspirin EC] 81 mg PO DAILY 10/29/19 Carboxymethylcellulose Sodium [Refresh Tears] 1 drop OU TIDP PRN 10/29/19 Cholecalciferol (Vitamin D3) [Vitamin D3 1000 Unit Tablet] 1,000 unit PO BID 10/29/19 Cyanocobalamin (Vitamin B-12) [Vitamin B-12 1000 mcg Tablet] 1,000 mg PO DAILY 10/29/19 Docusate Sodium [Colace 100 mg Capsule] 100 mg PO BID 10/29/19 Furosemide [Lasix 40 mg Tablet] 40 mg PO BID 10/29/19 Gabapentin [Neurontin 300 mg Capsule] 300 mg PO QPM 10/29/19 Insulin Glargine,Hum.rec.anlog [Lantus Insulin 100 Unit/1 ml 10 ml] 10 units SQ QPM 10/29/19 Levothyroxine Sodium 75 mcg PO Q6AM 10/29/19 Liraglutide [Victoza 2-Abimael] 1.8 mg SQ DAILY 10/29/19 Melatonin [Melatonin 3 mg Tablet] 3 mg PO QHS 10/29/19 Multivitamin [Multiple Vitamins] 1 tab PO DAILY 10/29/19 Ondansetron HCl [Zofran 4 mg Tablet] 4 mg PO Q6HP PRN 10/29/19 Pantoprazole Sodium [Protonix [address] Tablet] 40 mg PO Q6AM 10/29/19 Polyethylene Glycol 3350 [Miralax Powder 17 gm/Packet] 17 gm PO DAILY 10/29/19 Potassium Chloride [Klor-Con M10] 10 meq PO TID 10/29/19 Rosuvastatin Calcium [Crestor 5 mg Tablet] 5 mg PO QHS 10/29/19 Sacubitril/Valsartan [Entresto 24 mg/26 mg Tablet] 1 tab PO BID 10/29/19 Docusate Sodium [Colace 100 mg Capsule] 100 mg PO BID capsule 10/31/19 Allergies/Adverse Reactions: acetaminophen [From Tylenol] Allergy (Verified 04/04/20 11:06) Facial swelling codeine Allergy (Verified 04/04/20 11:06) Itching ibuprofen [From Motrin] Allergy (Verified 04/04/20 11:06) Facial swelling Iodinated Contrast Media [Iodinated Contrast- Oral and IV Dye] Allergy (Verified 04/04/20 11:06) Anaphylaxis shellfish derived Allergy (Verified 04/04/20 11:06) Anaphylaxis MATHIEU Inhibitors Adverse Reaction (Verified 04/04/20 11:06) Facial swelling monosodium glutamate Adverse Reaction (Verified 04/04/20 11:06) Facial swelling Review of Systems Constitutional: PRESENT: fatigue. ABSENT: chills, fever(s), headache(s), weight gain, weight loss Eyes: ABSENT: visual disturbances Ears: ABSENT: hearing changes Cardiovascular: PRESENT: chest pain. ABSENT: dyspnea on exertion, edema, orthropnea, palpitations Respiratory: PRESENT: dyspnea. ABSENT: cough, hemoptysis Gastrointestinal: ABSENT: abdominal pain, constipation, diarrhea, hematemesis, hematochezia, nausea, vomiting Genitourinary: ABSENT: dysuria, hematuria Musculoskeletal: ABSENT: joint swelling Integumentary: ABSENT: rash, wounds Neurological: ABSENT: abnormal gait, abnormal speech, confusion, dizziness, focal weakness, syncope Psychiatric: ABSENT: anxiety, depression, homidical ideation, suicidal ideation Endocrine: ABSENT: cold intolerance, heat intolerance, polydipsia, polyuria Hematologic/Lymphatic: ABSENT: easy bleeding, easy bruising Physical Exam Vital Signs: Temp Pulse Resp BP Pulse Ox 97.8 F 21 H 132/58 H 96 04/04/20 10:24 04/04/20 16:01 04/04/20 16:01 04/04/20 16:01 Intake & Output 04/03/20 04/04/20 04/05/20 06:59 06:59 06:59 Weight 65.771 kg General appearance: PRESENT: no acute distress, cooperative, well-developed, well-nourished Head exam: PRESENT: atraumatic, normocephalic Eye exam: PRESENT: conjunctiva pink, EOMI, PERRLA. ABSENT: scleral icterus Mouth exam: PRESENT: moist, tongue midline Neck exam: ABSENT: carotid bruit, JVD, lymphadenopathy, thyromegaly Respiratory exam: PRESENT: clear to auscultation jennifer, symmetrical, unlabored, other - room air. ABSENT: rales, rhonchi, wheezes Cardiovascular exam: PRESENT: RRR. ABSENT: diastolic murmur, rubs, systolic murmur Pulses: PRESENT: normal dorsalis pedis pul Vascular exam: PRESENT: normal capillary refill Extremities exam: PRESENT: full ROM. ABSENT: calf tenderness, clubbing, pedal edema Musculoskeletal exam: PRESENT: ambulatory Neurological exam: PRESENT: alert, awake, oriented to person, oriented to place, oriented to time, oriented to situation, CN II-XII grossly intact. ABSENT: motor sensory deficit Psychiatric exam: PRESENT: appropriate affect, normal mood. ABSENT: homicidal ideation, suicidal ideation Skin exam: PRESENT: dry, intact, warm. ABSENT: cyanosis, rash Results Laboratory Results: 04/04/20 10:39 04/04/20 10:39 04/04/20 04/04/20 10:39 10:39 WBC 5.8 RBC 4.83 Hgb 12.6 Hct 38.5 MCV 80 MCH 26.2 L MCHC 32.8 RDW 17.8 H Plt Count 147 L Seg Neutrophils % 65.2 Sodium 136.6 L Potassium 4.0 Chloride 102 Carbon Dioxide 27 Anion Gap 8 BUN 24 H Creatinine 1.17 Est GFR ( Amer) 53 L Glucose 125 H Calcium 9.6 Total Bilirubin 0.7 AST 36 Alkaline Phosphatase 85 Total Protein 7.2 Albumin 3.7 04/04/20 04/04/20 04/04/20 10:39 10:39 10:39 Creatine Kinase 31 CK-MB (CK-2) 0.86 Troponin I < 0.012 NT-Pro-B Natriuret Pep [id number] H 04/04/20 13:22 Creatine Kinase CK-MB (CK-2) Troponin I 0.012 NT-Pro-B Natriuret Pep Impressions: Chest X-Ray 04/04/20 00:00 IMPRESSION: Cardiomegaly and mild vascular congestion. Small left effusion. Battery pack and leads have been placed since prior study. Assessment and Plan - Diagnosis (1) Chest pain Qualifiers: Chest pain type: unspecified Qualified Code(s): R07.9 - Chest pain, unspecified Is this a current diagnosis for this admission?: Yes Plan: Patient is admitted to the medical floor on continuous cardiac telemetry. We will continue her daily aspirin and Eliquis therapy. Resume home dose statin once reconciled. Nitroglycerin sublingual tablets as needed for chest discomfort. Supplemental oxygen as needed to maintain saturations greater than 89%. Once medications are reconciled; consider start of Ranexa or Imdur for chest discomfort as patient has longstanding history of chest discomfort with a recent cardiac cath nonamenable to stenting or further intervention. Follow-up CBC, BMP, TSH, lipid, A1c for risk stratification. Close outpatient cardiology follow-up. (2) Chronic systolic congestive heart failure Is this a current diagnosis for this admission?: Yes Plan: Continue home dose Entresto. Continue aspirin, Eliquis, statin therapy. Consider start of beta-neris therapy. If blood pressure will allow; patient may also benefit from Imdur or Ranexa due to frequent report of chest discomfort. Cardiac diet. Fluid restricted 2 L daily. Daily weights, strict I&O's. (3) Hypothyroid Is this a current diagnosis for this admission?: Yes Plan: We will check TSH with a.m. lab work. For now, continue home dose levothyroxine (4) Coronary artery disease Qualifiers: Coronary Disease-Associated Artery/Lesion type: [place] artery [place] vs. transplanted heart: [place] heart Associated angina: without angina Qualified Code(s): I25.10 - Atherosclerotic heart disease of [place] coronary artery without angina pectoris Is this a current diagnosis for this admission?: Yes (5) Diabetes Is this a current diagnosis for this admission?: Yes Plan: Holding oral medications while admitted. We will check A1c with a.m. lab work. Patient is placed on a consistent carb diet. Accu-Cheks before meals and at bedtime with Humalog for sliding scale coverage. Hypoglycemia protocol in place. Registered dietitian certified adapted physical educator consulted. (6) HTN (hypertension) Qualifiers: Hypertension type: essential hypertension Qualified Code(s): I10 - Essential (primary) hypertension Is this a current diagnosis for this admission?: Yes Plan: Antihypertensives as above. IV hydralazine as needed for blood pressure control. - Time Time Spent with patient: 35 or more minutes Medications reviewed and adjusted accordingly: Yes Anticipated discharge: Home Within: within 24 hours
[2020-04-04] MEDS ORDERED: FUROSEMIDE INJ/PF 20 MG/2 ML SDV IV SCH ×2 (22:00)
[2020-04-04] MEDS: INSULIN LISPRO 100 UNIT/ML 3 ML VIAL SUBCUT SCH (23:00)
[2020-04-04] MEDS ORDERED: MELATONIN 5 MG TABLET PO PRN (23:56)
[2020-04-05] MEDS ORDERED: DIPHENHYDRAMINE HCL 50 MG/ML VIAL IV PRN (03:37)
[2020-04-05 05:59] LABS: ANION GAP 10 (5-19); BLOOD UREA NITROGEN 25 mg/dL (7-20); CALCIUM 9.9 mg/dL (8.4-10.2); CARBON DIOXIDE 25 mmol/L (22-30); CHLORIDE 101 mmol/L (98-107); GLUCOSE 163 mg/dL (75-110); POTASSIUM 4.1 mmol/L (3.6-5.0); TRIGLYCERIDES 222 mg/dL (<150)
[2020-04-05] MEDS ORDERED: LEVOTHYROXINE SODIUM 0.075 MG TABLET PO SCH (06:00)
[2020-04-05 06:11] LABS: DIRECT LDL 59 mg/dL (<100); TROPONIN I 0.018 ng/mL; VLDL CHOLESTEROL 44.4 mg/dL (10-31)
[2020-04-05] MEDS: PANTOPRAZOLE SODIUM 40 MG TABLET.DR PO SCH (06:28)
[2020-04-05] MEDS: INSULIN LISPRO 100 UNIT/ML 3 ML VIAL SUBCUT SCH ×4 (07:16→22:39)
[2020-04-05] MEDS: SACUBITRIL/VALSARTAN 24 MG/26 MG TABLET PO SCH ×2 (09:20→17:14)
[2020-04-05] MEDS: ASPIRIN 81 MG TABLET, CHEWABLE PO SCH (09:20)
[2020-04-05] MEDS: AMIODARONE HCL 200 MG TABLET PO SCH (09:20)
[2020-04-05] MEDS: DOCUSATE SODIUM 100 MG CAPSULE PO SCH (09:20)
[2020-04-05] MEDS: APIXABAN 2.5 MG TABLET PO SCH ×2 (09:20→17:16)
[2020-04-05] MEDS ORDERED: (PENDING PHARMACY ID) (Carboxymethylcellulose Sodium [Refresh Tears] 1 DROP) OU PRN (09:35)
[2020-04-05] MEDS ORDERED: CARBOXYMETHYLCELLULOSE SOD 0.5% 0.4 ML DROPERETTE OU PRN (09:55)
[2020-04-05] MEDS ORDERED: METOPROLOL SUCCINATE 25 MG TAB.SR.24H PO SCH (10:00)
[2020-04-05] MEDS ORDERED: FUROSEMIDE 40 MG TABLET PO SCH (10:00)
[2020-04-05] MEDS: ASCORBIC ACID 500 MG TABLET PO SCH (10:05)
[2020-04-05] MEDS: CYANOCOBALAMIN (VITAMIN B-12) 1,000 MCG TABLET PO SCH (10:05)
[2020-04-05] MEDS: POLYETHYLENE GLYCOL 3350 POWDER 17 GM/1 PACKET PO SCH (10:05)
[2020-04-05] MEDS: CHOLECALCIFEROL (D3) 1,000 UNIT (25 MCG) TABLET PO SCH ×2 (10:05→17:16)
[2020-04-05] MEDS: ISOSORBIDE MONONITRATE 30 MG TAB.ER.24H PO SCH (10:05)
[2020-04-05] MEDS: MULTIVITAMIN TABLET PO SCH (10:05)
[2020-04-05] MEDS: RANOLAZINE 500 MG TAB.SR.12H PO SCH ×2 (11:43→21:25)
[2020-04-05] MEDS: FUROSEMIDE INJ/PF 20 MG/2 ML SDV IV SCH ×2 (13:22→21:25)
--- NOTE | 2020-04-05 19:58 | PDOC PROGRESS REPORT ---
Subjective Progress Note for:: 04/05/20 Subjective:: ROSA WEVAER is a 84 year old female with a [facility] significant for chronic systolic/diastolic CHF, NSTEMI, a. fib, chronically anticoagulated (on Eliquis), HTN, Hypothyroidism, CAD, and diabetes who was admitted with chest pain and mild CHF exacerbation. Patient was seen on afternoon rounds. She is found sitting up to the edge of the bed, comfortably, on room air. She reports continued vague chest discomfort; waxing and waning, not especially associated with activity and without associated symptoms. She describes her discomfort as tightness. She did note that it was relieved by nitro glycerin sublingual tab earlier this morning. She otherwise denies fever, palpitations, dyspnea, orthopnea, cough, abdominal pain, nausea vomiting and diarrhea. She has no other questions or concerns at this time. No concerns per nursing. Reason For Visit: HEART FAILURE, CHEST PAIN Physical Exam Vital Signs: Temp Pulse Resp BP Pulse Ox 97.8 F 59 L 16 91/55 L 100 04/05/20 15:56 04/05/20 15:56 04/05/20 15:56 04/05/20 15:56 04/05/20 15:56 Intake & Output 04/04/20 04/05/20 04/06/20 06:59 06:59 06:59 Intake Total 120 954 Output Total 1050 Balance 120 -96 Weight 65.7 kg General appearance: PRESENT: no acute distress, cooperative, well-developed, well-nourished Head exam: PRESENT: atraumatic, normocephalic Eye exam: PRESENT: conjunctiva pink, EOMI, PERRLA. ABSENT: scleral icterus Mouth exam: PRESENT: moist, tongue midline Respiratory exam: PRESENT: clear to auscultation jennifer, symmetrical, unlabored. ABSENT: rales, rhonchi, wheezes Cardiovascular exam: PRESENT: RRR, +S1, +S2. ABSENT: diastolic murmur, rubs, systolic murmur Pulses: PRESENT: normal dorsalis pedis pul Vascular exam: PRESENT: normal capillary refill Extremities exam: PRESENT: full ROM. ABSENT: calf tenderness, clubbing, pedal edema Musculoskeletal exam: PRESENT: ambulatory Neurological exam: PRESENT: alert, awake, oriented to person, oriented to place, oriented to time, oriented to situation, CN II-XII grossly intact. ABSENT: motor sensory deficit Psychiatric exam: PRESENT: appropriate affect, normal mood. ABSENT: homicidal ideation, suicidal ideation Skin exam: PRESENT: dry, intact, warm. ABSENT: cyanosis, rash Results Laboratory Results: 04/04/20 10:39 04/05/20 04:51 04/05/20 04/05/20 04:51 04:51 Sodium 136.1 L Potassium 4.1 Chloride 101 Carbon Dioxide 25 Anion Gap 10 BUN 25 H Creatinine 1.45 H Est GFR ( Amer) 42 L Glucose 163 H Calcium 9.9 Magnesium 2.5 H Triglycerides 222 H Cholesterol 140.90 LDL Cholesterol Direct 59 VLDL Cholesterol 44.4 H HDL Cholesterol 53 TSH 4.10 04/04/20 04/04/20 04/04/20 10:39 10:39 10:39 Creatine Kinase 31 CK-MB (CK-2) 0.86 Troponin I < 0.012 NT-Pro-B Natriuret Pep [id number] H 04/04/20 04/05/20 13:22 04:51 Creatine Kinase CK-MB (CK-2) Troponin I 0.012 0.018 NT-Pro-B Natriuret Pep [id number] H Impressions: Chest X-Ray 04/04/20 00:00 IMPRESSION: Cardiomegaly and mild vascular congestion. Small left effusion. Battery pack and leads have been placed since prior study. Assessment and Plan - Diagnosis (1) Chest pain Qualifiers: Chest pain type: unspecified Qualified Code(s): R07.9 - Chest pain, unspecified Is this a current diagnosis for this admission?: Yes Plan: Patient is admitted to the medical floor on continuous cardiac telemetry. We will continue her daily aspirin and Eliquis therapy. Resume home dose statin. Nitroglycerin sublingual tablets as needed for chest discomfort. Continue home dose Ranexa and Imdur. Supplemental oxygen as needed to maintain saturations greater than 89%. Will consult cardiology r/t continued chest discomfort, CHF, and hypotension limiting medication adjustments. Close outpatient cardiology follow-up. (2) Chronic systolic congestive heart failure Is this a current diagnosis for this admission?: Yes Plan: Continue home dose Entresto and Toprol. Continue aspirin, Eliquis, statin therapy. Cardiac diet. Fluid restricted 2 L daily. Daily weights, strict I&O's. Cardiology consult. (3) Hypothyroid Is this a current diagnosis for this admission?: Yes Plan: We will check TSH with a.m. lab work. For now, continue home dose levothyroxine (4) Coronary artery disease Qualifiers: Coronary Disease-Associated Artery/Lesion type: [place] artery [place] vs. transplanted heart: [place] heart Associated angina: without angina Qualified Code(s): I25.10 - Atherosclerotic heart disease of [place] coronary artery without angina pectoris Is this a current diagnosis for this admission?: Yes Plan: Medications as above. Monitor on telemetry. Recent cardiac cath in [place]. (5) Diabetes Is this a current diagnosis for this admission?: Yes Plan: A1C 6.9% Patient is placed on a consistent carb diet. Accu-Cheks before meals and at bedtime with Humalog for sliding scale coverage. Hypoglycemia protocol in place. Registered dietitian nurse educator consulted. (6) HTN (hypertension) Qualifiers: Hypertension type: essential hypertension Qualified Code(s): I10 - Essential (primary) hypertension Is this a current diagnosis for this admission?: Yes Plan: Antihypertensives as above. IV hydralazine as needed for blood pressure control. - Time Time Spent with patient: 25-34 minutes Medications reviewed and adjusted accordingly: Yes Anticipated discharge: Home
[2020-04-05] MEDS ORDERED: MELATONIN 5 MG TABLET PO SCH (22:00)
[2020-04-05] MEDS ORDERED: (PENDING PHARMACY ID) (Rosuvastatin Calcium [Crestor 5 Mg Tablet] 5 MG) PO SCH (22:00)
[2020-04-05] MEDS ORDERED: ATORVASTATIN CALCIUM 10 MG TABLET PO SCH (22:00)
[2020-04-06 04:59] LABS: HEMATOCRIT 39.6 % (36.0-47.0); MEAN CORPUSCULAR HEMOGLOBIN 26.4 pg (27.0-33.4); MEAN CORPUSCULAR HGB CONC 32.9 g/dL (32.0-36.0); MEAN CORPUSCULAR VOLUME 80 fl (80-97); PLATELET COUNT 127 10^3/uL (150-450); RED BLOOD COUNT 4.93 10^6/uL (3.72-5.28); RED CELL DISTRIBUTION WIDTH 17.9 % (11.5-14.0); WHITE BLOOD COUNT 6.8 10^3/uL (4.0-10.5)
[2020-04-06 05:30] LABS: ANION GAP 7 (5-19); BLOOD UREA NITROGEN 28 mg/dL (7-20); CALCIUM 9.5 mg/dL (8.4-10.2); CARBON DIOXIDE 28 mmol/L (22-30); CHLORIDE 103 mmol/L (98-107); GLUCOSE 135 mg/dL (75-110); POTASSIUM 3.9 mmol/L (3.6-5.0)
[2020-04-06] MEDS: PANTOPRAZOLE SODIUM 40 MG TABLET.DR PO SCH (05:35)
[2020-04-06] MEDS: FUROSEMIDE INJ/PF 20 MG/2 ML SDV IV SCH (05:35)
[2020-04-06] MEDS ORDERED: LEVOTHYROXINE SODIUM 0.088 MG TABLET PO SCH (06:00)
[2020-04-06] MEDS ORDERED: LEVOTHYROXINE SODIUM 0.075 MG TABLET PO SCH (06:00)
[2020-04-06] MEDS: INSULIN LISPRO 100 UNIT/ML 3 ML VIAL SUBCUT SCH ×2 (08:22→12:09)
[2020-04-06] MEDS: SACUBITRIL/VALSARTAN 24 MG/26 MG TABLET PO SCH (09:30)
--- NOTE | 2020-04-06 10:10 | PDOC CONSULTATION ---
Consultation Consult Date: 04/06/20 Attending physician:: ANIL SHIN Provider Consulted: SOY HIDALGO Consult reason:: Chest pain History of Present Illness Admission Date/PCP: 04/04/20 17:11 SHEN KEITA MD Patient complains of: Chest pain History of Present Illness: ROSA WEAVER is a 84 year old female 84-year-old lady with medical history significant for the following problems 1. Coronary artery disease 2. Atrial fibrillation 3. Biventricular ICD November 2019 4. Systemic anticoagulation 5. Systemic hypertension 6. Dyslipidemia 7. Diabetes mellitus 8. Lung cancer-right partial lobectomy-lower lobe 9. LV dysfunction 10. Congestive heart failure-systolic Patient presented with waxing and waning chest pain. She reports recent cardiac catheterization approximately 2 months ago at [facility]. Apparently this showed obstructive coronary artery disease however the lesions could not be stented. She is admitted with symptoms suggestive of unstable angina. Since admission to the hospital she feels much better. Her cardiac biomarkers are indeterminate with troponins of 0.012 and 0.018 Past Medical History Cardiac Medical History: Reports: Congestive Heart Failure, Coronary Artery Disease, Myocardial Infarction, Hyperlipidema, Hypertension Denies: Atrial Fibrillation Pulmonary Medical History: Denies: Asthma, Chronic Obstructive Pulmonary Disease (COPD), Respiratory Failure EENT Medical History: Reports: None Neurological Medical History: Denies: Seizures Endocrine Medical History: Reports: Diabetes Mellitus Type 2, Hypothyroidism Denies: Diabetes Mellitus Type 1, Hyperthyroidism Renal/ Medical History: Reports: None Malignancy Medical History: Reports: Lung Cancer GI Medical History: Reports: Gastroesophageal Reflux Disease Denies: Cirrhosis, Crohn's Disease, Hepatitis, Ulcerative Colitis Musculoskeltal Medical History: Reports: Arthritis Denies: Gout Skin Medical History: Denies: Eczema, Psoriasis Psychiatric Medical History: Reports: Depression Traumatic Medical History: Reports: None Hematology: Denies: Anemia, Bleeding Tendencies Infectious Medical History: Reports: None Past Surgical History Past Surgical History: Reports: Cardiac Catheterization, Hysterectomy, Other - Right lower lobectomy Social History Lives with: Alone Smoking Status: Former Smoker Electronic Cigarette use?: No Frequency of Alcohol Use: None Hx Recreational Drug Use: No Drugs: None Hx Prescription Drug Abuse: No - Advance Directive Resuscitation Status: Full Code Family History Family History: Reviewed & Not Pertinent Parental Family History Reviewed: Yes - No familial illnesses Children Family History Reviewed: No Sibling(s) Family History Reviewed.: No Medication/Allergy Home Medications: Amiodarone HCl [Cordarone 200 mg Tablet] 200 mg PO DAILY 10/29/19 Ascorbic Acid [Vitamin C 500 mg Tablet] 500 mg PO DAILY 10/29/19 Aspirin [Adult Low Dose Aspirin EC] 81 mg PO DAILY 10/29/19 Carboxymethylcellulose Sodium [Refresh Tears] 1 drop OU TIDP PRN 10/29/19 Cholecalciferol (Vitamin D3) [Vitamin D3 1000 Unit Tablet] 1,000 unit PO BID 10/29/19 Cyanocobalamin (Vitamin B-12) [Vitamin B-12 1000 mcg Tablet] 1,000 mg PO DAILY 10/29/19 Docusate Sodium [Colace 100 mg Capsule] 100 mg PO DAILY 10/29/19 Furosemide [Lasix 40 mg Tablet] 40 mg PO BID 10/29/19 Gabapentin [Neurontin 300 mg Capsule] 300 mg PO QPM 10/29/19 Insulin Glargine,Hum.rec.anlog [Lantus Insulin 100 Unit/1 ml 10 ml] 10 units SQ QPM 10/29/19 Liraglutide [Victoza 2-Abimael] 1.8 mg SQ DAILY 10/29/19 Multivitamin [Multiple Vitamins] 1 tab PO DAILY 10/29/19 Pantoprazole Sodium [Protonix [address] Tablet] 40 mg PO Q6AM 10/29/19 Polyethylene Glycol 3350 [Miralax Powder 17 gm/Packet] 17 gm PO DAILY 10/29/19 Potassium Chloride [Klor-Con M10] 10 meq PO TID 10/29/19 Rosuvastatin Calcium [Crestor 5 mg Tablet] 5 mg PO QHS 10/29/19 Sacubitril/Valsartan [Entresto 24 mg/26 mg Tablet] 1 tab PO BID 10/29/19 Apixaban [Eliquis 5 mg Tablet] 5 mg PO BID 04/04/20 Isosorbide Mononitrate [Imdur 30 mg Tablet.er] 30 mg PO DAILY 04/04/20 Levothyroxine Sodium [Synthroid 0.088 mg Tablet] 0.088 mg PO Q6AM 04/04/20 Melatonin [Melatonin 5 mg Tablet] 5 mg PO QHS 04/04/20 Metoprolol Succinate [Toprol Xl 25 mg Tab.sr] 25 mg PO QHS #0 04/06/20 Ranolazine [Ranexa 500 mg Tab.sr] 1,000 mg PO Q12 #120 tab.sr.12h 04/06/20 Allergies/Adverse Reactions: acetaminophen [From Tylenol] Allergy (Verified 04/04/20 11:06) Facial swelling codeine Allergy (Verified 04/04/20 11:06) Itching ibuprofen [From Motrin] Allergy (Verified 04/04/20 11:06) Facial swelling Iodinated Contrast Media [Iodinated Contrast- Oral and IV Dye] Allergy (Verified 04/04/20 11:06) Anaphylaxis shellfish derived Allergy (Verified 04/04/20 11:06) Anaphylaxis MATHIEU Inhibitors Adverse Reaction (Verified 04/04/20 11:06) Facial swelling monosodium glutamate Adverse Reaction (Verified 04/04/20 11:06) Facial swelling Review of Systems Constitutional: PRESENT: as per HPI Eyes: PRESENT: as per HPI Ears: PRESENT: as per HPI Breasts: PRESENT: as per HPI Cardiovascular: PRESENT: chest pain Physical Exam Vital Signs: Temp Pulse Resp BP Pulse Ox 97.6 F 60 17 107/62 100 04/06/20 00:14 04/06/20 07:00 04/06/20 00:14 04/06/20 00:14 04/06/20 06:03 Intake & Output 04/05/20 04/06/20 04/07/20 06:59 06:59 06:59 Intake Total 120 1354 Output Total 1750 Balance 120 -396 Weight 65.7 kg 65.7 kg General appearance: PRESENT: no acute distress, cooperative, well-developed, well-nourished Head exam: PRESENT: atraumatic, normocephalic Eye exam: PRESENT: EOMI Mouth exam: PRESENT: moist Respiratory exam: PRESENT: clear to auscultation jennifer, symmetrical, unlabored Cardiovascular exam: PRESENT: irregular rhythm, +S1, +S2, other - Left chest wall ICD implant site is well-healed Pulses: PRESENT: normal radial pulses GI/Abdominal exam: PRESENT: soft Rectal exam: PRESENT: deferred Neurological exam: PRESENT: alert, awake, oriented to person, oriented to place, oriented to time, oriented to situation Psychiatric exam: PRESENT: appropriate affect Skin exam: PRESENT: dry, intact, normal color Results Laboratory Results: 04/06/20 04:13 04/06/20 04:13 04/06/20 04/06/20 04:13 04:13 WBC 6.8 RBC 4.93 Hgb 13.0 Hct 39.6 MCV 80 MCH 26.4 L MCHC 32.9 RDW 17.9 H Plt Count 127 L Sodium 137.5 Potassium 3.9 Chloride 103 Carbon Dioxide 28 Anion Gap 7 BUN 28 H Creatinine 1.35 H Est GFR ( Amer) 45 L Glucose 135 H Calcium 9.5 04/04/20 04/04/20 04/04/20 10:39 10:39 10:39 Creatine Kinase 31 CK-MB (CK-2) 0.86 Troponin I < 0.012 NT-Pro-B Natriuret Pep [id number] H 04/04/20 04/05/20 13:22 04:51 Creatine Kinase CK-MB (CK-2) Troponin I 0.012 0.018 NT-Pro-B Natriuret Pep 33821 H EKG Comments: Chest x-ray 04/04/2020. Cardiomegaly. Mild vascular congestion Left chest wall biventricular ICD Twelve-lead EKG 04/06/2020. Independently reviewed by me By V paced rhythm 65 bpm Troponin 0.012 and 0.018 Transthoracic echocardiogram 11/21/2018 Left ventricular ejection fraction 25 to 30% Impressions: Chest X-Ray 04/04/20 00:00 IMPRESSION: Cardiomegaly and mild vascular congestion. Small left effusion. Battery pack and leads have been placed since prior study. Assessment & Plan - Diagnosis (1) Atrial fibrillation Qualifiers: Atrial fibrillation type: longstanding persistent Qualified Code(s): I48.11 - Longstanding persistent atrial fibrillation Is this a current diagnosis for this admission?: Yes Plan: Likely longstanding persistent Status post biventricular ICD placement Continue systemic anticoagulation (2) Chest pain Qualifiers: Chest pain type: unspecified Qualified Code(s): R07.9 - Chest pain, unspecified Is this a current diagnosis for this admission?: Yes Plan: We will try to obtain the cath report. Per patient description it appears that she had coronary artery disease that could not be stented on account of small lumen size of vessel. In the circumstances would recommend escalation of medical therapy with maximally tolerated beta-neris dose, long-acting nitrate such as Imdur together with Ranexa (3) Coronary artery disease Qualifiers: Coronary Disease-Associated Artery/Lesion type: [place] artery [place] vs. transplanted heart: [place] heart Associated angina: without angina Qualified Code(s): I25.10 - Atherosclerotic heart disease of [place] coronary artery without angina pectoris Is this a current diagnosis for this admission?: Yes Plan: Recent cardiac authorization is reported. Waxing and waning symptoms suggestive of unstable angina. EKG is paced Cardiac biomarkers do not support ongoing ischemia Would recommend escalation of beta-neris therapy, long-acting nitrates and ranolazine as tolerated for relief of symptoms. (4) Lung cancer Is this a current diagnosis for this admission?: Yes Plan: Status post partial lobectomy right lower lobe per patient (5) Systolic CHF Qualifiers: Heart failure chronicity: unspecified Qualified Code(s): I50.20 - Unspecified systolic (congestive) heart failure Is this a current diagnosis for this admission?: Yes Plan: LV dysfunction reported previously Patient appears to be compensated. Watch fluid status (6) ICD (implantable cardioverter-defibrillator) in place Is this a current diagnosis for this admission?: Yes Plan: Left-sided biventricular ICD in place-November 2019 Site looks well-healed Bi V paced rhythm on monitor. Radiographically no abnormality noted
[2020-04-06] MEDS ORDERED: RANOLAZINE 500 MG TAB.SR.12H PO SCH (11:00)
[2020-04-06] MEDS: CYANOCOBALAMIN (VITAMIN B-12) 1,000 MCG TABLET PO SCH (11:47)
[2020-04-06] MEDS: CHOLECALCIFEROL (D3) 1,000 UNIT (25 MCG) TABLET PO SCH (11:47)
[2020-04-06] MEDS: DOCUSATE SODIUM 100 MG CAPSULE PO SCH (11:47)
[2020-04-06] MEDS: ASCORBIC ACID 500 MG TABLET PO SCH (11:47)
[2020-04-06] MEDS: ASPIRIN 81 MG TABLET, CHEWABLE PO SCH (11:48)
[2020-04-06] MEDS: MULTIVITAMIN TABLET PO SCH (11:48)
[2020-04-06] MEDS: AMIODARONE HCL 200 MG TABLET PO SCH (11:48)
[2020-04-06] MEDS: ISOSORBIDE MONONITRATE 30 MG TAB.ER.24H PO SCH (11:48)
[2020-04-06] MEDS: APIXABAN 2.5 MG TABLET PO SCH (11:48)
[2020-04-06] MEDS: POLYETHYLENE GLYCOL 3350 POWDER 17 GM/1 PACKET PO SCH (12:08)
[2020-04-06 14:46] VITALS: BP 100/52
[2020-04-06] MEDS ORDERED: METOPROLOL SUCCINATE 25 MG TAB.SR.24H PO SCH (22:00)
--- NOTE | 2020-04-07 17:39 | PDOC DISCHARGE SUMMARY ---
Impression - Admit/DC Date/PCP Admission Date/Primary Care Provider: 04/04/20 17:11 SHEN KEITA MD Discharge Date: 04/06/20 - Discharge Diagnosis (1) Chest pain Is this a current diagnosis for this admission?: Yes (2) Chronic systolic congestive heart failure Is this a current diagnosis for this admission?: Yes (3) Hypothyroid Is this a current diagnosis for this admission?: Yes (4) Coronary artery disease Is this a current diagnosis for this admission?: Yes (5) Diabetes Is this a current diagnosis for this admission?: Yes (6) HTN (hypertension) Is this a current diagnosis for this admission?: Yes - Additional Information Resuscitation Status: Full Code Discharge Diet: Cardiac, Diabetic Discharge Activity: Activity As Tolerated, Balance Activity w/Rest Referrals: SHEN KEITA MD [Primary Care Provider] - 04/12/20 2:00 pm Prescriptions: Ranolazine [Ranexa 500 mg Tab.sr] 1,000 mg PO Q12 #120 tab.sr.12h Home Medications: Amiodarone HCl [Cordarone 200 mg Tablet] 200 mg PO DAILY 10/29/19 Ascorbic Acid [Vitamin C 500 mg Tablet] 500 mg PO DAILY 10/29/19 Aspirin [Adult Low Dose Aspirin EC] 81 mg PO DAILY 10/29/19 Carboxymethylcellulose Sodium [Refresh Tears] 1 drop OU TIDP PRN 10/29/19 Cholecalciferol (Vitamin D3) [Vitamin D3 1000 Unit Tablet] 1,000 unit PO BID 10/29/19 Cyanocobalamin (Vitamin B-12) [Vitamin B-12 1000 mcg Tablet] 1,000 mg PO DAILY 10/29/19 Docusate Sodium [Colace 100 mg Capsule] 100 mg PO DAILY 10/29/19 Furosemide [Lasix 40 mg Tablet] 40 mg PO BID 10/29/19 Gabapentin [Neurontin 300 mg Capsule] 300 mg PO QPM 10/29/19 Insulin Glargine,Hum.rec.anlog [Lantus Insulin 100 Unit/1 ml 10 ml] 10 units SQ QPM 10/29/19 Liraglutide [Victoza 2-Abimael] 1.8 mg SQ DAILY 10/29/19 Multivitamin [Multiple Vitamins] 1 tab PO DAILY 10/29/19 Pantoprazole Sodium [Protonix [address] Tablet] 40 mg PO Q6AM 10/29/19 Polyethylene Glycol 3350 [Miralax Powder 17 gm/Packet] 17 gm PO DAILY 10/29/19 Potassium Chloride [Klor-Con M10] 10 meq PO TID 10/29/19 Rosuvastatin Calcium [Crestor 5 mg Tablet] 5 mg PO QHS 10/29/19 Sacubitril/Valsartan [Entresto 24 mg/26 mg Tablet] 1 tab PO BID 10/29/19 Apixaban [Eliquis 5 mg Tablet] 5 mg PO BID 04/04/20 Isosorbide Mononitrate [Imdur 30 mg Tablet.er] 30 mg PO DAILY 04/04/20 Levothyroxine Sodium [Synthroid 0.088 mg Tablet] 0.088 mg PO Q6AM 04/04/20 Melatonin [Melatonin 5 mg Tablet] 5 mg PO QHS 04/04/20 Metoprolol Succinate [Toprol Xl 25 mg Tab.sr] 25 mg PO QHS #0 04/06/20 Ranolazine [Ranexa 500 mg Tab.sr] 1,000 mg PO Q12 #120 tab.sr.12h 04/06/20 History of Present Illiness History of Present Illness: ROSA WEAVER is a 84 year old female with a [facility] significant for chronic systolic/diastolic CHF, NSTEMI, a. fib, chronically anticoagulated (on Eliquis), HTN, Hypothyroidism, CAD, and diabetes who presented to the ED today with a complaint of shortness of breath with activity and " chest tightness" noted this morning. She reports that her chest discomfort only occurs while ambulating and is preceded by the dyspnea. She denies radiation of symptoms or discomfort while at rest. She denies recent weight gain, peripheral edema, dietary discretion, or medication adjustments. The emergency department provider contacted her primary tumble [employer] turret lathe operator today who reported that the patient underwent cardiac catheterization approximately 3 months ago; did not find lesions amenable to stenting. Per ED provider, tumble tailstock turret lathe operator recommends 24-hour observation related to chest discomfort and potential medication adjustments if indicated. Evaluation in the emergency department was essentially unremarkable; Vital signs stable, maintaining oxygen saturation on room air, proBNP mildly elevated to 14 K (previously 12 point 6K), normal CBC, otherwise unremarkable chemistry, negative troponin x2. EKG shows paced rhythm. Chest x-ray shows cardiomegaly with mild vascular congestion. On exam, patient appears euvolemic; lung sounds clear on room air, no peripheral edema. She is referred to the hospitalist service for admission and management of the above-stated complaints findings. Hospital Course Hospital Course: (1) Chest pain Resolved. Patient is admitted to the medical floor on continuous cardiac telemetry. Continue her daily aspirin, statin, and Eliquis therapy. Nitroglycerin SL tab x1 for chest discomfort with relief of symptoms. Continue home Imdur. Discussed with Dr. Chavez, tumble tailstock turret lathe operator. Recommended medication optimization; increase Ranexa as this will not have negative effect on blood pressure. (2) Chronic systolic congestive heart failure Continue home dose Entresto and Toprol. Continue aspirin, Eliquis, statin therapy. Cardiac diet. Fluid restricted 2 L daily. Daily weights. Patient qualified for home oxygen; arranged prior to discharge. (3) Hypothyroid Continue home dose levothyroxine (4) Coronary artery disease Medications as above. Monitored on telemetry. Recent cardiac cath in [place]. Follow up with established tumble tailstock turret lathe operator as scheduled. (5) Diabetes A1C 6.9% Continue dietary discretion. (6) HTN (hypertension) Antihypertensives as above. Physical Exam Vital Signs: Temp Pulse Resp BP Pulse Ox 97.8 F 59 L 16 100/52 L 99 04/06/20 14:42 04/06/20 14:42 04/06/20 14:42 04/06/20 14:42 04/06/20 14:42 Intake & Output 04/06/20 04/07/20 04/08/20 06:59 06:59 06:59 Intake Total 1354 Output Total 1750 Balance -396 Weight 65.7 kg General appearance: PRESENT: no acute distress, cooperative, well-developed, well-nourished Head exam: PRESENT: atraumatic, normocephalic Eye exam: PRESENT: conjunctiva pink, EOMI, PERRLA. ABSENT: scleral icterus Mouth exam: PRESENT: moist, tongue midline Respiratory exam: PRESENT: clear to auscultation jennifer, symmetrical, unlabored. ABSENT: rales, rhonchi, wheezes Cardiovascular exam: PRESENT: RRR, +S1, +S2. ABSENT: diastolic murmur, rubs, systolic murmur Pulses: PRESENT: normal dorsalis pedis pul Vascular exam: PRESENT: normal capillary refill GI/Abdominal exam: PRESENT: normal bowel sounds, soft. ABSENT: distended, guarding, mass, organolmegaly, rebound, tenderness Rectal exam: PRESENT: deferred Extremities exam: PRESENT: full ROM. ABSENT: calf tenderness, clubbing, pedal edema Neurological exam: PRESENT: alert, awake, oriented to person, oriented to place, oriented to time, oriented to situation, CN II-XII grossly intact. ABSENT: motor sensory deficit Psychiatric exam: PRESENT: appropriate affect, normal mood. ABSENT: homicidal ideation, suicidal ideation Skin exam: PRESENT: dry, intact, warm. ABSENT: cyanosis, rash Results Laboratory Results: WBC 6.8 10^3/uL (4.0-10.5) 04/06/20 04:13 RBC 4.93 10^6/uL (3.72-5.28) 04/06/20 04:13 Hgb 13.0 g/dL (12.0-15.5) 04/06/20 04:13 Hct 39.6 % (36.0-47.0) 04/06/20 04:13 MCV 80 fl (80-97) 04/06/20 04:13 MCH 26.4 pg (27.0-33.4) L 04/06/20 04:13 MCHC 32.9 g/dL (32.0-36.0) 04/06/20 04:13 RDW 17.9 % (11.5-14.0) H 04/06/20 04:13 Plt Count 127 10^3/uL (150-450) L 04/06/20 04:13 Lymph % (Auto) 23.6 % (13-45) 04/04/20 10:39 Evans % (Auto) 8.6 % (3-13) 04/04/20 10:39 Eos % (Auto) 1.7 % (0-6) 04/04/20 10:39 Baso % (Auto) 0.9 % (0-2) 04/04/20 10:39 Absolute Neuts (auto) 3.8 10^3/uL (1.7-8.2) 04/04/20 10:39 Absolute Lymphs (auto) 1.4 10^3/uL (0.5-4.7) 04/04/20 10:39 Absolute Monos (auto) 0.5 10^3/uL (0.1-1.4) 04/04/20 10:39 Absolute Eos (auto) 0.1 10^3/uL (0.0-0.6) 04/04/20 10:39 Absolute Basos (auto) 0.1 10^3/uL (0.0-0.2) 04/04/20 10:39 Seg Neutrophils % 65.2 % (42-78) 04/04/20 10:39 Sodium 137.5 mmol/L (137-145) 04/06/20 04:13 Potassium 3.9 mmol/L (3.6-5.0) 04/06/20 04:13 Chloride 103 mmol/L (98-107) 04/06/20 04:13 Carbon Dioxide 28 mmol/L (22-30) 04/06/20 04:13 Anion Gap 7 (5-19) 04/06/20 04:13 BUN 28 mg/dL (7-20) H 04/06/20 04:13 Creatinine 1.35 mg/dL (0.52-1.25) H 04/06/20 04:13 Est GFR ( Amer) 45 (>60) L 04/06/20 04:13 Est GFR (MDRD) Non-Af 37 (>60) L 04/06/20 04:13 Glucose 135 mg/dL (75-110) H 04/06/20 04:13 POC Glucose 184 mg/dL (70-110) H 04/06/20 11:35 Hemoglobin A1c % 6.9 % (4.7-6.0) H 04/05/20 04:51 Calcium 9.5 mg/dL (8.4-10.2) 04/06/20 04:13 Magnesium 2.5 mg/dL (1.6-2.3) H 04/05/20 04:51 Total Bilirubin 0.7 mg/dL (0.2-1.3) 04/04/20 10:39 Direct Bilirubin 0.0 mg/dL (0.0-0.4) 04/04/20 10:39 Neonat Total Bilirubin Not Reportable 04/04/20 10:39 Neonat Direct Bilirubin Not Reportable 04/04/20 10:39 Neonat Indirect Bili Not Reportable 04/04/20 10:39 AST 36 U/L (14-36) 04/04/20 10:39 ALT 25 U/L (<35) 04/04/20 10:39 Alkaline Phosphatase 85 U/L (38-126) 04/04/20 10:39 Creatine Kinase 31 U/L (30-135) 04/04/20 10:39 CK-MB (CK-2) 0.86 ng/mL (<4.55) 04/04/20 10:39 Troponin I 0.018 ng/mL 04/05/20 04:51 NT-Pro-B Natriuret Pep 85844 pg/mL (<450) H 04/05/20 04:51 Total Protein 7.2 g/dL (6.3-8.2) 04/04/20 10:39 Albumin 3.7 g/dL (3.5-5.0) 04/04/20 10:39 Triglycerides 222 mg/dL (<150) H 04/05/20 04:51 Cholesterol 140.90 mg/dL (0-200) 04/05/20 04:51 LDL Cholesterol Direct 59 mg/dL (<100) 04/05/20 04:51 VLDL Cholesterol 44.4 mg/dL (10-31) H 04/05/20 04:51 HDL Cholesterol 53 mg/dL (>40) 04/05/20 04:51 TSH 4.10 uIU/mL (0.47-4.68) 04/05/20 04:51 04/04/20 04/04/20 04/04/20 10:39 10:39 13:22 CK-MB (CK-2) 0.86 Troponin I < 0.012 0.012 NT-Pro-B Natriuret Pep [id number] H 04/05/20 04:51 CK-MB (CK-2) Troponin I 0.018 NT-Pro-B Natriuret Pep 04950 H Impressions: Chest X-Ray 04/04/20 00:00 IMPRESSION: Cardiomegaly and mild vascular congestion. Small left effusion. Battery pack and leads have been placed since prior study. Plan Plan of Treatment: Patient is discharged home, in stable condition, into the care of family members, with home O2. She is instructed to follow-up with her PCP within 1 week. Follow-up with tumble [employer] turret lathe operator as scheduled. Take medications as prescribed. Eat a cardiac diet. Return to the emergency department as needed for concerning symptoms. Time Spent: Greater than 30 Minutes Stroke Is this a Stroke Patient?: No Acute Heart Failure - Is this a Heart Failure Patient?: Yes Documentation of LVEF assessment?: Planned for after discharge LVEF - Reason: Did not receive outside records prior to d/c LVEF: LVEF Greater Than 40% Anticoagulant Therapy: Yes Discharged on Evidence-Based Beta Blockers: Yes Discharged on ARNI?: Yes Discharged on ARB?: N/A-Discharged on ARNI Discharged on ACEI?: N/A Discharged on ARNI For LVEF <35%, discharged on Aldosterone Antagonist?: No-document contraincations Reason(s) not discharged on Aldosterone Antagonist: Other Aldosterone Antagonist Reason - Other: LVEF not documented Follow-up Appointment scheduled within 7 days?: Yes
== END 2020-04-06 17:16 | disposition home or self-care (01) ==
LOC: ER 10:10 → EH 17:11 → INTOOBSV 17:11 → 4N 22:30
PROVIDERS: ADMIT Hospitalist; ATTEND Registered Nurse
DX: R07.89 Other chest pain (principal); I48.11 Longstanding persistent atrial fibrillation; I25.10 Atherosclerotic heart disease of native coronary artery without angina pectoris; I45.89 Other specified conduction disorders; I11.0 Hypertensive heart disease with heart failure; I50.22 Chronic systolic (congestive) heart failure; E78.5 Hyperlipidemia, unspecified; E11.9 Type 2 diabetes mellitus without complications; C34.91 Malignant neoplasm of unspecified part of right bronchus or lung; E03.9 Hypothyroidism, unspecified; I95.9 Hypotension, unspecified; I25.5 Ischemic cardiomyopathy; I25.2 Old myocardial infarction; Z79.01 Long term (current) use of anticoagulants; Z90.2 Acquired absence of lung [part of]; Z87.891 Personal history of nicotine dependence; Z60.2 Problems related to living alone; Z79.4 Long term (current) use of insulin; Z79.899 Other long term (current) drug therapy; Z79.82 Long term (current) use of aspirin; Z95.810 Presence of automatic (implantable) cardiac defibrillator; Z79.890 Hormone replacement therapy
CPT/HCPCS: 93005; 99285; 36415 ×3; 82553; 82962 ×2; 82550; 83735; 84443; 85025; 85027; 80048 ×2; 80053; 84484 ×2; 83036; 80061; 83880 ×2; 71046; 93010; A9270 ×31; J1200; J1940 ×2; J3490 ×3; J2405; J1815

== ENCOUNTER 2020-04-28 07:23 | Emergency (ER) | payer MEDICARE, OTHER ==
[2020-04-28] MEDS ORDERED: MAG HYDROX/AL HYDROX/SIMETH SUSP 30 ML UDCUP PO ONE (07:49)
--- NOTE | 2020-04-28 07:49 | ER Document Report ---
ED General - General Chief Complaint: Epigastric Pain Stated Complaint: EPIGASTRIC PAIN Time Seen by Provider: 04/28/20 07:32 Primary Care Provider: SHEN KEITA MD [Primary Care Provider] - Follow up as needed Notes: Patient presents with epigastric pain that she calls "indigestion" intermittently for about a week. She says is present most of the day got worse last night and is worse this morning than usual. It does not radiate. She has baseline shortness of breath from CHF on home oxygen and says that this is no worse than her normal. She has not had a recent cath but recently at [facility] was told that her veins are "too small for stents." Denies increased leg swelling. Is on meds for reflux. TRAVEL OUTSIDE OF THE [place] IN LAST 30 DAYS: No - Related Data Allergies/Adverse Reactions: acetaminophen [From Tylenol] Allergy (Verified 04/04/20 11:06) Facial swelling codeine Allergy (Verified 04/04/20 11:06) Itching ibuprofen [From Motrin] Allergy (Verified 04/04/20 11:06) Facial swelling Iodinated Contrast Media [Iodinated Contrast- Oral and IV Dye] Allergy (Verified 04/04/20 11:06) Anaphylaxis shellfish derived Allergy (Verified 04/04/20 11:06) Anaphylaxis MATHIEU Inhibitors Adverse Reaction (Verified 04/04/20 11:06) Facial swelling monosodium glutamate Adverse Reaction (Verified 04/04/20 11:06) Facial swelling Past Medical History - General Information source: Patient - Social History Smoking Status: Unknown if Ever Smoked Family History: Reviewed & Not Pertinent - Past Medical History Cardiac Medical History: Reports: Hx Congestive Heart Failure, Hx Coronary Artery Disease, Hx Heart Attack, Hx Hypercholesterolemia, Hx Hypertension Denies: Hx Atrial Fibrillation Pulmonary Medical History: Denies: Hx Asthma, Hx COPD, Hx Respiratory Failure Neurological Medical History: Denies: Hx Seizures Endocrine Medical History: Reports: Hx Diabetes Mellitus Type 2, Hx Hypothyr oidism. Denies: Hx Diabetes Mellitus Type 1, Hx Hyperthyroidism Renal/ Medical History: Denies: Hx Peritoneal Dialysis Malignancy Medical History: Reports: Hx Lung Cancer GI Medical History: Reports: Hx Gastroesophageal Reflux Disease. Denies: Hx Cirrhosis, Hx Crohn's Disease, Hx Hepatitis, Hx Ulcerative Colitis Musculoskeletal Medical History: Reports Hx Arthritis, Denies Hx Gout Skin Medical History: Denies Hx Eczema, Denies Hx Psoriasis Psychiatric Medical History: Reports: Hx Depression Infectious Medical History: Denies: Hx Hepatitis Past Surgical History: Reports: Hx Cardiac Catheterization, Hx Hysterectomy, Other - Right lower lobectomy - Immunizations Hx Diphtheria, Pertussis, Tetanus Vaccination: No Hx Pneumococcal Vaccination: 07/07/17 Review of Systems - Review of Systems Notes: REVIEW OF SYSTEMS GEN: Denies fever, chills, weight loss ENT: Denies sore throat, nasal discharge, ear pain EYES: Denies blurry vision, eye pain, discharge CV: Pain burning RESP: Denies cough, shortness of breath, wheezing GI: Denies abdominal pain, nausea, vomiting, diarrhea MSK: Denies joint pain/swelling, edema, SKIN: Denies rash, skin lesions LYMPH: Denies swollen glands/lymph nodes NEURO: Denies headache, focal weakness or numbness, dizziness PSYCH: Denies depression, suicidal or homicidal ideation PHYSICAL EXAMINATION General: No acute distress, well-nourished Head: Atraumatic, normocephalic ENT: Mouth normal, oropharynx moist, no exudates or tonsillar enlargement Eyes: Conjunctiva normal, pupils equal, lids normal Neck: No JVD, supple, no guarding CVS: Normal rate, regular rhythm, no murmurs Resp: No resp distress, equal and normal breath sounds bilaterally GI: Nondistended, soft, no tenderness to palpation, no rebound or guarding Ext: No deformities, no edema, normal range of motion in upper and lower ext Back: No CVA or midline TTP Skin: No rash, warm Lymphatic: No lymphadeopathy noted Neuro: Awake, alert. Face symmetric. GCS 15. Physical Exam - Vital signs Vitals: Temp Pulse Resp BP Pulse Ox 98.1 F 71 20 142/86 H 99 04/28/20 07:25 04/28/20 07:25 04/28/20 07:25 04/28/20 07:25 04/28/20 07:25 Course - Re-evaluation Re-evalutation: 04/28/20 14:00 Patient presents with atypical chest pain she does have a history of coronary disease however she thinks this is acid reflux and it gets worse with food. She was given Maalox which helped the pain. She had 2 EKGs and troponins both of which were negative. The second troponin was slightly detectable, however nowhere near the level for an STEMI. I discussed this with Dr. Tejeda from [facility] in [place] who cares for the patient and he agrees that she can be discharged and will follow-up in the office. On reassessment at 2:00 she is eating a cracker with very minimal pain and is happy to go home. I have discussed with the patient there likely diagnosis, aftercare plan, follow-up plans and my usual and customary return precautions. They verbalized understanding of this. - Vital Signs Vital signs: Temp Pulse Resp BP Pulse Ox 98.1 F 71 23 H 146/75 H 98 04/28/20 07:25 04/28/20 07:25 04/28/20 13:01 04/28/20 13:00 04/28/20 13:01 - Laboratory Result Diagrams: 04/28/20 08:14 04/28/20 08:14 Laboratory results interpreted by me: 04/28/20 04/28/20 08:14 08:14 MCH 26.6 L RDW 17.8 H Seg Neutrophils % 78.7 H Sodium 136.5 L Carbon Dioxide 32 H BUN 22 H Est GFR ( Amer) 59 L Est GFR (MDRD) Non-Af 49 L Glucose 173 H AST 47 H ALT 42 H - Diagnostic Test Radiology reviewed: Image reviewed, Reports reviewed - EKG Interpretation by Me EKG shows normal: Sinus rhythm Rate: Normal Rhythm: NSR When compared to previous EKG there are: No significant change - Specifically no ST changes or T wave changes Discharge - Discharge Clinical Impression: Chest discomfort Condition: Good Disposition: HOME, SELF-CARE Instructions: Chest Pain of Unclear Cause ([facility]) Additional Instructions: Your chest pain did not seem to be coming from your heart today. It is possible that it reflects acid indigestion however you will need further heart testing as an outpatient and cardiology will reach out to you. I spoke with them today on the phone. Prescriptions: Famotidine [Pepcid 20 mg Tablet] 20 mg PO DAILY #12 tablet Referrals: SHEN KIETA MD [Primary Care Provider] - Follow up as needed GENEVA GARCIA MD [NO LOCAL MD] - Follow up as needed
[2020-04-28 08:39] LABS: ABSOLUTE LYMPHOCYTES (AUTO) 0.8 10^3/uL (0.5-4.7); ABSOLUTE MONOCYTES (AUTO) 0.4 10^3/uL (0.1-1.4); ABSOLUTE NEUT (AUTO) 4.6 10^3/uL (1.7-8.2); BASOPHILS % (AUTO) 0.3 % (0-2); EOSINOPHILS % (AUTO) 0.5 % (0-6); HEMATOCRIT 38.4 % (36.0-47.0); HEMOGLOBIN 12.7 g/dL (12.0-15.5); LYMPHOCYTES % (AUTO) 14.1 % (13-45); MEAN CORPUSCULAR HEMOGLOBIN 26.6 pg (27.0-33.4); MEAN CORPUSCULAR VOLUME 81 fl (80-97); MONOCYTES % (AUTO) 6.4 % (3-13); PLATELET COUNT 207 10^3/uL (150-450); RED BLOOD COUNT 4.77 10^6/uL (3.72-5.28); RED CELL DISTRIBUTION WIDTH 17.8 % (11.5-14.0); SEGMENTED NEUTROPHILS % (AUTO) 78.7 % (42-78); TOTAL CELLS COUNTED % (AUTO) 100 %; WHITE BLOOD COUNT 5.9 10^3/uL (4.0-10.5)
[2020-04-28 08:48] LABS: ALBUMIN 4.1 g/dL (3.5-5.0); ALKALINE PHOSPHATASE 86 U/L (38-126); ANION GAP 7 (5-19); ASPARTATE AMINO TRANSFERASE 47 U/L (14-36); BILIRUBIN,DIRECT 0.2 mg/dL (0.0-0.4); BILIRUBIN,TOTAL 0.8 mg/dL (0.2-1.3); BLOOD UREA NITROGEN 22 mg/dL (7-20); CARBON DIOXIDE 32 mmol/L (22-30); CHLORIDE 98 mmol/L (98-107); GLUCOSE 173 mg/dL (75-110); POTASSIUM 3.7 mmol/L (3.6-5.0); TOTAL PROTEIN 7.7 g/dL (6.3-8.2)
--- NOTE | 2020-04-28 08:54 | RADIOLOGY REPORT (SQ) ---
EXAM DESCRIPTION: CHEST SINGLE VIEW IMAGES COMPLETED DATE/TIME: 04/28/2020 7:44 am REASON FOR STUDY: EPIGASTRIC PAIN COMPARISON: 04/04/2020 NUMBER OF VIEWS: One view. TECHNIQUE: Single frontal radiographic image of the chest acquired. LIMITATIONS: None. FINDINGS: LUNGS AND PLEURA: Small left pleural effusion not significantly changed. MEDIASTINUM AND HEART: Stable heart size and mediastinal structures. SUPPORT DEVICES: Appropriate location without change. BONY STRUCTURES: No acute findings. HARDWARE: Defibrillator. OTHER: No other significant finding. IMPRESSION: Pulmonary vascular congestion. Small left pleural effusion. Reading location - IP/workstation name: [email or web address]
--- NOTE | 2020-04-28 09:25 | EKG REPORT ---
SEVERITY:- ABNORMAL ECG - SINUS RHYTHM FIRST DEGREE AV BLOCK LEFT BUNDLE BRANCH BLOCK : Confirmed by: Giacomo Rodriguez 28-Apr-2020 09:24:00
[2020-04-28] MEDS ORDERED: FAMOTIDINE INJ/PF 20 MG/2 ML SDV IV ONE (10:04)
[2020-04-28 14:39] VITALS: BP 123/65
--- NOTE | 2020-04-29 01:11 | EKG REPORT ---
SEVERITY:- ABNORMAL ECG - SINUS RHYTHM FIRST DEGREE AV BLOCK LEFT BUNDLE BRANCH BLOCK : Confirmed by: Giacomo Rodriguez 29-Apr-2020 01:10:48
--- NOTE | 2020-04-29 01:11 | EKG REPORT ---
SEVERITY:- ABNORMAL ECG - SINUS RHYTHM FIRST DEGREE AV BLOCK PROBABLE LEFT ATRIAL ABNORMALITY LEFT BUNDLE BRANCH BLOCK : Confirmed by: Giacomo Rodriguez 29-Apr-2020 01:10:57
== END 2020-04-28 15:26 | disposition home or self-care (01) ==
LOC: ER 07:23
DX: R07.89 Other chest pain (principal); I11.0 Hypertensive heart disease with heart failure; I50.9 Heart failure, unspecified; R06.02 Shortness of breath; E11.9 Type 2 diabetes mellitus without complications; I25.10 Atherosclerotic heart disease of native coronary artery without angina pectoris; K31.9 Disease of stomach and duodenum, unspecified; Z79.899 Other long term (current) drug therapy; Z99.81 Dependence on supplemental oxygen; Z88.8 Allergy status to other drugs, medicaments and biological substances; Z88.6 Allergy status to analgesic agent; Z88.5 Allergy status to narcotic agent; Z87.892 Personal history of anaphylaxis; Z91.041 Radiographic dye allergy status; Z91.013 Allergy to seafood
CPT/HCPCS: 93005; 99285; 96374; 36415; 83690; 85025; 80053; 84484; 71045; 93010; A9270; S0028

== ENCOUNTER 2020-05-31 22:50 | Inpatient (IN) | payer MEDICARE, OTHER ==
[2020-05-31] MEDS ORDERED: NITROGLYCERIN 2% OINTMENT 1 GM PACKET TP ONE (23:01)
--- NOTE | 2020-05-31 23:07 | ER Document Report ---
ED Respiratory Problem - General Stated Complaint: CHEST PAIN/DIFFICULTY BREATHING Time Seen by Provider: 05/31/20 22:53 Notes: Patient is an 84-year-old female with a history of CHF that comes emergency department for chief complaint of difficulty breathing that started this evening. EMS reports that on arrival patient was 90% on room air with very labored breathing and then did not have significant improvement with 2 L nasal cannula, patient was placed on CPAP, given 25 mcg of fentanyl, given 1.25 mg Vasotec (initial blood pressure in the 140s), started on nitroglycerin drip at 10 mcg/min, given sublingual nitroglycerin as well. Patient still reports some shortness of breath, she states she had chest tightness but this resolved, patient states she feels significantly better now. She denies cough, fever, nausea, vomiting, swelling of the legs, or sick symptoms recently. She reports compliance with her medications. Past medical history also includes CAD, AL, atrial fibrillation on Eliquis, AICD, diabetes. Patient reports remote history of smoking and denies history of COPD. TRAVEL OUTSIDE OF THE [place] IN LAST 30 DAYS: No - Related Data Allergies/Adverse Reactions: acetaminophen [From Tylenol] Allergy (Verified 04/04/20 11:06) Facial swelling codeine Allergy (Verified 04/04/20 11:06) Itching ibuprofen [From Motrin] Allergy (Verified 04/04/20 11:06) Facial swelling Iodinated Contrast Media [Iodinated Contrast- Oral and IV Dye] Allergy (Verified 04/04/20 11:06) Anaphylaxis shellfish derived Allergy (Verified 04/04/20 11:06) Anaphylaxis MATHIEU Inhibitors Adverse Reaction (Verified 04/04/20 11:06) Facial swelling monosodium glutamate Adverse Reaction (Verified 04/04/20 11:06) Facial swelling Past Medical History - General Information source: Patient - Social History Smoking Status: Former Smoker Frequency of alcohol use: None Drug Abuse: None Lives with: Family Family History: Reviewed & Not Pertinent - Past Medical History Cardiac Medical History: Reports: Hx Atrial Fibrillation, Hx Congestive Heart Failure, Hx Coronary Artery Disease, Hx Heart Attack, Hx Hypercholesterolemia, Hx Hypertension Pulmonary Medical History: Denies: Hx Asthma, Hx COPD, Hx Respiratory Failure Neurological Medical History: Denies: Hx Seizures Endocrine Medical History: Reports: Hx Diabetes Mellitus Type 2, Hx Hypothyroidism. Denies: Hx Diabetes Mellitus Type 1, Hx Hyperthyroidism Renal/ Medical History: Denies: Hx Peritoneal Dialysis Malignancy Medical History: Reports: Hx Lung Cancer GI Medical History: Reports: Hx Gastroesophageal Reflux Disease. Denies: Hx Cirrhosis, Hx Crohn's Disease, Hx Hepatitis, Hx Ulcerative Colitis Musculoskeletal Medical History: Reports Hx Arthritis, Denies Hx Gout Skin Medical History: Denies Hx Eczema, Denies Hx Psoriasis Psychiatric Medical History: Reports: Hx Depression Infectious Medical History: Denies: Hx Hepatitis Past Surgical History: Reports: Hx Cardiac Catheterization, Hx Hysterectomy, Other - Right lower lobectomy - Immunizations Hx Diphtheria, Pertussis, Tetanus Vaccination: No Hx Pneumococcal Vaccination: 07/07/17 Review of Systems - Review of Systems Constitutional: No symptoms reported EENT: No symptoms reported Cardiovascular: See HPI Respiratory: See HPI Gastrointestinal: No symptoms reported Genitourinary: No symptoms reported Female Genitourinary: No symptoms reported Musculoskeletal: No symptoms reported Skin: No symptoms reported Hematologic/Lymphatic: No symptoms reported Neurological/Psychological: No symptoms reported Physical Exam - Vital signs Vitals: Resp Pulse Ox 27 H 99 05/31/20 22:50 05/31/20 22:50 - Notes Notes: GENERAL: Alert and cooperative, mild distress HEAD: Normocephalic, atraumatic. EYES: Pupils equal, round, and reactive to light. Extraocular movements intact. ENT: Oral mucosa moist, tongue midline. Oropharynx unremarkable. Airway patent. NECK: Full range of motion. Supple. Trachea midline. No lymphadenopathy. LUNGS: Rales heard bilaterally in the lung bases especially on the right. Tachypnea and labored breathing, respiratory distress HEART: Regular rate and rhythm. No murmur ABDOMEN: Soft, non-tender. Non-distended. EXTREMITIES: Moves all 4 extremities spontaneously. No overt edema, normal radial and dorsalis pedis pulses bilaterally. No cyanosis. BACK: no cervical, thoracic, lumbar midline tenderness. No saddle anesthesia, normal distal neurovascular exam. Moves all extremities in full range of motion. NEUROLOGICAL: Alert and oriented x3. Normal speech. Cranial nerves II through XII grossly intact. Strength 5/5 in all extremities. SKIN: Warm, dry, normal turgor. No rashes or lesions noted. Course - Re-evaluation Re-evalutation: On initial evaluation patient tachypneic and in respiratory distress. She was immediately transitioned to BiPAP. Blood pressures only in the 140s therefore the nitroglycerin drip was stopped and we transitioned to 1/2 inch nitroglycerin paste on the chest. Patient has rales on lung auscultation but she does not have significant lower extremity edema. She does have a history of CHF. No cough, fever, wheezing, or history of COPD. Work-up pending, patient will be closely monitored. On reevaluation patient is doing much better, work of breathing has resolved, patient no longer has tachypnea or respiratory distress, patient states she feels much better. However after this patient started becoming hypotensive, we removed the nitroglycerin paste, patient continued to become hypotensive, we gave her 250 cc bolus of IV fluids. After this blood pressure returned to normal. Patient had been discussed with Dr. Ferrell. Chest x-ray shows vascular congestion, BNP is greater than 25,000, troponin is not elevated, CBC and chemistry are nonspecific. Blood gas and urine are unremarkable. Discussed with patient, will discuss with hospitalist for admission for CHF exacerbation and respiratory distress with hypoxia requiring BiPAP. Patient states appreciation and agreement. 05/31/[address] Burgos, hospitalist, patient accepted to telemetry full admission. - Vital Signs Vital signs: Temp Pulse Resp BP Pulse Ox 98.9 F 28 H 104/63 99 05/31/20 22:51 06/01/20 04:40 06/01/20 00:30 06/01/20 04:40 - Laboratory Result Diagrams: 05/31/20 23:10 05/31/20 23:10 Laboratory results interpreted by me: 05/31/20 05/31/20 05/31/20 23:10 23:10 23:10 MCH 26.4 L RDW 17.5 H Lymph % (Auto) 9.6 L Absolute Neuts (auto) 8.3 H Seg Neutrophils % 83.4 H Sodium 134.5 L BUN 21 H Est GFR (MDRD) Non-Af 49 L Glucose 276 H AST 73 H ALT 59 H NT-Pro-B Natriuret Pep 12218 H - EKG Interpretation by Me Additional EKG results interpreted by me: EKG shows paced rhythm with left bundle branch block, no overt T waves or ST segment changes in consecutive leads, no significant change from prior Critical Care Note - Critical Care Note Total time excluding time spent on procedures (mins): 35 - CHF exacerbation, pulmonary vascular congestion, hypoxia, respiratory distress Comments: Please allow 35 minutes of critical care time for evaluation and management of this critically ill patient with acute CHF exacerbation, respiratory distress, hypoxia. Interventions including BiPAP, nitroglycerin, IV fluids for hypotension. Time spent performing multiple re-evaluations. Time spent consul ting and admitting to the hospital. Discharge - Discharge Clinical Impression: Respiratory distress CHF exacerbation Qualifiers: Heart failure type: systolic Qualified Code(s): I50.23 - Acute on chronic systolic (congestive) heart failure Condition: Stable Disposition: ADMITTED INPATIENT Admitting Provider: Aubrey (Hospitalist) Unit Admitted: Telemetry
[2020-05-31 23:23] LABS: VENOUS BLOOD BASE EXCESS 0.4 mmol/L; VENOUS BLOOD HCO3 25.7 mmol/L (20-32); VENOUS BLOOD PCO2 43.8 mmHg (35-63); VENOUS BLOOD PH 7.39 (7.30-7.42)
[2020-05-31 23:26] LABS: ABSOLUTE MONOCYTES (AUTO) 0.6 10^3/uL (0.1-1.4); ABSOLUTE NEUT (AUTO) 8.3 10^3/uL (1.7-8.2); BASOPHILS % (AUTO) 0.4 % (0-2); EOSINOPHILS % (AUTO) 0.3 % (0-6); HEMATOCRIT 37.2 % (36.0-47.0); HEMOGLOBIN 12.1 g/dL (12.0-15.5); LYMPHOCYTES % (AUTO) 9.6 % (13-45); MEAN CORPUSCULAR HEMOGLOBIN 26.4 pg (27.0-33.4); MEAN CORPUSCULAR HGB CONC 32.4 g/dL (32.0-36.0); MEAN CORPUSCULAR VOLUME 82 fl (80-97); MONOCYTES % (AUTO) 6.3 % (3-13); PLATELET COUNT 165 10^3/uL (150-450); RED BLOOD COUNT 4.56 10^6/uL (3.72-5.28); RED CELL DISTRIBUTION WIDTH 17.5 % (11.5-14.0); SEGMENTED NEUTROPHILS % (AUTO) 83.4 % (42-78); TOTAL CELLS COUNTED % (AUTO) 100 %; WHITE BLOOD COUNT 9.9 10^3/uL (4.0-10.5)
[2020-05-31 23:38] LABS: ALKALINE PHOSPHATASE 95 U/L (38-126); ANION GAP 10 (5-19); ASPARTATE AMINO TRANSFERASE 73 U/L (14-36); BILIRUBIN,DIRECT 0.4 mg/dL (0.0-0.4); BILIRUBIN,TOTAL 0.9 mg/dL (0.2-1.3); BLOOD UREA NITROGEN 21 mg/dL (7-20); CALCIUM 9.3 mg/dL (8.4-10.2); CARBON DIOXIDE 27 mmol/L (22-30); CHLORIDE 98 mmol/L (98-107); GLUCOSE 276 mg/dL (75-110); POTASSIUM 3.9 mmol/L (3.6-5.0); TOTAL PROTEIN 7.4 g/dL (6.3-8.2)
[2020-05-31 23:49] LABS: TROPONIN I 0.023 ng/mL
--- NOTE | 2020-05-31 23:51 | RADIOLOGY REPORT (SQ) ---
CLINICAL INDICATION: difficulty breathing, chest tightness. TECHNIQUE: A single portable AP view was obtained of the chest at 2324 hours. COMPARISON: April 28, 2020. FINDINGS: The cardiomediastinal silhouette is enlarged but stable. The lungs demonstrate progressive congestive change. Progressive pulmonary edema. Small effusions. No pneumothorax. The visualized bones are unremarkable. IMPRESSION: Progressive congestive change. Progressive pulmonary edema.
[2020-06-01] MEDS ORDERED: NORMAL SALINE 250 ML IV ONE (00:12)
[2020-06-01 01:30] LABS: APPEARANCE,URINE CLEAR; BILIRUBIN,URINE NEGATIVE (NEGATIVE); COLOR,URINE YELLOW; GLUCOSE, URINE 50 mg/dL (NEGATIVE); KETONES,URINE NEGATIVE (NEGATIVE); LEUKOCYTE ESTERASE,URINE NEGATIVE (NEGATIVE); NITRITE,URINE NEGATIVE (NEGATIVE); PROTEIN,URINE NEGATIVE (NEGATIVE); URINE SPECIFIC GRAVITY 1.008; UROBILINOGEN,URINE NEGATIVE mg/dL (<2.0)
[2020-06-01] MEDS ORDERED: MAGNESIUM HYDROXIDE SUSP 30 ML UDCUP PO PRN (02:01)
[2020-06-01] MEDS ORDERED: PROMETHAZINE HCL INJ 25 MG/1 ML VIAL IV PRN (02:01)
[2020-06-01] MEDS ORDERED: IPRATROPIUM/ALBUTEROL 0.5-2.5 MG/3 ML AMPUL NEB PRN (02:01)
[2020-06-01] MEDS ORDERED: TEMAZEPAM 7.5 MG CAPSULE PO PRN (02:01)
[2020-06-01] MEDS ORDERED: ONDANSETRON HCL INJ/PF 4 MG/2 ML SDV IV PRN (02:01)
[2020-06-01] MEDS ORDERED: DEXTROSE 50%-WATER 25 GM/50 ML DISP.SYRIN IV PRN ×2 (02:06)
[2020-06-01] MEDS ORDERED: GLUCAGON,HUMAN RECOMB 1 MG INJ IM PRN (02:06)
[2020-06-01] MEDS ORDERED: DEXTROSE 40% GEL 15 GM TUBE PO PRN ×2 (02:06)
--- NOTE | 2020-06-01 02:11 | PDOC H&P ---
History of Present Illness Admission Date/PCP: 06/01/20 01:06 SHEN KEITA MD History of Present Illness: ROSA WEAVER is a 84 year old female past medical history of atrial fibrillation, CHF, CAD, COPD, diabetes, hypothyroidism, who was recently discharged from [facility] after being hospitalized for chest pain, systolic heart failure. Today patient is brought to ED by EMS for complaint of worsening shortness of breath ,chest tightness and anxiety. When EMS arrived patient was noted to be hypoxic on room air, with labored breathing, on 2 L nasal cannula, was placed on CPAP and was given fentanyl and Vasotec, and nitroglycerin drip. In ED she was noted to be mildly hypotensive and was given fluid resuscitation with recovery of his pressure. Patient was a started on BiPAP with breathing treatment with significant improvement of her chest tightness and shortness of breath. Chest x-ray showed pulmonary vascular congestion. Hospital was consulted for admission. On my encounter patient comfortable alert and oriented, cooperative with physical examination, does not seem to be in any apparent distress, resting in bed on BiPAP, stating that her anxiety and chest pressure has resolved, denies any fever, chills, chest pain, nausea, vomiting, diarrhea, constipation or any urinary symptoms. Past Medical History Cardiac Medical History: Reports: Atrial Fibrillation, Congestive Heart Failure, Coronary Artery Disease, Myocardial Infarction, Hyperlipidema, Hypertension Pulmonary Medical History: Denies: Asthma, Chronic Obstructive Pulmonary Disease (COPD), Respiratory Failure Neurological Medical History: Denies: Seizures Endocrine Medical History: Reports: Diabetes Mellitus Type 2, Hypothyroidism Denies: Diabetes Mellitus Type 1, Hyperthyroidism Malignancy Medical History: Reports: Lung Cancer GI Medical History: Reports: Gastroesophageal Reflux Disease Denies: Cirrhosis, Crohn's Disease, Hepatitis, Ulcerative Colitis Musculoskeltal Medical History: Reports: Arthritis Denies: Gout Skin Medical History: Denies: Eczema, Psoriasis Psychiatric Medical History: Reports: Depression Hematology: Denies: Anemia, Bleeding Tendencies Past Surgical History Past Surgical History: Reports: Cardiac Catheterization, Hysterectomy, Other - Right lower lobectomy Social History Lives with: Family Smoking Status: Former Smoker Frequency of Alcohol Use: None Hx Recreational Drug Use: No Drugs: None Hx Prescription Drug Abuse: No Family History Family History: Reviewed & Not Pertinent Parental Family History Reviewed: Yes Children Family History Reviewed: Yes Sibling(s) Family History Reviewed.: Yes Medication/Allergy Home Medications: Amiodarone HCl [Cordarone 200 mg Tablet] 200 mg PO DAILY 10/29/19 Ascorbic Acid [Vitamin C 500 mg Tablet] 500 mg PO DAILY 10/29/19 Aspirin [Adult Low Dose Aspirin EC] 81 mg PO DAILY 10/29/19 Carboxymethylcellulose Sodium [Refresh Tears] 1 drop OU TIDP PRN 10/29/19 Cholecalciferol (Vitamin D3) [Vitamin D3 1000 Unit Tablet] 1,000 unit PO BID 10/29/19 Cyanocobalamin (Vitamin B-12) [Vitamin B-12 1000 mcg Tablet] 1,000 mg PO DAILY 10/29/19 Docusate Sodium [Colace 100 mg Capsule] 100 mg PO DAILY 10/29/19 Furosemide [Lasix 40 mg Tablet] 40 mg PO BID 10/29/19 Gabapentin [Neurontin 300 mg Capsule] 300 mg PO QPM 10/29/19 Insulin Glargine,Hum.rec.anlog [Lantus Insulin 100 Unit/1 ml 10 ml] 10 units SQ QPM 10/29/19 Liraglutide [Victoza 2-Abimael] 1.8 mg SQ DAILY 10/29/19 Multivitamin [Multiple Vitamins] 1 tab PO DAILY 10/29/19 Pantoprazole Sodium [Protonix [address] Tablet] 40 mg PO Q6AM 10/29/19 Polyethylene Glycol 3350 [Miralax Powder 17 gm/Packet] 17 gm PO DAILY 10/29/19 Potassium Chloride [Klor-Con M10] 10 meq PO TID 10/29/19 Rosuvastatin Calcium [Crestor 5 mg Tablet] 5 mg PO QHS 10/29/19 Sacubitril/Valsartan [Entresto 24 mg/26 mg Tablet] 1 tab PO BID 10/29/19 Apixaban [Eliquis 5 mg Tablet] 5 mg PO BID 04/04/20 Isosorbide Mononitrate [Imdur 30 mg Tablet.er] 30 mg PO DAILY 04/04/20 Levothyroxine Sodium [Synthroid 0.088 mg Tablet] 0.088 mg PO Q6AM 04/04/20 Melatonin [Melatonin 5 mg Tablet] 5 mg PO QHS 04/04/20 Metoprolol Succinate [Toprol Xl 25 mg Tab.sr] 25 mg PO QHS #0 04/06/20 Ranolazine [Ranexa 500 mg Tab.sr] 1,000 mg PO Q12 #120 tab.sr.12h 04/06/20 Famotidine [Pepcid 20 mg Tablet] 20 mg PO DAILY #12 tablet 04/28/20 Allergies/Adverse Reactions: acetaminophen [From Tylenol] Allergy (Verified 04/04/20 11:06) Facial swelling codeine Allergy (Verified 04/04/20 11:06) Itching ibuprofen [From Motrin] Allergy (Verified 04/04/20 11:06) Facial swelling Iodinated Contrast Media [Iodinated Contrast- Oral and IV Dye] Allergy (Verified 04/04/20 11:06) Anaphylaxis shellfish derived Allergy (Verified 04/04/20 11:06) Anaphylaxis MATHIEU Inhibitors Adverse Reaction (Verified 04/04/20 11:06) Facial swelling monosodium glutamate Adverse Reaction (Verified 04/04/20 11:06) Facial swelling Review of Systems Review of Systems: as per hpi Physical Exam Vital Signs: Temp Pulse Resp BP Pulse Ox 98.9 F 25 H 104/63 99 05/31/20 22:51 06/01/20 00:30 06/01/20 00:30 06/01/20 00:30 Intake & Output 05/30/20 05/31/20 06/01/20 06:59 06:59 06:59 Intake Total 250 Balance 250 Weight 64.41 kg General appearance: PRESENT: no acute distress, well-developed, well-nourished Head exam: PRESENT: atraumatic, normocephalic Respiratory exam: PRESENT: crackles. ABSENT: rales, rhonchi, wheezes Cardiovascular exam: PRESENT: RRR. ABSENT: diastolic murmur, rubs, systolic murmur GI/Abdominal exam: PRESENT: normal bowel sounds, soft. ABSENT: distended, guarding, mass, organolmegaly, rebound, tenderness Neurological exam: PRESENT: alert, awake, oriented to person, oriented to place, oriented to time, oriented to situation, CN II-XII grossly intact. ABSENT: motor sensory deficit Results Laboratory Results: 05/31/20 23:10 05/31/20 23:10 05/31/20 05/31/20 05/31/20 23:10 23:10 23:10 WBC 9.9 RBC 4.56 Hgb 12.1 Hct 37.2 MCV 82 MCH 26.4 L MCHC 32.4 RDW 17.5 H Plt Count 165 Seg Neutrophils % 83.4 H VBG pH 7.39 VBG pCO2 43.8 VBG HCO3 25.7 VBG Base Excess 0.4 Sodium 134.5 L Potassium 3.9 Chloride 98 Carbon Dioxide 27 Anion Gap 10 BUN 21 H Creatinine 1.06 Est GFR ( Amer) > 60 Glucose 276 H Calcium 9.3 Total Bilirubin 0.9 AST 73 H Alkaline Phosphatase 95 Total Protein 7.4 Albumin 4.0 Urine Color Urine Appearance Urine pH Ur Specific [place] Urine Protein Urine Glucose (UA) Urine Ketones Urine Blood Urine Nitrite Ur Leukocyte Esterase Urine WBC (Auto) Urine RBC (Auto) 06/01/20 01:15 WBC RBC Hgb Hct MCV MCH MCHC RDW Plt Count Seg Neutrophils % VBG pH VBG pCO2 VBG HCO3 VBG Base Excess Sodium Potassium Chloride Carbon Dioxide Anion Gap BUN Creatinine Est GFR ( Amer) Glucose Calcium Total Bilirubin AST Alkaline Phosphatase Total Protein Albumin Urine Color YELLOW Urine Appearance CLEAR Urine pH 7.0 Ur Specific [place] 1.008 Urine Protein NEGATIVE Urine Glucose (UA) 50 H Urine Ketones NEGATIVE Urine Blood NEGATIVE Urine Nitrite NEGATIVE Ur Leukocyte Esterase NEGATIVE Urine WBC (Auto) 1 Urine RBC (Auto) 0 05/31/20 23:10 Troponin I 0.023 NT-Pro-B Natriuret Pep [id number] H Impressions: Chest X-Ray 05/31/20 23:00 IMPRESSION: Progressive congestive change. Progressive pulmonary edema. Assessment and Plan - Diagnosis (1) Acute respiratory failure with hypoxia Is this a current diagnosis for this admission?: Yes Plan: Denies any fever, WBC WNL, denies any exposure to anybody with COVID-19 suspicion. Most likely suggested acute CHF exacerbation. Elevated proBNP. Chest x-ray positive for pulmonary vascular congestion. Admit to telemetry, duo nebs, PRN BiPAP, incentive spirometry, IV diuretics, fluid restriction, strict in and out, pulmonary toileting. (2) CHF exacerbation Qualifiers: Heart failure type: systolic Qualified Code(s): I50.23 - Acute on chronic systolic (congestive) heart failure Is this a current diagnosis for this admission?: Yes Plan: Presented with worsening shortness of breath. proBNP elevated from baseline. CXR positive for pulmonary vascular congestion. Admit to telemetry, IV diuretics, strict in and out, fluid restriction, resume home meds. Outpatient PCP and cardiology follow-up. (3) Atrial fibrillation Qualifiers: Atrial fibrillation type: longstanding persistent Qualified Code(s): I48.11 - Longstanding persistent atrial fibrillation Is this a current diagnosis for this admission?: Yes Plan: Rate controlled. On chronic anticoagulation. Resume home meds. Monitor for bleeding. Monitor for falls. Outpatient PCP and cardiology follow-up. (4) Coronary artery disease Qualifiers: Coronary Disease-Associated Artery/Lesion type: [place] artery Is this a current diagnosis for this admission?: Yes Plan: On admission was complaining of chest tightness and anxiety. Currently resolved. Mildly elevated troponins. Likely due to demand mismatch. Resume antiplatelets, beta blockers and ARB. Trend troponins. (5) Diabetes mellitus type 2 in nonobese Is this a current diagnosis for this admission?: Yes Plan: Diabetic diet, pre-meal, correctional and long-acting insulin. Accu-Chek. Hypoglycemia protocol. Resume home meds upon discharge. (6) HTN (hypertension) Qualifiers: Hypertension type: essential hypertension Qualified Code(s): I10 - Essential (primary) hypertension Is this a current diagnosis for this admission?: Yes Plan: Hypervolemia. Normotensive. Resume home meds. (7) Hypothyroid Is this a current diagnosis for this admission?: Yes Plan: Resume home meds. - Time Time Spent with patient: 35 or more minutes Medications reviewed and adjusted accordingly: Yes Anticipated Discharge Disposition: Home with Home Health Anticipated Discharge Timeframe: within 72 hours
[2020-06-01] MEDS ORDERED: GABAPENTIN 300 MG CAPSULE PO ONE (02:38)
[2020-06-01] MEDS: POTASSIUM CHLORIDE 10 MEQ TABLET.ER PO SCH ×3 (05:53→22:01)
[2020-06-01] MEDS: FUROSEMIDE INJ/PF 20 MG/2 ML SDV IV SCH ×3 (05:57→22:05)
[2020-06-01] MEDS ORDERED: FAMOTIDINE 20 MG TABLET PO SCH ×2 (06:00→10:00)
[2020-06-01] MEDS ORDERED: HEPARIN SOD (PORCINE) 5,000 UNIT/ML 1 ML VIAL SUBCUT SCH (06:00)
[2020-06-01] MEDS: IPRATROPIUM/ALBUTEROL 0.5-2.5 MG/3 ML AMPUL NEB SCH ×3 (08:06→20:17)
[2020-06-01] MEDS: LEVOTHYROXINE SODIUM 0.088 MG TABLET PO SCH (08:32)
[2020-06-01] MEDS: INSULIN LISPRO 100 UNIT/ML 3 ML VIAL SUBCUT SCH ×4 (08:53→21:41)
[2020-06-01] MEDS ORDERED: RANOLAZINE 500 MG TAB.SR.12H PO SCH (10:00)
[2020-06-01] MEDS: ASPIRIN 81 MG TABLET, CHEWABLE PO SCH (10:16)
[2020-06-01] MEDS: AMIODARONE HCL 200 MG TABLET PO SCH (10:16)
[2020-06-01] MEDS: DOCUSATE SODIUM 100 MG CAPSULE PO SCH ×2 (10:16→17:09)
[2020-06-01] MEDS: GABAPENTIN 300 MG CAPSULE PO SCH (10:17)
[2020-06-01] MEDS: ISOSORBIDE MONONITRATE 30 MG TAB.ER.24H PO SCH (10:17)
--- NOTE | 2020-06-01 10:26 | EKG REPORT ---
SEVERITY:- ABNORMAL ECG - SINUS RHYTHM LEFT BUNDLE BRANCH BLOCK : Confirmed by: Mago Melendez MD 01-Jun-2020 10:25:45
[2020-06-01] MEDS: APIXABAN 5 MG TABLET PO SCH ×2 (12:06→17:09)
[2020-06-01] MEDS: SACUBITRIL/VALSARTAN 24 MG/26 MG TABLET PO SCH ×2 (12:06→17:17)
[2020-06-01] MEDS ORDERED: ZOLPIDEM TARTRATE 5 MG TABLET PO PRN (18:48)
--- NOTE | 2020-06-01 18:56 | Progress Note ---
Provider Note Provider Note: Is an 84-year-old female with a past medical history of atrial fibrillation, anticoagulated on Eliquis, CHF, CKD, COPD, diabetes, hypothyroidism and a discharged after admission for chest pain and acute systolic heart failure exacerbation. 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 Overnight events, nursing notes, vital signs, laboratory results, imaging reports, H&P, and orders reviewed. Agree with the plan of care as established by the previous provider. Patient was briefly visited on this evening; she reports she is feeling much better and is now on her baseline supplemental oxygen of 2lpm. She believes that she accidentally ate beans and rice w/ extra sodium (purchased a different brand of beans and did not rinse like normally); denies medications changes or missed doses. Unfortunately, strict I&Os were not kept while in the ED. She does continue to have bibasilar crackles though without dyspnea. No peripheral edema noted. The patient home medications have been reconciled and some slight changes have been made to match home regimen. Anticipate likely discharge home tomorrow with close outpatient PCP/Cardiology follow up.
[2020-06-01] MEDS ORDERED: ATORVASTATIN CALCIUM 40 MG TABLET PO SCH (22:00)
[2020-06-01] MEDS ORDERED: METOPROLOL SUCCINATE 25 MG TAB.SR.24H PO SCH (22:00)
[2020-06-02] MEDS ORDERED: PANTOPRAZOLE SODIUM 40 MG TABLET.DR PO SCH (06:00)
[2020-06-02] MEDS: FUROSEMIDE INJ/PF 20 MG/2 ML SDV IV SCH (06:28)
[2020-06-02] MEDS: POTASSIUM CHLORIDE 10 MEQ TABLET.ER PO SCH ×2 (06:28→13:10)
[2020-06-02] MEDS: LEVOTHYROXINE SODIUM 0.088 MG TABLET PO SCH (06:28)
[2020-06-02 06:42] LABS: ABSOLUTE EOSINOPHILS # (AUTO) 0.1 10^3/uL (0.0-0.6); ABSOLUTE LYMPHOCYTES (AUTO) 1.4 10^3/uL (0.5-4.7); ABSOLUTE MONOCYTES (AUTO) 0.6 10^3/uL (0.1-1.4); ABSOLUTE NEUT (AUTO) 4.2 10^3/uL (1.7-8.2); BASOPHILS % (AUTO) 0.4 % (0-2); EOSINOPHILS % (AUTO) 0.9 % (0-6); HEMATOCRIT 33.6 % (36.0-47.0); MEAN CORPUSCULAR HEMOGLOBIN 26.9 pg (27.0-33.4); MEAN CORPUSCULAR HGB CONC 32.7 g/dL (32.0-36.0); MEAN CORPUSCULAR VOLUME 82 fl (80-97); MONOCYTES % (AUTO) 9.4 % (3-13); PLATELET COUNT 146 10^3/uL (150-450); RED BLOOD COUNT 4.09 10^6/uL (3.72-5.28); RED CELL DISTRIBUTION WIDTH 17.5 % (11.5-14.0); SEGMENTED NEUTROPHILS % (AUTO) 67.3 % (42-78); TOTAL CELLS COUNTED % (AUTO) 100 %; WHITE BLOOD COUNT 6.3 10^3/uL (4.0-10.5)
[2020-06-02 07:07] LABS: ALKALINE PHOSPHATASE 69 U/L (38-126); ANION GAP 8 (5-19); ASPARTATE AMINO TRANSFERASE 31 U/L (14-36); BILIRUBIN,DIRECT 0.3 mg/dL (0.0-0.4); BILIRUBIN,TOTAL 0.8 mg/dL (0.2-1.3); BLOOD UREA NITROGEN 18 mg/dL (7-20); CALCIUM 8.8 mg/dL (8.4-10.2); CARBON DIOXIDE 28 mmol/L (22-30); CHLORIDE 102 mmol/L (98-107); GLUCOSE 163 mg/dL (75-110); POTASSIUM 3.9 mmol/L (3.6-5.0); TOTAL PROTEIN 6.1 g/dL (6.3-8.2)
[2020-06-02] MEDS: INSULIN LISPRO 100 UNIT/ML 3 ML VIAL SUBCUT SCH ×2 (07:43→11:48)
[2020-06-02] MEDS ORDERED: ONDANSETRON HCL INJ/PF 4 MG/2 ML SDV IV PRN (08:00)
[2020-06-02] MEDS: IPRATROPIUM/ALBUTEROL 0.5-2.5 MG/3 ML AMPUL NEB SCH ×2 (08:14→14:15)
[2020-06-02] MEDS: APIXABAN 5 MG TABLET PO SCH (09:58)
[2020-06-02] MEDS: SACUBITRIL/VALSARTAN 24 MG/26 MG TABLET PO SCH (09:59)
[2020-06-02] MEDS: ASPIRIN 81 MG TABLET, CHEWABLE PO SCH (09:59)
[2020-06-02] MEDS: ISOSORBIDE MONONITRATE 30 MG TAB.ER.24H PO SCH (09:59)
[2020-06-02] MEDS: AMIODARONE HCL 200 MG TABLET PO SCH (09:59)
[2020-06-02] MEDS: DOCUSATE SODIUM 100 MG CAPSULE PO SCH (09:59)
[2020-06-02] MEDS ORDERED: FOLIC ACID PO SCH (10:00)
[2020-06-02] MEDS ORDERED: MULTIVITAMIN TABLET PO SCH (10:00)
[2020-06-02] MEDS ORDERED: [UNRECOGNIZED DRUG - OTHER] PO SCH (10:00)
[2020-06-02] MEDS ORDERED: CYANOCOBALAMIN (VITAMIN B-12) 1,000 MCG TABLET PO SCH (10:00)
[2020-06-02] MEDS ORDERED: MULTIVIT MIN PO SCH (10:00)
[2020-06-02] MEDS ORDERED: FUROSEMIDE 40 MG TABLET PO SCH (10:00)
[2020-06-02] MEDS ORDERED: CHOLECALCIFEROL (D3) 1,000 UNIT (25 MCG) TABLET PO SCH (10:00)
[2020-06-02] MEDS ORDERED: IRON PO SCH (10:00)
[2020-06-02] MEDS ORDERED: RANOLAZINE 500 MG TAB.SR.12H PO SCH (10:00)
[2020-06-02] MEDS: GABAPENTIN 300 MG CAPSULE PO SCH (10:28)
[2020-06-02 13:05] VITALS: BP 103/53
--- NOTE | 2020-06-02 13:13 | PDOC DISCHARGE SUMMARY ---
Impression - Admit/DC Date/PCP Admission Date/Primary Care Provider: 06/01/20 01:06 SHEN KEITA MD Discharge Date: 06/02/20 - Assessment Summary: (1) Acute respiratory failure with hypoxia Is this a current diagnosis for this admission?: Yes Plan: Denies any fever, WBC WNL, denies any exposure to anybody with COVID-19 suspicion. Most likely suggested acute CHF exacerbation. Elevated proBNP. Chest x-ray positive for pulmonary vascular congestion. Admit to telemetry, duo nebs, PRN BiPAP, incentive spirometry, IV diuretics, fluid restriction, strict in and out, pulmonary toileting. 06/02/2020-patient admitted with acute on chronic respiratory failure with hypoxia most likely secondary to acute on chronic systolic heart failure. Chest x-ray shows edema and BNP is elevated. Patient treated with IV Lasix shortness of breath is resolved and patient is expressing desire to go home she is advised to continue Lasix at home at this time. (2) CHF exacerbation Qualifiers: Heart failure type: systolic Qualified Code(s): I50.23 - Acute on chronic systolic (congestive) heart failure Is this a current diagnosis for this admission?: Yes Plan: Presented with worsening shortness of breath. proBNP elevated from baseline. CXR positive for pulmonary vascular congestion. Admit to telemetry, IV diuretics, strict in and out, fluid restriction, resume home meds. Outpatient PCP and cardiology follow-up. 06/02/2020-patient admitted with acute on chronic congestive heart failure she is on fluid restriction and given IV Lasix patient is advised to continue p.o. legs at home and follow-up with cardiology as an outpatient. Patient is on oxygen 2 L via nasal cannula at home and pulse ox is 98% on 2 L at home. (3) Atrial fibrillation Qualifiers: Atrial fibrillation type: longstanding persistent Qualified Code(s): I48.11 - Longstanding persistent atrial fibrillation Is this a current diagnosis for this admission?: Yes Plan: Rate controlled. On chronic anticoagulation. Resume home meds. Monitor for bleeding. Monitor for falls. Outpatient PCP and cardiology follow-up. 06/02/2020-patient has history of chronic atrial fibrillation plan is to continue fracture Aban at home. (4) Coronary artery disease Qualifiers: Coronary Disease-Associated Artery/Lesion type: [place] artery Is this a current diagnosis for this admission?: Yes Plan: On admission was complaining of chest tightness and anxiety. Currently resolved. Mildly elevated troponins. Likely due to demand mismatch. Resume antiplatelets, beta blockers and ARB. Trend troponins. (5) Diabetes mellitus type 2 in nonobese Is this a current diagnosis for this admission?: Yes Plan: Diabetic diet, pre-meal, correctional and long-acting insulin. Accu-Chek. Hypoglycemia protocol. Resume home meds upon discharge. 06/02/2020-blood sugar is 166. Patient is advised to continue home medications upon discharge. At exercise weight loss lifestyle modifications discussed with the patient. (6) HTN (hypertension) Qualifiers: Hypertension type: essential hypertension Qualified Code(s): I10 - Essential (primary) hypertension Is this a current diagnosis for this admission?: Yes Plan: Hypervolemia. Normotensive. Resume home meds. 06/02/2020-blood pressure is 116/60. Stable. Advised to continue her home medications upon discharge. (7) Hypothyroid Is this a current diagnosis for this admission?: Yes Plan: Resume home meds. - Additional Information Discharge Diet: Cardiac, Diabetic Discharge Activity: Activity As Tolerated, Balance Activity w/Rest, Weigh Daily Referrals: GENEVA GARCIA [Other] - 06/09/20 1:00 pm (WILL BE SEEN BY RADHA TURNER IN [facility]) SHEN KEITA MD [Primary Care Provider] - 06/15/20 4:00 pm () Prescriptions: RX: Sacubitril/Valsartan [Entresto 24 mg/26 mg Tablet] 1 tab PO BID 60 Days #30 tablet Home Medications: RX: Cholecalciferol (Vitamin D3) [Vitamin D3 1000 Unit Tablet] 1,000 unit PO DAILY 06/01/20 RX: Cyanocobalamin (Vitamin B-12) [B-12] 1,000 mcg PO DAILY 06/01/20 RX: Multivit-Min/Iron/Folic Acid/K [One Daily Women's Multivitamin] 1 tab PO DAILY 06/01/20 RX: Pantoprazole Sodium [Protonix [address] Tablet] 40 mg PO DAILY 06/01/20 RX: Ranolazine [Ranexa 500 mg Tab.sr] 500 mg PO BID 06/01/20 RX: Rosuvastatin Calcium 5 mg PO QHS 06/01/20 RX: Zolpidem Tartrate [Ambien 5 mg Tablet] 5 mg PO HSP PRN 06/01/20 RX: Amiodarone HCl [Cordarone 200 mg Tablet] 200 mg PO DAILY tablet 06/02/20 RX: Apixaban [Eliquis 5 mg Tablet] 5 mg PO BID tablet 06/02/20 RX: Aspirin [Aspirin 81 mg Chewable Tablet] 81 mg PO DAILY tab.chew 06/02/20 RX: Atorvastatin Calcium [Lipitor 40 mg Tablet] 40 mg PO QHS tablet 06/02/20 RX: Furosemide [Lasix 40 mg Tablet] 40 mg PO BID tablet 06/02/20 RX: Gabapentin [Neurontin 300 mg Capsule] 300 mg PO DAILY capsule 06/02/20 RX: Isosorbide Mononitrate [Imdur 30 mg Tablet.er] 30 mg PO DAILY tab.er.24h 06/02/20 RX: Sacubitril/Valsartan [Entresto 24 mg/26 mg Tablet] 1 tab PO BID 60 Days #30 tablet 06/02/20 History of Present Illiness History of Present Illness: ROSA WEAVER is a 84 year old female 84 year old female past medical history of atrial fibrillation, CHF, CAD, COPD, diabetes, hypothyroidism, who was recently discharged from [facility] after being hospitalized for chest pain, systolic heart failure. Today patient is brought to ED by EMS for complaint of worsening shortness of breath ,chest tightness and anxiety. When EMS arrived patient was noted to be hypoxic on room air, with labored breathing, on 2 L nasal cannula, was placed on CPAP and was given fentanyl and Vasotec, and nitroglycerin drip. In ED she was noted to be mildly hypotensive and was given fluid resuscitation with recovery of his pressure. Patient was a started on BiPAP with breathing treatment with significant improvement of her chest tightness and shortness of breath. Chest x-ray showed pulmonary vascular congestion. Hospital was consulted for admission. On my encounter patient comfortable alert and oriented, cooperative with physical examination, does not seem to be in any apparent distress, resting in bed on BiPAP, stating that her anxiety and chest pressure has resolved, denies any fever, chills, chest pain, nausea, vomiting, diarrhea, constipation or any urinary symptoms. Hospital Course Hospital Course: 84 year old female past medical history of atrial fibrillation, CHF, CAD, COPD, diabetes, hypothyroidism, who was recently discharged from [facility] after being hospitalized for chest pain, systolic heart failure. Today patient is brought to ED by EMS for complaint of worsening shortness of breath ,chest tightness and anxiety. When EMS arrived patient was noted to be hypoxic on room air, with labored breathing, on 2 L nasal cannula, was placed on CPAP and was given fentanyl and Vasotec, and nitroglycerin drip. In ED she was noted to be mildly hypotensive and was given fluid resuscitation with recovery of his pressure. Patient was a started on BiPAP with breathing treatment with significant improvement of her chest tightness and shortness of breath. Chest x-ray showed pulmonary vascular congestion. Hospital was consulted for admission. On my encounter patient comfortable alert and oriented, cooperative with physical examination, does not seem to be in any apparent distress, resting in bed on BiPAP, stating that her anxiety and chest pressure has resolved, denies any fever, chills, chest pain, nausea, vomiting, diarrhea, constipation or any urinary symptoms. [id number]-old female with history of atrial fibrillation on Eliquis admitted for acute on chronic systolic heart failure. Comfortably in the bed communicating well. Expressing desire to go home today. She uses home oxygen 2 L at home. Pulse ox is 98% on 2 L. pt is advised to continue her home medications at the time of discharge. Physical Exam Vital Signs: Temp Pulse Resp BP Pulse Ox 98.1 F 62 17 103/53 L 98 06/02/20 13:04 06/02/20 13:04 06/02/20 13:04 06/02/20 13:04 06/02/20 13:04 Intake & Output 06/01/20 06/02/20 06/03/20 06:59 06:59 06:59 Intake Total 250 1500 420 Output Total 300 1800 Balance 250 1200 -1380 Weight 64.41 kg 69.4 kg General appearance: PRESENT: no acute distress, cooperative, well-developed Head exam: PRESENT: atraumatic Eye exam: PRESENT: PERRLA Mouth exam: PRESENT: moist, tongue midline Teeth exam: PRESENT: poor dentation Neck exam: ABSENT: carotid bruit, JVD, lymphadenopathy, thyromegaly Respiratory exam: PRESENT: decreased breath sounds Cardiovascular exam: PRESENT: irregular rhythm, tachycardia GI/Abdominal exam: PRESENT: normal bowel sounds, soft. ABSENT: distended, guarding, mass, organolmegaly, rebound, tenderness Rectal exam: PRESENT: deferred Extremities exam: PRESENT: full ROM. ABSENT: calf tenderness, clubbing, pedal edema Neurological exam: PRESENT: alert, awake, oriented to person, oriented to place, oriented to time, oriented to situation, CN II-XII grossly intact. ABSENT: motor sensory deficit Psychiatric exam: PRESENT: appropriate affect, normal mood. ABSENT: homicidal ideation, suicidal ideation Results Laboratory Results: WBC 6.3 10^3/uL (4.0-10.5) 06/02/20 05:35 RBC 4.09 10^6/uL (3.72-5.28) 06/02/20 05:35 Hgb 11.0 g/dL (12.0-15.5) L 06/02/20 05:35 Hct 33.6 % (36.0-47.0) L 06/02/20 05:35 MCV 82 fl (80-97) 06/02/20 05:35 MCH 26.9 pg (27.0-33.4) L 06/02/20 05:35 MCHC 32.7 g/dL (32.0-36.0) 06/02/20 05:35 RDW 17.5 % (11.5-14.0) H 06/02/20 05:35 Plt Count 146 10^3/uL (150-450) L 06/02/20 05:35 Lymph % (Auto) 22.0 % (13-45) 06/02/20 05:35 [place] % (Auto) 9.4 % (3-13) 06/02/20 05:35 Eos % (Auto) 0.9 % (0-6) 06/02/20 05:35 Baso % (Auto) 0.4 % (0-2) 06/02/20 05:35 Absolute Neuts (auto) 4.2 10^3/uL (1.7-8.2) 06/02/20 05:35 Absolute Lymphs (auto) 1.4 10^3/uL (0.5-4.7) 06/02/20 05:35 Absolute Monos (auto) 0.6 10^3/uL (0.1-1.4) 06/02/20 05:35 Absolute Eos (auto) 0.1 10^3/uL (0.0-0.6) 06/02/20 05:35 Absolute Basos (auto) 0.0 10^3/uL (0.0-0.2) 06/02/20 05:35 Seg Neutrophils % 67.3 % (42-78) 06/02/20 05:35 VBG pH 7.39 (7.30-7.42) 05/31/20 23:10 VBG pCO2 43.8 mmHg (35-63) 05/31/20 23:10 VBG HCO3 25.7 mmol/L (20-32) 05/31/20 23:10 VBG Base Excess 0.4 mmol/L 05/31/20 23:10 Sodium 137.5 mmol/L (137-145) 06/02/20 05:35 Potassium 3.9 mmol/L (3.6-5.0) 06/02/20 05:35 Chloride 102 mmol/L (98-107) 06/02/20 05:35 Carbon Dioxide 28 mmol/L (22-30) 06/02/20 05:35 Anion Gap 8 (5-19) 06/02/20 05:35 BUN 18 mg/dL (7-20) 06/02/20 05:35 Creatinine 1.06 mg/dL (0.52-1.25) 06/02/20 05:35 Est GFR ( Amer) > 60 (>60) 06/02/20 05:35 Est GFR (MDRD) Non-Af 49 (>60) L 06/02/20 05:35 Glucose 163 mg/dL (75-110) H 06/02/20 05:35 POC Glucose 341 mg/dL (70-110) H 06/02/20 10:27 Calcium 8.8 mg/dL (8.4-10.2) 06/02/20 05:35 Magnesium 2.2 mg/dL (1.6-2.3) 06/02/20 05:35 Total Bilirubin 0.8 mg/dL (0.2-1.3) 06/02/20 05:35 Direct Bilirubin 0.3 mg/dL (0.0-0.4) 06/02/20 05:35 Neonat Total Bilirubin Not Reportable 06/02/20 05:35 Neonat Direct Bilirubin Not Reportable 06/02/20 05:35 Neonat Indirect Bili Not Reportable 06/02/20 05:35 AST 31 U/L (14-36) 06/02/20 05:35 ALT 33 U/L (<35) 06/02/20 05:35 Alkaline Phosphatase 69 U/L (38-126) 06/02/20 05:35 Troponin I 0.027 ng/mL 06/01/20 12:14 NT-Pro-B Natriuret Pep 26400 pg/mL (<450) H 06/02/20 05:35 Total Protein 6.1 g/dL (6.3-8.2) L 06/02/20 05:35 Albumin 3.0 g/dL (3.5-5.0) L 06/02/20 05:35 Urine Color YELLOW 06/01/20 01:15 Urine Appearance CLEAR 06/01/20 01:15 Urine pH 7.0 (5.0-9.0) 06/01/20 01:15 Ur Specific [place] 1.008 06/01/20 01:15 Urine Protein NEGATIVE mg/dL (NEGATIVE) 06/01/20 01:15 Urine Glucose (UA) 50 mg/dL (NEGATIVE) H 06/01/20 01:15 Urine Ketones NEGATIVE mg/dL (NEGATIVE) 06/01/20 01:15 Urine Blood NEGATIVE (NEGATIVE) 06/01/20 01:15 Urine Nitrite NEGATIVE (NEGATIVE) 06/01/20 01:15 Urine Bilirubin NEGATIVE (NEGATIVE) 06/01/20 01:15 Urine Urobilinogen NEGATIVE mg/dL (<2.0) 06/01/20 01:15 Ur Leukocyte Esterase NEGATIVE (NEGATIVE) 06/01/20 01:15 Urine WBC (Auto) 1 /HPF 06/01/20 01:15 Urine RBC (Auto) 0 /HPF 06/01/20 01:15 U Hyaline Cast (Auto) 4 /LPF 06/01/20 01:15 Squamous Epi Cells Auto <1 /HPF 06/01/20 01:15 Urine Mucus (Auto) RARE /LPF 06/01/20 01:15 Urine Ascorbic Acid NEGATIVE (NEGATIVE) 06/01/20 01:15 05/31/20 06/01/20 06/01/20 23:10 06:40 12:14 Troponin I 0.023 0.043 0.027 NT-Pro-B Natriuret Pep [id number] H 06/02/20 05:35 Troponin I NT-Pro-B Natriuret Pep [id number] H Impressions: Chest X-Ray 05/31/20 23:00 IMPRESSION: Progressive congestive change. Progressive pulmonary edema. Plan Time Spent: Greater than 30 Minutes Stroke Is this a Stroke Patient?: No Acute Heart Failure - Is this a Heart Failure Patient?: No
[2020-06-02] MEDS ORDERED: ATORVASTATIN CALCIUM 10 MG TABLET PO SCH (22:00)
[2020-06-02] MEDS ORDERED: (PENDING PHARMACY ID) (Rosuvastatin Calcium [Rosuvastatin Calcium] 5 MG) PO SCH (22:00)
== END 2020-06-02 14:55 | disposition home health service (06) | DRG 291 ==
LOC: ER 22:50 → EH 06-01 01:06 → 4N 06-01 13:07
PROVIDERS: ADMIT Internal Medicine; ATTEND Internal Medicine
PROC: 5A09357 Assistance with Respiratory Ventilation, Less than 24 Consecutive Hours, Continuous Positive Airway Pressure (ICD-10-PCS; principal; 2020-05-31)
DX: I13.0 Hypertensive heart and chronic kidney disease with heart failure and stage 1 through stage 4 chronic kidney disease, or unspecified chronic kidney disease (principal); I50.23 Acute on chronic systolic (congestive) heart failure; J96.21 Acute and chronic respiratory failure with hypoxia; I48.11 Longstanding persistent atrial fibrillation; I25.10 Atherosclerotic heart disease of native coronary artery without angina pectoris; E03.9 Hypothyroidism, unspecified; J44.9 Chronic obstructive pulmonary disease, unspecified; E78.5 Hyperlipidemia, unspecified; K21.9 Gastro-esophageal reflux disease without esophagitis; F32.9 Major depressive disorder, single episode, unspecified; E11.22 Type 2 diabetes mellitus with diabetic chronic kidney disease; N18.9 Chronic kidney disease, unspecified; E78.00 Pure hypercholesterolemia, unspecified; I25.2 Old myocardial infarction; Z99.81 Dependence on supplemental oxygen; Z85.118 Personal history of other malignant neoplasm of bronchus and lung; Z90.2 Acquired absence of lung [part of]; Z87.891 Personal history of nicotine dependence; Z79.4 Long term (current) use of insulin; Z79.01 Long term (current) use of anticoagulants; Z88.8 Allergy status to other drugs, medicaments and biological substances; Z88.6 Allergy status to analgesic agent; Z91.041 Radiographic dye allergy status; Z91.013 Allergy to seafood; Z95.810 Presence of automatic (implantable) cardiac defibrillator
CPT/HCPCS: 36415; 71045; 80053; 81001; 82803; 82962; 83735; 83880; 84484; 85025; 93005; 93010; 94640; 94660; 96360; 99285; J1815; J1940; J3490; J7050

== ENCOUNTER 2020-07-24 22:54 | Emergency (ER) | payer MEDICARE, OTHER ==
[~2020-07-24 22:54] MED LIST changes: +AMIODARONE HCL INJ 150 MG/3 ML VIAL IV ONE; -CEFAZOLIN 1 GM/D5W RTU 1 GM/50 ML RTUPB IV PRN; -CLINDAMYCIN 900 MG/D5W RTU 900 MG/50 ML RTUPB IV PRN; +EPINEPHRINE INJ 1 MG/10 ML DISP.SYRIN ONE; -GENTAMICIN SULFATE 120 MG in DEXTROSE 5%-WATER 100 ML IV PRN; -LACTATED RINGERS 1000 ML IV PRN; +SODIUM BICARBONATE 8.4% INJ 50 MEQ/50 ML DISP.SYRIN ONE
[2020-07-25 00:20] LABS: ALBUMIN 4.2 g/dL (3.5-5.0); ALKALINE PHOSPHATASE 188 U/L (38-126); ASPARTATE AMINO TRANSFERASE 424 U/L (14-36); BILIRUBIN,DIRECT 1.6 mg/dL (0.0-0.4); BILIRUBIN,TOTAL 2.2 mg/dL (0.2-1.3); BLOOD UREA NITROGEN 39 mg/dL (7-20); CARBON DIOXIDE 17 mmol/L (22-30); CHLORIDE 93 mmol/L (98-107); CREATINE KINASE 34 U/L (30-135); GLUCOSE 200 mg/dL (75-110); POTASSIUM 5.9 mmol/L (3.6-5.0); TOTAL PROTEIN 8.4 g/dL (6.3-8.2)
[2020-07-25 00:23] LABS: ANION GAP 21 (5-19)
--- NOTE | 2020-07-25 00:29 | RADIOLOGY REPORT (SQ) ---
EXAM DESCRIPTION: XR CHEST 1 VIEW COMPLETED DATE/TME: 07/24/2020 23:55 CLINICAL HISTORY: 85 years, Female, shortness of breath and labored breathing COMPARISON: May 31, 2020 NUMBER OF VIEWS: 1 TECHNIQUE: Portable AP upright view the chest was obtained at 12:04 PM LIMITATIONS: None. FINDINGS: There is stable, mild cardiac enlargement. Small pleural effusions are noted. There is evidence of mild peripheral interstitial edema, less severe than what was seen previously. Pacemaker/ICD artifact is again noted. Aortic calcifications are again identified. IMPRESSION: Evidence of mild congestive heart failure, less severe than what was noted on the May 31, 2020 chest x-ray. copyright 2010 [employer]- All Rights Reserved
[2020-07-25 00:30] LABS: ABSOLUTE LYMPHOCYTES (AUTO) 1.7 10^3/uL (0.5-4.7); ABSOLUTE MONOCYTES (AUTO) 1.3 10^3/uL (0.1-1.4); ABSOLUTE NEUT (AUTO) 7.5 10^3/uL (1.7-8.2); BASOPHILS % (AUTO) 0.3 % (0-2); EOSINOPHILS % (AUTO) 0.1 % (0-6); HEMATOCRIT 38.3 % (36.0-47.0); HEMOGLOBIN 12.3 g/dL (12.0-15.5); LYMPHOCYTES % (AUTO) 15.7 % (13-45); MEAN CORPUSCULAR HGB CONC 32.1 g/dL (32.0-36.0); MEAN CORPUSCULAR VOLUME 78 fl (80-97); MONOCYTES % (AUTO) 12.1 % (3-13); PLATELET COUNT 210 10^3/uL (150-450); RED BLOOD COUNT 4.93 10^6/uL (3.72-5.28); RED CELL DISTRIBUTION WIDTH 16.6 % (11.5-14.0); SEGMENTED NEUTROPHILS % (AUTO) 71.8 % (42-78); TOTAL CELLS COUNTED % (AUTO) 100 %; WHITE BLOOD COUNT 10.5 10^3/uL (4.0-10.5)
[2020-07-25 01:01] LABS: CREATINE KINASE MB 1.24 ng/mL (<4.55); TROPONIN I 0.032 ng/mL
[2020-07-25] MEDS ORDERED: TRAMADOL HCL 50 MG TABLET PO ONE (01:09)
--- NOTE | 2020-07-25 01:11 | ER Document Report ---
ED General - General Chief Complaint: General Weakness Stated Complaint: WEAKNESS Time Seen by Provider: 07/25/20 01:01 Primary Care Provider: SHEN KEITA MD [Primary Care Provider] - Follow up as needed TRAVEL OUTSIDE OF THE [place] IN LAST 30 DAYS: No - Related Data Allergies/Adverse Reactions: melatonin Allergy (Intermediate, Verified 06/01/20 16:29) Urticaria acetaminophen [From Tylenol] Allergy (Verified 06/01/20 16:28) Facial swelling codeine Allergy (Verified 06/01/20 16:28) Itching ibuprofen [From Motrin] Allergy (Verified 06/01/20 16:28) Facial swelling Iodinated Contrast Media [Iodinated Contrast- Oral and IV Dye] Allergy (Verified 06/01/20 16:28) Anaphylaxis shellfish derived Allergy (Verified 06/01/20 16:28) Anaphylaxis MATHIEU Inhibitors Adverse Reaction (Verified 06/01/20 16:28) Facial swelling monosodium glutamate Adverse Reaction (Verified 06/01/20 16:28) Facial swelling Home Medications: Eliquis. Victoza. vitamin D3. Zolpidem. balanced B-100. Vitam b12. Entresto. Famotidine. Furosemide. Glycolax. Isosorbide. Klor- Con. Lantus. Metoprolol. Neurontin. Nitrostat. Pantoprazole. Ranexa. refresh tears. Rosuvastatin. Synthroid. Tylenol Past Medical History - Social History Smoking Status: Former Smoker Chew tobacco use (# tins/day): No Frequency of alcohol use: None Drug Abuse: None Family History: Reviewed & Not Pertinent - Past Medical History Cardiac Medical History: Reports: Hx Atrial Fibrillation, Hx Congestive Heart Failure, Hx Coronary Artery Disease, Hx Heart Attack, Hx Hypercholesterolemia, Hx Hypertension Pulmonary Medical History: Denies: Hx Asthma, Hx COPD, Hx Respiratory Failure Neurological Medical History: Denies: Hx Seizures Endocrine Medical History: Reports: Hx Diabetes Mellitus Type 2, Hx H ypothyroidism. Denies: Hx Diabetes Mellitus Type 1, Hx Hyperthyroidism Renal/ Medical History: Denies: Hx Peritoneal Dialysis Malignancy Medical History: Reports: Hx Lung Cancer GI Medical History: Reports: Hx Gastroesophageal Reflux Disease. Denies: Hx Cirrhosis, Hx Crohn's Disease, Hx Hepatitis, Hx Ulcerative Colitis Musculoskeletal Medical History: Reports Hx Arthritis, Denies Hx Gout Skin Medical History: Denies Hx Eczema, Denies Hx Psoriasis Psychiatric Medical History: Denies: Hx Depression Infectious Medical History: Denies: Hx Hepatitis Past Surgical History: Reports: Hx Cardiac Catheterization, Hx Hysterectomy, Other - Right lower lobectomy - Immunizations Hx Diphtheria, Pertussis, Tetanus Vaccination: No Hx Pneumococcal Vaccination: 07/07/17 Physical Exam - Vital signs Vitals: Resp 23 H 07/24/20 23:08 Course - Vital Signs Vital signs: Temp Pulse Resp BP Pulse Ox 97.1 F 27 H 143/94 H 100 07/24/20 23:22 07/24/20 23:27 07/24/20 23:27 07/24/20 23:55 - Laboratory Result Diagrams: 07/25/20 00:22 07/24/20 23:49 Laboratory results interpreted by me: 07/24/20 07/25/20 23:49 00:22 MCV 78 L MCH 25.0 L RDW 16.6 H Sodium 130.9 L Potassium 5.9 H Chloride 93 L Carbon Dioxide 17 L Anion Gap 21 H BUN 39 H Creatinine 1.63 H Est GFR ( Amer) 36 L Est GFR (MDRD) Non-Af 30 L Glucose 200 H Total Bilirubin 2.2 H Direct Bilirubin 1.6 H AST 424 H ALT 403 H Alkaline Phosphatase 188 H Total Protein 8.4 H Discharge - Discharge Referrals: SHEN KEITA MD [Primary Care Provider] - Follow up as needed
[2020-07-25] MEDS ORDERED: NORMAL SALINE 500 ML IV ONE (01:24)
--- NOTE | 2020-07-25 01:29 | ER Document Report ---
ED General - General Chief Complaint: General Weakness Stated Complaint: WEAKNESS Time Seen by Provider: 07/25/20 01:01 Primary Care Provider: SHEN KEITA MD [Primary Care Provider] - Follow up as needed TRAVEL OUTSIDE OF THE [place] IN LAST 30 DAYS: No - HPI Context: This is a 85-year-old female who presents to the ED via EMS reportedly for evaluation of generalized weakness and shortness of breath for 3 days. Patient states she she has had a chronic dry cough and is a former smoker. Patient is denying any chest pain, fever, chills. Patient states she is usually on 2 L of oxygen at home. Patient has currently without any complaints in terms of her breathing. Patient denies chest pain, abdominal pain, nausea, no vomiting. Patient states the main problem she is having tonight is that her restless legs are bothering her and she is unable to sleep. Patient states tramadol has helped her symptoms in the past but has not found anything tonight that alleviates his symptoms and she rates the discomfort in her legs as a 5 out of 5. Associated symptoms: Other - See HPI Exacerbated by: Other - See HPI Relieved by: Other - See HPI - Related Data Allergies/Adverse Reactions: melatonin Allergy (Intermediate, Verified 06/01/20 16:29) Urticaria acetaminophen [From Tylenol] Allergy (Verified 06/01/20 16:28) Facial swelling codeine Allergy (Verified 06/01/20 16:28) Itching ibuprofen [From Motrin] Allergy (Verified 06/01/20 16:28) Facial swelling Iodinated Contrast Media [Iodinated Contrast- Oral and IV Dye] Allergy (Verified 06/01/20 16:28) Anaphylaxis shellfish derived Allergy (Verified 06/01/20 16:28) Anaphylaxis MATHIEU Inhibitors Adverse Reaction (Verified 06/01/20 16:28) Facial swelling monosodium glutamate Adverse Reaction (Verified 06/01/20 16:28) Facial swelling Home Medications: Eliquis. Victoza. vitamin D3. Zolpidem. balanced B-100. Vitam b12. Entresto. Famotidine. Furosemide. Glycolax. Isosorbide. Klor- Con. Lantus. Metoprolol. Neurontin. Nitrostat. Pantoprazole. Ranexa. refresh tears. Rosuvastatin. Synthroid. Tylenol Past Medical History - General Information source: Patient - Social History Smoking Status: Former Smoker Chew tobacco use (# tins/day): No Frequency of alcohol use: None Drug Abuse: None Family History: Reviewed & Not Pertinent - Past Medical History Cardiac Medical History: Reports: Hx Atrial Fibrillation, Hx Congestive Heart Failure, Hx Coronary Artery Disease, Hx Heart Attack, Hx Hypercholesterolemia, Hx Hypertension Pulmonary Medical History: Denies: Hx Asthma, Hx COPD, Hx Respiratory Failure Neurological Medical History: Denies: Hx Seizures Endocrine Medical History: Reports: Hx Diabetes Mellitus Type 2, Hx Hypothyroidism. Denies: Hx Diabetes Mellitus Type 1, Hx Hyperthyroidism Renal/ Medical History: Denies: Hx Peritoneal Dialysis Malignancy Medical History: Reports: Hx Lung Cancer GI Medical History: Reports: Hx Gastroesophageal Reflux Disease. Denies: Hx Cirrhosis, Hx Crohn's Disease, Hx Hepatitis, Hx Ulcerative Colitis Musculoskeletal Medical History: Reports Hx Arthritis, Denies Hx Gout Skin Medical History: Denies Hx Eczema, Denies Hx Psoriasis Psychiatric Medical History: Denies: Hx Depression Infectious Medical History: Denies: Hx Hepatitis Past Surgical History: Reports: Hx Cardiac Catheterization, Hx Hysterectomy, Other - Right lower lobectomy - Immunizations Hx Diphtheria, Pertussis, Tetanus Vaccination: No Hx Pneumococcal Vaccination: 07/07/17 Review of Systems - Review of Systems Constitutional: No symptoms reported EENT: No symptoms reported Cardiovascular: No symptoms reported Respiratory: No symptoms reported Gastrointestinal: No symptoms reported Genitourinary: No symptoms reported Female Genitourinary: No symptoms reported Musculoskeletal: Other - Restless leg pain Skin: No symptoms reported Hematologic/Lymphatic: No symptoms reported Neurological/Psychological: No symptoms reported Physical Exam - Vital signs Vitals: Resp 23 H 07/24/20 23:08 - Notes Notes: CONSTITUTIONAL [Vital signs reviewed, Patient appears comfortable, Alert and oriented X 3, Normal stature.] HEAD [Atraumatic, Normocephalic.] EYES [Eyes are normal to inspection, No discharge from eyes, Extraocular muscles intact, Sclera are normal, Conjunctiva are normal.] NECK [Normal ROM, No jugular venous distention, No meningeal signs, no carotid bruit.] RESPIRATORY CHEST [Chest is nontender, Breath sounds normal, No respiratory distress.] CARDIOVASCULAR [RRR, No murmurs, Normal S1 S2, No rub, No gallop.] ABDOMEN [Abdomen is nontender, No pulsatile masses, No other masses, Bowel sounds normal, No distension, No peritoneal signs, No hernias.] BACK [There is no CVA Tenderness, There is no tenderness to palpation, Normal inspection.] UPPER EXTREMITY [Inspection normal, No cyanosis, No clubbing, No edema, 2+ radial pulses.] LOWER EXTREMITY [Inspection normal, No cyanosis, No clubbing, No edema, No calf tenderness, 2+ femoral pulses.] NEURO [No focal motor deficits, No focal sensory deficits, Speech normal.] SKIN [Skin is warm, Skin is dry, Skin is normal color.] LYMPHATIC [No adenopathy in neck.] PSYCHIATRIC [Normal affect. ] Course - Re-evaluation Re-evalutation: 07/25/20 06:23 Results of ED MSE discussed with patient. Recommendation for transfer to facility with ERCP capability discussed with patient. All questions were answered. 07/25/20 06:44 Reason for transfer is that Dr. Powell recommends pt needs ERCP that can't be done at this facility. - Vital Signs Vital signs: Temp Pulse Resp BP Pulse Ox 97.5 F 24 H 142/77 H 100 07/25/20 06:01 07/25/20 06:01 07/25/20 06:01 07/25/20 05:00 - Laboratory Result Diagrams: 07/25/20 03:35 07/25/20 04:25 Laboratory results interpreted by me: 07/24/20 07/25/20 07/25/20 23:49 00:22 00:22 WBC Hgb MCV 78 L MCH 25.0 L MCHC RDW 16.6 H Lymph % (Auto) Absolute Neuts (auto) Seg Neutrophils % Sodium 130.9 L Potassium 5.9 H Chloride 93 L Carbon Dioxide 17 L Anion Gap 21 H BUN 39 H Creatinine 1.63 H Est GFR ( Amer) 36 L Est GFR (MDRD) Non-Af 30 L Glucose 200 H Total Bilirubin 2.2 H Direct Bilirubin 1.6 H AST 424 H ALT 403 H Alkaline Phosphatase 188 H Creatine Kinase Total Protein 8.4 H Acetaminophen < 10 L 07/25/20 07/25/20 07/25/20 00:22 03:35 04:25 WBC 10.6 H Hgb 11.5 L MCV MCH 24.8 L MCHC 31.2 L RDW 16.9 H Lymph % (Auto) 11.0 L Absolute Neuts (auto) 8.3 H Seg Neutrophils % 78.2 H Sodium 132.1 L 133.8 L Potassium 5.3 H Chloride 92 L 97 L Carbon Dioxide 16 L 12 L Anion Gap 24 H 25 H BUN 40 H 40 H Creatinine 1.78 H 1.77 H Est GFR ( Amer) 33 L 33 L Est GFR (MDRD) Non-Af 27 L 27 L Glucose 203 H 139 H Total Bilirubin 2.4 H 2.5 H Direct Bilirubin 1.7 H 1.8 H AST 417 H 406 H ALT 436 H 401 H Alkaline Phosphatase 193 H 181 H Creatine Kinase 28 L Total Protein 8.3 H Acetaminophen - Diagnostic Test Radiology reviewed: Reports reviewed - EKG Interpretation by Me Additional EKG results interpreted by me: 07/25/20 02:39 EKG obtained on 07/25/2020 at 00 36 hours was interpreted by this MD. Findings atrial paced rhythm, rate 60+ baseline artifact left bundle branch block is present that was present on patient's previous EKG from 05/31/2020. Comparison of the 2 EKGs shows the same morphology grossly. QTc on most recent EKG is 552 [place] is 246 impression: Atrial paced rhythm with left bundle branch block and nonspecific ST segments - Consults Dr. Powell, surgery Time consulted: 05:30 - stated pt needs ERCP which we are unable to do at this facility today Reason for consultation: 07/25/20 06:24 abnormal lfts, abnormal bilirubin, abnormal gallbladder ultrasound Dr. Randhawa, hospitalist with [facility] Time consulted: 06:20 - Dr. Randhawa accepted pt for transfer to his facility Reason for consultation: 07/25/20 06:26 transfer for ERCP services for biliary disease Discharge - Discharge Clinical Impression: Disease of biliary tract Condition: Stable Disposition: [facility] Referrals: SHEN KEITA MD [Primary Care Provider] - Follow up as needed
[2020-07-25 01:47] LABS: ALBUMIN 4.4 g/dL (3.5-5.0); ALKALINE PHOSPHATASE 193 U/L (38-126); ANION GAP 24 (5-19); ASPARTATE AMINO TRANSFERASE 417 U/L (14-36); BILIRUBIN,DIRECT 1.7 mg/dL (0.0-0.4); BILIRUBIN,TOTAL 2.4 mg/dL (0.2-1.3); BLOOD UREA NITROGEN 40 mg/dL (7-20); CALCIUM 10.2 mg/dL (8.4-10.2); CARBON DIOXIDE 16 mmol/L (22-30); CHLORIDE 92 mmol/L (98-107); CREATINE KINASE 28 U/L (30-135); GLUCOSE 203 mg/dL (75-110); TOTAL PROTEIN 8.3 g/dL (6.3-8.2)
[2020-07-25] MEDS ORDERED: FUROSEMIDE INJ/PF 20 MG/2 ML SDV IV ONE (03:01)
[2020-07-25 04:38] LABS: ABSOLUTE LYMPHOCYTES (AUTO) 1.2 10^3/uL (0.5-4.7); ABSOLUTE MONOCYTES (AUTO) 1.1 10^3/uL (0.1-1.4); ABSOLUTE NEUT (AUTO) 8.3 10^3/uL (1.7-8.2); BASOPHILS % (AUTO) 0.2 % (0-2); HEMATOCRIT 36.9 % (36.0-47.0); HEMOGLOBIN 11.5 g/dL (12.0-15.5); MEAN CORPUSCULAR HEMOGLOBIN 24.8 pg (27.0-33.4); MEAN CORPUSCULAR HGB CONC 31.2 g/dL (32.0-36.0); MEAN CORPUSCULAR VOLUME 80 fl (80-97); MONOCYTES % (AUTO) 10.6 % (3-13); PLATELET COUNT 203 10^3/uL (150-450); RED BLOOD COUNT 4.64 10^6/uL (3.72-5.28); RED CELL DISTRIBUTION WIDTH 16.9 % (11.5-14.0); SEGMENTED NEUTROPHILS % (AUTO) 78.2 % (42-78); TOTAL CELLS COUNTED % (AUTO) 100 %; WHITE BLOOD COUNT 10.6 10^3/uL (4.0-10.5)
--- NOTE | 2020-07-25 04:42 | RADIOLOGY REPORT (SQ) ---
CLINICAL HISTORY: elevated bili and lfts COMPARISON: None. TECHNIQUE: US ABDOMEN LIMITED 07/25/2020 2:51 AM CDT FINDINGS: Liver is normal in echotexture. Portal vein is patent. Gallbladder wall is borderline in thickness with several gallstones present. There is a positive reported sonographic Benavides sign. There is a right pleural effusion. Right kidney measures 9.7 cm with a 1.5 cm upper pole cyst. IMPRESSION: Cholelithiasis. Difficult to completely exclude early cholecystitis.
[2020-07-25 05:02] LABS: ALBUMIN 3.9 g/dL (3.5-5.0); ALKALINE PHOSPHATASE 181 U/L (38-126); ASPARTATE AMINO TRANSFERASE 406 U/L (14-36); BILIRUBIN,DIRECT 1.8 mg/dL (0.0-0.4); BILIRUBIN,TOTAL 2.5 mg/dL (0.2-1.3); BLOOD UREA NITROGEN 40 mg/dL (7-20); CALCIUM 9.8 mg/dL (8.4-10.2); CARBON DIOXIDE 12 mmol/L (22-30); CHLORIDE 97 mmol/L (98-107); GLUCOSE 139 mg/dL (75-110); POTASSIUM 5.3 mmol/L (3.6-5.0); TOTAL PROTEIN 7.6 g/dL (6.3-8.2)
[2020-07-25 05:04] LABS: ANION GAP 25 (5-19)
[2020-07-25] MEDS ORDERED: CEFEPIME 2 GM/D5W RTU 2 GM/50 ML RTUPB IV ONE ×2 (05:33→17:19)
[2020-07-25 06:40] LABS: APPEARANCE,URINE SLIGHTLY-CLOUDY; BILIRUBIN,URINE NEGATIVE (NEGATIVE); COLOR,URINE AMBER; GLUCOSE, URINE NEGATIVE (NEGATIVE); KETONES,URINE NEGATIVE (NEGATIVE); LEUKOCYTE ESTERASE,URINE NEGATIVE (NEGATIVE); NITRITE,URINE NEGATIVE (NEGATIVE); PROTEIN,URINE 30 mg/dL (NEGATIVE); URINE SPECIFIC GRAVITY 1.013
[2020-07-25] MEDS ORDERED: HYDROMORPHONE HCL INJ/PF 2 MG/ML AMPULE IV ONE (06:41)
--- NOTE | 2020-07-25 07:34 | EKG REPORT ---
SEVERITY:- ABNORMAL ECG - ATRIAL-PACED RHYTHM LEFT BUNDLE BRANCH BLOCK : Confirmed by: Giacomo Rodriguez 25-Jul-2020 07:33:11
[2020-07-25] MEDS ORDERED: FUROSEMIDE INJ/PF 40 MG/4 ML SDV IV ONE (15:20)
[2020-07-25] MEDS ORDERED: VANCOMYCIN HCL INJ 1000 MG VIAL IV ONE (16:09)
[2020-07-25] MEDS ORDERED: DEXTROSE 50%-WATER 25 GM/50 ML DISP.SYRIN IV ONE (16:18)
[2020-07-25 16:54] LABS: HEMATOCRIT 35.8 % (36.0-47.0); HEMOGLOBIN 10.8 g/dL (12.0-15.5); MEAN CORPUSCULAR HEMOGLOBIN 24.6 pg (27.0-33.4); MEAN CORPUSCULAR HGB CONC 30.3 g/dL (32.0-36.0); MEAN CORPUSCULAR VOLUME 81 fl (80-97); RED BLOOD COUNT 4.41 10^6/uL (3.72-5.28); RED CELL DISTRIBUTION WIDTH 16.8 % (11.5-14.0); WHITE BLOOD COUNT 20.2 10^3/uL (4.0-10.5)
--- NOTE | 2020-07-25 16:55 | RADIOLOGY REPORT (SQ) ---
EXAM DESCRIPTION: CHEST SINGLE VIEW IMAGES COMPLETED DATE/TIME: 07/25/2020 4:44 pm REASON FOR STUDY: sobr COMPARISON: 07/25/2020 EXAM PARAMETERS: NUMBER OF VIEWS: One view. TECHNIQUE: Single frontal radiographic view of the chest acquired. RADIATION DOSE: NA LIMITATIONS: None. FINDINGS: LUNGS AND PLEURA: Small bilateral pleural effusions with patchy left basilar consolidation , similar prior. No pneumothorax. MEDIASTINUM AND HILAR STRUCTURES: No masses. Contour normal. HEART AND VASCULAR STRUCTURES: Enlarged, stable. No overt alveolar edema. BONES: No acute findings. HARDWARE: Left-sided cardiac pacer/ defibrillator with leads overlying right atrium, right ventricle and coronary sinus. OTHER: No other significant finding. IMPRESSION: Stable large cardiac silhouette with small bilateral pleural effusions, left greater lloyd n right. Patchy left basilar opacities, likely atelectasis although infection not excluded. TECHNICAL DOCUMENTATION: JOB ID: [id number] 2010 [employer]- All Rights Reserved Reading location - IP/workstation name: [email or web address]
[2020-07-25 17:00] LABS: ARTERIAL BLOOD BASE EXCESS -17.7 mmol/L; ARTERIAL BLOOD H2CO3 0.76 mmol/L (1.05-1.35); ARTERIAL BLOOD HCO3 9.1 mmol/L (20-24); ARTERIAL BLOOD O2 SATURATION 94.2 % (94-98); ARTERIAL BLOOD PCO2 25.4 mmHg (35-45); ARTERIAL BLOOD TOTAL CO2 9.9 mmol/L (21-25)
[2020-07-25 17:06] LABS: ARTERIAL BLOOD FIO2 5L; ARTERIAL BLOOD PH 7.17 (7.35-7.45)
[2020-07-25 17:11] LABS: ABSOLUTE LYMPHOCYTES# (MANUAL) 1.6 10^3/uL (0.5-4.7); ABSOLUTE MONOCYTES # (MANUAL) 0.8 10^3/uL (0.1-1.4); BAND NEUTROPHILS % (MANUAL) 7 % (3-5); BASOPHILS % (MANUAL) 0 % (0-2); EOSINOPHILS % (MANUAL) 0 % (0-6); LYMPHOCYTES % (MANUAL) 7 % (13-45); METAMYELOCYTES % (MANUAL) 1 % (0-1); MONOCYTES % (MANUAL) 4 % (3-13); NUCLEATED RED BLOOD CELLS 2 /100 WBC (0); SEGMENTED NEUTROPHILS % (MAN) 80 % (42-78); TOTAL CELLS COUNTED 100
[2020-07-25 17:13] LABS: ALBUMIN 3.3 g/dL (3.5-5.0); ALKALINE PHOSPHATASE 166 U/L (38-126); ANISOCYTOSIS 1+; BILIRUBIN,DIRECT 3.1 mg/dL (0.0-0.4); BILIRUBIN,TOTAL 3.5 mg/dL (0.2-1.3); BLOOD UREA NITROGEN 50 mg/dL (7-20); CALCIUM 9.4 mg/dL (8.4-10.2); GLUCOSE 313 mg/dL (75-110); PLATELET CLUMPS PRESENT; PLATELET COMMENT ADEQUATE; PLATELET COUNT 201 10^3/uL (150-450); POLYCHROMASIA SLIGHT; POTASSIUM 4.8 mmol/L (3.6-5.0); TOTAL PROTEIN 6.5 g/dL (6.3-8.2)
[2020-07-25 17:18] LABS: CHLORIDE 93 mmol/L (98-107)
[2020-07-25] MEDS ORDERED: NORMAL SALINE 1000 ML 1,000 ML IV ONE ×2 (17:18→18:45)
[2020-07-25 17:31] LABS: ASPARTATE AMINO TRANSFERASE 1179 U/L (14-36)
[2020-07-25 17:32] LABS: CARBON DIOXIDE 7 mmol/L (22-30)
[2020-07-25 17:33] LABS: ANION GAP 30 (5-19); TROPONIN I 0.062 ng/mL
--- NOTE | 2020-07-25 18:53 | EKG REPORT ---
SEVERITY:- ABNORMAL ECG - ATRIAL-VENTRICULAR DUAL-PACED RHYTHM : Confirmed by: Earl Chavez MD 25-Jul-2020 18:52:27
[2020-07-25] MEDS ORDERED: SODIUM BICARBONATE 8.4% INJ 50 MEQ/50 ML DISP.SYRIN ONE ×3 (19:51→21:57)
[2020-07-25] MEDS ORDERED: FENTANYL CITRATE INJ/PF 100 MCG/2 ML AMPUL IV ONE ×3 (19:57→23:08)
[2020-07-25] MEDS ORDERED: PROPOFOL 1,000 MG/100 ML INFUS..BTL IV PRN (20:00)
--- NOTE | 2020-07-25 20:00 | RADIOLOGY REPORT (SQ) ---
EXAM DESCRIPTION: CT HEAD WITHOUT IMAGES COMPLETED DATE/TIME: 07/25/2020 7:46 pm REASON FOR STUDY: AMS COMPARISON: None. TECHNIQUE: Axial images acquired through the brain without intravenous contrast. Images reviewed wi th bone, brain and subdural windows. Additional sagittal and coronal reconstructions were generated. Images stored on PACS. All CT scanners at this facility use dose modulation, iterative reconstruction, and/or weight based d osing when appropriate to reduce radiation dose to as low as reasonably achievable (ALARA). [facility]: Dose Right [facility]: CareDose [facility]: Dose Right [facility]: Teradose 4D [facility]: Smart [employer] RADIATION DOSE: CT Rad equipment meets quality standard of care and radiation dose reduction techniq ues were employed. CTDIvol: 53.2 mGy. DLP: 1044 mGy-cm. mGy. LIMITATIONS: None. FINDINGS: VENTRICLES: Prominent ventricles secondary to involutional atrophy. CEREBRUM: Cortical atrophy. No masses. No hemorrhage. No midline shift. No evidence for acute inf arction. Few scattered areas of low density in the white matter most likely chronic small vessel isch emic changes. CEREBELLUM: No masses. No hemorrhage. No alteration of density. No evidence for acute infarction. EXTRAAXIAL SPACES: No fluid collections. No masses. ORBITS AND GLOBE: There is a small amount of air in the posterior aspect of each orbit, right more th an left. CALVARIUM: No fracture. PARANASAL SINUSES: No fluid or mucosal thickening. SOFT TISSUES: No mass or hematoma. OTHER: No other significant finding. IMPRESSION: Involutional changes with mild chronic microvascular ischemia. There is a small amount of intraorbital free air on each side, right more than left. No orbital fractures are seen. EVIDENCE OF ACUTE STROKE: NO. COMMENT: Quality ID # [id number]: Final reports with documentation of one or more dose reduction techniques (e.g., Automated exposure control, adjustment of the mA and/or kV according to patient size, use of iterative reconstruction technique) TECHNICAL DOCUMENTATION: JOB ID: [id number] 2010 [employer]- All Rights Reserved Reading location - IP/workstation name: [email or web address]
[2020-07-25] MEDS ORDERED: DEXTROSE 5%-WATER 1000 ML 1,000 ML with SODIUM BICARBONATE 150 MEQ IV PRN ×2 (20:03)
[2020-07-25] MEDS ORDERED: NOREPINEPHRINE BITARTRATE INJ/PF 4 MG/4 ML SDV IV ONE ×2 (20:36→23:53)
[2020-07-25] MEDS ORDERED: CITRIC ACID/SODIUM CITRATE ORAL SOLN 15 ML UDCUP ONE (20:45)
[2020-07-25] MEDS ORDERED: DEXTROSE 5%-WATER 250 ML with NOREPINEPHRINE BITARTRATE 4 MG IV PRN ×2 (21:29)
--- NOTE | 2020-07-25 21:32 | RADIOLOGY REPORT (SQ) ---
CLINICAL INDICATION: intubation. Respiratory failure TECHNIQUE: A single portable AP view was obtained of the chest at 2052 hours. COMPARISON: 1638 hours. FINDINGS: The cardiomediastinal silhouette is enlarged but stable with postsurgical change. The lungs demonstrate progressive congestive change. Pulmonary edema. More focal airspace disease left lung base is again seen. 12 pleural effusions. No pneumothorax. Endotracheal tube tip in good position approximately 2.8 Ramsey above the hank. Nasogastric tube tip and sidehole are not seen but clearly below the diaphragm.. IMPRESSION: Progressive congestive change. Satisfactory placement of supportive appliances.
[2020-07-25] MEDS ORDERED: DOBUTAMINE HCL/D5W 500 MG/250 ML RTUINJ IV PRN (21:43)
--- NOTE | 2020-07-25 22:25 | ER Document Report ---
Doctor's Note Notes: I have assisted in the management of this patient. Bedside ultrasound performed which showed very poor cardiac contractility along with a plump IVC. Additionally had B-lines in multiple lung windows. Given her appearance of volume overload, poor cardiac contractility and cool extremities. I considered her to be cold and wet and in cardiogenic shock. Patient had a decrease in her pressures to 40s systolic with a narrow pulse pressure. She was started on dobutamine along with Levophed. Patient had increase in her pressures to 70 systolic with a marked improvement in her pulse pressure. She began to have urine output and some pinkness return to her skin. Patient also noted to be intermittently having small movement to her upper and lower extremities. I have been at bedside directly managing patient care, please bill 45 minutes critical care time.
[2020-07-25] MEDS ORDERED: DEXTROSE 5%-WATER 250 ML with EPINEPHRINE/PF 1 MG IV PRN ×2 (23:02)
[2020-07-25] MEDS ORDERED: EPINEPHRINE INJ 1 MG/10 ML DISP.SYRIN IV SCH (23:30)
[2020-07-25] MEDS ORDERED: EPINEPHRINE INJ 1 MG/10 ML DISP.SYRIN IV ONE ×3 (23:30→23:31)
[2020-07-25] MEDS ORDERED: EPINEPHRINE INJ/PF 1 MG/1 ML AMPULE ONE (23:31)
[2020-07-25] MEDS ORDERED: ETOMIDATE INJ/PF 20 MG/10 ML SDV IV ONE (23:31)
[2020-07-25] MEDS ORDERED: AMIODARONE HCL 150 MG in DEXTROSE 5%-WATER 100 ML IV ONE (23:38)
--- NOTE | 2020-07-25 23:53 | ER Document Report ---
ED General - General Chief Complaint: General Weakness Stated Complaint: WEAKNESS Time Seen by Provider: 07/25/20 01:01 Primary Care Provider: SHEN KEITA MD [Primary Care Provider] - Follow up as needed TRAVEL OUTSIDE OF THE [place] IN LAST 30 DAYS: No - HPI Notes: Patient was signed out to me. I was told she was waiting for transfer to [facility] for ERCP after having an ultrasound showing possible cholecystitis and abnormal LFTs. I was then informed that [facility] called and was unable to take her for several days due to not having beds. I immediately began calling other facilities including [facility]. Staff called me to the room as patient suddenly became less responsive and was only oriented to her name. I immediately went to evaluate the patient and she was obtunded but was able to squeeze my hand on command. Vitals were stable at this time. She went immediately to CT scan and head was negative for intracranial bleed and blood sugar was normal. Patient then had a cardiac arrest. CPR was performed with return of pulses. Central line and intubation were also performed. Patient had another cardiac arrest with return of pulses after brief compressions. I immediately called back [facility] and [facility] to speak to their ICU physician. [facility] was able to accept the patient for transfer pending a negative Covid test. - Related Data Allergies/Adverse Reactions: melatonin Allergy (Intermediate, Verified 06/01/20 16:29) Urticaria acetaminophen [From Tylenol] Allergy (Verified 06/01/20 16:28) Facial swelling codeine Allergy (Verified 06/01/20 16:28) Itching ibuprofen [From Motrin] Allergy (Verified 06/01/20 16:28) Facial swelling Iodinated Contrast Media [Iodinated Contrast- Oral and IV Dye] Allergy (Verified 06/01/20 16:28) Anaphylaxis shellfish derived Allergy (Verified 06/01/20 16:28) Anaphylaxis MATHIEU Inhibitors Adverse Reaction (Verified 06/01/20 16:28) Facial swelling monosodium glutamate Adverse Reaction (Verified 06/01/20 16:28) Facial swelling Home Medications: Eliquis. Victoza. vitamin D3. Zolpidem. balanced B-100. Vitam b12. Entresto. Famotidine. Furosemide. Glycolax. Isosorbide. Klor- Con. Lantus. Metoprolol. Neurontin. Nitrostat. Pantoprazole. Ranexa. refresh tears. Rosuvastatin. Synthroid. Tylenol Past Medical History - General Information source: Patient - Social History Smoking Status: Former Smoker Chew tobacco use (# tins/day): No Frequency of alcohol use: None Drug Abuse: None Family History: Reviewed & Not Pertinent - Past Medical History Cardiac Medical History: Reports: Hx Atrial Fibrillation, Hx Congestive Heart Failure, Hx Coronary Artery Disease, Hx Heart Attack, Hx Hypercholesterolemia, Hx Hypertension Pulmonary Medical History: Denies: Hx Asthma, Hx COPD, Hx Respiratory Failure Neurological Medical History: Denies: Hx Seizures Endocrine Medical History: Reports: Hx Diabetes Mellitus Type 2, Hx Hypothyroidism. Denies: Hx Diabetes Mellitus Type 1, Hx Hyperthyroidism Renal/ Medical History: Denies: Hx Peritoneal Dialysis Malignancy Medical History: Reports: Hx Lung Cancer GI Medical History: Reports: Hx Gastroesophageal Reflux Disease. Denies: Hx Cirrhosis, Hx Crohn's Disease, Hx Hepatitis, Hx Ulcerative Colitis Musculoskeletal Medical History: Reports Hx Arthritis, Denies Hx Gout Skin Medical History: Denies Hx Eczema, Denies Hx Psoriasis Psychiatric Medical History: Denies: Hx Depression Infectious Medical History: Denies: Hx Hepatitis Past Surgical History: Reports: Hx Cardiac Catheterization, Hx Hysterectomy, Other - Right lower lobectomy - Immunizations Hx Diphtheria, Pertussis, Tetanus Vaccination: No Hx Pneumococcal Vaccination: 07/07/17 Review of Systems - Review of Systems -: Yes ROS unobtainable due to patient's medical condition Physical Exam - Vital signs Vitals: Resp 23 H 07/24/20 23:08 - General General appearance: Unresponsive Notes: VITAL SIGNS: Within normal limits. GENERAL: Acute distress HEAD: Normal with no signs of head trauma. EYES: Conjunctiva normal, no discharge. Pupils reactive NOSE: Normal. NECK: Normal range of motion, no tenderness, supple, no lymphadenopathy, No adenopathy, no JVD. CHEST: Rales CARDIAC: Regular rate and rhythm. ABDOMEN: Normal and soft GENITOURINARY: Normal, No tenderness NEUROLOGICAL: Obtunded but was able to squeeze my hands to command. PSYCHIATRIC: Normal Affect, judgement and mood. SKIN: Normal appearance with no rashes or lesions. Course - Re-evaluation Re-evalutation: 07/25/20 23:58 Patient was signed out to me around 6:30pm. As described in the HPI, nursing staff alerted me that patient was acting normal and then suddenly became obtunded. She went into cardiac arrest and ROSC was achieved. Intubation and central line were performed. She was started on a bicarb drip after cardiac arrest bicarb pushes as review of lab data shows she became progressively more acidotic while in the ER awaiting transfer. She has received antibiotics and fluids. Patient was then placed on a Levophed drip and dobutamine as bedside echo showed poor heart function. She continued to be hypotensive so a epinephrine drip was also started. Patient has been becoming more awake. Propofol was stopped due to the hypotension. She has been receiving fentanyl and etomidate for sedation due to her blood pressure. I discussed all updates with the family and answered all their questions. [facility] team at bedside for transfer. Patient is stable for transfer at this time. Etiology at this time could be cardiogenic shock vs septic shock. 07/26/20 03:31 - Vital Signs Vital signs: Temp Pulse Resp BP Pulse Ox 97.5 F 22 H 101/55 L 96 07/25/20 17:50 07/26/20 00:36 07/26/20 00:36 07/26/20 00:36 - Laboratory Result Diagrams: 07/25/20 16:00 07/25/20 16:00 Laboratory results interpreted by me: 07/24/20 07/25/20 07/25/20 23:49 00:22 00:22 WBC Hgb Hct MCV 78 L MCH 25.0 L MCHC RDW 16.6 H Lymph % (Auto) Absolute Neuts (auto) Seg Neutrophils % Seg Neuts % (Manual) Band Neutrophils % Lymphocytes % (Manual) Abs Neuts (Manual) Carbonic Acid ABG pH ABG pCO2 ABG HCO3 ABG Total CO2 Sodium 130.9 L Potassium 5.9 H Chloride 93 L Carbon Dioxide 17 L Anion Gap 21 H BUN 39 H Creatinine 1.63 H Est GFR ( Amer) 36 L Est GFR (MDRD) Non-Af 30 L Glucose 200 H POC Glucose Lactic Acid Total Bilirubin 2.2 H Direct Bilirubin 1.6 H AST 424 H ALT 403 H Alkaline Phosphatase 188 H Creatine Kinase NT-Pro-B Natriuret Pep Total Protein 8.4 H Albumin Lipase Urine Protein Urine Urobilinogen Acetaminophen < 10 L 07/25/20 07/25/20 07/25/20 00:22 03:35 04:25 WBC 10.6 H Hgb 11.5 L Hct MCV MCH 24.8 L MCHC 31.2 L RDW 16.9 H Lymph % (Auto) 11.0 L Absolute Neuts (auto) 8.3 H Seg Neutrophils % 78.2 H Seg Neuts % (Manual) Band Neutrophils % Lymphocytes % (Manual) Abs Neuts (Manual) Carbonic Acid ABG pH ABG pCO2 ABG HCO3 ABG Total CO2 Sodium 132.1 L 133.8 L Potassium 5.3 H Chloride 92 L 97 L Carbon Dioxide 16 L 12 L Anion Gap 24 H 25 H BUN 40 H 40 H Creatinine 1.78 H 1.77 H Est GFR ( Amer) 33 L 33 L Est GFR (MDRD) Non-Af 27 L 27 L Glucose 203 H 139 H POC Glucose Lactic Acid Total Bilirubin 2.4 H 2.5 H Direct Bilirubin 1.7 H 1.8 H AST 417 H 406 H ALT 436 H 401 H Alkaline Phosphatase 193 H 181 H Creatine Kinase 28 L NT-Pro-B Natriuret Pep Total Protein 8.3 H Albumin Lipase Urine Protein Urine Urobilinogen Acetaminophen 07/25/20 07/25/20 07/25/20 06:00 16:00 16:00 WBC 20.2 H Hgb 10.8 L Hct 35.8 L MCV MCH 24.6 L MCHC 30.3 L RDW 16.8 H Lymph % (Auto) Absolute Neuts (auto) Seg Neutrophils % Seg Neuts % (Manual) 80 H Band Neutrophils % 7 H Lymphocytes % (Manual) 7 L Abs Neuts (Manual) 17.8 H Carbonic Acid ABG pH ABG pCO2 ABG HCO3 ABG Total CO2 Sodium 129.9 L Potassium Chloride 93 L Carbon Dioxide 7 L* Anion Gap 30 H BUN 50 H Creatinine 2.63 H Est GFR ( Amer) 21 L Est GFR (MDRD) Non-Af 17 L Glucose 313 H POC Glucose Lactic Acid Total Bilirubin 3.5 H Direct Bilirubin 3.1 H AST 1179 H ALT 631 H Alkaline Phosphatase 166 H Creatine Kinase NT-Pro-B Natriuret Pep Total Protein Albumin 3.3 L Lipase Urine Protein 30 H Urine Urobilinogen 4.0 H Acetaminophen 07/25/20 07/25/20 07/25/20 16:00 16:00 16:00 WBC Hgb Hct MCV MCH MCHC RDW Lymph % (Auto) Absolute Neuts (auto) Seg Neutrophils % Seg Neuts % (Manual) Band Neutrophils % Lymphocytes % (Manual) Abs Neuts (Manual) Carbonic Acid 0.76 L ABG pH 7.17 L* ABG pCO2 25.4 L ABG HCO3 9.1 L ABG Total CO2 9.9 L Sodium Potassium Chloride Carbon Dioxide Anion Gap BUN Creatinine Est GFR ( Amer) Est GFR (MDRD) Non-Af Glucose POC Glucose Lactic Acid Total Bilirubin Direct Bilirubin AST ALT Alkaline Phosphatase Creatine Kinase NT-Pro-B Natriuret Pep 051125 H Total Protein Albumin Lipase 603.7 H Urine Protein Urine Urobilinogen Acetaminophen 07/25/20 07/25/20 07/25/20 16:15 16:29 19:32 WBC Hgb Hct MCV MCH MCHC RDW Lymph % (Auto) Absolute Neuts (auto) Seg Neutrophils % Seg Neuts % (Manual) Band Neutrophils % Lymphocytes % (Manual) Abs Neuts (Manual) Carbonic Acid ABG pH ABG pCO2 ABG HCO3 ABG Total CO2 Sodium Potassium Chloride Carbon Dioxide Anion Gap BUN Creatinine Est GFR ( Amer) Est GFR (MDRD) Non-Af Glucose POC Glucose 307 H 118 H Lactic Acid 13.0 H Total Bilirubin Direct Bilirubin AST ALT Alkaline Phosphatase Creatine Kinase NT-Pro-B Natriuret Pep Total Protein Albumin Lipase Urine Protein Urine Urobilinogen Acetaminophen - EKG Interpretation by Me Additional EKG results interpreted by me: 07/25/20 23:53 -year-old paced complexes at a rate of 61. QTc 569. EKG is similar to previous. Procedures - Central Line Right Femoral Time completed: 20:00 Consent obtained: No - emergent procedure Central line pre-insertion: Sterile PPE donned, Chloraprep applied, Sterile drapes applied Central line lumen type: Triple Ultrasound guided: Yes Line secured with sutures: Yes Central line post-insertion: Blood return from lumens, Biopatch applied, Sutured, Sterile dressing applied Number of attempts: 1 Complications: No - Intubation Orotracheal Time of Intubation: 20:00 Airway evaluation: Normal anatomy Intubation method: Orotracheal Blade type: Shruti Blade size: 3 Equipment used: Glidescope ETT secured at: Lips ETT secured at (cm): 22 Breath Sounds after Intubation: Equal End tidal CO2 confirmed: Yes Ventilator settings: AC Tidal volume: 500 FiO2: 100 Respirations: 15 PEEP: 5 Post Intubation Xray: Yes Intubation Complications: No complications Critical Care Note - Critical Care Note Total time excluding time spent on procedures (mins): 60 Comments: Upon my evaluation, this patient had a high probability of imminent or life- threatening deterioration due to cardiac arrest which required my direct attention, intervention, and personal management. I have personally provided 60 minutes of critical care time exclusive of time spent on separately billable procedures. Time includes review of laboratory data, radiology results, discussion with consultants, and monitoring for potential decompensation. Interventions were performed as documented above. Discharge - Discharge Clinical Impression: Disease of biliary tract, Lactic acidosis, Hypoglycemic disorder, Cardiac arrest, Metabolic acidosis Pneumonia Qualifiers: Pneumonia type: due to unspecified organism Laterality: left Lung location: lower lobe of lung Qualified Code(s): J18.9 - Pneumonia, unspecified organism Condition: Critical Disposition: [facility] Referrals: SHEN KEITA MD [Primary Care Provider] - Follow up as needed
[2020-07-26] MEDS ORDERED: ETOMIDATE INJ/PF 20 MG/10 ML SDV IV ONE ×2 (00:30)
[2020-07-26 00:44] VITALS: BP 101/55
[2020-07-26] MEDS ORDERED: EPINEPHRINE INJ 1 MG/10 ML DISP.SYRIN IV SCH (01:00)
[2020-07-26] MEDS ORDERED: EPINEPHRINE INJ 1 MG/10 ML DISP.SYRIN IV ONE (01:00)
--- NOTE | 2020-07-26 10:10 | EKG REPORT ---
SEVERITY:- ABNORMAL ECG - AV PACED RHYTHM : Confirmed by: Earl Chavez MD 26-Jul-2020 10:08:45
[2020-07-26 12:37] LABS: HEPATITS B SURFACE ANTIGEN Negative (Negative)
[2020-07-26 13:55] LABS: HEPATITIS C VIRUS ANTIBODY <0.1 s/co ratio (0.0-0.9)
== END 2020-07-26 00:36 | disposition short-term general hospital (02) ==
LOC: ER 22:54
DX: J18.9 Pneumonia, unspecified organism (principal); K83.9 Disease of biliary tract, unspecified; E11.649 Type 2 diabetes mellitus with hypoglycemia without coma; E87.2 Acidosis; R53.1 Weakness; R06.02 Shortness of breath; R05 Cough; I48.91 Unspecified atrial fibrillation; I50.9 Heart failure, unspecified; I11.0 Hypertensive heart disease with heart failure; E78.00 Pure hypercholesterolemia, unspecified; Z87.891 Personal history of nicotine dependence; Z99.81 Dependence on supplemental oxygen; Z88.6 Allergy status to analgesic agent; Z79.01 Long term (current) use of anticoagulants; Z79.4 Long term (current) use of insulin; I25.2 Old myocardial infarction; Z90.710 Acquired absence of both cervix and uterus; Z20.828 Contact with and (suspected) exposure to other viral communicable diseases
CPT/HCPCS: 93005 ×2; 96376; 99291; 92950; 96361; 51702; 96375; 96365; 96366; 96367; 96368; 36415; 87040; 82553; 82962; 80307 ×2; 82803; 82550; 83605; 83690; 85025; 87070; 80053; 81001; 84484; 80074; 83880; 71045; 94660; 93010 ×2; 36556; 76937; 31500; U0003; J3490 ×5; J0171 ×3; J3010; J1940 ×2; J2704; J1170; J1250; J7060 ×3; J7030; J7040; A9270; J3370; J0282 ×2; J0692; C9803; 87635; 94002